=== PATIENT | male | born 1955 | race Caucasian/White ===

== ENCOUNTER → 2016-04-29 | Outpatient (CLI) | payer MEDICARE ==
--- NOTE | 2016-04-29 13:16 | XR ---
EXAMINATION TYPE: XR chest 2V DATE OF EXAM: 04/29/2016 1:08 PM COMPARISON: CT chest and abdomen July 26, 2015. HISTORY: Cough. TECHNIQUE: Frontal and lateral views of the chest are obtained. FINDINGS: There is no focal air space opacity, pleural effusion, or pneumothorax seen. The cardiac silhouette size is within normal limits. An ectatic thoracic aorta is redemonstrated. The osseous st ructures are demineralized. Surgical change left clavicle is redemonstrated. Pulmonary nodules seen o n CT are less well seen on plain film but appropriate nonemergent CT follow-up is advised as per [employer] recommendations IMPRESSION: No suspicious acute infiltrate. No significant change from prior.
== END | disposition home or self-care (01) ==
LOC: RADXRMAIN 12:59
PROVIDERS: ATTEND Internal Medicine
DX: R05 Cough (principal)
CPT/HCPCS: 71020

== ENCOUNTER 2018-12-23 11:30 | Emergency (ER) | payer MEDICARE ==
[2018-12-23] MEDS ORDERED: KETOROLAC 30 MG/ML 1 ML VIAL IM STA (12:09)
[2018-12-23] MEDS ORDERED: methylPREDNISolone SOD SUCCI 125 MG/2 ML VIAL IM ONE (12:09)
--- NOTE | 2018-12-23 12:10 | ED ---
General Adult HPI - General Chief complaint: Recheck/Abnormal Lab/Rx Stated complaint: pain all over Time Seen by Provider: 12/23/18 11:39 Source: patient, RN notes reviewed Mode of arrival: ambulatory Limitations: no limitations - History of Present Illness Initial comments: 63-year-old male with a past medical history of fibromyalgia, rheumatoid arthr itis presents to the emergency department for a chief complaint of pain all over. Patient states he has pain everywhere. States this consistent with his fibromyalgia. States he was told to follow-up with pain management but was only given options in [place] so has not yet done so. States he went to primary care for a steroid shot yesterday but they would not give it to him and he stated he needed to follow up with pain management. He states today he is here for a pain shot. Denies any other worsening symptoms. Denies any significant back pain. Denies fevers or chills. Patient has no other complaints at this time including shortness of breath, chest pain, abdominal pain, nausea or vomiting, headache, or visual changes. - Related Data Home Medications Medication Instructions Recorded Confirmed Pramipexole Di-HCl [Mirapex] 0.75 mg PO TID 06/04/15 08/25/15 Pregabalin [Lyrica] 75 mg PO BID 06/20/15 08/25/15 Previous Rx's Medication Instructions Recorded Lidocaine 5% Patch [Lidoderm] 1 patch TOPICAL DAILY PRN #1 patch 08/25/15 predniSONE 10 mg PO DIRECTED #47 tab 08/25/15 Allergies Allergy/AdvReac Type Severity Reaction Status Date / Time No Known Allergies Allergy Verified 12/23/18 11:37 Review of Systems ROS Statement: Those systems with pertinent positive or pertinent negative responses have been documented in the HPI. ROS Other: All systems not noted in ROS Statement are negative. Past Medical History Past Medical History: Fibromyalgia, Rheumatoid Arthritis (RA), Sleep Apnea/CPAP/BIPAP Additional Past Medical History / Comment(s): restless leg syndrome, shingles History of Any Multi-Drug Resistant Organisms: None Reported Past Surgical History: Orthopedic Surgery Additional Past Surgical History / Comment(s): skin CA removals Past Psychological History: Depression Smoking Status: Never smoker Past Alcohol Use History: Daily, Occasional Past Drug Use History: None Reported General Exam Limitations: no limitations General appearance: alert, in no apparent distress Head exam: Present: atraumatic, normocephalic, normal inspection Eye exam: Present: normal appearance, PERRL, EOMI. Absent: scleral icterus, conjunctival injection, periorbital swelling ENT exam: Present: normal exam, mucous membranes moist Neck exam: Present: normal inspection, full ROM. Absent: tenderness, meningismus, lymphadenopathy Respiratory exam: Present: normal lung sounds bilaterally. Absent: respiratory distress, wheezes, rales, rhonchi, stridor Cardiovascular Exam: Present: regular rate, normal rhythm, normal heart sounds. Absent: systolic murmur, diastolic murmur, rubs, gallop, clicks GI/Abdominal exam: Present: soft, normal bowel sounds. Absent: distended, tenderness, guarding, rebound, rigid Extremities exam: Present: other (Moving all extremities, no evidence of trauma.) Neurological exam: Present: alert, oriented X3, CN II-XII intact Psychiatric exam: Present: normal affect, normal mood Course Vital Signs 12/23/18 12/23/18 11:34 12:44 Temperature 99.4 F 98.9 F Pulse Rate 107 H 110 H Respiratory 18 16 Rate Blood Pressure 140/81 125/101 O2 Sat by Pulse 96 94 L Oximetry Medical Decision Making - Medical Decision Making 63-year-old male presents to the emergency department for a chief pain all over. States this feels exactly consistent with his fibromyalgia. States he is supposed to follow up with pain management but he does not want to drive down to [place] where he was referred. States his primary care will the longer give him a steroid shot because she wants him to see pain management. Patient's temperature is initially 99.4 however this rechecked 98.9, afebrile. Heart rate is 99 when I'm in the room. States he does feel anxious being in the emergency department. Exam is unremarkable. Patient moving all extremities. No abdominal pain. No cough or congestion. Patient was given Toradol and steroid shot. Feeling somewhat better at this time. I did give patient name to a pain management clinic here in [place]. However heis to follow up with primary care for this official referral. Recommended he return here if he is any worsening symptoms. Disposition Clinical Impression: Generalized pain, History of fibromyalgia Disposition: HOME SELF-CARE Condition: Good Instructions (If sedation given, give patient instructions): Fibromyalgia (ED) Additional Instructions: Please follow up with primary care in 1-2 days. Return here to the emergency department if you have any worsening symptoms. Is patient prescribed a controlled substance at d/c from ED?: No Referrals: Chris Fine MD [Primary Care Provider] - 1-2 days Time of Disposition: 13:05
[2018-12-23 12:46] VITALS: RESP 16; TEMP 98.9
[2018-12-23 13:46] VITALS: BP 148/73; PULSE 98
== END 2018-12-23 13:44 | disposition home or self-care (01) ==
LOC: EC 11:30
DX: M79.7 Fibromyalgia (principal); G25.81 Restless legs syndrome; G47.30 Sleep apnea, unspecified; Z99.89 Dependence on other enabling machines and devices; Z79.899 Other long term (current) drug therapy
CPT/HCPCS: 99283; 96372 ×2; J2930; J1885

== ENCOUNTER 2018-12-30 11:41 | Emergency (ER) | payer MEDICARE ==
[2018-12-30] MEDS ORDERED: SODIUM CHLORIDE 0.9% 500 ML 500 ML IV STA (12:33)
[2018-12-30] MEDS ORDERED: MORPHINE SULFATE 4 MG/ML SYRINGE IVP STA (12:34)
[2018-12-30] MEDS ORDERED: KETOROLAC 30 MG/ML 1 ML VIAL IVP STA (12:34)
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
--- NOTE | 2018-12-30 13:06 | ED ---
Recheck HPI - General Chief Complaint: Recheck/Abnormal Lab/Rx Stated Complaint: Hurts all over Time Seen by Provider: 12/30/18 12:05 Source: patient, RN notes reviewed, old records reviewed Mode of arrival: ambulatory Limitations: no limitations - History of Present Illness Initial Comments: This is a 63-year-old male the ER for evaluation. Patient presents today for evaluation of recheck medication refill. Patient has history of fibromyalgia and states pain medication currently. Patient was just in the ER recently for similar visit. No recent trauma no other complaints no fevers or nausea vomiting diarrhea. No other change in medication. Patient does have pain medication appointment this week MD Complaint: medication refill request -: week(s) Returns Today for: request for prescription Symptoms Since Prior Visit: worsening pain Context: ran out of medication Associated Symptoms: none Treatments Prior to Arrival: other medications - Related Data Home Medications Medication Instructions Recorded Confirmed Pramipexole Di-HCl [Mirapex] 0.75 mg PO TID 06/04/15 12/30/18 DULoxetine HCL [Cymbalta] 60 mg PO DAILY 12/30/18 12/30/18 Ibuprofen [Motrin Ib] 400 mg PO TID 12/30/18 12/30/18 Allergies Allergy/AdvReac Type Severity Reaction Status Date / Time No Known Allergies Allergy Verified 12/30/18 12:13 Review of Systems ROS Statement: Those systems with pertinent positive or pertinent negative responses have been documented in the HPI. ROS Other: All systems not noted in ROS Statement are negative. Past Medical History Past Medical History: Fibromyalgia, Rheumatoid Arthritis (RA), Sleep Apnea/CPAP/BIPAP Additional Past Medical History / Comment(s): restless leg syndrome, shingles History of Any Multi-Drug Resistant Organisms: None Reported Past Surgical History: Orthopedic Surgery Additional Past Surgical History / Comment(s): skin CA removals Past Psychological History: Depression Smoking Status: Never smoker Past Alcohol Use History: Daily, Occasional Past Drug Use History: None Reported General Exam Limitations: no limitations General appearance: alert, in no apparent distress Head exam: Present: atraumatic, normocephalic, normal inspection Eye exam: Present: normal appearance, PERRL, EOMI. Absent: scleral icterus, conjunctival injection, periorbital swelling ENT exam: Present: normal exam, mucous membranes moist Neck exam: Present: normal inspection. Absent: tenderness, meningismus, lymphadenopathy Respiratory exam: Present: normal lung sounds bilaterally. Absent: respiratory distress, wheezes, rales, rhonchi, stridor Cardiovascular Exam: Present: regular rate, normal rhythm, normal heart sounds. Absent: systolic murmur, diastolic murmur, rubs, gallop, clicks GI/Abdominal exam: Present: soft, normal bowel sounds. Absent: distended, tenderness, guarding, rebound, rigid Extremities exam: Present: normal inspection, full ROM, normal capillary refill. Absent: tenderness, pedal edema, joint swelling, calf tenderness Back exam: Present: normal inspection Neurological exam: Present: alert, oriented X3, CN II-XII intact Psychiatric exam: Present: normal affect, normal mood Skin exam: Present: warm, dry, intact, normal color. Absent: rash Course Vital Signs 12/30/18 11:48 Temperature 98.5 F Pulse Rate 107 H Respiratory 18 Rate Blood Pressure 155/89 O2 Sat by Pulse 95 Oximetry - Reevaluation(s) Reevaluation #1: 12/30/18 13:03 Medical record prior ER visit medication list reviewed Medical Decision Making - Medical Decision Making This 63 male the ER for evaluation of medication refill. Patient can be discharged home, will continue follow-up for pain control Disposition Clinical Impression: Generalized pain, History of fibromyalgia Disposition: HOME SELF-CARE Condition: Good Instructions (If sedation given, give patient instructions): Medicine Refill (ED) Is patient prescribed a controlled substance at d/c from ED?: No Referrals: Chris Fine MD [Primary Care Provider] - 1-2 days
[2018-12-30] MEDS ORDERED: ACET/COD 300 MG/30 MG STARTER PACK 6 TAB BTL PO STA (13:08)
[2018-12-30] MEDS ORDERED: Acetaminophen-Codeine 300-30mg TAB PO STA (13:08)
[2018-12-30 13:58] VITALS: BP 132/97; PULSE 103; RESP 16; TEMP 98.1
== END 2018-12-30 13:58 | disposition home or self-care (01) ==
LOC: EC 11:41
DX: Z76.0 Encounter for issue of repeat prescription (principal); R52 Pain, unspecified; M79.7 Fibromyalgia; F32.9 Major depressive disorder, single episode, unspecified; M06.9 Rheumatoid arthritis, unspecified; G25.81 Restless legs syndrome; G47.30 Sleep apnea, unspecified; Z79.1 Long term (current) use of non-steroidal anti-inflammatories (NSAID); Z79.899 Other long term (current) drug therapy; Z99.89 Dependence on other enabling machines and devices; Z85.828 Personal history of other malignant neoplasm of skin
CPT/HCPCS: 99283

== ENCOUNTER 2019-01-24 17:20 | Emergency (ER) | payer MEDICARE ==
[2019-01-24 17:29] VITALS: BP 172/100; PULSE 70; RESP 16; TEMP 99
--- NOTE | 2019-01-24 17:34 | ED ---
Recheck HPI - General Chief Complaint: Recheck/Abnormal Lab/Rx Stated Complaint: fibro pain Time Seen by Provider: 01/24/19 17:33 Source: patient Mode of arrival: ambulatory Limitations: no limitations - History of Present Illness Initial Comments: 63-year-old male diagnosed with hx of fibromyalgia presenting today for pain all over. Patient states he has sees Dr. neda morrison often. He states that steroids often help he states if he is given injection and a 5 day course of prednisone this helped alleviate his symptoms. Patient states he has been e valuated both [facility] as well as rheumatology import, she again and they have come up with a diagnosis of fibromyalgia. He states he is seeking a second opinion at the [facility]. Patient denies any new symptoms today he states this is very typical pain denies any new or concerning changes. Patient states it is from below the neck down denies any visual changes diplopia headache nausea vomiting dizziness. Patient denies any weakness new back pain. R control or any other concerning signs or symptoms. Denies fevers. Remaining ROS (-). - Related Data Home Medications Medication Instructions Recorded Confirmed Pramipexole Di-HCl [Mirapex] 0.75 mg PO TID 06/04/15 12/30/18 DULoxetine HCL [Cymbalta] 60 mg PO DAILY 12/30/18 12/30/18 Ibuprofen [Motrin Ib] 400 mg PO TID 12/30/18 12/30/18 Previous Rx's Medication Instructions Recorded Naproxen [Naprosyn] 500 mg PO Q12HR PRN #30 tab 12/30/18 predniSONE 50 mg PO DAILY #5 tab 12/30/18 predniSONE 50 mg PO DAILY 5 Days #5 tab 01/24/19 Allergies Allergy/AdvReac Type Severity Reaction Status Date / Time No Known Allergies Allergy Verified 12/30/18 12:13 Review of Systems ROS Statement: Those systems with pertinent positive or pertinent negative responses have been documented in the HPI. ROS Other: All systems not noted in ROS Statement are negative. Past Medical History Past Medical History: Fibromyalgia, Rheumatoid Arthritis (RA), Sleep Apnea/CPAP/BIPAP Additional Past Medical History / Comment(s): restless leg syndrome, shingles History of Any Multi-Drug Resistant Organisms: None Reported Past Surgical History: Orthopedic Surgery Additional Past Surgical History / Comment(s): skin CA removals Past Psychological History: Depression Smoking Status: Never smoker Past Alcohol Use History: Daily, Occasional Past Drug Use History: None Reported General Exam - General Exam Comments Initial Comments: General: The patient is awake and alert, in no distress Eye: Pupils are equal, round and reactive to light, extra-ocular movements are intact. No nystagmus. There is normal conjunctiva bilaterally. No signs of i cterus. Ears, nose, mouth and throat: There are moist mucous membranes and no oral lesions. Neck: The neck is supple, there is no tenderness or JVD. Cardiovascular: There is a regular rate and rhythm. No murmur, rub or gallop is appreciated. Respiratory: Lungs are clear to auscultation, respirations are non-labored, breath sounds are equal. No wheezes, stridor, rales, or rhonchi. Musculoskeletal: Normal ROM, no tenderness. Strength 5/5. Sensation intact. Radial pulses equal bilaterally 2+. Neurological: A&O x 3. CN II-XII intact grossly, There are no obvious motor or sensory deficits. Coordination appears grossly intact. Speech is normal. Skin: Skin is warm and dry and no rashes. Pain to palpation over UE, LE b/l. Psychiatric: Cooperative, appropriate mood & affect, normal judgment. Limitations: no limitations Course Vital Signs 01/24/19 17:28 Temperature 99.0 F Pulse Rate 70 Respiratory 16 Rate Blood Pressure 172/100 O2 Sat by Pulse 100 Oximetry Medical Decision Making - Medical Decision Making 63-year-old male history of fibromyalgia presents emergency department for chief complaint of fibromyalgia flare. Patient states this happens frequently. He states that this feels very typical to his recurrent might fibromyalgia exacerbations. He states is given steroids and this seems to help. Patient states he presented to the ER becasue he cannot wait until Friday for primary care. Patient has no other complaints. There is no alarming PE findings.. Patient states he was just like the IV injection and outpatient steroids. Patient appears well no signs acute distress. Patient does have elevated blood pressure he states this is due to discomfort denies any chest pain short of breath, headache dizziness or any other complaints. Patient discharged appearing well after discussing the case with Dr. Koo. Disposition Clinical Impression: Chronic pain, History of fibromyalgia Disposition: HOME SELF-CARE Condition: Good Additional Instructions: Please use medication as discussed. Please follow-up with family doctor in the next 2 days. Please return to emergency room if the symptoms increase or worsen or for any other concerns. Prescriptions: predniSONE 50 mg PO DAILY 5 Days #5 tab Is patient prescribed a controlled substance at d/c from ED?: No Referrals: Chris Fine MD [Primary Care Provider] - 1-2 days Time of Disposition: 17:43
[2019-01-24] MEDS ORDERED: methylPREDNISolone SOD SUCCI 125 MG/2 ML VIAL IM ONE (17:42)
== END 2019-01-24 18:02 | disposition home or self-care (01) ==
LOC: EC 17:20
DX: G89.29 Other chronic pain (principal); M79.7 Fibromyalgia; R03.0 Elevated blood-pressure reading, without diagnosis of hypertension; M06.9 Rheumatoid arthritis, unspecified; F32.9 Major depressive disorder, single episode, unspecified; G25.81 Restless legs syndrome; G47.30 Sleep apnea, unspecified; Z99.89 Dependence on other enabling machines and devices; Z79.1 Long term (current) use of non-steroidal anti-inflammatories (NSAID); Z79.899 Other long term (current) drug therapy; Z85.828 Personal history of other malignant neoplasm of skin
CPT/HCPCS: 96372; 99283; J2930

== ENCOUNTER → 2019-09-08 | Outpatient (CLI) | payer MEDICARE ==
--- NOTE | 2019-09-08 14:01 | NM ---
EXAMINATION TYPE: NM stress lexiscan cardiolite DATE OF EXAM: 09/08/2019 COMPARISON: NONE HISTORY: Chest pain and difficulty in breathing. TECHNIQUE: After the intravenous administration of 9.6 mCi Tc 99m Sestamibi - Cardiolite resting SPE CT images acquired 60 minutes post injection. The patient received 0.4mg Lexiscan, 25.9 mCi Tc 99m Sestamibi - Stress images obtained [address] injection FINDINGS: Review of stress and rest SPECT images demonstrates no distinct perfusion abnormality. Gated analysi s shows normal wall motion with an estimated left ventricular ejection fraction of 49 %. IMPRESSION: No scintigraphic evidence for reversible ischemia.
--- NOTE | 2019-09-08 16:42 | EST ---
EXERCISE STRESS AGE: 64 SEX: M HT: 5'11" WT: 194 lbs. PROTOCOL: Lexiscan STAGE: DURATION OF EXERCISE: HEART RATE REST: 71 BLOOD PRESSURE REST: 141/92 MAXIMUM HEART RATE ACHIEVED: 97 MAXIMUM BLOOD PRESSURE: 165/92 85% MPHR: 100% MPHR: METS: INDICATIONS: Chest pain, abnormal EKG. CLINICAL INFORMATION: Baseline EKG revealed normal sinus rhythm without any significant ST-T changes. Rare PVCs were noted. The PVCs were isolated in fashion. With Lexiscan admitted, administration heart rate changed from 71-97 beats per minute, blood pressure changed from 141/92 to 165/91. PVCs seemed to persist, but patient did not have any significant symptoms. By EKG criteria, this is unremarkable Lexiscan stress test with isolated PVCs. No ST-segment changes to indicate ischemia. The nuclear scan results, which are more pertinent will be reported by the radiologist. MMLESLIEL / IJN: [id number] /
== END | disposition home or self-care (01) ==
LOC: RADNMMAIN 07:59
PROVIDERS: ATTEND Internal Medicine
DX: R07.2 Precordial pain (principal); R94.31 Abnormal electrocardiogram [ECG] [EKG]
CPT/HCPCS: 93017; 78452; A9500

== ENCOUNTER 2020-03-04 13:01 | Emergency (ER) | payer MEDICARE ==
[2020-03-04 13:46] VITALS: TEMP 98.6
[2020-03-04] MEDS ORDERED: OXYMETAZOLINE 0.05% NASL SPRAY 1 SPRAY BOTTLE NASAL STA (14:48)
[2020-03-04 16:03] VITALS: BP 141/90; PULSE 63; RESP 18
--- NOTE | 2020-03-04 16:15 | ED ---
General Adult HPI - General Chief complaint: ENT Stated complaint: nose bleed Time Seen by Provider: 03/04/20 14:32 Source: patient, RN notes reviewed, old records reviewed Mode of arrival: ambulatory Limitations: no limitations - History of Present Illness Initial comments: 64-year-old male patient to ED for left epistaxis. Patient reports that it has been ongoing waxing and waning since about 10:00 this morning. Denies any recent falls or trauma. Denies any bleeding from any other areas. Denies any other complaints. Systemic: Pt denies fatigue, fever/chills, rash. Pt denies weakness, night sweats, weight loss. Neuro: Pt denies headache, visual disturbances, syncope or pre-syncope. HEENT: Pt denies ocular discharge or irritation, otalgia, rhinorrhea, pharyngitis or notable lymphadenopathy. Cardiopulmonary: Pt denies chest pain, SOB, heart palpitations, dyspnea on exertion. Abdominal/GI: Pt denies abdominal pain, n/v/d. : Pt denies dysuria, burning w/ urination, frequency/urgency. Denies new onset urinary or bowel incontinence. MSK: Pt denies myalgia, loss of strength or function in extremities. Neuro: Pt denies new onset weakness, paresthesias. - Related Data Home Medications Medication Instructions Recorded Confirmed Pramipexole Di-HCl [Mirapex] 0.75 mg PO TID 06/04/15 12/30/18 DULoxetine HCL [Cymbalta] 60 mg PO DAILY 12/30/18 12/30/18 Ibuprofen [Motrin Ib] 400 mg PO TID 12/30/18 12/30/18 Previous Rx's Medication Instructions Recorded Naproxen [Naprosyn] 500 mg PO Q12HR PRN #30 tab 12/30/18 predniSONE 50 mg PO DAILY #5 tab 12/30/18 predniSONE 50 mg PO DAILY 5 Days #5 tab 01/24/19 Allergies Allergy/AdvReac Type Severity Reaction Status Date / Time No Known Allergies Allergy Verified 03/04/20 13:46 Review of Systems ROS Statement: Those systems with pertinent positive or pertinent negative responses have been documented in the HPI. ROS Other: All systems not noted in ROS Statement are negative. Past Medical History Past Medical History: Fibromyalgia, Rheumatoid Arthritis (RA), Sleep Apnea/CPAP/BIPAP Additional Past Medical History / Comment(s): restless leg syndrome, shingles History of Any Multi-Drug Resistant Organisms: None Reported Past Surgical History: Orthopedic Surgery Additional Past Surgical History / Comment(s): skin CA removals Past Psychological History: Depression Smoking Status: Never smoker Past Alcohol Use History: Daily, Occasional Past Drug Use History: None Reported General Exam - General Exam Comments Initial Comments: Constitutional: NAD, AOX3, Pt has pleasant affect. HEENT: NC/AT, trachea midline, neck supple, no lymphadenopathy. Posterior pharynx non erythematous, without exudates. External ears appear normal, without discharge. Mucous membranes moist. Eyes PERRLA, EOM intact. There is no scleral icterus. No pallor noted. No septal hematoma and no active bleeding noted. Cardiopulmonary: RRR, no murmurs, rubs or gallops, no JVD noted. Lungs CTAB in anterior and posterior [place]. No peripheral edema. Abdominal exam: Abdomen soft and non-distended. Abdomen non-tender to palpation in all 4 quadrants. Bowel sounds active in LLQ. No hepatosplenomegaly. No ecchymosis Neuro: CN II-XII grossly intact. No nuchal rigidity. MSK: Full active ROM in upper and lower extremities, 5/5 stregnth. Limitations: no limitations Course Vital Signs 03/04/20 03/04/20 13:44 16:02 Temperature 98.6 F Pulse Rate 53 L 63 Respiratory 20 18 Rate Blood Pressure 146/90 141/90 O2 Sat by Pulse 96 99 Oximetry Medical Decision Making - Medical Decision Making 64-year-old male patient to ED for left epistaxis. I do believe this is anterior in nature. Vital signs are stable, afebrile. Hemostasis achieved with Afrin nasal clamp. No active bleeding. Patient discharged with outpatient follow-up and return precautions. Case discussed with Dr. Underwood. Disposition Clinical Impression: Epistaxis Disposition: HOME SELF-CARE Condition: Stable Instructions (If sedation given, give patient instructions): Nosebleed (ED) Additional Instructions: Follow up with PCP tomorrow. If nosebleed returns you may use one spray of afrin in the affected nostril and then nasal clamp for 30 minutes. If this does not work return to ED for packing. If any other new concerning symptoms develop return to ED. Is patient prescribed a controlled substance at d/c from ED?: No Referrals: Rohan Eid MD [Primary Care Provider] - 1-2 days
== END 2020-03-04 16:20 | disposition home or self-care (01) ==
LOC: EC 13:01
DX: R04.0 Epistaxis (principal); M79.7 Fibromyalgia; M06.9 Rheumatoid arthritis, unspecified; G25.81 Restless legs syndrome; G47.30 Sleep apnea, unspecified; F32.9 Major depressive disorder, single episode, unspecified; Z79.899 Other long term (current) drug therapy; Z79.1 Long term (current) use of non-steroidal anti-inflammatories (NSAID); Z99.89 Dependence on other enabling machines and devices; Z85.828 Personal history of other malignant neoplasm of skin
CPT/HCPCS: 99283

== ENCOUNTER 2020-04-14 12:32 | Observation (INO) | payer MEDICARE ==
[2020-04-14] MEDS ORDERED: SODIUM CHLORIDE 0.9% 1,000 ML IV ONE (12:55)
--- NOTE | 2020-04-14 12:58 | ED ---
SOB HPI - General Chief Complaint: Shortness of Breath Stated Complaint: SOB Time Seen by Provider: 04/14/20 12:42 Source: patient, RN notes reviewed, old records reviewed Mode of arrival: ambulatory Limitations: no limitations - History of Present Illness Initial Comments: This Patient is a 64-year-old male with one week of fatigue and poor appetite, d iarrhea, shortness of breath. Patient states his loss of sense of taste. Patient reports that he has history of rheumatoid arthritis recently finished a steroid taper 4 days ago. Patient denies any current chest pain. Denies abdominal pain. Just feels generally very weak and fatigued. He denies any known exposure to Covid 19 infection at this time. - Related Data Home Medications Medication Instructions Recorded Confirmed Pramipexole Di-HCl [Mirapex] 0.75 mg PO TID 06/04/15 04/14/20 Escitalopram [Lexapro] 20 mg PO DAILY 04/14/20 04/14/20 Gabapentin [Neurontin] 400 mg PO BID 04/14/20 04/14/20 Ibuprofen [Motrin] 800 mg PO Q8H PRN 04/14/20 04/14/20 Leflunomide 20 mg PO DAILY 04/14/20 04/14/20 predniSONE 20 mg PO DIRECTED 04/14/20 04/14/20 traZODone HCL 100 mg PO HS PRN 04/14/20 04/14/20 Allergies Allergy/AdvReac Type Severity Reaction Status Date / Time No Known Allergies Allergy Verified 04/14/20 13:33 Review of Systems ROS Statement: Those systems with pertinent positive or pertinent negative responses have been documented in the HPI. ROS Other: All systems not noted in ROS Statement are negative. Past Medical History Past Medical History: Fibromyalgia, Rheumatoid Arthritis (RA), Sleep Apnea/CPAP/BIPAP Additional Past Medical History / Comment(s): restless leg syndrome, shingles History of Any Multi-Drug Resistant Organisms: None Reported Past Surgical History: Orthopedic Surgery Additional Past Surgical History / Comment(s): skin CA removals Past Psychological History: Depression Smoking Status: Never smoker Past Alcohol Use History: Daily, Occasional Past Drug Use History: None Reported General Exam - General Exam Comments Initial Comments: Weak 64-year-old male. Limitations: no limitations General appearance: alert, in no apparent distress Head exam: Present: atraumatic, normocephalic, normal inspection Eye exam: Present: normal appearance, PERRL, EOMI. Absent: scleral icterus, conjunctival injection, periorbital swelling ENT exam: Present: normal exam, mucous membranes moist Neck exam: Present: normal inspection. Absent: tenderness, meningismus, lymphadenopathy Respiratory exam: Present: wheezes. Absent: normal lung sounds bilaterally, respiratory distress, rales, rhonchi, stridor Cardiovascular Exam: Present: regular rate, normal rhythm, normal heart sounds. Absent: systolic murmur, diastolic murmur, rubs, gallop, clicks GI/Abdominal exam: Present: soft, normal bowel sounds. Absent: distended, tenderness, guarding, rebound, rigid Back exam: Present: normal inspection Neurological exam: Present: alert, oriented X3, CN II-XII intact Psychiatric exam: Present: normal affect, normal mood Skin exam: Present: warm, dry, intact, normal color. Absent: rash Course Vital Signs 04/14/20 04/14/20 12:35 13:08 Temperature 99 F Pulse Rate 60 Respiratory 18 16 Rate Blood Pressure 171/114 O2 Sat by Pulse 98 Oximetry Medical Decision Making - Medical Decision Making 64-year-old male presents with cough shortness of breath wheezing. He complains of nausea and poor appetite. Feeling generally weak. Patient's symptoms are concerning for [place]. Infection however his rapid test is negative. Patient's labs reviewed and mildly elevated CRP. The Patient has conversation his oxygen will dipped to 89-90% on room air. Was placed on 2 L of oxygen. He has a history of rheumatoid arthritis on immunosuppressive medication. Patient's chest x-ray shows concern for groundglass opacities. A CT was completed showing no signs of PE. I discussed the case with Dr. Shelton discussed case with [facility] [place] physician. Patient will be admitted at this time for observation, placed on steroids, rocephin. - Lab Data Result diagrams: 04/14/20 13:02 04/14/20 13:02 Lab Results 04/14/20 04/14/20 04/14/20 Range/Units 13: 13: 13:02 WBC 5.0 (3.8-10.6) k/uL RBC 4.65 (4.30-5.90) m/uL Hgb 14.5 (13.0-17.5) gm/dL Hct 43.1 (39.0-53.0) % MCV 92.7 (80.0-100.0) fL MCH 31.2 (25.0-35.0) pg MCHC 33.6 (31.0-37.0) g/dL RDW 14.1 (11.5-15.5) % Plt Count 285 (150-450) k/uL MPV 6.5 Neutrophils % 69 % Lymphocytes % 13 % Monocytes % 8 % Eosinophils % 4 % Basophils % 3 % Neutrophils # 3.4 (1.3-7.7) k/uL Lymphocytes # 0.6 L (1.0-4.8) k/uL Monocytes # 0.4 (0-1.0) k/uL Eosinophils # 0.2 (0-0.7) k/uL Basophils # 0.1 (0-0.2) k/uL PT 9.5 (9.0-12.0) sec INR 0.9 (<1.2) APTT 26.4 (22.0-30.0) sec D-Dimer 1.16 H (<0.60) mg/L FEU Sodium 135 L (137-145) mmol/L Potassium 4.0 (3.5-5.1) mmol/L Chloride 103 (98-107) mmol/L Carbon Dioxide 27 (22-30) mmol/L Anion Gap 5 mmol/L BUN 12 (9-20) mg/dL Creatinine 0.86 (0.66-1.25) mg/dL Est GFR (CKD-EPI)AfAm >90 (>60 ml/min/1.73 sqM) Est GFR (CKD-EPI)NonAf >90 (>60 ml/min/1.73 sqM) Glucose 156 H (74-99) mg/dL Plasma Lactic Acid Evin (0.7-2.0) mmol/L Calcium 9.7 (8.4-10.2) mg/dL Magnesium 2.0 (1.6-2.3) mg/dL Total Bilirubin 0.9 (0.2-1.3) mg/dL AST 41 (17-59) U/L ALT 30 (4-49) U/L Alkaline Phosphatase 114 (38-126) U/L Lactate Dehydrogenase 856 H (313-618) U/L C-Reactive Protein 27.2 H (<10.0) mg/L Total Protein 7.6 (6.3-8.2) g/dL Albumin 3.9 (3.5-5.0) g/dL Coronavirus (PCR) (Not Detectd) 04/14/20 04/14/20 Range/Units 13:02 13:05 WBC (3.8-10.6) k/uL RBC (4.30-5.90) m/uL Hgb (13.0-17.5) gm/dL Hct (39.0-53.0) % MCV (80.0-100.0) fL MCH (25.0-35.0) pg MCHC (31.0-37.0) g/dL RDW (11.5-15.5) % Plt Count (150-450) k/uL MPV Neutrophils % % Lymphocytes % % Monocytes % % Eosinophils % % Basophils % % Neutrophils # (1.3-7.7) k/uL Lymphocytes # (1.0-4.8) k/uL Monocytes # (0-1.0) k/uL Eosinophils # (0-0.7) k/uL Basophils # (0-0.2) k/uL PT (9.0-12.0) sec INR (<1.2) APTT (22.0-30.0) sec D-Dimer (<0.60) mg/L FEU Sodium (137-145) mmol/L Potassium (3.5-5.1) mmol/L Chloride (98-107) mmol/L Carbon Dioxide (22-30) mmol/L Anion Gap mmol/L BUN (9-20) mg/dL Creatinine (0.66-1.25) mg/dL Est GFR (CKD-EPI)AfAm (>60 ml/min/1.73 sqM) Est GFR (CKD-EPI)NonAf (>60 ml/min/1.73 sqM) Glucose (74-99) mg/dL Plasma Lactic Acid Evin 1.3 (0.7-2.0) mmol/L Calcium (8.4-10.2) mg/dL Magnesium (1.6-2.3) mg/dL Total Bilirubin (0.2-1.3) mg/dL AST (17-59) U/L ALT (4-49) U/L Alkaline Phosphatase (38-126) U/L Lactate Dehydrogenase (313-618) U/L C-Reactive Protein (<10.0) mg/L Total Protein (6.3-8.2) g/dL Albumin (3.5-5.0) g/dL Coronavirus (PCR) Not Detected (Not Detectd) 04/14/20 13:09 Patient's age performed at [age] and showed sinus tachycardia with occasional PACs left axis deviation. Possible anterior infarct. Ventricular rate of 113 bpm.. Was 126 ms. QRS duration is 86 seconds. QT QTc is 24/444 ms. - Radiology Data Radiology results: report reviewed Patchy opacities in the mid lower lungs and air for the infectious or inflammatory etiology. CT shows no pulmonary embolus identified. No aortic dissection. Ectasia of the ascending aorta measuring 4.5 cm. Patchy groundglass opacities and densities t hroughout the lungs concerning for infectious and inflammatory process. No specific stable small nodules in the right lower lobe measuring 9 mm Disposition Clinical Impression: Suspected COVID-19 virus infection, Ground glass opacity present on imaging of lung, Hypoxia Disposition: ADMITTED IP TO THIS HOSP Condition: Stable Is patient prescribed a controlled substance at d/c from ED?: No Referrals: Rohan Eid MD [Primary Care Provider] - 1-2 days Time of Disposition: 15:43
[2020-04-14 13:13] LABS: Basophils # (A) 0.1 k/uL (0-0.2); Basophils % (A) 3 %; Eosinophils # (A) 0.2 k/uL (0-0.7); Eosinophils % (A) 4 %; HCT 43.1 % (39.0-53.0); HGB 14.5 gm/dL (13.0-17.5); Lymphocytes # (A) 0.6 k/uL (1.0-4.8); Lymphocytes % (A) 13 %; MCH 31.2 pg (25.0-35.0); MCHC 33.6 g/dL (31.0-37.0); MCV 92.7 fL (80.0-100.0); Mean Platelet Volume 6.5; Monocytes # (A) 0.4 k/uL (0-1.0); Monocytes % (A) 8 %; Neutrophils # (A) 3.4 k/uL (1.3-7.7); Neutrophils % (A) 69 %; Platelet Count 285 k/uL (150-450); RBC 4.65 m/uL (4.30-5.90); RDW 14.1 % (11.5-15.5)
[2020-04-14] MEDS: SODIUM CHLORIDE 0.9% 1,000 ML IV SCH ×2 (13:16→19:48)
[2020-04-14 13:26] LABS: ALT 30 U/L (4-49); African American GFR (CKD) >90 (>60 ml/min/1.73 sqM); Albumin 3.9 g/dL (3.5-5.0); Anion Gap 5 mmol/L; Blood Urea Nitrogen 12 mg/dL (9-20); C Reactive Protein 27.2 mg/L (<10.0); Calcium 9.7 mg/dL (8.4-10.2); Carbon Dioxide 27 mmol/L (22-30); Chloride 103 mmol/L (98-107); Glucose 156 mg/dL (74-99); LDH 856 U/L (313-618); Non-African American GFR(CKD) >90 (>60 ml/min/1.73 sqM); Sodium 135 mmol/L (137-145); Total Bilirubin 0.9 mg/dL (0.2-1.3); Total Protein 7.6 g/dL (6.3-8.2)
[2020-04-14 13:28] LABS: INR 0.9 (<1.2); Partial Thromboplastin Time 26.4 sec (22.0-30.0); Prothrombin Time 9.5 sec (9.0-12.0)
[2020-04-14 13:32] LABS: AST 41 U/L (17-59); Alkaline Phosphatase 114 U/L (38-126)
--- NOTE | 2020-04-14 13:48 | XR ---
EXAM: XR Chest, 1 View CLINICAL HISTORY: ITS.REASON XR Reason: Suspected COVID-19 pneumonia TECHNIQUE: Frontal view of the chest. COMPARISON: Chest radiograph on 04/29/2016 FINDINGS: Hardware: None. Lungs/pleura: Patchy opacities in the mid and lower lungs. No pleural effusion or pneumothorax. Heart/mediastinum: Borderline size of the cardiac silhouette. Soft tissues: Unremarkable. Bones: No acute fracture. Plate and screw fixation of the left clavicle. Upper abdomen: Normal. IMPRESSION: Patchy opacities in the mid and lower lungs may represent an infectious/inflammatory process.
--- NOTE | 2020-04-14 14:49 | CT ---
EXAM: CT Angiography Chest With Intravenous Contrast CLINICAL HISTORY: ITS.REASON CT Reason: positive d-dimer TECHNIQUE: Axial computed tomographic angiography images of the chest with intravenous contrast. CTDI is 16 mGy and DLP is 369.3 mGy-cm. This CT exam was performed using one or more of the following dose reduction techniques: automated exposure control, adjustment of the mA and/or kV according to patient size, and/or use of iterative reconstruction technique. MIP reconstructed images were created and reviewed. COMPARISON: CT chest and abdomen on 07/26/2015 FINDINGS: Pulmonary arteries: No pulmonary embolus identified. Aorta: No aortic or dissection. Ectasia of the ascending aorta, measuring 4.5 cm in diameter. Lungs: Patchy ground-glass opacities and densities throughout the lungs, concerning for an infectious/inflammatory process. Nonspecific stable small nodules in the right lower lobe, measuring up to 9 mm. Mild scarring at the lung apices. Pleural space: Unremarkable. No significant effusion. No pneumothorax. Heart: Unremarkable. No cardiomegaly. No significant pericardial effusion. No evidence of RV dysfunction. Mediastinum: Nonspecific mildly prominent mediastinal and hilar lymph nodes. Bones/joints: Degenerative changes of the spine. No acute fracture. No dislocation. Soft tissues: Unremarkable. Lymph nodes: Unremarkable. No enlarged lymph nodes. IMPRESSION: 1. No pulmonary embolus identified. 2. No aortic or dissection. Ectasia of the ascending aorta, measuring 4. 5 cm in diameter. 3. Patchy ground-glass opacities and densities throughout the lungs, concerning for an infectious/inflammatory process. 4. Nonspecific stable small nodules in the right lower lobe, measuring up to 9 mm.
[2020-04-14] MEDS ORDERED: NALOXONE 0.4 MG/ML 1 ML VIAL IV PRN (15:43)
[2020-04-14] MEDS ORDERED: IBUPROFEN 400 MG TAB PO PRN (15:43)
[2020-04-14] MEDS ORDERED: KETOROLAC 15 MG/ML 1 ML VIAL IVP PRN (15:43)
[2020-04-14] MEDS ORDERED: MORPHINE SULFATE 4 MG/ML SYRINGE IV PRN (15:43)
[2020-04-14] MEDS ORDERED: ONDANSETRON 4 MG/2 ML VIAL IVP PRN (15:43)
[2020-04-14] MEDS ORDERED: ALBUTEROL HFA INHALER INHALATION STA (15:46)
--- NOTE | 2020-04-14 16:39 | P.HPIM ---
History of Present Illness H&P Date: 04/14/20 Chief Complaint: CC: Shorntess of breath Patient is a 64-year-old male with past medical history of rheumatoid arthritis and fibromyalgia who presents to the ED with shortness of breath that has been worsening over the past 2 weeks. Patient also states that he has a poor appetite because his food tastes bad and he also complains of fatigue. Patient also states he has diarrhea with 4-5 loose bowel movements a day. In the ED patient was hypoxic with conversation at 89% on RA. CTA chest was negative for pulmonary embolism however showed patchy groundglass opacities throughout the lungs. Patient's COVID PCR was negative. He was started on IV azithromycin and ceftriaxone for possible community-acquired pneumonia. Of note patient recently completed steroid course for rheumatoid arthritis flareup. Review of Systems 10 ROS reviewed and are negative except as noted in HPI Past Medical History Past Medical History: Fibromyalgia, Rheumatoid Arthritis (RA), Sleep Apnea/CPAP/BIPAP Additional Past Medical History / Comment(s): restless leg syndrome, shingles History of Any Multi-Drug Resistant Organisms: None Reported Past Surgical History: Orthopedic Surgery Additional Past Surgical History / Comment(s): skin CA removals Past Psychological History: Depression Smoking Status: Never smoker Past Alcohol Use History: Daily, Occasional Past Drug Use History: None Reported Medications and Allergies Home Medications Medication Instructions Recorded Confirmed Type Pramipexole Di-HCl [Mirapex] 0.75 mg PO TID 06/04/15 04/14/20 History Escitalopram [Lexapro] 20 mg PO DAILY 04/14/20 04/14/20 History Gabapentin [Neurontin] 400 mg PO BID 04/14/20 04/14/20 History Ibuprofen [Motrin] 800 mg PO Q8H PRN 04/14/20 04/14/20 History Leflunomide 20 mg PO DAILY 04/14/20 04/14/20 History predniSONE 20 mg PO DIRECTED 04/14/20 04/14/20 History traZODone HCL 100 mg PO HS PRN 04/14/20 04/14/20 History Allergies Allergy/AdvReac Type Severity Reaction Status Date / Time No Known Allergies Allergy Verified 04/14/20 13:33 Physical Exam Osteopathic Statement: *. No significant issues noted on an osteopathic struc tural exam other than those noted in the History and Physical/Consult. Vitals: Vital Signs Temp Pulse Resp BP Pulse Ox 04/14/20 16:03 104 H 18 149/90 99 04/14/20 13:08 16 04/14/20 12:35 99 F 60 18 171/114 98 Intake and Output 04/14/20 04/14/20 04/14/20 06:59 14:59 22:59 Intake Total 300 Balance 300 Intake: IV 300 Sodium Chloride 0.9% 1, 300 000 ml @ 100 mls/hr IV . Q10H [facility] Rx#:[id number] Other: Weight 87.543 kg General: [Alert and oriented, well nourished, no acute distress]. Eye: [PERRL, EOMI, normal conjunctiva]. HENT: [Normocephalic, clear tympanic membranes, normal hearing, moist oral mucosa, no scleral icterus, no sinus tenderness]. Neck: [Supple, non-tender, no carotid bruits, no JVD, no lymphadenopathy]. Lungs: [Diminished breath sounds bilaterally, non-labored respiration]. Heart: [Normal rate, regular rhythm, no murmur, gallop or edema]. Abdomen: [Soft, non-tender, non-distended, normal bowel sounds, no masses]. Musculoskeletal: [Normal range of motion and strength, no tenderness or swelling]. Skin: [Skin is warm, dry and pink, no rashes or lesions]. Neurologic: [Awake, alert, and oriented X3, CN II-XII intact]. Psychiatric: [Cooperative, appropriate mood and affect]. Results CBC & Chem 7: 04/14/20 13:02 04/14/20 13:02 Labs: Abnormal Lab Results - Last 24 Hours (Table) 04/14/20 04/14/20 04/14/20 Range/Units 13:02 13:02 13:02 Lymphocytes # 0.6 L (1.0-4.8) k/uL D-Dimer 1.16 H (<0.60) mg/L FEU Sodium 135 L (137-145) mmol/L Glucose 156 H (74-99) mg/dL Lactate Dehydrogenase 856 H (313-618) U/L C-Reactive Protein 27.2 H (<10.0) mg/L Assessment and Plan Assessment: #Bilateral groundglass opacities concerning for community acquired pneumonia versus Covid 19 pneumonia -Covid 19 PCR was negative however patient has associated symptoms of diarrhea and loss of taste which would suggest possible false negative; recheck Covid 19 PCR -We will start patient on dexamethasone -Patient is out of window for remdesivir (symptoms started 2 weeks ago) -We'll start patient on IV ceftriaxone and azithromycin -D-dimer is elevated -> CTA chest negative for pulmonary embolism -Lovenox 40 mg subcu every 12 hours -Hold Motrin which patient was taking for RA -CRP and LDH elevated; pro-calcitonin and ferritin pending -Consult pulmonology -O2 supplement as needed -Airborn isolation #Acute diarrhea -Check C. diff if negative will start patient on Imodium #Accidental finding of ectasia of ascending aorta: Follow-up of patient with PCP to monitor. This was discussed with the patient #Rheumatoid arthritis -Hold Leflunomide until the acute illness is resolved #Fibromyalgia -Resume home meds CODE STATUS:full code DVT prophylaxis: Lovenox Discussed with: Patient, ER, rn Anticipated length of stay > than [address]: home A total of 75 minutes was spent on the care of this complex patient more than 50% of the time was spent in counseling and care coordination.
[2020-04-14 17:06] LABS: Ferritin 190.7 ng/mL (22.0-322.0)
[2020-04-14] MEDS: ACETAMINOPHEN TAB 325 MG TAB PO PRN (19:36)
[2020-04-14] MEDS: PRAMIPEXOLE 0.25 MG TAB PO SCH (19:36)
[2020-04-14] MEDS: traZODone HCL 100 MG TAB PO PRN (19:36)
[2020-04-14] MEDS: GABAPENTIN 400 MG CAP PO SCH (19:36)
[2020-04-14] MEDS: ENOXAPARIN 40 MG/0.4 ML SYRINGE SQ SCH (19:37)
[2020-04-15 06:32] LABS: Basophils # (A) 0.1 k/uL (0-0.2); Basophils % (A) 3 %; Eosinophils # (A) 0.2 k/uL (0-0.7); Eosinophils % (A) 6 %; HCT 39.4 % (39.0-53.0); HGB 12.7 gm/dL (13.0-17.5); Lymphocytes # (A) 0.5 k/uL (1.0-4.8); Lymphocytes % (A) 14 %; MCH 30.8 pg (25.0-35.0); MCHC 32.3 g/dL (31.0-37.0); MCV 95.4 fL (80.0-100.0); Mean Platelet Volume 6.5; Monocytes # (A) 0.4 k/uL (0-1.0); Monocytes % (A) 11 %; Neutrophils # (A) 2.3 k/uL (1.3-7.7); Neutrophils % (A) 62 %; Platelet Count 230 k/uL (150-450); RBC 4.13 m/uL (4.30-5.90); RDW 14.1 % (11.5-15.5); WBC 3.8 k/uL (3.8-10.6)
[2020-04-15] MEDS: ALBUTEROL HFA INHALER INHALATION PRN ×3 (08:21→16:03)
[2020-04-15] MEDS ORDERED: DEXAMETHASONE SOD PHOSPHATE 10 MG/ML 1 ML VIAL IV SCH (09:00)
[2020-04-15] MEDS: PANTOPRAZOLE 40 MG/10 ML VIAL IV SCH (09:02)
[2020-04-15] MEDS: GABAPENTIN 400 MG CAP PO SCH ×2 (09:02→21:39)
[2020-04-15] MEDS: PRAMIPEXOLE 0.25 MG TAB PO SCH ×3 (09:02→21:39)
[2020-04-15] MEDS: ESCITALOPRAM 20 MG TAB PO SCH (09:02)
[2020-04-15] MEDS: ENOXAPARIN 40 MG/0.4 ML SYRINGE SQ SCH ×2 (09:03→21:39)
[2020-04-15] MEDS: SODIUM CHLORIDE 0.9% 1,000 ML IV SCH ×2 (09:03→17:46)
[2020-04-15] MEDS: ACETAMINOPHEN TAB 325 MG TAB PO PRN ×2 (09:09→14:53)
[2020-04-15 09:42] LABS: African American GFR (CKD) 107.9 (60.0-200.0); Albumin 3.5 g/dL (3.80-4.90); Albumin/Globulin Ratio 1.75 (1.60-3.17); Anion Gap 5.9 mmol/L (4.00-12.00); BUN/Creat Ratio 13.75 Ratio (12.00-20.00); Calcium 8.4 mg/dL (8.7-10.3); Carbon Dioxide 28.1 mmol/L (21.6-31.8); Non-African American GFR(CKD) 93.1 (60.0-200.0); Potassium 4.3 mmol/L (3.5-5.5); Total Bilirubin 0.4 mg/dL (0.2-1.2); Total Protein 5.5 g/dL (6.2-8.2)
--- NOTE | 2020-04-15 10:54 | P.PN ---
Subjective Progress Note Date: 04/15/20 Principal diagnosis: CC: SOB Patient states that his shortness of breath is the same as yesterday. He is currently satting well on 3 L nasal cannula. Objective - Vital Signs Vital signs: Vital Signs Temp 98.1 F 04/15/20 05:49 Pulse 87 04/15/20 05:49 Resp 18 04/14/20 20:00 BP 150/103 04/15/20 05:49 Pulse Ox 99 04/15/20 05:49 Intake & Output 04/14/20 04/15/20 04/15/20 18:59 06:59 18:59 Intake Total 300 Output Total 200 Balance 300 -200 Weight 87.543 kg Intake: IV 300 Sodium Chloride 0.9% 1, 300 000 ml @ 100 mls/hr IV . 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 Psych - Calm and cooperative - Labs CBC & Chem 7: 04/15/20 05:52 04/15/20 05:52 Labs: Abnormal Lab Results - Last 24 Hours (Table) 04/14/20 04/14/20 04/14/20 Range/Units 13:02 13:02 13:02 RBC (4.30-5.90) m/uL Hgb (13.0-17.5) gm/dL Lymphocytes # 0.6 L (1.0-4.8) k/uL D-Dimer 1.16 H (<0.60) mg/L FEU Sodium 135 L (137-145) mmol/L Glucose 156 H (74-99) mg/dL Calcium (8.7-10.3) mg/dL Lactate Dehydrogenase 856 H (313-618) U/L C-Reactive Protein 27.2 H (<10.0) mg/L Total Protein (6.2-8.2) g/dL Albumin (3.80-4.90) g/dL Procalcitonin (0.02-0.09) ng/mL 04/14/20 04/15/20 04/15/20 Range/Units 13:02 05:52 05:52 RBC 4.13 L (4.30-5.90) m/uL Hgb 12.7 L (13.0-17.5) gm/dL Lymphocytes # 0.5 L (1.0-4.8) k/uL D-Dimer (<0.60) mg/L FEU Sodium (137-145) mmol/L Glucose 121 H (74-99) mg/dL Calcium 8.4 L (8.7-10.3) mg/dL Lactate Dehydrogenase (313-618) U/L C-Reactive Protein (<10.0) mg/L Total Protein 5.5 L (6.2-8.2) g/dL Albumin 3.50 L (3.80-4.90) g/dL Procalcitonin 0.13 H (0.02-0.09) ng/mL Assessment and Plan Assessment: #Bilateral groundglass opacities concerning for community acquired pneumonia versus Covid 19 pneumonia -Covid 19 PCR was negative however patient has associated symptoms of diarrhea and loss of taste which would suggest possible false negative; recheck Covid 19 PCR -We will start patient on dexamethasone -Patient is out of window for remdesivir (symptoms started 2 weeks ago) -We'll start patient on IV ceftriaxone and azithromycin -D-dimer is elevated -> CTA chest negative for pulmonary embolism -Lovenox 40 mg subcu every 12 hours -Hold Motrin which patient was taking for RA -CRP and LDH elevated; [place], mildly elevated -Consult pulmonology -O2 supplement as needed -Airborn isolation -Patient currently satting well on 3 L nasal cannula #Acute diarrhea -Check C. diff if negative will start patient on Imodium #Accidental finding of ectasia of ascending aorta: Follow-up of patient with PCP to monitor. This was discussed with the patient #Rheumatoid arthritis -Hold Leflunomide until the acute illness is resolved #Fibromyalgia -Resume home meds CODE STATUS:full code DVT prophylaxis: Lovenox Discussed with: Patient, ER, rn Anticipated length of stay > than [address]: home A total of 75 minutes was spent on the care of this complex patient more than 50% of the time was spent in counseling and care coordination.
--- NOTE | 2020-04-15 13:30 | CONS ---
CONSULTATION PULMONARY/CRITICAL CARE CONSULTATION NOTE: DATE OF SERVICE: April 15, 2020 REASON FOR CONSULTATION: Shortness of breath. HISTORY OF PRESENT ILLNESS: This is a 64-year-old male who we are seeing in consultation. He apparently was seen initially in the emergency room. His primary care physician is Dr. Robledo who is replacement for Dr. Fine. Over the last 6 or 7 days or so, he has been complaining of feeling weak. He has had poor appetite. He has had some nausea with diarrhea and some mild shortness of breath. He also has a mild nonproductive cough and loss of sense of taste. The patient was thought to have a Covid infection, but he has had two Covid tests and both have been negative. He has a history of rheumatoid arthritis and recently finished a steroid taper some 4 days ago. He denies any chest pain or chest discomfort. He denies any abdominal pain. There was no vomiting. There are no genitourinary complaints. The patient denies any fever or chills. Currently, he is feeling about the same today as he did when he came in yesterday to the emergency room. HOME MEDICATIONS: Include Mirapex, Lexapro, Neurontin, Motrin, Leflunomide, prednisone and trazodone. ALLERGIES: Denied. MEDICAL HISTORY: Positive for rheumatoid arthritis, fibromyalgia, restless legs syndrome, shingles, and sleep apnea syndrome for which he uses CPAP. SURGICAL HISTORY: Includes skin cancer removal and some orthopedic procedures. SOCIAL HISTORY: Negative tobacco. He drinks alcohol occasionally. He never has had any illicit drug use. FAMILY HISTORY: Noncontributory. Both mother and father apparently were healthy. REVIEW OF SYSTEMS: CONSTITUTIONAL weakness. NEUROLOGIC negative. HEENT: Loss of sense of taste. CARDIOVASCULAR negative. PULMONARY: Nonproductive cough, mild shortness of breath. GI diarrhea with some nausea. negative. RHEUMATOLOGIC negative. IMMUNOLOGIC negative. ENDOCRINOLOGIC negative. DERMATOLOGIC negative. PHYSICAL EXAMINATION: Current vital signs are reviewed. Temperature 98, heart rate 112, respiratory rate 22, blood pressure 159/93, mean 115. 3 L saturation 97%. GENERAL: Appears in no acute distress. No respiratory distress. HEENT: Examination is grossly unremarkable. Mucous membranes are moist. Nasal O2 noted. NECK: Supple. Full range of motion. No adenopathy. Neck veins are flat. CARDIOVASCULAR: Examination reveals regular rhythm and rate. S1, S2 normal. Heart rate 87. There is no murmur. LUNGS: Mild rhonchi. No wheezes or crackles. Breath sounds equal. ABDOMEN: Soft. Bowel sounds are heard. EXTREMITIES are intact. No cyanosis, clubbing, or edema. SKIN: Without rash. NEUROLOGIC: Examination is nonfocal. LABS: Reviewed. White count 3.8, hemoglobin 12.7, hematocrit 39.4, platelet count normal. He does have a mild lymphopenia. D-dimer 1.16. PT/INR PTT normal. Sodium, potassium chloride, CO2 normal. anion gap normal. Kidney function normal. Calcium 8.4, LDH 2 a 56. C-reactive protein 27.2 and procalcitonin level is 0.13. [place] virus testing x2 is negative. Microbiology is currently negative. Chest x-ray shows either patchy infiltrate or and/or atelectasis at the lung bases. CT angiogram was negative for PE. There is some very mild ground-glass opacities noted, not real impressive. Medications are reviewed. The patient is currently on Tylenol, albuterol inhaler, Decadron, Lovenox, Lexapro, gabapentin, Narcan, Zofran, Protonix, Mirapex, saline, and trazodone. ASSESSMENT: 1. No evidence of COVID-19 infection based on 2- Covid 19 tests. The patient clinically is behaving like Covid-19 infection. 2. Possible atypical pneumonia/community-acquired pneumonia/viral pneumonia not Covid related. 3. History of rheumatoid arthritis with recent steroid taper. 4. History of fibromyalgia. 5. History of sleep apnea syndrome, maintained on CPAP. 6. History of shingles. 7. Restless legs syndrome. PLAN: The patient's medications are reviewed. He is not a candidate for Remdesivir with 2- Covid tests. The patient should get vitamin C, vitamin D3, and zinc. He should get an antibiotic. The Decadron can be given orally. No additional recommendations are made. Prognosis is guarded. We will see how he progresses. MMODL / IJN: [id number] /
[2020-04-15] MEDS: amLODIPine 10 MG TAB PO SCH (17:43)
[2020-04-15 19:44] VITALS: RESP 20
[2020-04-15] MEDS: AMOXIC-POT CLAV 875-125MG 1 EACH TAB PO SCH (21:39)
[2020-04-15] MEDS: traZODone HCL 100 MG TAB PO PRN (21:44)
[2020-04-16] MEDS: SODIUM CHLORIDE 0.9% 1,000 ML IV SCH (04:34)
[2020-04-16 06:20] VITALS: TEMP 97.6
[2020-04-16 07:00] LABS: Basophils % (A) 1 %; Eosinophils % (A) 1 %; HCT 36.5 % (39.0-53.0); Lymphocytes # (A) 0.6 k/uL (1.0-4.8); Lymphocytes % (A) 13 %; MCH 30.9 pg (25.0-35.0); MCHC 32.8 g/dL (31.0-37.0); MCV 94.3 fL (80.0-100.0); Monocytes # (A) 0.5 k/uL (0-1.0); Monocytes % (A) 11 %; Neutrophils % (A) 72 %; Platelet Count 249 k/uL (150-450); RBC 3.87 m/uL (4.30-5.90); RDW 13.9 % (11.5-15.5); WBC 4.2 k/uL (3.8-10.6)
[2020-04-16] MEDS: ALBUTEROL HFA INHALER INHALATION PRN (07:32)
[2020-04-16] MEDS: ENOXAPARIN 40 MG/0.4 ML SYRINGE SQ SCH (07:33)
[2020-04-16] MEDS: amLODIPine 10 MG TAB PO SCH (07:34)
[2020-04-16] MEDS: ESCITALOPRAM 20 MG TAB PO SCH (07:34)
[2020-04-16] MEDS: PANTOPRAZOLE 40 MG/10 ML VIAL IV SCH (07:34)
[2020-04-16] MEDS: PRAMIPEXOLE 0.25 MG TAB PO SCH (07:34)
[2020-04-16] MEDS: AMOXIC-POT CLAV 875-125MG 1 EACH TAB PO SCH (07:34)
[2020-04-16] MEDS: GABAPENTIN 400 MG CAP PO SCH (07:34)
[2020-04-16] MEDS ORDERED: dexAMETHasone 2 MG TAB PO SCH (09:00)
[2020-04-16] MEDS ORDERED: CHOLECALCIFEROL 400 UNIT TAB PO SCH (09:00)
[2020-04-16] MEDS ORDERED: ZINC SULFATE 220 MG CAP PO SCH (09:00)
[2020-04-16] MEDS ORDERED: ASCORBIC ACID 500 MG TAB PO SCH (09:00)
[2020-04-16 09:44] LABS: African American GFR (CKD) 121.4 (60.0-200.0); Albumin 3.7 g/dL (3.80-4.90); Albumin/Globulin Ratio 1.85 (1.60-3.17); Anion Gap 5.8 mmol/L (4.00-12.00); BUN/Creat Ratio 16.67 Ratio (12.00-20.00); Calcium 8.4 mg/dL (8.7-10.3); Carbon Dioxide 29.2 mmol/L (21.6-31.8); Non-African American GFR(CKD) 104.8 (60.0-200.0); Potassium 4.1 mmol/L (3.5-5.5); Total Bilirubin 0.3 mg/dL (0.3-1.2); Total Protein 5.7 g/dL (6.2-8.2)
[2020-04-16 10:20] VITALS: BP 129/88; PULSE 86
--- NOTE | 2020-04-16 12:32 | P.DS ---
Providers Date of admission: 04/14/20 15:39 Expected date of discharge: 04/16/20 Attending physician: Laquita Maurer DO Consults: 04/14/20 16:30 Consult Physician Routine Consulting Provider: Rafael Ramos Reason/Comments: hypoxia Do you want consulting provider notified?: Yes Primary care physician: Rohan Eid MD Hospital Course: Discharge Diagnosis: #Community-acquired pneumonia #Acute diarrhea #Accidental finding of ectasia of ascending aorta: Follow-up of patient with PCP to monitor. This was discussed with the patient #Rheumatoid arthritis #Fibromyalgia #Newly diagnosed hypertension Hospital Course: Patient is a 64-year-old male who presented to the ED with worsening shortness of breath over the past 2 weeks. Patient also states that he has lost his sense of taste. He also reports having diarrhea. In the ED patient was hypoxic with conversation. He was 89% on room air. Patient's chest x-ray showed bilateral opacities. He was then referred for admission. Patient was started on antibiotics for community-acquired pneumonia with IV azithromycin and ceftriaxone. Patient had 2 negative COVID 19 therefore he is unlikely to have COVID 19 pnumonia. At the time of discharge patient's symptoms had improved with the antibiotics. He had home O2 evaluation and was 94% with ambulation. Patient's blood pressure is slightly elevated so started on amlodipine. He was then deemed stable for discharge. Patient's diarrhea had also resolved. 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 Patient Condition at Discharge: Stable Plan - Discharge Summary Discharge Rx Participant: No New Discharge Prescriptions: New Amoxic-Pot Clav 875-125Mg [Augmentin 875-125] 1 each PO Q12HR 5 Days #10 tab amLODIPine [Norvasc] 10 mg PO DAILY 30 Days #30 tab Continue Pramipexole Di-HCl [Mirapex] 0.75 mg PO TID Escitalopram [Lexapro] 20 mg PO DAILY Leflunomide 20 mg PO DAILY Gabapentin [Neurontin] 400 mg PO BID traZODone HCL 100 mg PO HS PRN PRN Reason: SLEEP Discontinued Ibuprofen [Motrin] 800 mg PO Q8H PRN PRN Reason: Pain Discharge Medication List Pramipexole Di-HCl [Mirapex] 0.75 mg PO TID 06/04/15 [History] Escitalopram [Lexapro] 20 mg PO DAILY 04/14/20 [History] Gabapentin [Neurontin] 400 mg PO BID 04/14/20 [History] Leflunomide 20 mg PO DAILY 04/14/20 [History] traZODone HCL 100 mg PO HS PRN 04/14/20 [History] Amoxic-Pot Clav 875-125Mg [Augmentin 875-125] 1 each PO Q12HR 5 Days #10 tab 04/16/20 [Rx] amLODIPine [Norvasc] 10 mg PO DAILY 30 Days #30 tab 04/16/20 [Rx] Follow up Appointment(s)/Referral(s): Rohan Eid MD [Primary Care Provider] - 1-2 days Patient Instructions/Handouts: Community Acquired Pneumonia (DC) Discharge Disposition: HOME SELF-CARE
--- NOTE | 2020-04-16 13:24 | P.PN ---
Subjective Progress Note Date: 04/16/20 Principal diagnosis: Community acquired pneumonia versus coag pneumonitis This is a very pleasant 64-year-old gentleman who follows with Dr. Eid as his primary care provider. He presented here on 04/14/2020 with complaints of increasing shortness of breath weakness poor appetite and some diarrhea and nausea. He did screen negative 2 for CoVID 19. Suspected community-acquired pneumonia. He is seen today in follow-up on the regular medical floor. Awake and alert in no acute distress. He is maintaining good O2 saturations in the 90s on room air. He's been afebrile. Hemodynamically stable. Blood cultures revealed no growth. White count 4.2. Hemoglobin 12.0. Lymphocytes 0.6. Sodium 141. Potassium 4.1. Creatinine 0.6. He remains on Augmentin. He was treated with dexamethasone, vitamins and Lovenox as well. Objective - Vital Signs Vital signs: Vital Signs Temp 97.6 F 04/16/20 10:00 Pulse 86 04/16/20 10:00 Resp 20 04/16/20 10:00 BP 129/88 04/16/20 10:00 Pulse Ox 95 04/16/20 10:20 Intake & Output 04/15/20 04/16/20 04/16/20 18:59 06:59 18:59 Intake Total 800 800 Output Total 300 Balance 800 -300 800 Intake: IV 800 800 Sodium Chloride 0.9% 1, 800 800 000 ml @ 100 mls/hr IV . Q10H [facility] Rx#:[id number] Output: Urine 300 Other: Voiding Method Toilet - Exam GENERAL EXAM: Alert, active, pleasant 64-year-old gentleman, on room air, comfortable in no apparent distress. HEAD: Normocephalic. EYES: Normal reaction of pupils, equal size. NOSE: Clear with pink turbinates. THROAT: No erythema or exudates. NECK: No masses, no JVD. CHEST: No chest wall deformity. LUNGS: Equal air entry with faint crackles in the posterior bases. CVS: S1 and S2 normal with no audible murmur, regular rhythm. ABDOMEN: No hepatosplenomegaly, normal bowel sounds, no guarding or rigidity. SPINE: No scoliosis or deformity SKIN: No rashes CENTRAL NERVOUS SYSTEM: No focal deficits, tone is normal in all 4 extremities. EXTREMITIES: There is no peripheral edema. No clubbing, no cyanosis. Peripheral pulses are intact. - Labs CBC & Chem 7: 04/16/20 05:48 04/16/20 05:48 Labs: Abnormal Lab Results - Last 24 Hours (Table) 04/16/20 04/16/20 Range/Units 05:48 05:48 RBC 3.87 L (4.30-5.90) m/uL Hgb 12.0 L (13.0-17.5) gm/dL Hct 36.5 L (39.0-53.0) % Lymphocytes # 0.6 L (1.0-4.8) k/uL Glucose 142 H (70-110) mg/dL Calcium 8.4 L (8.7-10.3) mg/dL Total Protein 5.7 L (6.2-8.2) g/dL Albumin 3.70 L (3.80-4.90) g/dL Microbiology - Last 24 Hours (Table) 04/14/20 16:13 Blood Culture - Preliminary Blood No Growth after 24 hours 04/14/20 13:02 Blood Culture - Preliminary Blood No Growth after 24 hours Assessment and Plan Assessment: 1 Dyspnea secondary to atypical pneumonia versus community-acquired pneumonia. CoVID screen negative 2 new 2 History of rheumatoid arthritis with recent steroid taper 3 Fibromyalgia 4 Sleep apnea maintained on CPAP 5 History of shingles 6 History of restless leg syndrome Plan: The patient was seen and evaluated by Dr. Ramos He is stable from the pulmonary standpoint Complete a course of antibiotics Complete 10 days of dexamethasone Follow-up with his PCP I, the cosigning physician, performed a history & physical examination of the patient. Lungs sounds with faint crackles in the posterior bases. Maintaining good O2 saturations in the 90s on room air. I discussed the assessment and plan of care with my nurse practitioner, Ranjana Damian. I attest to the above note as dictated by her.
== END 2020-04-16 13:21 | disposition home or self-care (01) ==
LOC: EC 12:32 → 4SSUR 15:39
PROVIDERS: ADMIT Internal Medicine; ATTEND Internal Medicine
DX: J18.9 Pneumonia, unspecified organism (principal); R19.7 Diarrhea, unspecified; R43.9 Unspecified disturbances of smell and taste; I77.810 Thoracic aortic ectasia; M06.9 Rheumatoid arthritis, unspecified; M79.7 Fibromyalgia; I10 Essential (primary) hypertension; I49.1 Atrial premature depolarization; R94.31 Abnormal electrocardiogram [ECG] [EKG]; R79.1 Abnormal coagulation profile; Z20.828 Contact with and (suspected) exposure to other viral communicable diseases; G47.30 Sleep apnea, unspecified; G25.81 Restless legs syndrome; F32.9 Major depressive disorder, single episode, unspecified; Z79.899 Other long term (current) drug therapy; Z99.89 Dependence on other enabling machines and devices; Z86.19 Personal history of other infectious and parasitic diseases; Z98.890 Other specified postprocedural states; Z85.828 Personal history of other malignant neoplasm of skin
CPT/HCPCS: 96376; 96361 ×4; 96372 ×3; 96374; 96375; 99285; 36415; 94640 ×4; 93005; 85379; 80053 ×3; 82728; 83605; 83615; 83735; 85025 ×3; 85610; 85730; 86140; 87040; 84145; 87635; 71045; 71275; G0378 ×3; U0003; J1100; J1650 ×3; J8540; C9113 ×2; Q9967

== ENCOUNTER 2020-07-19 16:37 | Inpatient (IN) | payer MEDICARE ==
[2020-07-19] MEDS ORDERED: SODIUM CHLORIDE 0.9% 500 ML 500 ML IV STA ×2 (19:24→22:08)
[2020-07-19] MEDS ORDERED: methylPREDNISolone SOD SUCCI 125 MG/2 ML VIAL IV STA (19:26)
[2020-07-19] MEDS ORDERED: METOCLOPRAMIDE 5 MG/ML 2 ML VIAL IVP STA (19:26)
--- NOTE | 2020-07-19 19:59 | XR ---
EXAMINATION TYPE: XR chest 2V DATE OF EXAM: 07/19/2020 COMPARISON: 04/14/2020 HISTORY: Weakness TECHNIQUE: 2 views FINDINGS: There is no heart failure nor confluent pneumonic infiltrate. There are no hilar masses. Th oracic aorta is atheromatous. There is no pleural effusion. There is plate fixing old left clavicle f racture. IMPRESSION: No active cardiopulmonary disease. There is improved inspiration compared to old exam.
[2020-07-19 20:27] LABS: Basophils # (A) 0.1 k/uL (0-0.2); Basophils % (A) 1 %; Eosinophils # (A) 0.2 k/uL (0-0.7); Eosinophils % (A) 3 %; HGB 15.6 gm/dL (13.0-17.5); Lymphocytes % (A) 16 %; MCH 31.1 pg (25.0-35.0); MCHC 34.7 g/dL (31.0-37.0); MCV 89.4 fL (80.0-100.0); Mean Platelet Volume 6.9; Monocytes # (A) 0.7 k/uL (0-1.0); Monocytes % (A) 11 %; Neutrophils # (A) 3.9 k/uL (1.3-7.7); Neutrophils % (A) 66 %; Platelet Count 293 k/uL (150-450); RBC 5.03 m/uL (4.30-5.90); RDW 14.2 % (11.5-15.5); WBC 5.9 k/uL (3.8-10.6)
[2020-07-19 20:34] LABS: Albumin 4.3 g/dL (3.5-5.0); Calcium 9.8 mg/dL (8.4-10.2); Magnesium 1.9 mg/dL (1.6-2.3); Potassium 4.4 mmol/L (3.5-5.1); Total Bilirubin 1.1 mg/dL (0.2-1.3); Total Protein 7.7 g/dL (6.3-8.2)
[2020-07-19 20:37] LABS: Prothrombin Time 10.9 sec (9.0-12.0)
[2020-07-19 20:38] LABS: Partial Thromboplastin Time 27.6 sec (22.0-30.0)
[2020-07-19] MEDS: fentaNYL (PF) 50 MCG/ML 2 ML AMP IVP PRN (20:53)
--- NOTE | 2020-07-19 21:02 | ED ---
General Adult HPI - General Source: patient, RN notes reviewed Mode of arrival: wheelchair Limitations: no limitations - History of Present Illness -: days(s) (5) Location: back, left Radiation: other (down left leg) Severity scale (1-10): 10 Quality: sharp, other (shooting) Consistency: constant Improves with: none (some position changes improve pain tolerance) Worsens with: movement Associated Symptoms: weakness, other (diarrhea, loss of appetite) Treatments Prior to Arrival: none <Neal Medina - Last Filed: 07/19/20 22:09> <Joe Harvye - Last Filed: 07/20/20 23:04> - General Chief complaint: Weakness Stated complaint: 1wk post back surg/dizzy/D&V/back pain Time Seen by Provider: 07/19/20 19:11 - History of Present Illness Initial comments: 65-year-old male patient, alert and oriented x4, presents with complaints of low back pain shooting down left leg, decreased appetite for 5 days with diarrhea, and overall weakness. Patient states had surgery at [place] on lumbar spine July 07, for pain shooting down the right leg. Patient had L3 through L5 decompression, and L4-L5 discectomy. Patient states had surgery due to right foot drop, but pain now down the left leg. Patient states does not have any pain medication states pain 10 out of 10. Patient denies shortness of breath, chest pain, or fevers. Patient states has tried Tylenol and the past and does not provide any relief. (Neal Medina) - Related Data Home Medications Medication Instructions Recorded Confirmed Pramipexole Di-HCl [Mirapex] 0.75 mg PO TID 06/04/15 07/19/20 Leflunomide 20 mg PO DAILY 04/14/20 07/19/20 Gabapentin [Neurontin] 100 mg PO TID 07/19/20 07/19/20 Losartan Potassium [Cozaar] 25 mg PO BID 07/19/20 07/19/20 carvediloL [Coreg] 3.125 mg PO BID 07/19/20 07/19/20 traZODone HCL 200 - 300 mg PO HS 07/19/20 07/19/20 Previous Rx's Medication Instructions Recorded amLODIPine [Norvasc] 10 mg PO DAILY 30 Days #30 tab 12/27/20 Allergies Allergy/AdvReac Type Severity Reaction Status Date / Time No Known Allergies Allergy Verified 07/19/20 22:27 Review of Systems ROS Other: All systems not noted in ROS Statement are negative. <AdamNeal - Last Filed: 07/19/20 22:09> ROS Other: All systems not noted in ROS Statement are negative. <Joe Harvey - Last Filed: 07/20/20 23:04> ROS Statement: Those systems with pertinent positive or pertinent negative responses have been documented in the HPI. Past Medical History Past Medical History: Fibromyalgia, Rheumatoid Arthritis (RA), Sleep Apnea/CPAP/BIPAP Additional Past Medical History / Comment(s): restless leg syndrome, shingles History of Any Multi-Drug Resistant Organisms: None Reported Past Surgical History: Back Surgery, Orthopedic Surgery Additional Past Surgical History / Comment(s): skin CA removal, left shoulder sx, fractured clavicle Past Anesthesia/Blood Transfusion Reactions: No Reported Reaction Past Psychological History: Depression Smoking Status: Never smoker Past Alcohol Use History: Daily, Occasional Past Drug Use History: None Reported - Past Family History Mother Family Medical History: Coronary Artery Disease (CAD) <Vern Medinai - Last Filed: 07/19/20 22:09> General Exam Limitations: no limitations General appearance: alert, in no apparent distress Head exam: Present: atraumatic, normocephalic, normal inspection Eye exam: Present: normal appearance, PERRL, EOMI. Absent: scleral icterus, conjunctival injection, periorbital swelling ENT exam: Present: normal exam, mucous membranes moist Neck exam: Present: normal inspection. Absent: tenderness, meningismus, lymphadenopathy Respiratory exam: Present: normal lung sounds bilaterally. Absent: respiratory distress, wheezes, rales, rhonchi, stridor Cardiovascular Exam: Present: regular rate, normal rhythm, normal heart sounds. Absent: systolic murmur, diastolic murmur, rubs, gallop, clicks GI/Abdominal exam: Present: soft, normal bowel sounds. Absent: distended, tenderness, guarding, rebound, rigid Left Upper Leg exam: Present: normal inspection. Absent: abrasion, laceration, ecchymosis Knee exam: Present: normal inspection. Absent: ecchymosis Lower Leg exam: Present: normal inspection. Absent: ecchymosis, erythema Ankle exam: Present: normal inspection Foot/Toe exam: Present: normal inspection. Absent: ecchymosis Neurovascular tendon exam: Present: no vascular compromise. Absent: extremity cold to touch, pallor, foot drop Right Foot/Toe exam: Present: normal inspection. Absent: full ROM, tenderness, swelling, ecchymosis, deformity, erythema Neurovascular tendon exam: Absent: pulse deficit, abnormal cap refill (Patient states has difficulty with mobility flexion and extension of the ankle since prior to surgery.), extremity cold to touch, pallor, foot drop Gait: not tested/not observed Back exam: Present: tenderness, vertebral tenderness (surgical site), other (Surgical incision noted approximately 8cm verticle with bruising noted to left and right lowers sides of incision ). Absent: normal inspection, CVA tenderness (R), CVA tenderness (L) Neurological exam: Present: alert, oriented X3, CN II-XII intact Psychiatric exam: Present: normal affect, normal mood Skin exam: Present: warm, dry, intact, normal color. Absent: rash <Neal Medina - Last Filed: 07/19/20 22:09> Course Vital Signs 07/19/20 07/19/20 07/19/20 17:46 22:00 22:42 Temperature 98.9 F 98.2 F 97.6 F Pulse Rate 99 92 Pulse Rate [ 84 Pulse Oximetery ] Respiratory 20 16 16 Rate Blood Pressure 94/73 108/60 Blood Pressure 148/98 [Left Arm Supine] O2 Sat by Pulse 95 96 Oximetry 07/19/20 07/20/20 07/20/20 23:27 06:00 07:49 Temperature 98.0 F 97.6 F Pulse Rate 98 89 97 Pulse Rate [ Pulse Oximetery ] Respiratory 20 17 18 Rate Blood Pressure 126/76 145/92 152/95 Blood Pressure [Left Arm Supine] O2 Sat by Pulse 95 97 97 Oximetry 07/20/20 15:46 Temperature 98.0 F Pulse Rate 85 Pulse Rate [ Pulse Oximetery ] Respiratory 18 Rate Blood Pressure 155/105 Blood Pressure [Left Arm Supine] O2 Sat by Pulse 97 Oximetry EKG Findings - EKG Comments: EKG Findings:: Ventricular rate 97, PA interval 0.136, QRS of 0.90, QTC .449 <Neal Medina - Last Filed: 07/19/20 22:09> Medical Decision Making - Lab Data Result diagrams: 07/19/20 20:12 07/19/20 20:12 <Neal Medina - Last Filed: 07/19/20 22:09> - Lab Data Result diagrams: 07/19/20 20:12 07/19/20 20:12 <Joe Harvey - Last Filed: 07/20/20 23:04> - Medical Decision Making Case discussed with Dr. Julio and again with Dr. Harvey chest x-ray as no active disease, no mass, no infiltrates, however patient has a troponin of 0.068 admit for non-STEMI. (Neal Medina) - Lab Data Lab Results 07/19/20 07/19/20 07/19/20 Range/Units 20:12 20:12 20:12 WBC 5.9 (3.8-10.6) k/uL RBC 5.03 (4.30-5.90) m/uL Hgb 15.6 (13.0-17.5) gm/dL Hct 45.0 (39.0-53.0) % MCV 89.4 (80.0-100.0) fL MCH 31.1 (25.0-35.0) pg MCHC 34.7 (31.0-37.0) g/dL RDW 14.2 (11.5-15.5) % Plt Count 293 (150-450) k/uL MPV 6.9 Neutrophils % 66 % Lymphocytes % 16 % Monocytes % 11 % Eosinophils % 3 % Basophils % 1 % Neutrophils # 3.9 (1.3-7.7) k/uL Lymphocytes # 1.0 (1.0-4.8) k/uL Monocytes # 0.7 (0-1.0) k/uL Eosinophils # 0.2 (0-0.7) k/uL Basophils # 0.1 (0-0.2) k/uL PT 10.9 (9.0-12.0) sec INR 1.0 (<1.2) APTT 27.6 (22.0-30.0) sec D-Dimer (<0.60) mg/L FEU Sodium 134 L (137-145) mmol/L Potassium 4.4 (3.5-5.1) mmol/L Chloride 97 L (98-107) mmol/L Carbon Dioxide 21 L (22-30) mmol/L Anion Gap 16 mmol/L BUN 19 (9-20) mg/dL Creatinine 1.20 (0.66-1.25) mg/dL Est GFR (CKD-EPI)AfAm 72 (>60 ml/min/1.73 sqM) Est GFR (CKD-EPI)NonAf 62 (>60 ml/min/1.73 sqM) Glucose 101 H (74-99) mg/dL Plasma Lactic Acid Evin (0.7-2.0) mmol/L Calcium 9.8 (8.4-10.2) mg/dL Magnesium 1.9 (1.6-2.3) mg/dL Total Bilirubin 1.1 (0.2-1.3) mg/dL AST 36 (17-59) U/L ALT 21 (4-49) U/L Alkaline Phosphatase 107 (38-126) U/L Troponin I (0.000-0.034) ng/mL Total Protein 7.7 (6.3-8.2) g/dL Albumin 4.3 (3.5-5.0) g/dL 07/19/20 07/19/20 07/19/20 Range/Units 20:12 20:12 20:12 WBC (3.8-10.6) k/uL RBC (4.30-5.90) m/uL Hgb (13.0-17.5) gm/dL Hct (39.0-53.0) % MCV (80.0-100.0) fL MCH (25.0-35.0) pg MCHC (31.0-37.0) g/dL RDW (11.5-15.5) % Plt Count (150-450) k/uL MPV Neutrophils % % Lymphocytes % % Monocytes % % Eosinophils % % Basophils % % Neutrophils # (1.3-7.7) k/uL Lymphocytes # (1.0-4.8) k/uL Monocytes # (0-1.0) k/uL Eosinophils # (0-0.7) k/uL Basophils # (0-0.2) k/uL PT (9.0-12.0) sec INR (<1.2) APTT (22.0-30.0) sec D-Dimer 1.23 H (<0.60) mg/L FEU Sodium (137-145) mmol/L Potassium (3.5-5.1) mmol/L Chloride (98-107) mmol/L Carbon Dioxide (22-30) mmol/L Anion Gap mmol/L BUN (9-20) mg/dL Creatinine (0.66-1.25) mg/dL Est GFR (CKD-EPI)AfAm (>60 ml/min/1.73 sqM) Est GFR (CKD-EPI)NonAf (>60 ml/min/1.73 sqM) Glucose (74-99) mg/dL Plasma Lactic Acid Evin 1.4 (0.7-2.0) mmol/L Calcium (8.4-10.2) mg/dL Magnesium (1.6-2.3) mg/dL Total Bilirubin (0.2-1.3) mg/dL AST (17-59) U/L ALT (4-49) U/L Alkaline Phosphatase (38-126) U/L Troponin I 0.068 H* (0.000-0.034) ng/mL Total Protein (6.3-8.2) g/dL Albumin (3.5-5.0) g/dL Disposition Decision Date: 07/19/20 Decision Time: 22:11 <Neal Medina - Last Filed: 07/19/20 22:09> <Joe Harvey - Last Filed: 07/20/20 23:04> Clinical Impression: NSTEMI (non-ST elevated myocardial infarction) Disposition: ADMITTED IP TO THIS HOSP Condition: Fair
[2020-07-19] MEDS ORDERED: ASPIRIN 81 MG PO STA (22:05)
[2020-07-19] MEDS ORDERED: SODIUM CHLORIDE 0.9% 1,000 ML IV STA (22:08)
[2020-07-19] MEDS: SODIUM CHLORIDE 0.9% 1,000 ML IV SCH (23:25)
[2020-07-20 00:28] LABS: Appearance,Urine Clear (Clear); Bacteria,Urine Rare /hpf; Bilirubin,Urine 1+ (Negative); Blood,Urine Negative (Negative); Color,Urine Yellow; Glucose,Urine (UA) Negative (Negative); Granular Casts,Urine 10 /lpf (0); Hyaline Casts,Urine 63 /lpf (0-2); Ketones,Urine 4+ (Negative); Leukocyte Esterase,Urine Negative (Negative); Mucus,Urine Occasional /hpf; Nitrite,Urine Negative (Negative); PH, Urine 5.5 (5.0-8.0); Protein,Urine 1+ (Negative); RBC,Urine 1 /hpf (0-5); Specific Gravity,Urine 1.024 (1.001-1.035); Squamous Epithelial Cell,Urine <1 /hpf (0-4); WBC,Urine 1 /hpf (0-5)
--- NOTE | 2020-07-20 01:29 | P.HPIM ---
History of Present Illness H&P Date: 07/20/20 Patient is a 65-year-old male with a PMH of spinal DJD and hypertension who presented to the emergency room with complaints of lethargy and lower back pain. The patient underwent a lumbar spine discectomy and decompression surgery on 07/07/20 due to chronic lower back pain with associated right leg weakness. The patient notes that following his surgery, he was offered transfer to a rehab facility which she declined and subsequently went home. He notes that his pain was worse than he had anticipated and that it limited his ability to perform his ADLs and make food for himself. He lives with his ex- who does not help him with food preparation. Patient notes that as a result he has barely eaten or drank much since his discharge from the hospital. He reports that over the past 2 days, he is finding himself sleeping most of the day and has now also developed a new left buttock pain, 7 out of 10. He denied left leg weakness or numbness. Denied shooting pain to the left leg. Also denied chest discomfort, shortness of breath, fever, chills, lower extremity swelling, lower extremity pain, nausea, vomiting, or diarrhea. He underwent an extensive evaluation in the emergency room with laboratory evaluation showing a troponin of 0.068, d- dimer 1.23, sodium 134, chloride 97, CO2 21, glucose 101, and coronavirus PCR negative. Review of Systems Pertinent positives and negatives as discussed in HPI, a complete review of systems was performed and all other systems are negative. Past Medical History Past Medical History: Fibromyalgia, Rheumatoid Arthritis (RA), Sleep Apnea/CPAP/BIPAP Additional Past Medical History / Comment(s): restless leg syndrome, shingles History of Any Multi-Drug Resistant Organisms: None Reported Past Surgical History: Back Surgery, Orthopedic Surgery Additional Past Surgical History / Comment(s): skin CA removal, left shoulder sx, fractured clavicle Past Anesthesia/Blood Transfusion Reactions: No Reported Reaction Past Psychological History: Depression Smoking Status: Never smoker Past Alcohol Use History: Daily, Occasional Past Drug Use History: None Reported - Past Family History Mother Family Medical History: Coronary Artery Disease (CAD) Medications and Allergies Home Medications Medication Instructions Recorded Confirmed Type Pramipexole Di-HCl [Mirapex] 0.75 mg PO TID 06/04/15 07/19/20 History Leflunomide 20 mg PO DAILY 04/14/20 07/19/20 History amLODIPine [Norvasc] 10 mg PO DAILY 30 Days #30 tab 04/16/20 07/19/20 Rx Gabapentin [Neurontin] 100 mg PO TID 07/19/20 07/19/20 History Losartan Potassium [Cozaar] 25 mg PO BID 07/19/20 07/19/20 History carvediloL [Coreg] 3.125 mg PO BID 07/19/20 07/19/20 History traZODone HCL 200 - 300 mg PO HS 07/19/20 07/19/20 History Allergies Allergy/AdvReac Type Severity Reaction Status Date / Time No Known Allergies Allergy Verified 07/19/20 22:27 Physical Exam Vitals: Vital Signs Temp Pulse Resp BP Pulse Ox 07/19/20 23:27 98.0 F 98 20 126/76 95 07/19/20 22:00 98.2 F 92 16 108/60 95 07/19/20 17:46 98.9 F 99 20 94/73 Intake and Output 07/19/20 07/19/20 07/20/20 14:59 22:59 06:59 Other: Weight 87.543 kg General: non toxic, no distress, appears at stated age, normal weight Derm: no unusual rashes/lesions no unusual ecchymoses, warm, dry Head: atraumatic, normocephalic, symmetric Eyes: EOMI, no lid lag, anicteric sclera, pupils equal round reactive to light ENT: Nose and ears atraumatic, no thrush, no pharyngeal erythema Neck: No thyromegaly, no cervical lymphadenopathy, trachea midline, supple Mouth: no lip lesion, mucus membranes moist Cardiovascular: S1S2 reg, no murmur, positive posterior tibial pulse bilateral, no edema, capillary refill less than 2 seconds Lungs: CTA bilateral, no rhonchi, no rales , no accessory muscle use Abdominal: soft, nontender to palpation, no guarding, no appreciable organom egaly, normal bowel sounds Ext: no gross muscle atrophy, muscle strength 3/5 of RLE, 5/5 in all other extremities grossly, no contractures, lumbar post-surgical incisions healing well Neuro: CN II-XI grossly intact, light touch intact all 4 extremities, finger to nose within normal limits Psych: Slightly lethargic, falls asleep during interview, oriented x 3, appropriate affect Results CBC & Chem 7: 07/19/20 20:12 07/19/20 20:12 Labs: Abnormal Lab Results - Last 24 Hours (Table) 07/19/20 07/19/20 07/19/20 Range/Units 20:12 20:12 20:12 D-Dimer 1.23 H (<0.60) mg/L FEU Sodium 134 L (137-145) mmol/L Chloride 97 L (98-107) mmol/L Carbon Dioxide 21 L (22-30) mmol/L Glucose 101 H (74-99) mg/dL Troponin I 0.068 H* (0.000-0.034) ng/mL Assessment and Plan Plan: Lethargy, likely due to poor oral intake -C/w IVFs and encourage oral intake -PT eval for possible ROLANDO placement Elevated troponin, possible due to dehydration -Patient denying chest or epigastric pain, or SOB -Cardiac monitoring -Trend for now -C/w Aspirin -Echo ordered Elevated D-dimer -Obtain CT-Angion since high risk for PE due to recent surgery and low activity Left lower back pain, w/ recent spinal decompression surgery -ED physician attempted to transfer to [facility] (where the procedure took place) but they were not accepting transfers at this time due to COVID -Neurology consult -Neuro checks -Pain control Chronic conditions: HTN, RA -C/w home Leflunomide -Hold off on home anti-hypertensives in setting of borderline BP DVT prophylaxis -Lovenox The patient is admitted with an anticipated less than 2 midnight stay for evaluation of elevated troponin CODE STATUS:Full Code Discussed with: Patient Anticipated discharge date: 1-[address]: SNF A total of 35 minutes was spent on the care of this complex patient more than 50% of the time was spent in counseling and care coordination.
[2020-07-20 02:16] LABS: Glucose,Whole Blood 119 mg/dL (75-99)
--- NOTE | 2020-07-20 03:03 | CT ---
EXAM: CT Angiography Chest With Intravenous Contrast CLINICAL HISTORY: ITS.REASON CT Reason: positive d-dimer TECHNIQUE: Axial computed tomographic angiography images of the chest with intravenous contrast. CTDI is 18.67 mGy and DLP is 484.7 mGy-cm. This CT exam was performed using one or more of the following dose reduction techniques: automated exposure control, adjustment of the mA and/or kV according to patient size, and/or use of iterative reconstruction technique. MIP reconstructed images were created and reviewed. COMPARISON: CT 04/14/20. FINDINGS: Artifacts: Motion artifact. Pulmonary arteries: No large central PE. Peripheral vessels not well evaluated and small PE cannot be excluded. Aorta: Stable aneurysmal dilatation of the ascending thoracic aorta. No aortic dissection. Lungs: Patchy bilateral groundglass and reticular densities. Correlate clinically regarding inflammatory/infectious process. Pulmonary nodules measuring up to 9 mm in the right lower lobe. Follow up imaging may be considered per Fleischner Society recommendations. Pleural space: No significant effusion. No pneumothorax. Heart: Prominent left ventricular wall thickness. Bones/joints: No acute fracture. Soft tissues: Unremarkable as visualized. Lymph nodes: Unremarkable. Liver: Hepatic hypodensities. IMPRESSION: 1. Motion artifact. No large central PE. 2. Additional findings, as above.
[2020-07-20 06:16] LABS: Cholesterol 241 mg/dL (<200); HDL Cholesterol 38 mg/dL (40-60); LDL Cholesterol,Calculated 176 mg/dL (0-99); Triglycerides 137 mg/dL (<150)
[2020-07-20] MEDS: MORPHINE SULFATE 4 MG/ML SYRINGE IV PRN ×4 (07:59→22:01)
[2020-07-20] MEDS: SODIUM CHLORIDE 0.9% 1,000 ML IV SCH (08:00)
[2020-07-20] MEDS: ENOXAPARIN 40 MG/0.4 ML SYRINGE SQ SCH (08:01)
[2020-07-20] MEDS: PRAMIPEXOLE 0.25 MG TAB PO SCH ×3 (08:02→20:21)
[2020-07-20] MEDS: ATORVASTATIN 80 MG TAB PO SCH (08:03)
[2020-07-20] MEDS: LEFLUNOMIDE 20 MG TAB PO SCH (08:07)
[2020-07-20] MEDS: GABAPENTIN 100 MG CAP PO SCH ×3 (08:07→20:21)
[2020-07-20] MEDS ORDERED: ASPIRIN 325 MG TAB PO SCH (09:00)
--- NOTE | 2020-07-20 09:25 | P.CNNES ---
History of Present Illness Consult date: 07/20/20 Requesting physician: Kadi Fan Reason for Consult: low back pain History of Present Illness: This is a 65-year-old gentleman with medical history of rheumatoid arthritis, fibromyalgia and hypertension presented to the emergency department on 07/19/2020 complaining of worsening of low back pain and generalized weakness. Patient stated that he had L3 through L5 decompression and L L4-L5 discetomy at [facility] on July 07, 2020. He stated he has surgery due chronic right lower back pain radiating down the leg up to foot (anteriorly and laterally) and associated with right leg weakness (right foot drop) and numbness from below right knee to foot. He said after the back surgery, he has some alleviation of the right lower back pain but denies any improvement of foot droop or numbness of the right leg. After the surgery that he was offered to be transferred to rehab facility but he declined rather what home. Since the surgery the patient stated that he's been having new left lower back pain without any radiation. He said that pain is a 67/10. He denies any weakness of the left lower extremity or any new weakness of the right lower extremity. He noticed some numbness over the left foot. He's been having diarrhea since the surgery. Denies any urinary frequency or urgency since the surgery and. Denies any upper extremity weakness or numbness that was new since the surgery. Denies any visual disturbance appeared or difficulty swallowing. He feels he is having generalized weakness and as a result of the worsening of lower back pain he decided to come to the hospital. He stated that he was having the therapy come to his house but the last 2 sessions he did not have because of his pain. Again as stated above he notes that the pain is worse and it's limiting his ability to perform ADLs. B ecause his limitations a home he is having limitation in eating and drinking Workup in the hospital consisted of: Initial vitals is blood pressure of 94/73, heart rate of 99, temperature of 98.9 Fahrenheit, respiratory of 20 and the pulse ox of 95% at room air. His initial white blood cells 5.9 which is normal. Initial sodium is 134 which is slightly low. The serum glucose is 101. Calcium is 9.8 and magnesium 1.9 which are normal. Lipid panel: Triglyceride is 137, cholesterol is 241, LDL is 176 and HDL is 38. Troponin level is 0.068. Coagulation study: PT is 10.9, INR is 1.0, PTT is 27.6. Hollis virus PCR was not detected Review of Systems Review of system: The 12 point system was reviewed and apparent positive and negative per HPI. Past Medical History Past Medical History: Fibromyalgia, Rheumatoid Arthritis (RA), Sleep Apnea/CPAP/BIPAP Additional Past Medical History / Comment(s): restless leg syndrome, shingles History of Any Multi-Drug Resistant Organisms: None Reported Past Surgical History: Back Surgery, Orthopedic Surgery Additional Past Surgical History / Comment(s): skin CA removal, left shoulder sx, fractured clavicle Past Anesthesia/Blood Transfusion Reactions: No Reported Reaction Past Psychological History: Depression Smoking Status: Never smoker Past Alcohol Use History: Daily, Occasional Past Drug Use History: None Reported - Past Family History Mother Family Medical History: Coronary Artery Disease (CAD) Medications and Allergies Home Medications Medication Instructions Recorded Confirmed Type Pramipexole Di-HCl [Mirapex] 0.75 mg PO TID 06/04/15 07/19/20 History Leflunomide 20 mg PO DAILY 04/14/20 07/19/20 History amLODIPine [Norvasc] 10 mg PO DAILY 30 Days #30 tab 04/16/20 07/19/20 Rx Gabapentin [Neurontin] 100 mg PO TID 07/19/20 07/19/20 History Losartan Potassium [Cozaar] 25 mg PO BID 07/19/20 07/19/20 History carvediloL [Coreg] 3.125 mg PO BID 07/19/20 07/19/20 History traZODone HCL 200 - 300 mg PO HS 07/19/20 07/19/20 History Allergies Allergy/AdvReac Type Severity Reaction Status Date / Time No Known Allergies Allergy Verified 07/19/20 22:27 Physical Examination - Vital Signs Vital Signs: Vital Signs Temp Pulse Resp BP Pulse Ox 07/20/20 07:49 97.6 F 97 18 152/95 97 07/20/20 06:00 89 17 145/92 97 07/19/20 23:27 98.0 F 98 20 126/76 95 07/19/20 22:00 98.2 F 92 16 108/60 95 07/19/20 17:46 98.9 F 99 20 94/73 Intake and Output 07/19/20 07/20/20 07/20/20 22:59 06:59 14:59 Other: Weight 87.543 kg GENERAL: The patient is lying in bed and is in moderate acute distress. CHEST: The heart rate is regular rate rhythm. No murmurs to auscultation. LUNG: Clear to auscultation bilaterally no wheezing noted throughout. Not labored breathing. ABDOMEN/GI: Bowel sounds present in all 4 quadrants. No tenderness to palpation throughout. NEUROLOGICAL: Higher mental function: The patient is awake, alert, oriented to self, place and time. Patient is following commands. No aphasia and no neglect. Cranial nerves: The pupils are round, equal and reactive to light and accommodation. Visual [place] are full to confrontation throughout. Extraocular movement is intact no nystagmus is noted. Facial sensation is normal to touch throughout. The facial strength is normal throughout. Hearing is mildly decreased bilaterally to hand rub. Tongue is midline and moved [id number] without any difficulty. No dysarthria is noted. Shoulder shrug is limited because of pain (mostly right upper) but has antigravity. Motor: Gait is deferred. The strength is hip flexion is 5- over the right. RIght ankle was limited because of pain but 0/5 for right ankle dorsiflexion and has antigravity for right ankle plantar flexion. Upon touch right ankle and placing some pressure he was in pain (he said this is chronic as well as weakness). Right lower extremity knee extension and flexion was 4+ to 5- ( limited somewhat due to pain). Right deltoid was limited because of pain but has antigravity while left was 4+ to 5-. Bilateral hand senior housekeeper is 5-/5. Otherwise 5/5 throughout. Normal bulk.. Cerebellum: Normal finger to nose bilaterally. Sensation: Sensation is normal to touch throughout. Reflexes (right/left): Right lower extremity is 1+. Left patellar is 3+. Otherwise 2+ throughout. Plantars are mute bilaterally. Results - Laboratory Findings CBC and BMP: 07/19/20 20:12 07/19/20 20:12 Abnormal Lab Findings: Abnormal Labs 07/19/20 07/19/20 07/19/20 20:12 20:12 20:12 D-Dimer 1.23 H Sodium 134 L Chloride 97 L Carbon Dioxide 21 L Glucose 101 H POC Glucose (mg/dL) Troponin I 0.068 H* Cholesterol LDL Cholesterol, Calc HDL Cholesterol Urine Protein Urine Ketones Urine Bilirubin Urine Bacteria Hyaline Casts Urine Mucus 07/19/20 07/19/20 07/20/20 23:04 23:29 02:06 D-Dimer Sodium Chloride Carbon Dioxide Glucose POC Glucose (mg/dL) 119 H Troponin I 0.063 H* Cholesterol LDL Cholesterol, Calc HDL Cholesterol Urine Protein 1+ H Urine Ketones 4+ H Urine Bilirubin 1+ H Urine Bacteria Rare H Hyaline Casts 63 H Urine Mucus Occasional H 07/20/20 07/20/20 03:03 03:03 D-Dimer Sodium Chloride Carbon Dioxide Glucose POC Glucose (mg/dL) Troponin I 0.059 H* Cholesterol 241 H LDL Cholesterol, Calc 176 H HDL Cholesterol 38 L Urine Protein Urine Ketones Urine Bilirubin Urine Bacteria Hyaline Casts Urine Mucus Assessment and Plan Assessment: This is a 65-year-old gentleman presented to the emergency department on 07/19/2020 complaining of worsening left low back pain shooting down since freeman ving surgery on lower back (07/07/2020). Patient stated that he had L3 through L5 decompression and L L4-L5 discetomy at [facility] on July 07, 2020. Acute new left lower back pain with chronic history of right lower back pain. S/P L3 through L5 decompression and L L4-L5 discetomy at on July 07 (at outside facility). Right peroneal neuropathy Elevated troponin Hypertension Dyslipidemia Plan: I ordered CTof the lumbar spine. I consulted orthopedic team (Dr. Ross). I spoke with Dr. Ross and he stated the patient should be transferred to [facility] where he had the surgery (especially since he is known to them) and I agree with that plan. Regarding the elevated point in cardiology is on board. We'll defer the rest of medical management to the primary team. The plan is discussed with the patient's nurse. Thank you for the consultation. UPDATE: CT of the lumbar spine is reported as postsurgical changes of the right laminectomy at L3-L4. As noted there is air adjacent to the thecal sac likely related to recent surgical intervention. No obvious collection is identified at this time. Multilevel degenerative disc disease and bilateral lateral recess stenosis. Joel Ramos M.D. Neuro-hospitalist Time with Patient: Greater than 30
--- NOTE | 2020-07-20 10:00 | CT ---
EXAMINATION TYPE: CT lumbar spine wo con DATE OF EXAM: 07/20/2020 COMPARISON: None HISTORY: Low back pain; decompression surgery L1-L4 on 07-07-2020 CT DLP: 1147.[address] of the lumbar spine was performed. Bone and soft tissue window settings are submitted as well as coronal and sagittal reconstructions. L1-L2: There is evidence of vacuum disc. No significant disc bulge or herniation. No central stenosis . Mild facet joint arthropathy. Foramina are patent bilaterally. L2-L3: Vacuum disks noted. Posterior disc bulge with mild effacement ventral thecal sac. Bilateral la teral recess stenosis suggested. No evidence for central stenosis. Facet joint arthropathy. L3-L4: Postoperative changes of right hemilaminectomy. There is air adjacent to the thecal sac likely related to recent surgical intervention. No obvious collection seen although the lack of contrast li mits evaluation. Postsurgical soft tissue changes identified. No recurrent or residual disease. L4-L5: There is evidence of vacuum disc. Posterior disc bulge effaces the ventral thecal sac and res ults in bilateral lateral recess stenosis. Mild facet joint arthropathy. L5-S1: Vacuum disc noted. Posterior disc bulge with partially encapsulating spur. No central stenosis or lateral recess stenosis. Facet joint arthropathy resulting in mild bilateral foraminal encroachme nt. No paraspinal masses are identified. Lumbar segments are free if fracture. IMPRESSION: 1. Postsurgical changes of right laminectomy at L3-4. As noted there is air adjacent to the thecal sa c likely related to recent surgical intervention. No obvious collection is identified at this time. 2. Multilevel degenerative disc disease and bilateral lateral recess stenosis as outlined above.
--- NOTE | 2020-07-20 10:50 | CONS ---
CONSULTATION CHIEF COMPLAINT: Elevated troponin. Chuck is a 65-year-old gentleman with history of Norvasc, severe chronic back pain and right footdrop who underwent back surgery about 2 weeks ago, comes into hospital primarily complaining of back pain, leg discomfort and the fact that he has not made significant improvement following his surgery. For unclear reasons, they did troponins on him that came back elevated at 0.06, 0.06 and 0.05, with no definite pattern. Creatinine is normal at 1.2. Potassium is normal at 4.4. Hemoglobin is normal at 15.6. The exact etiology for the elevated troponins is unclear. The patient could very well have suffered a myocardial infarction in the perioperative setting and we are seeing the troponins as a result of that or could be related to recent surgery, but at the moment patient does not have any cardiac symptoms. There is no chest pain. He is not short of breath. No palpitations. EKG shows sinus rhythm with nonspecific ST-T wave changes and there are frequent PVCs. I am going to obtain a 2D echo on him to assess his LV function and wall motion. I will start him on beta blockers, resume the VIC inhibitor that he was on along with Lipitor for the dyslipidemia and see how he evolves, but I think his primary problem is his recent back surgery and the leg discomfort and I am going to let the primary care physician's optimally evaluate this and treat as needed. PAST MEDICAL HISTORY: Significant for hypertension, chronic back pain, history of right footdrop. PAST SURGICAL HISTORY: Recent back surgery. There is no prior history of coronary artery disease or congestive heart failure. MEDICATIONS: Current medications include trazodone, amlodipine 10 q. daily, Mirapex, Neurontin, Coreg, losartan. ALLERGIES: No known drug allergies. FAMILY HISTORY: Negative for premature coronary artery disease. SOCIAL HISTORY: Negative for smoking, EtOH abuse, or drug abuse. REVIEW OF SYSTEMS: HEENT is unremarkable. CARDIAC: As described above. RESPIRATORY: As described above. GI: Negative. GENITOURINARY: Negative. ALLERGY/IMMUNOLOGY: Negative. SKIN: Negative. MUSCULOSKELETAL: Significant for chronic back pain and recent surgery. PSYCHOSOCIAL: Negative. ENDOCRINE: Negative. HEMATOLOGIC: Negative. DERM: Negative. CONSTITUTIONAL: Negative. PHYSICAL EXAMINATION: On exam, comfortable at rest. Vital signs are stable. Blood pressure is elevated at 152/95, O2 saturation is 97% on room air. There is no jugular venous distention. Chest exam reveals good air entry bilaterally. Heart exam reveals first and second heart sounds. Ejection systolic murmur in the aortic area. Abdomen is soft. Examination of extremities did not reveal edema. Peripheral pulses are felt. LABS: Labs show that the troponin is elevated at 0.06, 0.06 and 0.05. Lipid profile shows that the total cholesterol is 240, triglycerides are 137, LDL is 176, HDL is 38. Hemoglobin is normal at 15.6. D-dimer is elevated at 1.2. Potassium is 4.4. Creatinine is 1.2. The patient had a CT scan of the chest that is negative for pulmonary embolism. ASSESSMENT: 1. Elevated troponin of unclear clinical significance. 2. History of recent back surgery. 3. Chronic back pain. 4. Dyslipidemia. PLAN: Treat the patient with beta blockers, statins. Resume the ARBS. Obtain a 2D echo and we will decide on further course of action. MMCECE / IJN: [id number] /
[2020-07-20] MEDS: METOPROLOL SUCCINATE (ER) 25 MG TAB.ER.24H PO SCH (11:13)
--- NOTE | 2020-07-20 12:00 | ECHOF ---
Referral Reason:cp MEASUREMENTS -------- HEIGHT: 180.3 cm WEIGHT: 87.5 kg BP: 145/92 RVIDd: 2.8 cm (< 3.3) IVSd: 1.4 cm (0.6 - 1.1) LVIDd: 3.7 cm (3.9 - 5.3) LVPWd: 1.4 cm (0.6 - 1.1) IVSs: 1.9 cm LVIDs: 3.2 cm LVPWs: 1.9 cm LA Diam: 3.4 cm (2.7 - 3.8) LAESV Index (A-L): 17.75 ml/m Ao Diam: 3.7 cm (2.0 - 3.7) AV Cusp: 2.5 cm (1.5 - 2.6) MV EXCURSION: 12.842 mm (> 18.000) MV EF SLOPE: 45 mm/s (70 - 150) EPSS: 1.7 cm MV E Garo: 0.62 m/s MV DecT: 166 ms MV A Garo: 1.13 m/s MV E/A Ratio: 0.55 AV maxP.79 mmHg AV meanP.21 mmHg RAP: 5.00 mmHg RVSP: 21.84 mmHg FINDINGS -------- Resting tachycardia (HR>100bpm). This was a technically difficult study with suboptimal views. The left ventricular size is normal. There is moderate concentric left ventricular hypertrophy. O verall left ventricular systolic function is low-normal with, an EF between 50 - 55 %. Basal inferi or LV wall motion is hypokinetic. Basal inferoseptal LV wall motion is hypokinetic. The right ventricle is normal in size. Normal LA size by volume 22+/-6 ml/m2. The right atrium is normal in size. 5 ml of Lumason was utilized for enhancement of images. Interatrial and interventricular septum intact. There is mild aortic valve sclerosis. There is mild aortic stenosis present. Peak/mean gradient a cross the Aortic Valve is 18.79mmHg / 9.21mmHg. The mitral valve is normal. Mild tricuspid regurgitation present. Right ventricular systolic pressure is normal at < 35 mmHg. Trace/mild (physiologic) pulmonic regurgitation. The aortic root size is normal. Normal inferior vena cava with normal inspiratory collapse consistent with estimated right atrial pre ssure of 5 mmHg. There is no pericardial effusion. CONCLUSIONS -------- 1. The left ventricular size is normal. 2. There is moderate concentric left ventricular hypertrophy. 3. Basal inferior LV wall motion is hypokinetic. 4. Basal inferoseptal LV wall motion is hypokinetic. 5. 5 ml of Lumason was utilized for enhancement of images. 6. There is mild aortic valve sclerosis. 7. There is mild aortic stenosis present. 8. Peak/mean gradient across the Aortic Valve is 18.79mmHg / 9.21mmHg. 9. Mild tricuspid regurgitation present. 10. Trace/mild (physiologic) pulmonic regurgitation. 11. There is no pericardial effusion. FLARE BREAKER: Lucinda Cornelius RDCS
[2020-07-20] MEDS: fentaNYL (PF) 50 MCG/ML 2 ML AMP IVP PRN (15:51)
[2020-07-20] MEDS: dexAMETHasone 2 MG TAB PO SCH ×2 (15:51→20:21)
--- NOTE | 2020-07-20 15:54 | P.CNOR ---
History of Present Illness - HPI Consult date: 07/20/20 Consult reason: low back pain History of present illness: 65 yo male present with recent hx of lumbar spine surgery out of [facility]. Pt states an increase in his back pain as of recently and increased leg pain after the surgery. He states that he was supposed to go to a rehab facility however he denied this out of his facility and decided to go home. He does live at home alone and found it extremely difficult to get around or do anything. He denies any bowel or bladder issues. Denies any perineal numbness or tingling. He simply states pain in his back that seems to travel down his left leg now. His right leg he has chronic right foot drop for which he had the surgery. He states no weakness in his left lower extremity but simply that he is unable to get around like he normally would. He denies any fevers chills or some breath or chest pain he denies any drainage from the wound he denies any other issues at this time. Review of Systems 14 points review of systems completed and as stated in HPI, all other systems reviewed are negative. Past Medical History Past Medical History: Fibromyalgia, Rheumatoid Arthritis (RA), Sleep Apnea/CPAP/BIPAP Additional Past Medical History / Comment(s): restless leg syndrome, shingles History of Any Multi-Drug Resistant Organisms: None Reported Past Surgical History: Back Surgery, Orthopedic Surgery Additional Past Surgical History / Comment(s): skin CA removal, left shoulder sx, fractured clavicle Past Anesthesia/Blood Transfusion Reactions: No Reported Reaction Past Psychological History: Depression Smoking Status: Never smoker Past Alcohol Use History: Daily, Occasional Past Drug Use History: None Reported - Past Family History Mother Family Medical History: Coronary Artery Disease (CAD) Medications and Allergies Home Medications Medication Instructions Recorded Confirmed Type Pramipexole Di-HCl [Mirapex] 0.75 mg PO TID 06/04/15 07/19/20 History Leflunomide 20 mg PO DAILY 04/14/20 07/19/20 History amLODIPine [Norvasc] 10 mg PO DAILY 30 Days #30 tab 04/16/20 07/19/20 Rx Gabapentin [Neurontin] 100 mg PO TID 07/19/20 07/19/20 History Losartan Potassium [Cozaar] 25 mg PO BID 07/19/20 07/19/20 History carvediloL [Coreg] 3.125 mg PO BID 07/19/20 07/19/20 History traZODone HCL 200 - 300 mg PO HS 07/19/20 07/19/20 History Allergies Allergy/AdvReac Type Severity Reaction Status Date / Time No Known Allergies Allergy Verified 07/19/20 22:27 Physical Examination Osteopathic Statement: *. No significant issues noted on an osteopathic structural exam other than those noted in the History and Physical/Consult. PHYSICAL EXAMINATION: Vitals: Stable General: Awake, alert, appropriate for age, in no acute distress. HEENT: No unusual neck masses around region of lateral neck triangle, thyroid, supraclavicular groove. Extremities: Skin warm and dry without no acute lesions, coloration, temperature, skin intact, no tenderness or erythema. Integument: Hairy patches: Absent Dorsal skin dimples: Absent Cafe au lait spots: Absent Surgical incisions: Posterior midline lumbar incision healing well. No erythema or edema. Mild ecchymosis distally. No drainage. Intact. Palpation: Please see Pain drawing on Intake sheet for further detail. (Tenderness = T, Nontender = NT, Swelling = S, Ecchymosis = E) Findings on Midline and paraspinal palpation and percussion: Cervical: NT Thoracic: NT Lumbar: Mild TTP around the incision site no evidence of fluid collection or fluctuance Sacral: NT Special findings: None POSTURAL and MUSCULO-SKELETAL EVALUATION: Coronal Balance: Neutral Recumbent testing: Patient can lay flat on back Neck ROM: Unrestricted in six directions Lumbar ROM: Restricted secondary to recent surgery. Shoulder ROM: Symmetric in abduction, ER/IR Hip ROM: Symmetric in abduction, adduction, ER/IR Knee ROM: Symmetric and intact in Flexion / extension Hands: Normal appearing structure L and R Feet: Normal appearing structure L and R VASCULAR STATUS : Wrist Pulses: 2/4 bilateral radial and ulnar Pedal Pulses: 2/4 bilateral DP and PT Color: Normal Edema: None NEUROLOGIC EXAMINATION: Mental Status: Awake and alert, fully oriented, with normal attention, concentration and memory, and fluent, appropriate speech. Cranial Nerves: I: Olfactory not tested. II: Visual acuity normal, no visual field deficit noted with confrontation. III,IV: Normal pupillary reflexes & intact extraocular movements without nystagmus. V,: Intact symmetrical facial sensation. VII: Intact symmetrical facial motor movement VIII: Hearing intact. IX,X: Intact gag, swallow, & normal voice. XI: Sternocleidomastoid, trapezius function intact. XII: Tongue midline with normal movements. Special Tests: L'hermitte's Sign: Absent Spurling'Sign: Absent Bilateral Cubital percussion test: Absent Bilateral Wanda-Tinel sign - Carpal region: Absent Bilateral Straight Leg Raising: Absent Bilateral Motor Exam (0-5/5, N/T) STRENGTH UPPER EXTREMITY Shoulder Abd (Not part of NATALIIA Motor score): RIGHT 5 LEFT 5 Elbow Flexors: RIGHT 5 LEFT 5 Elbow Extensor: RIGHT 5 LEFT 5 Wrrist Dorsiflexors: RIGHT 5 LEFT 5 Finger Abductor: RIGHT 5 LEFT 5 Development Geologist: RIGHT 5 LEFT 5 LOWER EXTREMITY Hip Flexor (Not part of NATALIIA Motor Score): RIGHT 5 LEFT 5 Knee Flexor: RIGHT 5 LEFT 5 Knee Extensor: RIGHT 5 LEFT 5 Ankle Dorsiflexion: RIGHT 2 patient has chronic right foot drop LEFT 5 Ankle Plantarflexion: RIGHT 4 LEFT 5 EHL: RIGHT 3 LEFT 5 FHL: RIGHT 5 LEFT 5 Patient was able to stand under his own power at bedside and use a walker to get around the room. He is slightly slow to get up and he has notable right lower extremity weakness however his left lower extremity seems strong when he does stand. REFLEXES Biecp: RIGHT 2 LEFT 2 Tricep: RIGHT 2 LEFT 2 Brachioradialis: RIGHT 2 LEFT 2 Patellar: RIGHT 2 LEFT 2 Achilles: RIGHT 2 LEFT 2 Pathological Reflexes Musa's: RIGHT Absent LEFT Absent Babinski: RIGHT Absent LEFT Absent Clonus: RIGHT None LEFT None SENSORY Joint Position: Intact bilaterally Vibration Intact bilaterally Pain and LT sense Intact C5-T1 and L2-S1 Dermatomal deficit None Gait and Functional Evaluation: Ambulatory aids: Walker Romberg's test: Intact bilaterally. Toe walk/ heel walk / heel-toe walk intact while maintaining satisfactory balance. Squatting and straightening out without assistance to a minimum of 60 degrees knee flexion Single leg stance: intact/ Trendelenburg sign negative bilaterally Hand and finger dexterity intact bilaterally. Disdiadochokinesis examination negative bilaterally. Results Computed tomography scan a lumbar spine is obtained and reviewed. There are postsurgical changes from L2 to L4 decompressive laminectomy in this area. There is no discernible fluid collection or evidence of infectious process. There is slight air in this area but this is likely due to his recent surgery. No other fracture dislocation lesion noted. - Labs Labs: Abnormal Lab Results - Last 24 Hours (Table) 07/19/20 07/19/20 07/19/20 Range/Units 20:12 20:12 20:12 D-Dimer 1.23 H (<0.60) mg/L FEU Sodium 134 L (137-145) mmol/L Chloride 97 L (98-107) mmol/L Carbon Dioxide 21 L (22-30) mmol/L Glucose 101 H (74-99) mg/dL POC Glucose (mg/dL) (75-99) mg/dL Troponin I 0.068 H* (0.000-0.034) ng/mL Cholesterol (<200) mg/dL LDL Cholesterol, Calc (0-99) mg/dL HDL Cholesterol (40-60) mg/dL Urine Protein (Negative) Urine Ketones (Negative) Urine Bilirubin (Negative) Urine Bacteria (None) /hpf Hyaline Casts (0-2) /lpf Urine Mucus (None) /hpf 07/19/20 07/19/20 07/20/20 Range/Units 23:04 23:29 02:06 D-Dimer (<0.60) mg/L FEU Sodium (137-145) mmol/L Chloride (98-107) mmol/L Carbon Dioxide (22-30) mmol/L Glucose (74-99) mg/dL POC Glucose (mg/dL) 119 H (75-99) mg/dL Troponin I 0.063 H* (0.000-0.034) ng/mL Cholesterol (<200) mg/dL LDL Cholesterol, Calc (0-99) mg/dL HDL Cholesterol (40-60) mg/dL Urine Protein 1+ H (Negative) Urine Ketones 4+ H (Negative) Urine Bilirubin 1+ H (Negative) Urine Bacteria Rare H (None) /hpf Hyaline Casts 63 H (0-2) /lpf Urine Mucus Occasional H (None) /hpf 07/20/20 07/20/20 Range/Units 03:03 03:03 D-Dimer (<0.60) mg/L FEU Sodium (137-145) mmol/L Chloride (98-107) mmol/L Carbon Dioxide (22-30) mmol/L Glucose (74-99) mg/dL POC Glucose (mg/dL) (75-99) mg/dL Troponin I 0.059 H* (0.000-0.034) ng/mL Cholesterol 241 H (<200) mg/dL LDL Cholesterol, Calc 176 H (0-99) mg/dL HDL Cholesterol 38 L (40-60) mg/dL Urine Protein (Negative) Urine Ketones (Negative) Urine Bilirubin (Negative) Urine Bacteria (None) /hpf Hyaline Casts (0-2) /lpf Urine Mucus (None) /hpf H & H 07/19/20 Range/Units 20:12 Hgb 15.6 (13.0-17.5) gm/dL Hct 45.0 (39.0-53.0) % Coagulation 07/19/20 Range/Units 20:12 INR 1.0 (<1.2) Result Diagrams: 07/19/20 20:12 07/19/20 20:12 Assessment and Plan Assessment: 1. Status post L2 to L4 laminectomy decompression at outside facility 2. Right lower extremity weakness, unchanged since before surgery 3. Left lower extremity radiculopathy, new 4. Complex medical patient Plan: -Appreciate medicine management. -Pain control: Adequate at this time -Recommend adding Decadron or oral steroids for radiculopathy and swelling -Recommend gabapentin for nerve pain -Aggressive ambulation protocol. OOB with all meals. OOB or in chair 4-5x tania y. -PT/OT -TEDs, SCDs, mechanical ppx. OK for heparin today. Early ambulation is best. -GI ppx. -[No further imaging needed at this time] -Trend labs. -Dispo: Stable for rehab from an orthopedic and spine perspective. Patient has a follow-up appointment with his spine surgeon week and I encouraged him to keep this appointment. He will be admitted under the medicine service here for PT OT and placement which I feel is appropriate. There is no emergent or urgent surgical needs at this time. I spoke at length with the patient was clinical signs and symptoms. We do not feel he has any urgent or emergent surgical needs at this time. We will attempt to treat his postoperative pain as well as radiculopathy as well as get him physical therapy and occupational therapy to mobilize him. He agreed with this. Like to go to rehab at some point which I feel is necessary for him as well. Time with Patient: Greater than 30
--- NOTE | 2020-07-20 15:56 | P.PN ---
<José Luis Garg - Last Filed: 07/20/20 14:33> Subjective Progress Note Date: 07/20/20 Hospital course: Patient is a very pleasant 65-year-old male with a past medical history includ ing spinal DJD, hypertension, fibromyalgia, rheumatoid arthritis, and obstructive sleep apnea. He presented to the emergency department on 07/19/20 with a chief complaint of excess fatigue and uncontrolled lower back pain. Patient is status post a lumbar spine discectomy with decompression completed on 07/07/20 at [facility] by Dr. Ramirez. Patient states status post surgery he felt he was doing well and did not need to go to rehab so he declined, however he reports extreme fatigue over the past 4-5 days to the point where he is unable to move or care for himself. Patient reports he has been unable to perform his normal activities of daily living, personal hygiene, make himself something to eat, or even get a glass of water. Patient reports he lives with his ex- and she was not very helpful. Patient reports after extreme fatigue set in he then began to develop an increase in his lower back pain. Patient reports this pain to his lower back is worse with any movement and is now accompanied by new pain radiating down into his left buttocks accompanied by numbness and tingling of his left foot. Patient reports pain in right leg is chronic and has improved since surgical procedure. He was fully worked up in the emergency department where he was found to have an elevated troponin of 0.068 and an elevated d-dimer at 1.23. EKG was completed showing normal sinus rhythm at 97 bpm with frequent PVCs, no T-wave or ST abnormalities present showing no signs of acute ischemia. Chest x-ray negative for acute cardiopulmonary process. CTA chest had reported motion artifact present but stated negative for large central PE. Patient was admitted under our services for an elevated troponin, elevated d-dimer lethargy with poor oral intake, and acute exacerbation of chronic lower back pain status post recent lumbar discectomy with spinal decompression surgery. Cardiology, orthopedic surgery, and neurology were also consulted. CT lumbar spine without contrast showing postsurgical changes of right laminectomy at L3 through L4, reports of noted air adjacent to the thecal sac reported likely secondary to recent surgical intervention, there were no reported obvious fluid collections identified at this time, and reported multilevel degenerative disc disease and bilateral lateral recess stenosis. Echocardiogram with a preserved EF of 50-55% accompanied by moderate concentric left ventricular hypertrophy with hypokinetic motion throughout inferior and inferoseptal left ventricular wall. Troponins remain elevated but stable with initial 0.068, followed by 0.063, and 0.059. Cholesterol level revealed an elevated total cholesterol of 241, LDL 176, and ACL of 38 with triglycerides of 137. Patient was placed on atorvastatin 80 mg daily. Physical exam: General: non toxic, no distress, appears at stated age Derm: warm, dry. Postsurgical incision to midline lower back intact well approximated and healing process with scab present, no signs of infection including no edema, erythema, or drainage. Head: atraumatic, normocephalic, symmetric Eyes: EOMI, no lid lag, anicteric sclera Mouth: no lip lesion, mucus membranes moist Cardiovascular: S1S2 reg, no murmur, gallop, or rub. Posterior tibial pulses present bilaterally. Lungs: Respirations even, regular, and unlabored on room air. Lungs CTA bilaterally with no noted rhonchi, rales, wheezes, or crackles present. No accessory muscle use Abdominal: soft, nontender to palpation, no guarding, no appreciable organomegaly Ext: no gross muscle atrophy, no edema, no contractures Neuro: CN II-XII grossly intact, no focal neuro deficits. Movement and sensati on of bilateral upper and lower extremities intact. Psych: Alert, oriented, pleasant and appropriate affect Assessment and Plan of care: Extreme fatigue with Elevated troponin -Troponins remain elevated but stable with initial 0.068, followed by 0.063, and 0.059. -EKG was completed showing normal sinus rhythm at 97 bpm with frequent PVCs, no T-wave or ST abnormalities present showing no signs of acute ischemia. -Chest x-ray negative for acute cardiopulmonary process. -CTA chest had reported motion artifact present but stated negative for large central PE. -Cholesterol level revealed an elevated total cholesterol of 241, LDL 176, and ACL of 38 with triglycerides of 137. Patient was placed on atorvastatin 80 mg daily. -Echocardiogram with a preserved EF of 50-55% accompanied by moderate concentric left ventricular hypertrophy with hypokinetic motion throughout inferior and inferoseptal left ventricular wall. -Patient to continue daily amlodipine, aspirin, atorvastatin, losartan, and metoprolol succinate. -Telemetry monitoring. -Cardiology following, appreciate further recommendations. Decreased oral intake secondary to extreme fatigue and inability to prepare meals for himself -Continue gentle hydration with 0.9% normal saline at 100 miles per hour. -Encourage oral intake with a heart healthy diet. Elevated d-dimer, CT PE negative Acute exacerbation of chronic lower back pain status post recent lumbar discectomy with spinal decompression surgery - CT lumbar spine without contrast showing postsurgical changes of right laminectomy at L3 through L4, reports of noted air adjacent to the thecal sac reported likely secondary to recent surgical intervention, there were no reported obvious fluid collections identified at this time, and reported multilevel degenerative disc disease and bilateral lateral recess stenosis. -Orthopedic surgery team following, appreciate further medications. -Symptomatic care and pain management. -PT/OT consult -Case management arranging for SNF placement upon discharge for continued rehabilitation therapy. Hypertension -Monitor vital signs and continue daily medication management. Obstructive sleep apnea CPAP dependent nightly -Continue nightly management with CPAP. Other chronic conditions including : Rheumatoid arthritis, fibromyalgia, and restless leg -Continue medication management with Neurontin and Mirapex CODE STATUS: Full code DVT prophylaxis: Lovenox Discussed with: Patient and RN Anticipated discharge date: Clinical course to determine Anticipated discharge place: SNF A total of 45 minutes was spent on the care of this complex patient more than 50% of the time was spent in counseling and care coordination. Objective - Vital Signs Vital signs: Vital Signs Temp 97.6 F 07/20/20 07:49 Pulse 97 07/20/20 07:49 Resp 18 07/20/20 07:49 BP 152/95 07/20/20 07:49 Pulse Ox 97 07/20/20 07:49 Intake & Output 07/19/20 07/20/20 07/20/20 18:59 06:59 18:59 Weight 87.543 kg - Labs CBC & Chem 7: 07/19/20 20:12 07/19/20 20:12 Labs: Abnormal Lab Results - Last 24 Hours (Table) 07/19/20 07/19/20 07/19/20 Range/Units 20:12 20:12 20:12 D-Dimer 1.23 H (<0.60) mg/L FEU Sodium 134 L (137-145) mmol/L Chloride 97 L (98-107) mmol/L Carbon Dioxide 21 L (22-30) mmol/L Glucose 101 H (74-99) mg/dL POC Glucose (mg/dL) (75-99) mg/dL Troponin I 0.068 H* (0.000-0.034) ng/mL Cholesterol (<200) mg/dL LDL Cholesterol, Calc (0-99) mg/dL HDL Cholesterol (40-60) mg/dL Urine Protein (Negative) Urine Ketones (Negative) Urine Bilirubin (Negative) Urine Bacteria (None) /hpf Hyaline Casts (0-2) /lpf Urine Mucus (None) /hpf 07/19/20 07/19/20 07/20/20 Range/Units 23:04 23:29 02:06 D-Dimer (<0.60) mg/L FEU Sodium (137-145) mmol/L Chloride (98-107) mmol/L Carbon Dioxide (22-30) mmol/L Glucose (74-99) mg/dL POC Glucose (mg/dL) 119 H (75-99) mg/dL Troponin I 0.063 H* (0.000-0.034) ng/mL Cholesterol (<200) mg/dL LDL Cholesterol, Calc (0-99) mg/dL HDL Cholesterol (40-60) mg/dL Urine Protein 1+ H (Negative) Urine Ketones 4+ H (Negative) Urine Bilirubin 1+ H (Negative) Urine Bacteria Rare H (None) /hpf Hyaline Casts 63 H (0-2) /lpf Urine Mucus Occasional H (None) /hpf 07/20/20 07/20/20 Range/Units 03:03 03:03 D-Dimer (<0.60) mg/L FEU Sodium (137-145) mmol/L Chloride (98-107) mmol/L Carbon Dioxide (22-30) mmol/L Glucose (74-99) mg/dL POC Glucose (mg/dL) (75-99) mg/dL Troponin I 0.059 H* (0.000-0.034) ng/mL Cholesterol 241 H (<200) mg/dL LDL Cholesterol, Calc 176 H (0-99) mg/dL HDL Cholesterol 38 L (40-60) mg/dL Urine Protein (Negative) Urine Ketones (Negative) Urine Bilirubin (Negative) Urine Bacteria (None) /hpf Hyaline Casts (0-2) /lpf Urine Mucus (None) /hpf <Erasto,Laquita A - Last Filed: 07/20/20 17:22> Objective - Vital Signs Vital signs: Vital Signs Temp 98.0 F 07/20/20 15:46 Pulse 84 07/20/20 17:00 Resp 18 07/20/20 17:00 BP 155/105 07/20/20 15:46 Pulse Ox 97 07/20/20 15:46 Intake & Output 07/19/20 07/20/20 07/20/20 18:59 06:59 18:59 Weight 87.543 kg 87.543 kg - Labs CBC & Chem 7: 07/19/20 20:12 07/19/20 20:12 Labs: Abnormal Lab Results - Last 24 Hours (Table) 07/19/20 07/19/20 07/19/20 Range/Units 20:12 20:12 20:12 D-Dimer 1.23 H (<0.60) mg/L FEU Sodium 134 L (137-145) mmol/L Chloride 97 L (98-107) mmol/L Carbon Dioxide 21 L (22-30) mmol/L Glucose 101 H (74-99) mg/dL POC Glucose (mg/dL) (75-99) mg/dL Troponin I 0.068 H* (0.000-0.034) ng/mL Cholesterol (<200) mg/dL LDL Cholesterol, Calc (0-99) mg/dL HDL Cholesterol (40-60) mg/dL Urine Protein (Negative) Urine Ketones (Negative) Urine Bilirubin (Negative) Urine Bacteria (None) /hpf Hyaline Casts (0-2) /lpf Urine Mucus (None) /hpf 07/19/20 07/19/20 07/20/20 Range/Units 23:04 23:29 02:06 D-Dimer (<0.60) mg/L FEU Sodium (137-145) mmol/L Chloride (98-107) mmol/L Carbon Dioxide (22-30) mmol/L Glucose (74-99) mg/dL POC Glucose (mg/dL) 119 H (75-99) mg/dL Troponin I 0.063 H* (0.000-0.034) ng/mL Cholesterol (<200) mg/dL LDL Cholesterol, Calc (0-99) mg/dL HDL Cholesterol (40-60) mg/dL Urine Protein 1+ H (Negative) Urine Ketones 4+ H (Negative) Urine Bilirubin 1+ H (Negative) Urine Bacteria Rare H (None) /hpf Hyaline Casts 63 H (0-2) /lpf Urine Mucus Occasional H (None) /hpf 07/20/20 07/20/20 Range/Units 03:03 03:03 D-Dimer (<0.60) mg/L FEU Sodium (137-145) mmol/L Chloride (98-107) mmol/L Carbon Dioxide (22-30) mmol/L Glucose (74-99) mg/dL POC Glucose (mg/dL) (75-99) mg/dL Troponin I 0.059 H* (0.000-0.034) ng/mL Cholesterol 241 H (<200) mg/dL LDL Cholesterol, Calc 176 H (0-99) mg/dL HDL Cholesterol 38 L (40-60) mg/dL Urine Protein (Negative) Urine Ketones (Negative) Urine Bilirubin (Negative) Urine Bacteria (None) /hpf Hyaline Casts (0-2) /lpf Urine Mucus (None) /hpf Assessment and Plan Assessment: Patient seen and examined independently. Patient was also seen by José Luis Garg NP and case was discussed. I am in agreement with subjective, physical exam, assessment and plan as written above and amended below. Patient reports overall fatigue. We discussed that he will likely note go to rehab. He is in agreement. He states he would like to stay on the [place] [facility]. General: non toxic, no distress, appears at stated age Derm: warm, dry Head: atraumatic, normocephalic, symmetric Eyes: EOMI, no lid lag, anicteric sclera Mouth: no lip lesion, mucus membranes moist Cardiovascular: S1S2 reg, no murmur, positive posterior tibial pulse bilateral, Lungs: Decresed bs bilateral, no rhonchi, no rales , no accessory muscle use Abdominal: soft, nontender to palpation, no guarding, no appreciable organomegaly Neuro: CN II-XI grossly intact Psych: Alert, oriented, appropriate affect Case discussed with lower orthopedic surgery and neurology. Orthopedic surgery feels as though this is a typical post operative course for his recent surgery. Patient is unable to go to [place] as there is no beds available and they were unable to facilitate transfer yesterday. Plan is for patient to go to rehab pending cardiac clearance. Will start dexamethasone
[2020-07-20] MEDS: LOSARTAN 25 MG TAB PO SCH (20:21)
[2020-07-20] MEDS ORDERED: traZODone HCL 100 MG TAB PO SCH (21:00)
[2020-07-21] MEDS: MORPHINE SULFATE 4 MG/ML SYRINGE IV PRN ×5 (01:26→20:21)
[2020-07-21] MEDS: SODIUM CHLORIDE 0.9% 1,000 ML IV SCH ×3 (06:32→17:02)
--- NOTE | 2020-07-21 08:32 | P.PN ---
Subjective Progress Note Date: 07/21/20 Principal diagnosis: Back pain Patient seen and examined this morning is doing further well. His seated up in bed eating breakfast. He states his pain is much better. He states that his left lower extremity pain is also better. He states no improvement in his right lower extremity as of yet. He denies any fevers chills from his breath or chest pain denies any perineal numbness or tingling denies any difficulty with bowel or bladder issues Objective - Vital Signs Vital signs: Vital Signs Temp 98.1 F 07/21/20 04:00 Pulse 62 07/21/20 04:00 Resp 20 07/21/20 04:00 BP 123/89 07/21/20 04:00 Pulse Ox 97 07/21/20 04:00 Intake & Output 07/20/20 07/21/20 07/21/20 18:59 06:59 18:59 Intake Total 960 240 Output Total 100 Balance 860 240 Weight 88.7 kg Intake: Oral 960 240 Output: Urine 100 Other: Voiding Method Urinal # Voids 1 # Bowel Movements 1 - Exam Exam is stable today. He does have better pain control. Incision is clean dry and intact no erythema or ecchymosis or edema and no drainage. Good motion of his left lower extremity. The motion of his right lower extremity besides foot drop. This is stable. PHYSICAL EXAMINATION: Vitals: Stable General: Awake, alert, appropriate for age, in no acute distress. HEENT: No unusual neck masses around region of lateral neck triangle, thyroid, supraclavicular groove. Extremities: Skin warm and dry without no acute lesions, coloration, temperature, skin intact, no tenderness or erythema. Integument: Hairy patches: Absent Dorsal skin dimples: Absent Cafe au lait spots: Absent Surgical incisions: Posterior midline lumbar incision healing well. No erythema or edema. Mild ecchymosis distally. No drainage. Intact. Palpation: Please see Pain drawing on Intake sheet for further detail. (Tenderness = T, Nontender = NT, Swelling = S, Ecchymosis = E) Findings on Midline and paraspinal palpation and percussion: Cervical: NT Thoracic: NT Lumbar: Mild TTP around the incision site no evidence of fluid collection or fluctuance Sacral: NT Special findings: None POSTURAL and MUSCULO-SKELETAL EVALUATION: Coronal Balance: Neutral Recumbent testing: Patient can lay flat on back Neck ROM: Unrestricted in six directions Lumbar ROM: Restricted secondary to recent surgery. Shoulder ROM: Symmetric in abduction, ER/IR Hip ROM: Symmetric in abduction, adduction, ER/IR Knee ROM: Symmetric and intact in Flexion / extension Hands: Normal appearing structure L and R Feet: Normal appearing structure L and R VASCULAR STATUS : Wrist Pulses: 2/4 bilateral radial and ulnar Pedal Pulses: 2/4 bilateral DP and PT Color: Normal Edema: None NEUROLOGIC EXAMINATION: Mental Status: Awake and alert, fully oriented, with normal attention, concentration and memory, and fluent, appropriate speech. Cranial Nerves: I: Olfactory not tested. II: Visual acuity normal, no visual field deficit noted with confrontation. III,IV: Normal pupillary reflexes & intact extraocular movements without nystagmus. V,: Intact symmetrical facial sensation. VII: Intact symmetrical facial motor movement VIII: Hearing intact. IX,X: Intact gag, swallow, & normal voice. XI: Sternocleidomastoid, trapezius function intact. XII: Tongue midline with normal movements. Special Tests: L'hermitte's Sign: Absent Spurling'Sign: Absent Bilateral Cubital percussion test: Absent Bilateral Wanda-Tinel sign - Carpal region: Absent Bilateral Straight Leg Raising: Absent Bilateral Motor Exam (0-5/5, N/T) STRENGTH UPPER EXTREMITY Shoulder Abd (Not part of NATALIIA Motor score): RIGHT 5 LEFT 5 Elbow Flexors: RIGHT 5 LEFT 5 Elbow Extensor: RIGHT 5 LEFT 5 Wrrist Dorsiflexors: RIGHT 5 LEFT 5 Finger Abductor: RIGHT 5 LEFT 5 Potato Pancake Frier: RIGHT 5 LEFT 5 LOWER EXTREMITY Hip Flexor (Not part of NATALIIA Motor Score): RIGHT 5 LEFT 5 Knee Flexor: RIGHT 5 LEFT 5 Knee Extensor: RIGHT 5 LEFT 5 Ankle Dorsiflexion: RIGHT 2 patient has chronic right foot drop LEFT 5 Ankle Plantarflexion: RIGHT 4 LEFT 5 EHL: RIGHT 3 LEFT 5 FHL: RIGHT 5 LEFT 5 Patient was able to stand under his own power at bedside and use a walker to get around the room. He is slightly slow to get up and he has notable right lower extremity weakness however his left lower extremity seems strong when he does stand. REFLEXES Biecp: RIGHT 2 LEFT 2 Tricep: RIGHT 2 LEFT 2 Brachioradialis: RIGHT 2 LEFT 2 Patellar: RIGHT 2 LEFT 2 Achilles: RIGHT 2 LEFT 2 Pathological Reflexes Musa's: RIGHT Absent LEFT Absent Babinski: RIGHT Absent LEFT Absent Clonus: RIGHT None LEFT None SENSORY Joint Position: Intact bilaterally Vibration Intact bilaterally Pain and LT sense Intact C5-T1 and L2-S1 Dermatomal deficit None Gait and Functional Evaluation: Ambulatory aids: Walker Romberg's test: Intact bilaterally. Toe walk/ heel walk / heel-toe walk intact while maintaining satisfactory balance. Squatting and straightening out without assistance to a minimum of 60 degrees knee flexion Single leg stance: intact/ Trendelenburg sign negative bilaterally Hand and finger dexterity intact bilaterally. Disdiadochokinesis examination negative bilaterally. - Labs CBC & Chem 7: 07/19/20 20:12 07/19/20 20:12 Assessment and Plan Assessment: 1. Status post L2 to L4 laminectomy decompression at outside facility 2. Right lower extremity weakness, unchanged since before surgery 3. Left lower extremity radiculopathy, new 4. Complex medical patient Plan: -Appreciate medicine management. -Pain control: Adequate at this time -Recommend adding Decadron or oral steroids for radiculopathy and swelling -Recommend gabapentin for nerve pain -Aggressive ambulation protocol. OOB with all meals. OOB or in chair 4-5x daily. -PT/OT -TEDs, SCDs, mechanical ppx. OK for heparin today. Early ambulation is best. -GI ppx. -[No further imaging needed at this time] -Trend labs. -Dispo: Stable for rehab from an orthopedic and spine perspective. Patient has a follow-up appointment with his spine surgeon week and I encouraged him to keep this appointment. He will be admitted under the medicine service here for PT OT and placement which I feel is appropriate. There is no emergent or urgent surgical needs at this time. I spoke with the patient again at length today. We will attempt to get him some physical therapy today as well as mobile. We will control his pain. He has a follow-up with his surgeon on July 25 and I encouraged him to keep this appointment. He will likely need placement in rehab
[2020-07-21 08:44] LABS: HCT 37.6 % (39.0-53.0); HGB 12.8 gm/dL (13.0-17.5); MCH 30.6 pg (25.0-35.0); MCHC 34.1 g/dL (31.0-37.0); MCV 89.7 fL (80.0-100.0); Mean Platelet Volume 6.9; Platelet Count 274 k/uL (150-450); RBC 4.19 m/uL (4.30-5.90); RDW 14.1 % (11.5-15.5); WBC 8.8 k/uL (3.8-10.6)
[2020-07-21 09:05] LABS: African American GFR (CKD) >90 (>60 ml/min/1.73 sqM); Anion Gap 9 mmol/L; Blood Urea Nitrogen 13 mg/dL (9-20); Calcium 8.6 mg/dL (8.4-10.2); Carbon Dioxide 22 mmol/L (22-30); Chloride 103 mmol/L (98-107); Glucose 247 mg/dL (74-99); Magnesium 1.9 mg/dL (1.6-2.3); Non-African American GFR(CKD) >90 (>60 ml/min/1.73 sqM); Potassium 4.3 mmol/L (3.5-5.1); Sodium 134 mmol/L (137-145)
[2020-07-21] MEDS: ENOXAPARIN 40 MG/0.4 ML SYRINGE SQ SCH (09:28)
[2020-07-21] MEDS: METOPROLOL SUCCINATE (ER) 25 MG TAB.ER.24H PO SCH (09:29)
[2020-07-21] MEDS: PRAMIPEXOLE 0.25 MG TAB PO SCH ×3 (09:29→20:22)
[2020-07-21] MEDS: LOSARTAN 25 MG TAB PO SCH ×2 (09:29→20:22)
[2020-07-21] MEDS: ATORVASTATIN 80 MG TAB PO SCH (09:29)
[2020-07-21] MEDS: amLODIPine 10 MG TAB PO SCH (09:29)
[2020-07-21] MEDS: GABAPENTIN 100 MG CAP PO SCH ×3 (09:29→20:22)
[2020-07-21] MEDS: dexAMETHasone 2 MG TAB PO SCH ×3 (09:29→20:22)
[2020-07-21] MEDS: LEFLUNOMIDE 20 MG TAB PO SCH (09:30)
--- NOTE | 2020-07-21 14:05 | P.CN ---
Psychiatric Consult - . 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 REASON FOR REFERRAL: Psychiatry was consulted for depression HISTORY OF PRESENT ILLNESS: The patient presented to the hospital on 07/19 for weakness, lower back pain and decrease in appetite. Patient has stated according to ER reports that he recently had surgery at [facility] on July 07. Patient was found to have elevated troponins and was also found to have a non-STEMI. Patient is being followed by cardiology. Patient apparently was noted by primary team to be depressed and crying. Patient was seen at the bedside today and claims that he's been feeling "overwhelmed and stressed" and spoke about his different stressors in his life including dealing with rheumatoid arthritis. He states that he's been also dealing with his back pain and feeling like it is not getting better. He claims that he is not able to work and really does enjoy his job. He states that he's been having difficulties with his finances due to not being able to work and also dealing with his ex . He states that they also "found a heart problem" while he's been in the hospital and claims that he has a cath tomorrow scheduled which she is nervous about. He states that he has been arguing with his ex- and not getting along with his son which has been hurting him. He feels that he has "nobody to talk to" and poor social support. He states that he has been also crying a lot and has been "bottling things up". He admits to ongoing anxiety and depressed mood. He states that he is not currently having suicidal thoughts however "don't want to live anymore sometimes". He states that he has been having poor sleep and restless leg symptoms and also poor appetite. At this time patient denies any cuurent suicidal or homical ideations, intent or plan. Patient denies any auditory, visual hallucinations and denies any paranoia or delusions. Patients admits to using no recreational drugs he states that he drinks alcohol occasionally. He claims that he does not have any access to guns or weapons at home. PAST PSYCHIATRIC HISTORY: Patient has a a history of depression. Patient is currently on trazodone 20 mg daily at bedtime. He states that he was hospitalized once on the psychiatric unit in [place] in 2006 for depression. Patient denies any psychiatric outpatient follow-up. Patient denies any history of suicide attempts in the past. PAST MEDICAL HISTORY: Fibromyalgia, rheumatoid arthritis, obstructive sleep apnea, restless leg symptoms, hypertension. ALLERGIES: as per EMR. CHEMICAL DEPENDENCY HISTORY: as per HPI. FAMILY PSYCHIATRIC/SUBSTANCE USE HISTORY: He states that his father abused alcohol heavily and his mother also abused polysubstances. SOCIAL HISTORY: Patient was born and raised in [place] [facility] [place] [place] He states that he was temporarily in foster care as his mother was not able to care for him. He states that he completed high school and did some college. 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 He claims that he has no legal history. 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 MENTAL STATUS EXAM: General Appearance: Patient appears to be stated age is alert, pleasant, and cooperative. Constricted affect. Patient appears to have fair hygiene and grooming wearing hospital gown with poor eye contact. Behavior: Patient is calmly lying in bed without any agitated behavior. Appears to be depressed and tearful at times Speech: Patient's speech is fluent and nonpressured. Soft tone Mood/Affect: Patient reports their mood is "depressed", affect is congruent Suicidality/Homicidality: Patient denies having any suicidal or homicidal ideation intent or plan. Perceptions: Patient denies any visual hallucinations and denies any auditory hallucinations Though content/process: There is no evidence of any delusional thought content and thought process is linear and goal-directed. No paranoia. Logical. Focused on the stressors. Memory and concentration: AOX3, grossly intact for the purposes of this session. Can spell "WORLD" backwards Judgment and insight: fair IMPRESSIONS: Major depressive disorder Anxiety disorder unspecified PLAN: -At this time patient DOES NOT meet criteria currently for inpatient psychiatric admission however will continue to follow up with patient over the weekend to see if patient may benefit from psychiatric hospitalization. -Would recommend the following medication changes/additions: Cymbalta 30 mg daily for mood/anxiety/pain, Remeron 15 mg daily at bedtime for insomnia/appetite/mood. -caisson worker to provide patient with outpatient mental health/psychiatry resources for appropriate follow up upon discharge -Communicated plan to patient's nurse -Will continue to follow along over the weekend for medication management and to determine if patient will need inpt psych admission. -Please contact with any questions.
--- NOTE | 2020-07-21 14:10 | P.PN ---
Subjective Progress Note Date: 07/21/20 HISTORY OF PRESENT ILLNESS: 65-year-old male who recently had back surgery who presented to the hospital with a chief complaint of back pain and leg discomfort. Patient was found to have abnormal troponins of 0.06. 0.06. and 0.05. Patient denied having any chest pain or pressure. Patient examined this morning at the bedside. He continues to deny chest discomfort. He denies shortness of breath. Echocardiogram completed revealed ejection fraction 50-55%, basal inferior LV wall hypokinesis, basal inferior septal LV wall hypokinesis, mild aortic stenosis, and mild tricuspid regurgitation. Patient is currently on amlodipine, atorvastatin, losartan, metoprolol. PHYSICAL EXAM: VITAL SIGNS: Reviewed. GENERAL: Well-developed in no acute distress. NECK: Supple. No JVD or thyromegaly LUNGS: Respirations even and unlabored. Lungs essentially clear to auscultation bilaterally. HEART: Regular rate and rhythm. S1 and S2 heard. Systolic murmur noted. EXTREMITIES: Normal range of motion. No clubbing or cyanosis. Peripheral pulses intact. No lower extremity edema ASSESSMENT: Acute back pain and fatigue, s/p recent lumbar discectomy with spinal decompression surgery Abnormal troponins with LV wall motion abnormalities noted on echocardiogram, possible non-STEMI Hypertension PLAN: Add aspirin 81 mg daily Continue Lipitor, losartan, metoprolol, and amlodipine Patient states he recently had an echocardiogram performed at [facility]. We will obtain records from [place]. If LV wall motion abnormalities are new compared to previous echocardiogram, the patient will be scheduled for a cardiac catheterization. Nothing by mouth at midnight in case of heart cath tomorrow. Spoke with Dr. Kwasi LANDRY who states no contraindication for IV heparin from their standpoint if patient requires cardiac cath Further recommendations pending patient's course Nurse practitioner note has been reviewed by physician. Signing provider agrees with the documented findings, assessment, and plan of care. Objective - Vital Signs Vital signs: Vital Signs Temp 97.9 F 07/21/20 08:00 Pulse 76 07/21/20 13:48 Resp 16 07/21/20 13:48 BP 118/80 07/21/20 12:00 Pulse Ox 94 L 07/21/20 12:00 Intake & Output 07/20/20 07/21/20 07/21/20 18:59 06:59 18:59 Intake Total 960 480 Output Total 100 Balance 860 480 Weight 88.7 kg Intake: Oral 960 480 Output: Urine 100 Other: Voiding Method Urinal Urinal # Voids 1 # Bowel Movements 1 - Labs CBC & Chem 7: 07/21/20 08:13 07/21/20 08:13 Labs: Abnormal Lab Results - Last 24 Hours (Table) 07/21/20 07/21/20 Range/Units 08:13 08:13 RBC 4.19 L (4.30-5.90) m/uL Hgb 12.8 L (13.0-17.5) gm/dL Hct 37.6 L (39.0-53.0) % Sodium 134 L (137-145) mmol/L Creatinine 0.61 L (0.66-1.25) mg/dL Glucose 247 H (74-99) mg/dL
--- NOTE | 2020-07-21 14:40 | P.PN ---
<José Luis Garg - Last Filed: 07/21/20 14:24> Subjective Progress Note Date: 07/21/20 Hospital course: Patient is a very pleasant 65-year-old male with a past medical history includ ing spinal DJD, hypertension, fibromyalgia, rheumatoid arthritis, and obstructive sleep apnea. He presented to the emergency department on 07/19/20 with a chief complaint of excess fatigue and uncontrolled lower back pain. Patient is status post a lumbar spine discectomy with decompression completed on 07/07/20 at [facility] by Dr. Ramirez. Patient states status post surgery he felt he was doing well and did not need to go to rehab so he declined, however he reports extreme fatigue over the past 4-5 days to the point where he is unable to move or care for himself. Patient reports he has been unable to perform his normal activities of daily living, personal hygiene, make himself something to eat, or even get a glass of water. Patient reports he lives with his ex- and she was not very helpful. Patient reports after extreme fatigue set in he then began to develop an increase in his lower back pain. Patient reports this pain to his lower back is worse with any movement and is now accompanied by new pain radiating down into his left buttocks accompanied by numbness and tingling of his left foot. Patient reports pain in right leg is chronic and has improved since surgical procedure. He was fully worked up in the emergency department where he was found to have an elevated troponin of 0.068 and an elevated d-dimer at 1.23. EKG was completed showing normal sinus rhythm at 97 bpm with frequent PVCs, no T-wave or ST abnormalities present showing no signs of acute ischemia. Chest x-ray negative for acute cardiopulmonary process. CTA chest had reported motion artifact present but stated negative for large central PE. Patient was admitted under our services for an elevated troponin, elevated d-dimer lethargy with poor oral intake, and acute exacerbation of chronic lower back pain status post recent lumbar discectomy with spinal decompression surgery. Cardiology, orthopedic surgery, and neurology were also consulted. CT lumbar spine without contrast showing postsurgical changes of right laminectomy at L3 through L4, reports of noted air adjacent to the thecal sac reported likely secondary to recent surgical intervention, there were no reported obvious fluid collections identified at this time, and reported multilevel degenerative disc disease and bilateral lateral recess stenosis. Echocardiogram with a preserved EF of 50-55% accompanied by moderate concentric left ventricular hypertrophy with hypokinetic motion throughout inferior and inferoseptal left ventricular wall. Troponins elevated but stable with initial 0.068, followed by 0.063, and 0.059. Cholesterol level revealed an elevated total cholesterol of 241, LDL 176, and ACL of 38 with triglycerides of 137. Patient was placed on atorvastatin 80 mg daily. Physical exam: Patient seen and evaluated this morning. He reports that he feels moderately depressed secondary to everything that has been going on in his life with recent surgery, loss of income, living in the house with his ex-, and now his heart. Patient reports that he just feels very fatigued and hopelessness, depressed and has episodes of anxiety regarding how he is going to manage everything. He denies having suicidal ideation or plan. Psychiatry was consulted and started patient on Cymbalta and Remeron. Patient reports that his lower back pain is more controlled since arriving to hospital, but continues to report pain in left buttocks radiating down left lower extremity as well as chronic pain in right hip and right lateral thigh.. Patient denies having any headache, lightheadedness, dizziness, chest pain, palpitations, or shortness of breath. Vital signs reviewed and stable. General: non toxic, no distress, appears at stated age Derm: warm, dry. Postsurgical incision to midline lower back intact well approximated and healing process with scab present, no signs of infection including no edema, erythema, or drainage. Head: atraumatic, normocephalic, symmetric Eyes: EOMI, no lid lag, anicteric sclera Mouth: no lip lesion, mucus membranes moist Cardiovascular: S1S2 reg, no murmur, gallop, or rub. Posterior tibial pulses present bilaterally. Lungs: Respirations even, regular, and unlabored on room air. Lungs CTA bilaterally with no noted rhonchi, rales, wheezes, or crackles present. No accessory muscle use Abdominal: soft, nontender to palpation, no guarding, no appreciable organomegaly Ext: no gross muscle atrophy, no edema, no contractures Neuro: CN II-XII grossly intact, no focal neuro deficits. Movement and sensation of bilateral upper and lower extremities intact. Psych: Alert, oriented, pleasant and appropriate affect Assessment and Plan of care: NSTEMI -Troponins elevated but stable with initial 0.068, followed by 0.063, and 0.059. -EKG showed normal sinus rhythm at 97 bpm with frequent PVCs, no T-wave or ST abnormalities present showing no signs of acute ischemia. -Chest x-ray negative for acute cardiopulmonary process. -Cholesterol level revealed an elevated total cholesterol of 241, LDL 176, and ACL of 38 with triglycerides of 137. Patient was placed on atorvastatin 80 mg daily. -Echocardiogram with a preserved EF of 50-55% accompanied by moderate concentric left ventricular hypertrophy with hypokinetic motion throughout inferior and in feroseptal left ventricular wall. -Patient to continue daily amlodipine, aspirin, atorvastatin, losartan, and metoprolol succinate. -Telemetry monitoring. -Cardiology following, plans for cardiac cath tomorrow morning. Depression and anxiety with extreme fatigue and decreased oral intake -Psychiatry following along with patient and started him on Cymbalta 30 mg daily to assist with his mood/anxiety/pain and Remeron 15 mg at bedtime for insomnia/appetite/mood. -Continue gentle hydration with 0.9% normal saline at 100 miles per hour. -Encourage oral intake with a heart healthy diet. Elevated d-dimer, CT PE negative -CTA chest had reported motion artifact present but stated negative for large central PE. Acute exacerbation of chronic lower back pain status post recent lumbar discectomy with spinal decompression surgery - CT lumbar spine without contrast showing postsurgical changes of right laminectomy at L3 through L4, reports of noted air adjacent to the thecal sac reported likely secondary to recent surgical intervention, there were no reported obvious fluid collections identified at this time, and reported multilevel degenerative disc disease and bilateral lateral recess stenosis. -Orthopedic surgery team following, appreciate further medications. -Symptomatic care and pain management. -PT/OT consult. -Case management arranging for SNF placement upon discharge for continued rehabilitation therapy. -Added valium for reports of muscle spasms/pain in left buttocks radiating down left lateral leg. Hypertension -Monitor vital signs and continue daily medication management. Obstructive sleep apnea CPAP dependent nightly -Continue nightly management with CPAP. Other chronic conditions including : Rheumatoid arthritis, fibromyalgia, and restless leg -Continue medication management with Neurontin and Mirapex CODE STATUS: Full code DVT prophylaxis: Lovenox Discussed with: Patient and RN Anticipated discharge date: Clinical course to determine Anticipated discharge place: SNF A total of 45 minutes was spent on the care of this complex patient more than 50% of the time was spent in counseling and care coordination. Objective - Vital Signs Vital signs: Vital Signs Temp 97.9 F 07/21/20 08:00 Pulse 82 07/21/20 08:00 Resp 16 07/21/20 08:00 BP 118/80 07/21/20 08:00 Pulse Ox 94 L 07/21/20 08:00 Intake & Output 07/20/20 07/21/20 07/21/20 18:59 06:59 18:59 Intake Total 960 480 Output Total 100 Balance 860 480 Weight 88.7 kg Intake: Oral 960 480 Output: Urine 100 Other: Voiding Method Urinal Urinal # Voids 1 # Bowel Movements 1 - Labs CBC & Chem 7: 07/21/20 08:13 07/21/20 08:13 Labs: Abnormal Lab Results - Last 24 Hours (Table) 07/21/20 07/21/20 Range/Units 08:13 08:13 RBC 4.19 L (4.30-5.90) m/uL Hgb 12.8 L (13.0-17.5) gm/dL Hct 37.6 L (39.0-53.0) % Sodium 134 L (137-145) mmol/L Creatinine 0.61 L (0.66-1.25) mg/dL Glucose 247 H (74-99) mg/dL <Laquita Maurer - Last Filed: 07/21/20 15:41> Objective - Vital Signs Vital signs: Vital Signs Temp 97.9 F 07/21/20 08:00 Pulse 76 07/21/20 13:48 Resp 16 07/21/20 13:48 BP 118/80 07/21/20 12:00 Pulse Ox 94 L 07/21/20 12:00 Intake & Output 07/20/20 07/21/20 07/21/20 18:59 06:59 18:59 Intake Total 960 480 Output Total 100 Balance 860 480 Weight 88.7 kg Intake: Oral 960 480 Output: Urine 100 Other: Voiding Method Urinal Urinal # Voids 1 # Bowel Movements 1 - Labs CBC & Chem 7: 07/21/20 08:13 07/21/20 08:13 Labs: Abnormal Lab Results - Last 24 Hours (Table) 07/21/20 07/21/20 Range/Units 08:13 08:13 RBC 4.19 L (4.30-5.90) m/uL Hgb 12.8 L (13.0-17.5) gm/dL Hct 37.6 L (39.0-53.0) % Sodium 134 L (137-145) mmol/L Creatinine 0.61 L (0.66-1.25) mg/dL Glucose 247 H (74-99) mg/dL Assessment and Plan Assessment: Patient seen and examined independently. Patient was also seen by José Luis Garg NP and case was discussed. I am in agreement with subjective, physical exam, assessment and plan as written above and amended below. Patient seen and examined at bedside. He reports that he continues to have some back pain, no chest pain. Feeling slightly better today than yesterday with increased energy. General: non toxic, no distress, appears at stated age Derm: warm, dry Head: atraumatic, normocephalic, symmetric Eyes: EOMI, no lid lag, anicteric sclera Mouth: no lip lesion, mucus membranes moist Cardiovascular: S1S2 reg, no murmur, positive posterior tibial pulse bilateral, Lungs: Decreased breath sounds bilateral, no rhonchi, no rales , no accessory muscle use Psych: Alert, oriented, appropriate affect
--- NOTE | 2020-07-21 15:03 | P.PN ---
Subjective Progress Note Date: 07/21/20 Patient was seen at bedside he feels the same today compared to yesterday. He currently stated that his back pain is much better under control. He stated that it's 07/29. I spoke with the primary team and it seems that the patient was not accepted to the [facility] since the day had no beds available. CT of lumbar spine is reported as postsurgical changes of the right laminectomy at L3-L4. As noted there is air adjacent to the lateral thecal sac likely related to recent surgical intervention. No obvious collection is identified at this time. Multilevel degenerative disc disease and bilateral lateral recess stenosis as outlined above. Orthopedic surgical team recommended the adding Decadron or all of steroids for radiculopathy and swelling. As well as gabapentin for nerve pain that. No surgical intervention from their perspective. They recommended stable for rehab. And that a recommended for the patient to follow-up with his spine surgeon as an outpatient. Objective - Vital Signs Vital signs: Vital Signs Temp 97.9 F 07/21/20 08:00 Pulse 82 07/21/20 08:00 Resp 16 07/21/20 08:00 BP 118/80 07/21/20 08:00 Pulse Ox 94 L 07/21/20 08:00 Intake & Output 07/20/20 07/21/20 07/21/20 18:59 06:59 18:59 Intake Total 960 480 Output Total 100 Balance 860 480 Weight 88.7 kg Intake: Oral 960 480 Output: Urine 100 Other: Voiding Method Urinal Urinal # Voids 1 # Bowel Movements 1 - Exam GENERAL: The patient is lying in bed and is in moderate acute distress. NEUROLOGICAL: Higher mental function: The patient is awake, alert, oriented to self, place and time. Patient is following commands. No aphasia and no neglect. Cranial nerves: The pupils are round, equal and reactive to light and accomm odation. Visual [place] are full to confrontation throughout. Extraocular movement is intact no nystagmus is noted. Facial sensation is normal to touch throughout. The facial strength is normal throughout. Hearing is mildly decreased bilaterally to hand rub. Tongue is midline and moved [id number] without any difficulty. No dysarthria is noted. Shoulder shrug is limited because of pain (mostly right upper) but has antigravity. Motor: Gait is deferred. The strength is hip flexion is 5- over the right. RIght ankle was limited because of pain but 0/5 for right ankle dorsiflexion and has antigravity for right ankle plantar flexion. Upon touch right ankle and placing some pressure he was in pain (he said this is chronic as well as weakness). Right lower extremity knee extension and flexion was 4+ to 5- (limited somewhat due to pain). Right deltoid was limited because of pain but has antigravity while left was 4+ to 5-. Bilateral hand web operations manager is 5-/5. Otherwise 5/5 throughout. Normal bulk.. Cerebellum: Normal finger to nose bilaterally. Sensation: Sensation is normal to touch throughout. Reflexes (right/left): Right lower extremity is 1+. Left patellar is 3+. Otherwise 2+ throughout. - Labs CBC & Chem 7: 07/21/20 08:13 07/21/20 08:13 Labs: Abnormal Lab Results - Last 24 Hours (Table) 07/21/20 07/21/20 Range/Units 08:13 08:13 RBC 4.19 L (4.30-5.90) m/uL Hgb 12.8 L (13.0-17.5) gm/dL Hct 37.6 L (39.0-53.0) % Sodium 134 L (137-145) mmol/L Creatinine 0.61 L (0.66-1.25) mg/dL Glucose 247 H (74-99) mg/dL Assessment and Plan Assessment: This is a 65-year-old gentleman presented to the emergency department on 07/19/2020 complaining of worsening left low back pain shooting down since having surgery on lower back (07/07/2020). Patient stated that he had L3 through L5 decompression and L L4-L5 discetomy at [facility] on July 07, 2020. Acute new left lower back pain with chronic history of right lower back pain. S/P L3 through L5 decompression and L L4-L5 discetomy at on July 07 (at outside facility). Right peroneal neuropathy Elevated troponin Hypertension Dyslipidemia Plan: Per orthopedic team (Dr. Ross) no acute intervention. And recommended for the patient to follow-up with his outpatient surgeon for his lower back (that operated on him at [facility]) Patient is on gabapentin 100 mg 1 tablet 3 times a day. Consider increasing the gabapentin to 300 mg 1 tablet 3 times a day if the patient has numbness or tingling. Patient is on dexamethasone 6 mg by mouth 3 times a day per orthopedic recommendation. PT and OT are consulted. I agree the patient needs to follow up with the neurosurgery team as an outpatient. Per the patient he has a follow-up appointment on July 25 coming up. Also recommend for the patient to follow-up with the neurology team as outpatient within 2-3 weeks. There is no further neurological workup. Neurology will sign off. Please reconsult if needed. Joel Ramos M.D. Neuro-hospitalist Time with Patient: Less than 30
[2020-07-21] MEDS: DULoxetine HCL 30 MG CAPSULE.DR PO SCH (16:56)
[2020-07-21] MEDS: MIRTAZAPINE 15 MG TAB PO SCH (20:22)
[2020-07-22] MEDS: SODIUM CHLORIDE 0.9% 1,000 ML IV SCH ×3 (05:33→22:56)
[2020-07-22] MEDS: MORPHINE SULFATE 4 MG/ML SYRINGE IV PRN ×4 (05:42→22:55)
[2020-07-22] MEDS: LEFLUNOMIDE 20 MG TAB PO SCH (09:36)
[2020-07-22] MEDS: METOPROLOL SUCCINATE (ER) 25 MG TAB.ER.24H PO SCH (09:36)
[2020-07-22] MEDS: amLODIPine 10 MG TAB PO SCH (09:36)
[2020-07-22] MEDS: GABAPENTIN 100 MG CAP PO SCH ×3 (09:36→20:17)
[2020-07-22] MEDS: PRAMIPEXOLE 0.25 MG TAB PO SCH ×3 (09:36→20:17)
[2020-07-22] MEDS: DULoxetine HCL 30 MG CAPSULE.DR PO SCH (09:36)
[2020-07-22] MEDS: ATORVASTATIN 80 MG TAB PO SCH (09:36)
[2020-07-22] MEDS: LOSARTAN 25 MG TAB PO SCH (09:36)
[2020-07-22] MEDS: ASPIRIN 81 MG PO SCH (09:36)
[2020-07-22] MEDS: dexAMETHasone 2 MG TAB PO SCH ×3 (09:36→20:17)
[2020-07-22] MEDS: ENOXAPARIN 40 MG/0.4 ML SYRINGE SQ SCH (09:36)
--- NOTE | 2020-07-22 11:06 | P.PN ---
Progress Note - Text Progress Note Date: 07/22/20 This is a 65-year-old white male who was consulted by psychiatry yesterday for symptoms of depression. This patient was scheduled for cardiac cath today which has been postponed to tomorrow at this time. I did meet with him and reviewed the psychiatric consult done yesterday. He told me he drinks 3-4 glasses of wine every week. He stated he feels depressed and nothing matters to him anymore. He stated he has lot of family problems and when he gets out he will see what he can do. He has a history of being in a psychiatric hospital once in 2006 because of drinking alcohol and depression. He has not been eating as well and his appetite is poor and also he has not been sleeping well. Recommendations: Given the risk factors that he has depression, alcoholism, family problems, prior history of psychiatric hospitalization and currently has neurovegetative symptoms of depression along with cardiac problems I recommend that he be transferred to psychiatric unit when he is medically stable.
[2020-07-22] MEDS ORDERED: LOSARTAN 25 MG TAB PO STA (12:48)
--- NOTE | 2020-07-22 12:53 | P.PN ---
Subjective Progress Note Date: 07/22/20 HISTORY OF PRESENT ILLNESS: 07/21/2020 65-year-old male who recently had back surgery who presented to the hospital with a chief complaint of back pain and leg discomfort. Patient was found to have abnormal troponins of 0.06. 0.06. and 0.05. Patient denied having any chest pain or pressure. Patient examined this morning at the bedside. He continues to deny chest discomfort. He denies shortness of breath. Echocardiogram completed revealed ejection fraction 50-55%, basal inferior LV wall hypokinesis, basal inferior septal LV wall hypokinesis, mild aortic stenosis, and mild tricuspid regurgitation. Patient is currently on amlodipine, atorvastatin, losartan, metoprolol. 07/22/2020 Patient examined this morning at the bedside. He denies chest pain or pressure. Denies shortness of breath. Patient is maintaining sinus mechanism on telemetry. Blood pressure 164/106. PHYSICAL EXAM: VITAL SIGNS: Reviewed. GENERAL: Well-developed in no acute distress. NECK: Supple. No JVD or thyromegaly LUNGS: Respirations even and unlabored. Lungs essentially clear to auscultation bilaterally. HEART: Regular rate and rhythm. S1 and S2 heard. Systolic murmur noted. EXTREMITIES: Normal range of motion. No clubbing or cyanosis. Peripheral pulses intact. No lower extremity edema ASSESSMENT: Acute back pain and fatigue, s/p recent lumbar discectomy with spinal decompression surgery Abnormal troponins with LV wall motion abnormalities noted on echocardiogram, possible non-STEMI Hypertension PLAN: Continue current cardiac medications Increase losartan to 50 mg twice a day. Given additional 25 mg 1 dose now Patient states he recently had an echocardiogram performed at [facility]. We are still awaiting records from [place]. If LV wall motion abnormalities are new compared to previous echocardiogram, the patient will require cardiac catheterization. However, this may be performed on an outpatient basis if neccessary. Further recommendations pending patient's course Nurse practitioner note has been reviewed by physician. Signing provider agrees with the documented findings, assessment, and plan of care. Objective - Vital Signs Vital signs: Vital Signs Temp 98.0 F 07/22/20 08:00 Pulse 74 07/22/20 08:00 Resp 18 07/22/20 08:00 BP 164/106 07/22/20 08:00 Pulse Ox 98 07/22/20 08:00 Intake & Output 07/21/20 07/22/20 07/22/20 18:59 06:59 18:59 Intake Total 844 480 0 Output Total 150 275 250 Balance 694 205 -250 Weight 91.1 kg Intake: Oral 844 480 0 Output: Urine 150 275 250 Other: Voiding Method Urinal Urinal Urinal # Voids 1 - Labs CBC & Chem 7: 07/21/20 08:13 07/21/20 08:13
--- NOTE | 2020-07-22 13:49 | P.PN ---
<José Luis Garg - Last Filed: 07/22/20 13:31> Subjective Progress Note Date: 07/22/20 Hospital course: Patient is a very pleasant 65-year-old male with a past medical history includ ing spinal DJD, hypertension, fibromyalgia, rheumatoid arthritis, and obstructive sleep apnea. He presented to the emergency department on 07/19/20 with a chief complaint of excess fatigue and uncontrolled lower back pain. Patient is status post a lumbar spine discectomy with decompression completed on 07/07/20 at [facility] by Dr. Ramirez. Patient states status post surgery he felt he was doing well and did not need to go to rehab so he declined, however he reports extreme fatigue over the past 4-5 days to the point where he is unable to move or care for himself. Patient reports he has been unable to perform his normal activities of daily living, personal hygiene, make himself something to eat, or even get a glass of water. Patient reports he lives with his ex- and she was not very helpful. Patient reports after extreme fatigue set in he then began to develop an increase in his lower back pain. Patient reports this pain to his lower back is worse with any movement and is now accompanied by new pain radiating down into his left buttocks accompanied by numbness and tingling of his left foot. Patient reports pain in right leg is chronic and has improved since surgical procedure. He was fully worked up in the emergency department where he was found to have an elevated troponin of 0.068 and an elevated d-dimer at 1.23. EKG was completed showing normal sinus rhythm at 97 bpm with frequent PVCs, no T-wave or ST abnormalities present showing no signs of acute ischemia. Chest x-ray negative for acute cardiopulmonary process. CTA chest had reported motion artifact present but stated negative for large central PE. Patient was admitted under our services for an elevated troponin, elevated d-dimer lethargy with poor oral intake, and acute exacerbation of chronic lower back pain status post recent lumbar discectomy with spinal decompression surgery. Cardiology, orthopedic surgery, and neurology were also consulted. CT lumbar spine without contrast showing postsurgical changes of right laminectomy at L3 through L4, reports of noted air adjacent to the thecal sac reported likely secondary to recent surgical intervention, there were no reported obvious fluid collections identified at this time, and reported multilevel degenerative disc disease and bilateral lateral recess stenosis. Echocardiogram with a preserved EF of 50-55% accompanied by moderate concentric left ventricular hypertrophy with hypokinetic motion throughout inferior and inferoseptal left ventricular wall. Troponins elevated but stable with initial 0.068, followed by 0.063, and 0.059. Cholesterol level revealed an elevated total cholesterol of 241, LDL 176, and ACL of 38 with triglycerides of 137. Patient was placed on atorvastatin 80 mg daily. Cardiology planning for cardiac cath, awaiting patient's records from [place]. Physical exam: 07/22/20: Patient seen and evaluated this morning. He continues to feel down and depressed about everything that has been going on with his life and current medication situation, but continues to deny any thoughts of suicide. He reports continued back discomfort. Orders placed for lidocaine patches at this time. Patient denies having any headache, lightheadedness, dizziness, chest pain, palpitations, or shortness of breath. Vital signs reviewed and stable. General: non toxic, no distress, appears at stated age Derm: warm, dry. Postsurgical incision to midline lower back intact well approximated and healing process with scab present, no signs of infection including no edema, erythema, or drainage. Head: atraumatic, normocephalic, symmetric Eyes: EOMI, no lid lag, anicteric sclera Mouth: no lip lesion, mucus membranes moist Cardiovascular: S1S2 reg, no murmur, gallop, or rub. Posterior tibial pulses present bilaterally. Lungs: Respirations even, regular, and unlabored on room air. Lungs CTA bilaterally with no noted rhonchi, rales, wheezes, or crackles present. No accessory muscle use Abdominal: soft, nontender to palpation, no guarding, no appreciable organomega ly Ext: no gross muscle atrophy, no edema, no contractures Neuro: CN II-XII grossly intact, no focal neuro deficits. Movement and sensation of bilateral upper and lower extremities intact. Psych: Alert, oriented, pleasant and appropriate affect Assessment and Plan of care: NSTEMI -Troponins elevated but stable with initial 0.068, followed by 0.063, and 0.059. -EKG showed normal sinus rhythm at 97 bpm with frequent PVCs, no T-wave or ST abnormalities present showing no signs of acute ischemia. -Chest x-ray negative for acute cardiopulmonary process. -Cholesterol level revealed an elevated total cholesterol of 241, LDL 176, and ACL of 38 with triglycerides of 137. Patient was placed on atorvastatin 80 mg daily. -Echocardiogram with a preserved EF of 50-55% accompanied by moderate concentric left ventricular hypertrophy with hypokinetic motion throughout inferior and inferoseptal left ventricular wall. -Patient to continue daily amlodipine, aspirin, atorvastatin, losartan, and metoprolol succinate. -Telemetry monitoring. -Cardiology following, plans for cardiac cath, awaiting patient's records from [place]. Depression and anxiety with extreme fatigue and decreased oral intake -Psychiatry following along with patient. They have discontinued patient's trazodone and started him on Cymbalta 30 mg daily to assist with his mood/anxiety/pain and Remeron 15 mg at bedtime for insomnia/appetite/mood. -Continue gentle hydration with 0.9% normal saline at 100 miles per hour. -Encourage oral intake with a heart healthy diet. Elevated d-dimer, CT PE negative -CTA chest had reported motion artifact present but stated negative for large central PE. Acute exacerbation of chronic lower back pain status post recent lumbar discectomy with spinal decompression surgery - CT lumbar spine without contrast showing postsurgical changes of right laminectomy at L3 through L4, reports of noted air adjacent to the thecal sac reported likely secondary to recent surgical intervention, there were no r eported obvious fluid collections identified at this time, and reported multilevel degenerative disc disease and bilateral lateral recess stenosis. -Orthopedic surgery team following, appreciate further medications. -Symptomatic care and pain management. -PT/OT consult. -Case management arranging for SNF placement upon discharge for continued rehabilitation therapy. -Added valium for reports of muscle spasms/pain in left buttocks radiating down left lateral leg. -Added lidocaine patches for the lower back. Hypertension -Monitor vital signs and continue daily medication management. Obstructive sleep apnea CPAP dependent nightly -Continue nightly management with CPAP. Other chronic conditions including : Rheumatoid arthritis, fibromyalgia, and restless leg -Continue medication management with Neurontin and Mirapex CODE STATUS: Full code DVT prophylaxis: Lovenox Discussed with: Patient and RN Anticipated discharge date: Clinical course to determine Anticipated discharge place: SNF A total of 45 minutes was spent on the care of this complex patient more than 50% of the time was spent in counseling and care coordination. Objective - Vital Signs Vital signs: Vital Signs Temp 98.0 F 07/22/20 08:00 Pulse 74 07/22/20 08:00 Resp 18 07/22/20 08:00 BP 164/106 07/22/20 08:00 Pulse Ox 98 07/22/20 08:00 Intake & Output 07/21/20 07/22/20 07/22/20 18:59 06:59 18:59 Intake Total 844 480 0 Output Total 150 275 250 Balance 694 205 -250 Weight 91.1 kg Intake: Oral 844 480 0 Output: Urine 150 275 250 Other: Voiding Method Urinal Urinal Urinal # Voids 1 - Labs CBC & Chem 7: 07/21/20 08:13 07/21/20 08:13 <Laquita Maurer - Last Filed: 07/22/20 17:42> Objective - Vital Signs Vital signs: Vital Signs Temp 97.6 F 07/22/20 15:54 Pulse 88 07/22/20 15:54 Resp 20 07/22/20 15:54 BP 134/95 07/22/20 15:54 Pulse Ox 94 L 07/22/20 15:54 Intake & Output 07/21/20 07/22/20 07/22/20 18:59 06:59 18:59 Intake Total 844 480 400 Output Total 150 275 250 Balance 694 205 150 Weight 91.1 kg Intake: Oral 844 480 400 Output: Urine 150 275 250 Other: Voiding Method Urinal Urinal Urinal # Voids 1 - Labs CBC & Chem 7: 07/21/20 08:13 07/21/20 08:13 Assessment and Plan Assessment: I discussed the care with José Luis Garg NP and reviewed the findings and plan as documented in the note above. I did not staff this patient on this date. Psych to re-eval friday for need for inpatient psych vs supervised setting. Dyslipidemia --statin
[2020-07-22] MEDS: LIDOCAINE 5% PATCH TOPICAL SCH (15:35)
[2020-07-22] MEDS: diazePAM 5 MG TAB PO PRN (15:35)
[2020-07-22] MEDS: MIRTAZAPINE 15 MG TAB PO SCH (20:17)
[2020-07-22] MEDS: LOSARTAN 50 MG TAB PO SCH (20:18)
[2020-07-23] MEDS: diazePAM 5 MG TAB PO PRN (03:51)
[2020-07-23] MEDS: MORPHINE SULFATE 4 MG/ML SYRINGE IV PRN ×5 (05:55→23:47)
[2020-07-23 07:56] LABS: HCT 37.5 % (39.0-53.0); HGB 12.4 gm/dL (13.0-17.5); MCH 29.5 pg (25.0-35.0); MCV 89.6 fL (80.0-100.0); Mean Platelet Volume 7.2; Platelet Count 262 k/uL (150-450); RBC 4.19 m/uL (4.30-5.90); RDW 14.1 % (11.5-15.5)
[2020-07-23] MEDS: LOSARTAN 50 MG TAB PO SCH ×2 (08:11→20:15)
[2020-07-23] MEDS: LEFLUNOMIDE 20 MG TAB PO SCH (08:11)
[2020-07-23] MEDS: PRAMIPEXOLE 0.25 MG TAB PO SCH ×3 (08:11→20:15)
[2020-07-23] MEDS: LIDOCAINE 5% PATCH TOPICAL SCH (08:11)
[2020-07-23] MEDS: METOPROLOL SUCCINATE (ER) 25 MG TAB.ER.24H PO SCH (08:11)
[2020-07-23] MEDS: ASPIRIN 81 MG PO SCH (08:11)
[2020-07-23] MEDS: GABAPENTIN 100 MG CAP PO SCH ×3 (08:11→20:15)
[2020-07-23] MEDS: ENOXAPARIN 40 MG/0.4 ML SYRINGE SQ SCH (08:11)
[2020-07-23] MEDS: ATORVASTATIN 80 MG TAB PO SCH (08:11)
[2020-07-23] MEDS: DULoxetine HCL 30 MG CAPSULE.DR PO SCH (08:11)
[2020-07-23] MEDS: amLODIPine 10 MG TAB PO SCH (08:11)
[2020-07-23] MEDS: dexAMETHasone 2 MG TAB PO SCH ×3 (08:11→20:15)
[2020-07-23 08:14] LABS: African American GFR (CKD) >90 (>60 ml/min/1.73 sqM); Anion Gap 5 mmol/L; Blood Urea Nitrogen 13 mg/dL (9-20); Calcium 8.7 mg/dL (8.4-10.2); Carbon Dioxide 29 mmol/L (22-30); Chloride 101 mmol/L (98-107); Glucose 158 mg/dL (74-99); Magnesium 2.1 mg/dL (1.6-2.3); Non-African American GFR(CKD) >90 (>60 ml/min/1.73 sqM); Potassium 4.3 mmol/L (3.5-5.1); Sodium 135 mmol/L (137-145)
--- NOTE | 2020-07-23 10:09 | P.PN ---
<José Luis Garg - Last Filed: 07/23/20 10:01> Subjective Progress Note Date: 07/23/20 Hospital course: Patient is a very pleasant 65-year-old male with a past medical history includ ing spinal DJD, hypertension, fibromyalgia, rheumatoid arthritis, and obstructive sleep apnea. He presented to the emergency department on 07/19/20 with a chief complaint of excess fatigue and uncontrolled lower back pain. Patient is status post a lumbar spine discectomy with decompression completed on 07/07/20 at [facility] by Dr. Ramirez. Patient states status post surgery he felt he was doing well and did not need to go to rehab so he declined, however he reports extreme fatigue over the past 4-5 days to the point where he is unable to move or care for himself. Patient reports he has been unable to perform his normal activities of daily living, personal hygiene, make himself something to eat, or even get a glass of water. Patient reports he lives with his ex- and she was not very helpful. Patient reports after extreme fatigue set in he then began to develop an increase in his lower back pain. Patient reports this pain to his lower back is worse with any movement and is now accompanied by new pain radiating down into his left buttocks accompanied by numbness and tingling of his left foot. Patient reports pain in right leg is chronic and has improved since surgical procedure. He was fully worked up in the emergency department where he was found to have an elevated troponin of 0.068 and an elevated d-dimer at 1.23. EKG was completed showing normal sinus rhythm at 97 bpm with frequent PVCs, no T-wave or ST abnormalities present showing no signs of acute ischemia. Chest x-ray negative for acute cardiopulmonary process. CTA chest had reported motion artifact present but stated negative for large central PE. Patient was admitted under our services for an elevated troponin, elevated d-dimer lethargy with poor oral intake, and acute exacerbation of chronic lower back pain status post recent lumbar discectomy with spinal decompression surgery. Cardiology, orthopedic surgery, and neurology were also consulted. CT lumbar spine without contrast showing postsurgical changes of right laminectomy at L3 through L4, reports of noted air adjacent to the thecal sac reported likely secondary to recent surgical intervention, there were no reported obvious fluid collections identified at this time, and reported multilevel degenerative disc disease and bilateral lateral recess stenosis. Echocardiogram with a preserved EF of 50-55% accompanied by moderate concentric left ventricular hypertrophy with hypokinetic motion throughout inferior and inferoseptal left ventricular wall. Troponins elevated but stable with initial 0.068, followed by 0.063, and 0.059. Cholesterol level revealed an elevated total cholesterol of 241, LDL 176, and ACL of 38 with triglycerides of 137. Patient was placed on atorvastatin 80 mg daily. Cardiology planning for cardiac cath, awaiting patient's records from [place]. Physical exam: 07/23/20: Patient seen and evaluated this morning. He continues to feel slightly down and depressed, but reports feeling slightly better. He reports improvement in lower back pain, stating it is currently manageable since receiving the muscle relaxer and lidocaine patches. Patient denies having any headache, lightheadedness, dizziness, chest pain, palpitations, or shortness of breath. Vital signs reviewed and stable. General: non toxic, no distress, appears at stated age Derm: warm, dry. Postsurgical incision to midline lower back intact well approximated and healing process with scab present, no signs of infection including no edema, erythema, or drainage. Head: atraumatic, normocephalic, symmetric Eyes: EOMI, no lid lag, anicteric sclera Mouth: no lip lesion, mucus membranes moist Cardiovascular: S1S2 reg, no murmur, gallop, or rub. Posterior tibial pulses present bilaterally. Lungs: Respirations even, regular, and unlabored on room air. Lungs CTA bilaterally with no noted rhonchi, rales, wheezes, or crackles present. No accessory muscle use Abdominal: soft, nontender to palpation, no guarding, no appreciable organomegaly Ext: no gross muscle atrophy, no edema, no contractures Neuro: CN II-XII grossly intact, no focal neuro deficits. Movement and sensation of bilateral upper and lower extremities intact. Psych: Alert, oriented, pleasant and appropriate affect Assessment and Plan of care: NSTEMI -Troponins elevated but stable with initial 0.068, followed by 0.063, and 0.059. -EKG showed normal sinus rhythm at 97 bpm with frequent PVCs, no T-wave or ST abnormalities present showing no signs of acute ischemia. -Chest x-ray negative for acute cardiopulmonary process. -Cholesterol level revealed an elevated total cholesterol of 241, LDL 176, and ACL of 38 with triglycerides of 137. Patient was placed on atorvastatin 80 mg daily. -Echocardiogram with a preserved EF of 50-55% accompanied by moderate concentric left ventricular hypertrophy with hypokinetic motion throughout inferior and inferoseptal left ventricular wall. -Patient to continue daily amlodipine, aspirin, atorvastatin, losartan, and metoprolol succinate. -Telemetry monitoring. -Cardiology following, plans for possible cardiac cath, awaiting patient's records from [place]. Depression and anxiety with extreme fatigue and decreased oral intake -Psychiatry following along with patient. They have discontinued patient's trazodone and started him on Cymbalta 30 mg daily to assist with his mood/anxiety/pain and Remeron 15 mg at bedtime for insomnia/appetite/mood. -Continue gentle hydration with 0.9% normal saline at 100 miles per hour. -Encourage oral intake with a heart healthy diet. Elevated d-dimer, CT PE negative -CTA chest had reported motion artifact present but stated negative for large central PE. -DVT prophylaxis with eliquis. Acute exacerbation of chronic lower back pain status post recent lumbar discectomy with spinal decompression surgery - CT lumbar spine without contrast showing postsurgical changes of right laminectomy at L3 through L4, reports of noted air adjacent to the thecal sac reported likely secondary to recent surgical intervention, there were no r eported obvious fluid collections identified at this time, and reported multilevel degenerative disc disease and bilateral lateral recess stenosis. -Orthopedic surgery team following, appreciate further medications. -Symptomatic care and pain management. -PT/OT consult. -Case management arranging for SNF placement upon discharge for continued rehabilitation therapy. -07/21/20 Added valium for reports of muscle spasms/pain in left buttocks radiating down left lateral leg. -07/22/20 Added lidocaine patches for the lower back. -07/23/20 Pt reports improvement in lower back pain, stating it is currently manageable. Ordered for heating pad to assist with lower back pain. Hypertension -Monitor vital signs and continue daily medication management. Obstructive sleep apnea CPAP dependent nightly -Continue nightly management with CPAP. Other chronic conditions including : Rheumatoid arthritis, fibromyalgia, and restless leg -Continue medication management with Neurontin and Mirapex CODE STATUS: Full code DVT prophylaxis: Lovenox Discussed with: Patient and RN Anticipated discharge date: Clinical course to determine Anticipated discharge place: SNF A total of 45 minutes was spent on the care of this complex patient more than 50% of the time was spent in counseling and care coordination. Objective - Vital Signs Vital signs: Vital Signs Temp 96.3 F L 07/23/20 08:00 Pulse 85 07/23/20 08:00 Resp 18 07/23/20 08:00 BP 163/116 07/23/20 08:00 Pulse Ox 95 07/23/20 08:00 Intake & Output 07/22/20 07/23/20 07/23/20 18:59 06:59 18:59 Intake Total 640 480 240 Output Total 600 650 350 Balance 40 -170 -110 Weight 93 kg Intake: Oral 640 480 240 Output: Urine 600 650 350 Other: Voiding Method Urinal Urinal - Labs CBC & Chem 7: 07/23/20 07:09 07/23/20 07:09 Labs: Abnormal Lab Results - Last 24 Hours (Table) 07/23/20 07/23/20 Range/Units 07:09 07:09 RBC 4.19 L (4.30-5.90) m/uL Hgb 12.4 L (13.0-17.5) gm/dL Hct 37.5 L (39.0-53.0) % Sodium 135 L (137-145) mmol/L Creatinine 0.57 L (0.66-1.25) mg/dL Glucose 158 H (74-99) mg/dL <Laquita Maurer - Last Filed: 07/23/20 14:41> Objective - Vital Signs Vital signs: Vital Signs Temp 96.3 F L 07/23/20 08:00 Pulse 84 07/23/20 11:40 Resp 18 07/23/20 11:40 BP 157/81 07/23/20 11:40 Pulse Ox 92 L 07/23/20 11:40 Intake & Output 07/22/20 07/23/20 07/23/20 18:59 06:59 18:59 Intake Total 640 480 360 Output Total 600 650 600 Balance 40 -170 -240 Weight 93 kg Intake: Oral 640 480 360 Output: Urine 600 650 600 Other: Voiding Method Urinal Urinal - Labs CBC & Chem 7: 07/23/20 07:09 07/23/20 07:09 Labs: Abnormal Lab Results - Last 24 Hours (Table) 07/23/20 07/23/20 Range/Units 07:09 07:09 RBC 4.19 L (4.30-5.90) m/uL Hgb 12.4 L (13.0-17.5) gm/dL Hct 37.5 L (39.0-53.0) % Sodium 135 L (137-145) mmol/L Creatinine 0.57 L (0.66-1.25) mg/dL Glucose 158 H (74-99) mg/dL Assessment and Plan Assessment: Patient seen and examined independently. Patient was also seen by José Luis Garg NP and case was discussed. I am in agreement with subjective, physical exam, assessment and plan as written above and amended below. States that back pain is controllable but does not think that Lidoderm patch helped much. Denies any chest pain. He is aware that he may need a cardiac cath depending on if the echocardiogram changes are new versus old. General: non toxic, no distress, appears at stated age Derm: warm, dry Head: atraumatic, normocephalic, symmetric Eyes: EOMI, no lid lag, anicteric sclera Mouth: no lip lesion, mucus membranes moist Cardiovascular: S1S2 reg, no murmur, positive posterior tibial pulse bilateral, Lungs: Decreased bs bilateral, no rhonchi, no rales , no accessory muscle use Abdominal: soft, nontender to palpation, no guarding, no appreciable organomegaly Ext: no gross muscle atrophy, no edema, no contractures Neuro: CN II-XI grossly intact, no focal neuro deficits Psych: Alert, oriented, appropriate affect Dyslipidemia --statin
[2020-07-23] MEDS: SODIUM CHLORIDE 0.9% 1,000 ML IV SCH (10:14)
--- NOTE | 2020-07-23 10:34 | P.PN ---
Progress Note - Text Progress Note Date: 07/23/20 I met with this patient today and also spoke to the nurse practitioner who was present on the bedside. This patient is waiting for cardiac catheterization but his records from [facility] has not become available as yet for review. He continues to feel depressed, hopeless and easily becomes tearful. He stated "I am going through a hard time". I talked to him about going to mental health unit once he is medically stable and he is not against that idea. Treatment recommendation: This patient needs to be transferred to mental health unit when medically stable. His depressive symptomatology is rather severe and consistently there and do not seem to be going away and he also has multiple risk factors for suicidal behavior.
--- NOTE | 2020-07-23 11:01 | P.PN ---
Subjective Progress Note Date: 07/23/20 HISTORY OF PRESENT ILLNESS: 07/21/2020 65-year-old male who recently had back surgery who presented to the hospital with a chief complaint of back pain and leg discomfort. Patient was found to have abnormal troponins of 0.06. 0.06. and 0.05. Patient denied having any chest pain or pressure. Patient examined this morning at the bedside. He continues to deny chest discomfort. He denies shortness of breath. Echocardiogram completed revealed ejection fraction 50-55%, basal inferior LV wall hypokinesis, basal inferior septal LV wall hypokinesis, mild aortic stenosis, and mild tricuspid regurgitation. Patient is currently on amlodipine, atorvastatin, losartan, metoprolol. 07/22/2020 Patient examined this morning at the bedside. He denies chest pain or pressure. Denies shortness of breath. Patient is maintaining sinus mechanism on telemetry. Blood pressure 164/106. 07/23/2020 Patient examined this morning at the bedside. Patient denies chest pain or pressure. Denies shortness of breath. Blood pressure this morning was 163/116. Patients losartan was increased yesterday to 50mg BID. Systolic blood pressures overnight ranging from 126-146. PHYSICAL EXAM: VITAL SIGNS: Reviewed. GENERAL: Well-developed in no acute distress. NECK: Supple. No JVD or thyromegaly LUNGS: Respirations even and unlabored. Lungs essentially clear to auscultation bilaterally. HEART: Regular rate and rhythm. S1 and S2 heard. Systolic murmur noted. EXTREMITIES: Normal range of motion. No clubbing or cyanosis. Peripheral pulses intact. No lower extremity edema ASSESSMENT: Acute back pain and fatigue, s/p recent lumbar discectomy with spinal decompression surgery Abnormal troponins with LV wall motion abnormalities noted on echocardiogram, possible non-STEMI Hypertension PLAN: Continue Norvasc and losartan Increase metoprolol succinate to 50mg Monitor blood pressure. Continue aspirin and Lipitor Patient states he recently had an echocardiogram performed at [facility]. We are still awaiting records from [place]. If LV wall motion abnormalities are new compared to previous echocardiogram, the patient will require cardiac catheterization. Patient is being followed by psychiatry with plans to go to the mental health unit when he is medically stable. We will plan for outpatient cardiac catheterization. Further recommendations pending patient's course Nurse practitioner note has been reviewed by physician. Signing provider agrees with the documented findings, assessment, and plan of care. Objective - Vital Signs Vital signs: Vital Signs Temp 96.3 F L 07/23/20 08:00 Pulse 85 07/23/20 08:00 Resp 18 07/23/20 08:00 BP 163/116 07/23/20 08:00 Pulse Ox 95 07/23/20 08:00 Intake & Output 07/22/20 07/23/20 07/23/20 18:59 06:59 18:59 Intake Total 640 480 240 Output Total 600 650 600 Balance 40 -170 -360 Weight 93 kg Intake: Oral 640 480 240 Output: Urine 600 650 600 Other: Voiding Method Urinal Urinal - Labs CBC & Chem 7: 07/23/20 07:09 07/23/20 07:09 Labs: Abnormal Lab Results - Last 24 Hours (Table) 07/23/20 07/23/20 Range/Units 07:09 07:09 RBC 4.19 L (4.30-5.90) m/uL Hgb 12.4 L (13.0-17.5) gm/dL Hct 37.5 L (39.0-53.0) % Sodium 135 L (137-145) mmol/L Creatinine 0.57 L (0.66-1.25) mg/dL Glucose 158 H (74-99) mg/dL
[2020-07-23] MEDS ORDERED: METOPROLOL SUCCINATE (ER) 25 MG TAB.ER.24H PO STA (11:25)
[2020-07-23] MEDS: MIRTAZAPINE 15 MG TAB PO SCH (20:15)
[2020-07-24] MEDS: diazePAM 5 MG TAB PO PRN (02:22)
[2020-07-24] MEDS: MORPHINE SULFATE 4 MG/ML SYRINGE IV PRN ×3 (04:14→13:53)
[2020-07-24] MEDS: LOSARTAN 50 MG TAB PO SCH ×2 (08:12→20:43)
[2020-07-24] MEDS: ASPIRIN 81 MG PO SCH (08:12)
[2020-07-24] MEDS: ATORVASTATIN 80 MG TAB PO SCH (08:13)
[2020-07-24] MEDS: dexAMETHasone 2 MG TAB PO SCH ×3 (08:13→20:43)
[2020-07-24] MEDS: amLODIPine 10 MG TAB PO SCH (08:13)
[2020-07-24] MEDS: DULoxetine HCL 30 MG CAPSULE.DR PO SCH (08:13)
[2020-07-24] MEDS: LIDOCAINE 5% PATCH TOPICAL SCH (08:14)
[2020-07-24] MEDS: ENOXAPARIN 40 MG/0.4 ML SYRINGE SQ SCH (08:14)
[2020-07-24] MEDS: GABAPENTIN 100 MG CAP PO SCH ×3 (08:14→20:43)
[2020-07-24] MEDS: LEFLUNOMIDE 20 MG TAB PO SCH (08:14)
[2020-07-24] MEDS ORDERED: ALPRAZolam 1 MG TAB PO STA (08:28)
--- NOTE | 2020-07-24 08:49 | P.PN ---
<José Luis Garg - Last Filed: 07/24/20 08:47> Subjective Progress Note Date: 07/24/20 Hospital course: Patient is a very pleasant 65-year-old male with a past medical history includ ing spinal DJD, hypertension, fibromyalgia, rheumatoid arthritis, and obstructive sleep apnea. He presented to the emergency department on 07/19/20 with a chief complaint of excess fatigue and uncontrolled lower back pain. Patient is status post a lumbar spine discectomy with decompression completed on 07/07/20 at [facility] by Dr. Ramirez. Patient states status post surgery he felt he was doing well and did not need to go to rehab so he declined, however he reports extreme fatigue over the past 4-5 days to the point where he is unable to move or care for himself. Patient reports he has been unable to perform his normal activities of daily living, personal hygiene, make himself something to eat, or even get a glass of water. Patient reports he lives with his ex- and she was not very helpful. Patient reports after extreme fatigue set in he then began to develop an increase in his lower back pain. Patient reports this pain to his lower back is worse with any movement and is now accompanied by new pain radiating down into his left buttocks accompanied by numbness and tingling of his left foot. Patient reports pain in right leg is chronic and has improved since surgical procedure. He was fully worked up in the emergency department where he was found to have an elevated troponin of 0.068 and an elevated d-dimer at 1.23. EKG was completed showing normal sinus rhythm at 97 bpm with frequent PVCs, no T-wave or ST abnormalities present showing no signs of acute ischemia. Chest x-ray negative for acute cardiopulmonary process. CTA chest had reported motion artifact present but stated negative for large central PE. Patient was admitted under our services for an elevated troponin, elevated d-dimer lethargy with poor oral intake, and acute exacerbation of chronic lower back pain status post recent lumbar discectomy with spinal decompression surgery. Cardiology, orthopedic surgery, and neurology were also consulted. CT lumbar spine without contrast showing postsurgical changes of right laminectomy at L3 through L4, reports of noted air adjacent to the thecal sac reported likely secondary to recent surgical intervention, there were no reported obvious fluid collections identified at this time, and reported multilevel degenerative disc disease and bilateral lateral recess stenosis. Echocardiogram with a preserved EF of 50-55% accompanied by moderate concentric left ventricular hypertrophy with hypokinetic motion throughout inferior and inferoseptal left ventricular wall. Troponins elevated but stable with initial 0.068, followed by 0.063, and 0.059. Cholesterol level revealed an elevated total cholesterol of 241, LDL 176, and ACL of 38 with triglycerides of 137. Patient was placed on atorvastatin 80 mg daily. Cardiology planning for cardiac cath, awaiting patient's records from [place]. Physical exam: 07/24/20: Patient seen and evaluated this morning. He continues to feel slightly down and depressed, but reports that most of all his anxiety is really increased over the past couple of days because of everything he has going on at home. His BP has consistently elevated the past couple of days as well despite increase in BP medications. An order was placed for Xanax 1 mg PO x one dose and we will see if this helps with the anxiety and possibly improves his BP. Also again talked with patient regarding possible EtOH withdrawal. He denies excessive alcohol use. He reports only drinking 1-2 glasses of wine a couple of times a week, states he has never been a daily drinking and does not binge drink. He reports improvement in his lower back pain, since using the heating pad. We are awaiting medical records from [place] and possible cardiac cath pending these results. Pt denies having any other complaints at this time including chest pain, palpitations, abdominal pain, nausea, or vomiting. Pt states that he is feeling less fatigued like his strength is improving. He does report and episode dyspnea with exertion yesterday evening but this lasted a short while and resolved with rest. Vital signs reviewed and stable. General: non toxic, no distress, appears at stated age Derm: warm, dry. Postsurgical incision to midline lower back intact well approximated and healing process with scab present, no signs of infection including no edema, erythema, or drainage. Head: atraumatic, normocephalic, symmetric Eyes: EOMI, no lid lag, anicteric sclera Mouth: no lip lesion, mucus membranes moist Cardiovascular: S1S2 reg, no murmur, gallop, or rub. Posterior tibial pulses present bilaterally. Lungs: Respirations even, regular, and unlabored on room air. Lungs CTA bilaterally with no noted rhonchi, rales, wheezes, or crackles present. No accessory muscle use Abdominal: soft, nontender to palpation, no guarding, no appreciable organomegaly Ext: no gross muscle atrophy, no edema, no contractures Neuro: CN II-XII grossly intact, no focal neuro deficits. Movement and sens ation of bilateral upper and lower extremities intact. Psych: Alert, oriented, pleasant and appropriate affect Assessment and Plan of care: NSTEMI -Troponins elevated but stable with initial 0.068, followed by 0.063, and 0.059. -EKG showed normal sinus rhythm at 97 bpm with frequent PVCs, no T-wave or ST abnormalities present showing no signs of acute ischemia. -Chest x-ray negative for acute cardiopulmonary process. -Cholesterol level revealed an elevated total cholesterol of 241, LDL 176, and ACL of 38 with triglycerides of 137. Patient was placed on atorvastatin 80 mg daily. -Echocardiogram with a preserved EF of 50-55% accompanied by moderate concentric left ventricular hypertrophy with hypokinetic motion throughout inferior and inferoseptal left ventricular wall. -Patient to continue daily amlodipine, aspirin, atorvastatin, losartan, and metoprolol succinate. -Telemetry monitoring. -Cardiology following, plans for possible cardiac cath, awaiting patient's records from [place]. Hypertension, uncontrolled -Monitor vital signs and continue daily medication management. -Pt has been having episodes of elevated pressures over the past few days when initially pressures were controlled, his lopressor was increased to 50 BID and losartan was also increased to 50 daily. Pt has not shown any improvement. Spoke with patient regarding other possibilities of elevating BP including pain, EtOH, and anxiety. Pt reports significant increase in anxiety over the past few days d ue to problems at home. Order placed for Xanax 1 mg. will continue to monitor. Acute exacerbation of chronic lower back pain status post recent lumbar discectomy with spinal decompression surgery - CT lumbar spine without contrast showing postsurgical changes of right laminectomy at L3 through L4, reports of noted air adjacent to the thecal sac reported likely secondary to recent surgical intervention, there were no reported obvious fluid collections identified at this time, and reported multilevel degenerative disc disease and bilateral lateral recess stenosis. -Orthopedic surgery team following, appreciate further medications. -Symptomatic care and pain management. -PT/OT consult. -Case management arranging for SNF placement upon discharge for continued rehabilitation therapy. -07/21/20 Added valium for reports of muscle spasms/pain in left buttocks radiating down left lateral leg. -07/22/20 Added lidocaine patches for the lower back. -07/23/20 Pt reports improvement in lower back pain, stating it is currently manageable. Ordered for heating pad to assist with lower back pain. -07/24/20 Pt reports improvement in back pain since using heating pad. Depression and anxiety with extreme fatigue and decreased oral intake -Psychiatry following along with patient. They have discontinued patient's trazodone and started him on Cymbalta 30 mg daily to assist with his mood/anxiety/pain and Remeron 15 mg at bedtime for insomnia/appetite/mood. -Continue gentle hydration with 0.9% normal saline at 100 miles per hour. -Encourage oral intake with a heart healthy diet. Elevated d-dimer, CT PE negative -CTA chest had reported motion artifact present but stated negative for large central PE. -DVT prophylaxis with eliquis. Obstructive sleep apnea CPAP dependent nightly -Continue nightly management with CPAP. Other chronic conditions including : Rheumatoid arthritis, fibromyalgia, and restless leg -Continue medication management with Neurontin and Mirapex CODE STATUS: Full code DVT prophylaxis: Lovenox Discussed with: Patient and RN Anticipated discharge date: Clinical course to determine Anticipated discharge place: [facility] A total of 45 minutes was spent on the care of this complex patient more than 50% of the time was spent in counseling and care coordination. Objective - Vital Signs Vital signs: Vital Signs Temp 98.1 F 07/24/20 04:00 Pulse 82 07/24/20 04:00 Resp 18 07/24/20 04:00 BP 168/96 07/24/20 04:00 Pulse Ox 96 07/24/20 04:00 Intake & Output 07/23/20 07/24/20 07/24/20 18:59 06:59 18:59 Intake Total 610 480 Output Total 1050 1275 Balance -440 -795 Weight 89 kg Intake: Oral 610 480 Output: Urine 1050 1275 Other: Voiding Method Toilet Urinal - Labs CBC & Chem 7: 07/23/20 07:09 07/23/20 07:09 <Laquita Maurer - Last Filed: 07/24/20 13:36> Objective - Vital Signs Vital signs: Vital Signs Temp 98.4 F 07/24/20 08:34 Pulse 55 L 07/24/20 10:58 Resp 18 07/24/20 10:58 BP 147/78 07/24/20 10:58 Pulse Ox 96 07/24/20 10:58 Intake & Output 07/23/20 07/24/20 07/24/20 18:59 06:59 18:59 Intake Total 610 480 480 Output Total 1050 1275 400 Balance -440 -795 80 Weight 89 kg Intake: Oral 610 480 480 Output: Urine 1050 1275 400 Other: Voiding Method Toilet Toilet Urinal Urinal - Labs CBC & Chem 7: 07/23/20 07:09 07/23/20 07:09 Assessment and Plan Assessment: I discussed the care with José Luis Garg NP and reviewed the findings and plan as documented in the note above. I did not staff this patient on this date.
[2020-07-24] MEDS ORDERED: METOPROLOL SUCCINATE (ER) 50 MG TAB.ER.24H PO SCH (09:00)
[2020-07-24] MEDS: PRAMIPEXOLE 0.25 MG TAB PO SCH ×3 (09:27→21:21)
--- NOTE | 2020-07-24 13:07 | P.PN ---
Subjective 07/21/2020 65-year-old male who recently had back surgery who presented to the hospital with a chief complaint of back pain and leg discomfort. Patient was found to have abnormal troponins of 0.06. 0.06. and 0.05. Patient denied having any chest pain or pressure. Patient examined this morning at the bedside. He continues to deny chest discomfort. He denies shortness of breath. Echocardiogram completed revealed ejection fraction 50-55%, basal inferior LV wall hypokinesis, basal inferior septal LV wall hypokinesis, mild aortic stenosis, and mild tricuspid regurgitation. Patient is currently on amlodipine, atorvastatin, losartan, metoprolol. 07/22/2020: Patients losartan was increased to 50mg BID. 07/23/2020: Patient's Toprol was increased to 50mg 07/24/2020 Patient examined this morning at the bedside. Patient denies chest pain or pres sure. Denies shortness of breath. Blood pressure this morning was 163/118 prior to morning medications- BP improving to 147/78. Systolic blood pressures overnight ranging 149-173. Patient currently being maintained on amlodipine 10 mg daily, aspirin 81 mg daily, atorvastatin 80 mg daily, losartan 50 mg twice daily, Toprol 50 mg daily Records from [facility] obtained - Echocardiogram on 07/05/2020 - LV is borderline enlarged, LV global hypokinesis with minor regional wall abnormalities. LV EF is 20%. LV diastolic function is abnormal. Aortic valve is mildly thickened. There is no evidence for aortic stenosis. Trace MR, trace TR PHYSICAL EXAM: VITAL SIGNS: Reviewed. GENERAL: Well-developed in no acute distress. NECK: Supple. No JVD or thyromegaly LUNGS: Respirations even and unlabored. Lungs essentially clear to auscultation bilaterally. HEART: Regular rate and rhythm. S1 and S2 heard. Systolic murmur noted. EXTREMITIES: Normal range of motion. No clubbing or cyanosis. Peripheral pulses intact. No lower extremity edema ASSESSMENT: Acute back pain and fatigue, s/p recent lumbar discectomy with spinal decompression surgery Abnormal troponins- not consistent with acute coronary Heart Failure with reduced EF- now recovered with EF 50-55%, unclear etiology. Recent echocardiogram at [place] on 07/05/2020 with EF 20% with LV wall motion abnormalities Hypertension PLAN: Blood pressure improving Continue Amlodipine 10mg daily, Losartan 50mg BID and metoprolol succinate to 50mg Monitor blood pressure. Continue aspirin and Lipitor Patient is being followed by psychiatry with plans to go to the mental health unit when he is medically stable. From cardiology perspective patient is stable, no further cardiac workup at this time Patient can follow up outpatient with Dr. Calero We will sign off at this time. Please reach out for any further questions or concerns. Thank you kindly for this consultation. Nurse practitioner note has been reviewed by physician. Signing provider agrees with the documented findings, assessment, and plan of care. Objective - Vital Signs Vital signs: Vital Signs Temp 98.4 F 07/24/20 08:34 Pulse 79 07/24/20 08:34 Resp 18 07/24/20 08:34 BP 169/118 07/24/20 08:34 Pulse Ox 96 07/24/20 08:34 Intake & Output 07/23/20 07/24/20 07/24/20 18:59 06:59 18:59 Intake Total 610 480 Output Total 1050 1275 Balance -440 -795 Weight 89 kg Intake: Oral 610 480 Output: Urine 1050 1275 Other: Voiding Method Toilet Urinal - Labs CBC & Chem 7: 07/23/20 07:09 07/23/20 07:09
[2020-07-24] MEDS ORDERED: DULoxetine HCL 30 MG CAPSULE.DR PO ONE (14:11)
--- NOTE | 2020-07-24 14:12 | P.DS ---
<José Luis Garg - Last Filed: 07/24/20 13:58> Providers Expected date of discharge: 07/24/20 Hospital Course: Discharge Diagnosis: Elevated troponins, acute coronary event ruled out Acute exacerbation of chronic lower back pain status post recent lumbar discectomy with spinal decompression surgery Depression and anxiety with extreme fatigue and decreased oral intake Hypertension Dyslipidemia with total cholesterol of 241, LDL 176, and HDL of 38 with triglycerides of 137 Elevated d-dimer, CT PE negative Obstructive sleep apnea CPAP dependent nightly Other chronic conditions including : Rheumatoid arthritis, fibromyalgia, and restless leg Hospital Course: Patient is a very pleasant 65-year-old male with a past medical history including spinal DJD, hypertension, fibromyalgia, rheumatoid arthritis, and obstructive sleep apnea. He presented to the emergency department on 07/19/20 with a chief complaint of excess fatigue and uncontrolled lower back pain. Patient is status post a lumbar spine discectomy with decompression completed on 07/07/20 at [facility] by Dr. Ramirez. Upon presentation, patient reported that status post his recent surgery he felt he was doing well and did not need to go to rehab so he declined, however he reports extreme fatigue over the past 4-5 days to the point where he is unable to move or care for himself. Patient reports he has been unable to perform his normal activities of daily living, personal hygiene, make himself something to eat, or even get a glass of water. Patient reports he lives with his ex- and she was not very helpful. Patient reports after extreme fatigue set in he then began to develop an increase in his lower back pain. Patient reports this pain to his lower back is worse with any movement and is now accompanied by new pain radiating down into his left buttocks accompanied by numbness and tingling of his left foot. Patient reports pain in right leg is chronic and has improved since surgical procedure. He was fully worked up in the emergency department where he was found to have an elevated troponin of 0.068 and an elevated d-dimer at 1.23. EKG was completed showing normal sinus rhythm at 97 bpm with frequent PVCs, no T-wave or ST abnormalities present showing no signs of acute ischemia. Chest x-ray negative for acute cardiopulmonary process. CTA chest had reported motion artifact present but stated negative for large central PE. Patient was admitted under our services for an elevated troponin, elevated d-dimer, increased anxiety and depression with lethargy and poor oral intake, and acute exacerbation of chronic lower back pain status post recent lumbar discectomy with spinal decompression surgery. Cardiology, orthopedic surgery, neurology, and psychiatry were also consulted. CT lumbar spine without contrast showing postsurgical changes of right laminectomy at L3 through L4, reports of noted air adjacent to the thecal sac reported likely secondary to recent surgical intervention, there were no reported obvious fluid collections identified at this time, and reported multilevel degenerative disc disease and bilateral lateral recess stenosis. Echocardiogram with a preserved EF of 50-55% accompanied by moderate concentric left ventricular hypertrophy with hypokinetic motion throughout inferior and inferoseptal left ventricular wall. Troponins elevated but stable with initial 0.068, followed by 0.063, and 0.059. Cholesterol level revealed an elevated total cholesterol of 241, LDL 176, and HDL of 38 with triglycerides of 137. Patient was placed on atorvastatin 80 mg daily. [facility] records were obtained. Per cardiology patient's echocardiogram that was completed on 07/05/20 revealed an EF of 20% with borderline enlarged left ventricle and left ventricle global hypokinesis with minor regional wall abnormalities. Upon comparison, to repeat echocardiogram completed here on 07/20/20, the most recent echocardiogram significantly improved and therefore no need for cardiac catheterization at this time. Patient has been medicallly cleared and was cleared by orthopedic team, neurology, and cardiology. Pt was recommended for inpatient psychiatric treatment by Dr. Laguna-Psychiatrist. He is also recommended to follow up with his PCP, PT/OT, follow up with Dr. Ramirez-Orthopedic surgeon as previously scheduled for post- operative evaluations, and follow up outpatient with Dr. Calero-Cardiology upon discharge from inpatient mental health unit. Patient to continue daily atorvastatin, aspirin, Norvasc, losartan, and metoprolol succinate as ordered. Patient seen and examined at bedside this morning. Please refer to progress note documented earlier today for complete physical exam findings. A total of 45 minutes of time were spent preparing this complex discharge summary. Patient Condition at Discharge: Fair Plan - Discharge Summary New Discharge Prescriptions: New DULoxetine HCL [Cymbalta] 30 mg PO DAILY capsule. Atorvastatin [Lipitor] 80 mg PO DAILY #0 tab Mirtazapine [Remeron] 15 mg PO HS tab Metoprolol Succinate (ER) [Toprol XL] 50 mg PO DAILY tab.er.24h Aspirin 81 mg PO DAILY chew Losartan [Cozaar] 50 mg PO BID tab Lidocaine 5% Patch [Lidoderm 5% Patch] 1 patch TOPICAL DAILY patch Continue Pramipexole Di-HCl [Mirapex] 0.75 mg PO TID Leflunomide 20 mg PO DAILY amLODIPine [Norvasc] 10 mg PO DAILY 30 Days #30 tab Gabapentin [Neurontin] 100 mg PO TID Discontinued traZODone HCL 200 - 300 mg PO HS carvediloL [Coreg] 3.125 mg PO BID Losartan Potassium [Cozaar] 25 mg PO BID Discharge Medication List Pramipexole Di-HCl [Mirapex] 0.75 mg PO TID 06/04/15 [History] Leflunomide 20 mg PO DAILY 04/14/20 [History] amLODIPine [Norvasc] 10 mg PO DAILY 30 Days #30 tab 04/16/20 [Rx] Gabapentin [Neurontin] 100 mg PO TID 07/19/20 [History] Aspirin 81 mg PO DAILY chew 07/24/20 [Rx] Atorvastatin [Lipitor] 80 mg PO DAILY #0 tab 07/24/20 [Rx] DULoxetine HCL [Cymbalta] 30 mg PO DAILY capsule. 07/24/20 [Rx] Lidocaine 5% Patch [Lidoderm 5% Patch] 1 patch TOPICAL DAILY patch 07/24/20 [Rx] Losartan [Cozaar] 50 mg PO BID tab 07/24/20 [Rx] Metoprolol Succinate (ER) [Toprol XL] 50 mg PO DAILY tab.er.24h 07/24/20 [Rx] Mirtazapine [Remeron] 15 mg PO HS tab 07/24/20 [Rx] Follow up Appointment(s)/Referral(s): Rohan Eid MD [Primary Care Provider] - 1-2 days (Follow-up 1-2 days post discharge from inpatient mental health unit.) Zaki Calero MD [STAFF PHYSICIAN] - 4 Weeks Discharge Disposition: TRANSFER TO PSYCH HOSP/UNIT <Laquita Maurer - Last Filed: 07/24/20 17:08> Providers Date of admission: 07/24/20 10:42 Attending physician: Kadi Fan MD Consults: 07/19/20 22:05 Consult Physician Urgent Consulting Provider: Rohan Santana Consult Reason/Comments: elevTrop Do you want consulting provider notified?: Yes 07/20/20 01:24 Consult Physician Urgent Consulting Provider: Uvaldo Nava Consult Reason/Comments: LBP Do you want consulting provider notified?: Yes 07/20/20 08:36 Consult Physician Urgent Consulting Provider: Philipp Ross Consult Reason/Comments: low back pain with recent surgery Do you want consulting provider notified?: Yes 07/20/20 17:27 Consult Physician Routine Consulting Provider: Sumanth Small Consult Reason/Comments: inc depression does not want to live but denies suicidal intent or plan Do you want consulting provider notified?: Yes Primary care physician: Rohan Eid MD Hospital Course: I discussed the care with José Luis Garg NP and reviewed the findings and plan as documented in the note above. I did not physically speak with or examine the patient on this date.
--- NOTE | 2020-07-24 14:16 | P.PN ---
Progress Note - Text Progress Note Date: 07/24/20 Interval History: Patient was seen today for psychiatric follow-up regarding patient's depression. Patient was seen at the bedside today and was agreeable to speak to proposal lead writer. Patient continues to speak about his depression and vague passive suicidal thoughts however has no plan or intent. He states that he is not looking forward to going home and speaks about the stressors and feeling overwhelmed. He claims that his anxiety has improved mildly and is willing to have his Cymbalta increased. He states that he is searching for help with his depression and his life circumstances. He claims that he was able to walk more today with PT/OT down the hallways and feels less weak. He claims that he is able to sleep of a better with the Remeron and has a mild improvement in his appetite. At this time patient denies any homical ideations, intent or plan. Patient denies any auditory, visual hallucinations and denies any paranoia or delusions. Patient denies any side effects from the medications and has been compliant with meds. Mental Status Exam: General Appearance: Patient appears to be stated age is alert, directable, and attempts to be cooperative. Constricted affect. Patient appears to have fair hygiene and grooming wearing hospital gown with improving eye contact. Behavior: Patient is calmly lying in bed without any agitated behavior. Appears to be depressed today Speech: Patient's speech is fluent and nonpressured. Soft tone Mood/Affect: Patient reports their mood is "depressed", affect is congruent and constricted Suicidality/Homicidality: Patient denies having any suicidal or homicidal ideation intent or plan. Perceptions: Patient denies any visual hallucinations and denies any auditory hallucinations Though content/process: There is no evidence of any delusional thought content and thought process is linear and goal-directed. No paranoia. Logical. Focused on the stressors. Memory and concentration: AOX3, grossly intact for the purposes of this session. Judgment and insight: fair Assessment Major depressive disorder Anxiety disorder unspecified Plan: -At this time patient DOES meet criteria currently for inpatient psychiatric admission due to his persistent depressive sx and passive suicidal thoughts. -Would recommend the following medication changes/additions: Increased Cymbalta 60 mg daily for mood/anxiety/pain, continue with Remeron 15 mg daily at bedtime for insomnia/appetite/mood. -Once patient is medically cleared and patient can be transferred to the psych unit for further treatment. -PAtient will need PT/OT to work with patient while on the MHU. -Communicated plan to patient's nurse and attending physician. -At this time psychiatry will sign off. -Please contact with any questions.
[2020-07-24 20:01] VITALS: BP 161/94; PULSE 76; RESP 16; TEMP 97.4
[2020-07-24] MEDS ORDERED: HYDROcodone/APAP 5-325MG 1 EACH TAB PO STA (20:27)
[2020-07-24] MEDS: MIRTAZAPINE 15 MG TAB PO SCH (20:43)
[2020-07-25] MEDS ORDERED: DULoxetine HCL 60 MG CAPSULE.DR PO SCH (09:00)
== END 2020-07-24 22:50 | DRG 881 ==
LOC: EC 16:37 → 3SCARD 22:05 → OBSVTOIN 07-24 10:42
PROVIDERS: ADMIT Internal Medicine; ATTEND Internal Medicine
DX: F32.9 Major depressive disorder, single episode, unspecified (principal); I50.22 Chronic systolic (congestive) heart failure; G57.31 Lesion of lateral popliteal nerve, right lower limb; I11.0 Hypertensive heart disease with heart failure; M06.9 Rheumatoid arthritis, unspecified; F10.20 Alcohol dependence, uncomplicated; Z20.822 Contact with and (suspected) exposure to COVID-19; G89.18 Other acute postprocedural pain; I08.2 Rheumatic disorders of both aortic and tricuspid valves; M54.5 Low back pain; G89.29 Other chronic pain; E78.5 Hyperlipidemia, unspecified; R77.8 Other specified abnormalities of plasma proteins; R19.7 Diarrhea, unspecified; F41.9 Anxiety disorder, unspecified; M79.7 Fibromyalgia; E86.0 Dehydration; M51.16 Intervertebral disc disorders with radiculopathy, lumbar region; M48.061 Spinal stenosis, lumbar region without neurogenic claudication; M47.26 Other spondylosis with radiculopathy, lumbar region; M21.371 Foot drop, right foot; I49.3 Ventricular premature depolarization; G25.81 Restless legs syndrome; G47.33 Obstructive sleep apnea (adult) (pediatric); G47.00 Insomnia, unspecified; Z79.899 Other long term (current) drug therapy; Z86.19 Personal history of other infectious and parasitic diseases; Z85.828 Personal history of other malignant neoplasm of skin; Z63.9 Problem related to primary support group, unspecified; Z87.81 Personal history of (healed) traumatic fracture; Z98.890 Other specified postprocedural states; Z82.49 Family history of ischemic heart disease and other diseases of the circulatory system
CPT/HCPCS: 36415; 71046; 71275; 72131; 80048; 80053; 80061; 81001; 83605; 83735; 84484; 85025; 85027; 85379; 85610; 85730; 87635; 93005; 93306; 96361; 96374; 96375; 99285

== ENCOUNTER 2020-07-24 22:29 | Inpatient (IN) | payer MEDICARE ==
[2020-07-24] MEDS ORDERED: MAGNESIUM HYDROXIDE 2,400 MG/10 ML CUP PO PRN (23:05)
[2020-07-24] MEDS ORDERED: MAG HYDROX/AL HYDROX/SIMETH 30 ML CUP PO PRN (23:05)
[2020-07-24] MEDS ORDERED: ACETAMINOPHEN TAB 325 MG TAB PO PRN (23:05)
[2020-07-24] MEDS ORDERED: LORazepam 1 MG TAB PO PRN (23:05)
[2020-07-24] MEDS ORDERED: LORazepam 2 MG/ML INJ IM PRN (23:10)
[2020-07-24 23:32] VITALS: RESP 16
[2020-07-25] MEDS: HYDROcodone/APAP 10-325MG 1 EACH TAB PO PRN ×6 (01:32→22:49)
[2020-07-25] MEDS: amLODIPine 10 MG TAB PO SCH (08:45)
[2020-07-25] MEDS: ASPIRIN 81 MG PO SCH (08:45)
[2020-07-25] MEDS: GABAPENTIN 100 MG CAP PO SCH ×3 (08:45→20:48)
[2020-07-25] MEDS: LOSARTAN 50 MG TAB PO SCH ×2 (08:45→20:48)
[2020-07-25] MEDS: LEFLUNOMIDE 20 MG TAB PO SCH (08:46)
[2020-07-25] MEDS: METOPROLOL SUCCINATE (ER) 50 MG TAB.ER.24H PO SCH (08:46)
[2020-07-25] MEDS: ATORVASTATIN 80 MG TAB PO SCH (08:46)
[2020-07-25] MEDS: LIDOCAINE 5% PATCH TOPICAL SCH (08:47)
[2020-07-25] MEDS: PRAMIPEXOLE 0.25 MG TAB PO SCH ×3 (08:51→20:48)
[2020-07-25] MEDS ORDERED: DULoxetine HCL 30 MG CAPSULE.DR PO SCH (09:00)
[2020-07-25] MEDS ORDERED: DULoxetine HCL 30 MG CAPSULE.DR PO ONE (09:50)
--- NOTE | 2020-07-25 11:17 | P.HP ---
Psychiatric H&P - . 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 HISTORY OF PRESENT ILLNESS: The patient presented to the hospital initially on 07/19 for weakness, lower back pain and decrease in appetite. Patient had stated according to ER reports that he recently had surgery at [facility] on July 07. Patient was found to have elevated troponins and was also found to have a non-STEMI. Patient is being followed by cardiology. Patient apparently was noted by primary team to be depressed and crying. Patient was seen at the bedside today and claims that he's been feeling "overwhelmed and stressed" and spoke about his different stressors in his life including dealing with rheumatoid arthritis. He stated that he's been also dealing with his back pain and feeling like it is not getting better. He claims that he is not able to work and really does enjoy his job. He states that he's been having difficulties with his finances due to not being able to work and also dealing with his ex . He states that they also "found a heart problem" while he's been in the hospital. He stated that he has been arguing with his ex- and not getting along with his son which has been hurting him. He feels that he has "nobody to talk to" and poor social support. He states that he has been also crying a lot and has been "bottling things up". He admits to ongoing anxiety and depressed mood. He mentioned that he "doesn't want to live anymore sometimes". Patient was medically cleared and transferred to the mental health unit last night. Patient was seen again this morning for evaluation and continues to endorse depression and feeling overwhelmed with anxiety. He spoke more about his son who has been mistreating him and has been demanding money from him. He states that he has a poor relationship with him. He claims that he does not reach out to his daughter for help as she is "closer to her mother". He continues to endorse poor social support and hopelessness. He claims that he was able to sleep a bit better last night with the Remeron. At this time patient denies any current suicidal or homical ideations, intent or plan however does make statements of "not wanting to live like this". Patient denies any auditory, visual hallucinations and denies any paranoia or delusions. Patients admits to using no recreational drugs he states that he drinks alcohol occasionally. He claims that he does not have any access to guns or weapons at home. PAST PSYCHIATRIC HISTORY: Patient has a a history of depression. Patient is currently on Remeron and Cymbalta which were started on the medical floors. He states that he was hospitalized once on the psychiatric unit in [place] in 2006 for depression. Patient denies any psychiatric outpatient follow-up. Patient denies any history of suicide attempts in the past. PAST MEDICAL HISTORY: Fibromyalgia, rheumatoid arthritis, obstructive sleep apnea, restless leg symptoms, hypertension. ALLERGIES: as per EMR. CHEMICAL DEPENDENCY HISTORY: as per HPI. FAMILY PSYCHIATRIC/SUBSTANCE USE HISTORY: He states that his father abused alcohol heavily and his mother also abused polysubstances. SOCIAL HISTORY: Patient was born and raised in the [place] area [place]. He states that he was temporarily in foster care as his mother was not able to care for him. He states that he completed high school and did some college. 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 He claims that he has no legal history. 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 MENTAL STATUS EXAM: General Appearance: Patient appears to be stated age is alert, pleasant, and cooperative. Constricted affect. Patient appears to have fair hygiene and grooming wearing hospital gown Behavior: Patient is calmly sitting in his wheelchair without any agitated behavior. Appears to be depressed Speech: Patient's speech is fluent and nonpressured. Soft tone Mood/Affect: Patient reports their mood is "depressed", affect is congruent and constricted Suicidality/Homicidality: Patient denies having any suicidal or homicidal ideation intent or plan. Perceptions: Patient denies any visual hallucinations and denies any auditory hallucinations Though content/process: There is no evidence of any delusional thought content and thought process is linear and goal-directed. No paranoia. Logical. Focused on the stressors. Memory and concentration: AOX3, grossly intact for the purposes of this session. Can spell "WORLD" backwards Judgment and insight: fair STRENGTHS/WEAKNESSES: strength is that patient is [resilient]. Weakness is that patient [has poor social support and medical comorbidities] INTELLECT: [average] IMPRESSIONS: Major depressive disorder, severe without psychotic features Anxiety disorder unspecified PLAN: -Patient is admitted under [voluntary] status to MHU for stabilization of psychiatric symptoms and safety. Patient has signed [adult voluntary form and] [medication consent] and is placed in patient's chart. -Medications : Will start patient on Cymbalta 60 mg daily for mood/anxiety/pain. Continue with Remeron 50 mg daily at bedtime for insomnia/mood/appetite. -Ativan [and Haldol] PRN for agitation/aggression -Patient was informed of the risks, benefits and side effects of the medication and patient verbally consented to taking the medications. Patient signed med consent form and was placed in chart. -Internal Medicine consult to perform medical evaluation and physical. -NRT - not need to this patient does not smoke -SW on board for discharge planning. Encourage patient to participate in groups to work on coping skills. 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 [] 07/25/20 11:14
--- NOTE | 2020-07-25 13:50 | P.CONS ---
<José Luis Garg - Last Filed: 07/25/20 13:20> History of Present Illness - Reason for Consult Consult date: 07/25/20 - History of Present Illness Hospital course: Patient is a 65-year-old male with a past medical history of CAD, hypertension, dyslipidemia, obstructive sleep apnea CPAP dependent nightly, rheumatoid arthritis, fibromyalgia, restless leg syndrome, anxiety, depression, and chronic lower back pain status post recent lumbar discectomy with spinal decompression surgery. Patient currently admitted to mental health unit for treatment of his severe major depressive disorder and anxiety disorder. Patient seen and fully evaluated at mental health unit. He reports continued feelings of depression and hopelessness. He reports pain in lower back remains uncontrolled. Patient on [place] 10/325 every 4 hours along with Neurontin and lidocaine patch. Additional orders placed for Motrin 600 mg 3 times daily as needed and heat packs to be applied to lower back as needed. Patient denies having any headache, lightheadedness, dizziness, changes in vision or hearing, chest pain or palpitations, shortness of breath, dyspnea with exertion, abdominal pain, nausea, vomiting, or any new onset numbness/tingling/weakness in extremities. Review of systems: Pertinent positives and negatives as discussed in HPI, a complete review of systems was performed and all other systems are negative. Physical exam: General: non toxic, no distress, appears at stated age Derm: warm, dry. Postsurgical incision to midline lower back intact, well approximated and in healing process with scab present. There were no signs of infection including erythema, edema, or drainage. Head: atraumatic, normocephalic, symmetric. Eyes: EOMI, no lid lag, anicteric sclera Mouth: no lip lesion, mucus membranes moist Cardiovascular: S1S2 no normal with regular rate and rhythm. No murmur, gallop, or rub. Posterior tibial pulses palpated bilaterally. Cap refill less than 2 seconds. No lower extremity edema. Lungs: CTA bilateral, no rhonchi, no rales, or wheezes. no accessory muscle use Abdominal: soft, nontender to palpation, no guarding, no appreciable organomegaly Ext: No gross muscle atrophy, no edema, no contractures. Movement and sensation of bilateral upper and lower extremities intact. Neuro: GCS 15. Speech clear. CN II-XII grossly intact, no focal neuro deficits Psych: Alert, depressed affect. Assessment and Plan of Care: Uncontrolled chronic lower back pain status post recent lumbar discectomy with spinal decompression surgery -Symptomatic care and pain management. -Heat packs to back as needed. -May rotate Motrin and/or Tylenol as needed for mild to moderate pain and [place] for moderate to severe pain. -Continue Neurontin and lidocaine patch. -Patient to continue to receive PT/OT while in mental health unit. Hypertension -Continue daily medication management with metoprolol succinate, losartan, and amlodipine. Hyperlipidemia -Continue daily medication management with atorvastatin 80 mg daily. Obstructive sleep apnea CPAP dependent nightly -Continue nightly use of CPAP. Rheumatoid arthritis -Symptomatic treatment and pain control. Continue home medication regimen. Restless legs -Continue home medication regimen with Mirapex. Severe major depressive disorder -Patient denies suicidal ideations or plan, does report feelings of depression and hopelessness. -Treatment per primary admitting psychiatry team. Anxiety disorder -Treatment per primary admitting psychiatry team. Thank you for allowing us to participate in the care of this pleasant patient. Do not hesitate to contact us with questions. We will follow on an as-needed basis. RN to notify provider if needed. Someone can be reached from the [facility] hospitalist group all hours of the day at [phone] or via [email or web address]. Past Medical History Past Medical History: Fibromyalgia, Rheumatoid Arthritis (RA), Sleep Apnea/CPAP/BIPAP Additional Past Medical History / Comment(s): restless leg syndrome, shingles History of Any Multi-Drug Resistant Organisms: None Reported Past Surgical History: Back Surgery, Orthopedic Surgery Additional Past Surgical History / Comment(s): skin CA removal, left shoulder sx, fractured clavicle Past Anesthesia/Blood Transfusion Reactions: No Reported Reaction Past Psychological History: Depression Smoking Status: Never smoker Past Alcohol Use History: Daily, Occasional Past Drug Use History: None Reported - Past Family History Mother Family Medical History: Coronary Artery Disease (CAD) Medications and Allergies Home Medications Medication Instructions Recorded Confirmed Type Pramipexole Di-HCl [Mirapex] 0.75 mg PO TID 06/04/15 07/24/20 History Leflunomide 20 mg PO DAILY 04/14/20 07/24/20 History amLODIPine [Norvasc] 10 mg PO DAILY 30 Days #30 tab 04/16/20 07/24/20 Rx Gabapentin [Neurontin] 100 mg PO TID 07/19/20 07/24/20 History Aspirin 81 mg PO DAILY chew 07/24/20 07/24/20 Rx Atorvastatin [Lipitor] 80 mg PO DAILY #0 tab 07/24/20 07/24/20 Rx DULoxetine HCL [Cymbalta] 30 mg PO DAILY capsule. 07/24/20 07/24/20 Rx HYDROcodone/APAP 10-325MG [[place] 1 tab PO Q4HR PRN 3 Days #18 tab 07/24/20 07/24/20 Rx 10-325] Lidocaine 5% Patch [Lidoderm 5% 1 patch TOPICAL DAILY patch 07/24/20 07/24/20 Rx Patch] Losartan [Cozaar] 50 mg PO BID tab 07/24/20 07/24/20 Rx Metoprolol Succinate (ER) [Toprol 50 mg PO DAILY tab.er.24h 07/24/20 07/24/20 Rx XL] Mirtazapine [Remeron] 15 mg PO HS tab 07/24/20 07/24/20 Rx Allergies Allergy/AdvReac Type Severity Reaction Status Date / Time No Known Allergies Allergy Verified 07/24/20 23:42 Physical Exam Vitals: Vital Signs Temp Pulse Resp BP Pulse Ox 07/24/20 23:25 97.1 F L 68 16 149/99 96 Intake and Output 07/24/20 07/25/20 07/25/20 22:59 06:59 14:59 Other: Weight 88.054 kg <Laquita Maurer - Last Filed: 07/25/20 21:04> Physical Exam Osteopathic Statement: *. No significant issues noted on an osteopathic structural exam other than those noted in the History and Physical/Consult. Vitals: Vital Signs Temp Pulse Resp BP Pulse Ox 07/25/20 20:59 99 149/103 07/25/20 14:07 97.5 F L 07/24/20 23:25 97.1 F L 68 16 149/99 96 Intake and Output 07/25/20 07/25/20 07/25/20 06:59 14:59 22:59 Other: Weight 88.054 kg Assessment and Plan Assessment: discussed the care with José Luis Garg NP and reviewed the findings and plan as documented in the note above. I did not physically speak with or examine the patient on this date.
[2020-07-25] MEDS: MIRTAZAPINE 15 MG TAB PO SCH (20:48)
[2020-07-26] MEDS: IBUPROFEN 600 MG TAB PO PRN (02:03)
[2020-07-26] MEDS: HYDROcodone/APAP 10-325MG 1 EACH TAB PO PRN ×4 (04:23→20:57)
[2020-07-26] MEDS: ATORVASTATIN 80 MG TAB PO SCH (08:02)
[2020-07-26] MEDS: DULoxetine HCL 60 MG CAPSULE.DR PO SCH (08:02)
[2020-07-26] MEDS: amLODIPine 10 MG TAB PO SCH (08:02)
[2020-07-26] MEDS: ASPIRIN 81 MG PO SCH (08:02)
[2020-07-26] MEDS: GABAPENTIN 100 MG CAP PO SCH ×3 (08:02→21:00)
[2020-07-26] MEDS: LIDOCAINE 5% PATCH TOPICAL SCH (08:03)
[2020-07-26] MEDS: LEFLUNOMIDE 20 MG TAB PO SCH (08:03)
[2020-07-26] MEDS: LOSARTAN 50 MG TAB PO SCH ×2 (08:05→20:58)
[2020-07-26] MEDS: PRAMIPEXOLE 0.25 MG TAB PO SCH ×3 (08:05→21:00)
[2020-07-26] MEDS: METOPROLOL SUCCINATE (ER) 50 MG TAB.ER.24H PO SCH (08:05)
--- NOTE | 2020-07-26 10:51 | P.PN ---
Progress Note - Text Progress Note Date: 07/26/20 Interval History: Patient was seen lying in his bed and was directable and agreeable to speak with jingle writer in the office. Patient continues to have a constricted affect and states that his mood is gradually been improving. He states that he still feeling depressed at times however states that the medication is helping him. He claims that he is feeling "stronger" today and feels that she is able to make more progress with his walker. He states that he is also feeling more optimistic about his ex- letting him stay at her place until he is able to financially get things sorted out. He spoke about other plans that he has when he is discharged. He states that he feels hopeless at times and today feels that his passive suicidal thoughts have improved. He states that he was able to sleep better last night. Patient was agreeable to have his Cymbalta increased for tonight. He states that anxiety has been improving however continues to complain of pain in his back throughout the night. At this time patient denies any homical ideations, intent or plan. Patient denies any auditory, visual hallucinations and denies any paranoia or delusions. Patient denies any side effects from the medications and has been compliant with meds. Mental Status Exam: General Appearance: Patient appears to be stated age is alert, pleasant, and more cooperative. Constricted affect. Patient appears to have fair hygiene and grooming wearing hospital gown Behavior: Patient is calmly sitting in his wheelchair without any agitated behavior. Less depressed today. Speech: Patient's speech is fluent and nonpressured. Soft tone Mood/Affect: Patient reports their mood is "depressed", improving mildly, affect is congruent and constricted Suicidality/Homicidality: Patient denies having any suicidal or homicidal ideation intent or plan. Perceptions: Patient denies any visual hallucinations and denies any auditory hallucinations Though content/process: There is no evidence of any delusional thought content and thought process is linear and goal-directed. No paranoia. Logical. Memory and concentration: AOX3, grossly intact for the purposes of this session Judgment and insight: fair Assessment Major depressive disorder, severe without psychotic features Anxiety disorder unspecified Plan: -Patient continues to meet criteria for inpatient psychiatric admission for symptom stabilization and safety. Patient has signed [adult voluntary form and] [medication consent] and was placed in patient's chart. -Medications: Increase Cymbalta to 60 mg daily +30 mg daily at bedtime for mood/anxiety/pain. Continue with Remeron 15 mg daily at bedtime for insomnia/mood/appetite. -When necessary Ativan and Haldol for agitation/aggression. -NRT - not needed as patient does not smoke -SW on board for discharge planning. Encouraged the patient to participate in milieu. Patient is declining subacute rehab at this time due to the cost out of pocket. Instead patient will be agreeable to go ahead with home health services once he is discharged. Likely discharge tomorrow.
[2020-07-26] MEDS: MIRTAZAPINE 15 MG TAB PO SCH (20:58)
[2020-07-26] MEDS ORDERED: DULoxetine HCL 30 MG CAPSULE.DR PO SCH (21:00)
[2020-07-27] MEDS: HYDROcodone/APAP 10-325MG 1 EACH TAB PO PRN ×2 (01:50→06:47)
[2020-07-27] MEDS: IBUPROFEN 600 MG TAB PO PRN (05:31)
[2020-07-27 07:07] VITALS: TEMP 97.7
[2020-07-27] MEDS: LEFLUNOMIDE 20 MG TAB PO SCH (08:41)
[2020-07-27] MEDS: ATORVASTATIN 80 MG TAB PO SCH (08:42)
[2020-07-27] MEDS: GABAPENTIN 100 MG CAP PO SCH (08:42)
[2020-07-27] MEDS: ASPIRIN 81 MG PO SCH (08:43)
[2020-07-27] MEDS: METOPROLOL SUCCINATE (ER) 50 MG TAB.ER.24H PO SCH (08:43)
[2020-07-27] MEDS: LOSARTAN 50 MG TAB PO SCH (08:43)
[2020-07-27] MEDS: DULoxetine HCL 60 MG CAPSULE.DR PO SCH (08:43)
[2020-07-27] MEDS: PRAMIPEXOLE 0.25 MG TAB PO SCH (08:43)
[2020-07-27] MEDS: amLODIPine 10 MG TAB PO SCH (08:44)
[2020-07-27] MEDS: LIDOCAINE 5% PATCH TOPICAL SCH (08:45)
[2020-07-27 09:16] VITALS: BP 121/77; PULSE 65
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
== END 2020-07-27 16:28 | disposition home or self-care (01) | DRG 885 ==
LOC: 3MHU 22:57
PROVIDERS: ADMIT Psychiatry & Neurology Psychiatry; ATTEND Psychiatry & Neurology Psychiatry
DX: F33.2 Major depressive disorder, recurrent severe without psychotic features (principal); I21.4 Non-ST elevation (NSTEMI) myocardial infarction; R45.851 Suicidal ideations; M06.9 Rheumatoid arthritis, unspecified; F41.9 Anxiety disorder, unspecified; Z63.8 Other specified problems related to primary support group; M79.7 Fibromyalgia; G47.33 Obstructive sleep apnea (adult) (pediatric); G25.81 Restless legs syndrome; I10 Essential (primary) hypertension; I25.10 Atherosclerotic heart disease of native coronary artery without angina pectoris; E78.5 Hyperlipidemia, unspecified; G89.29 Other chronic pain; M54.5 Low back pain; G47.00 Insomnia, unspecified; Z79.82 Long term (current) use of aspirin; Z79.899 Other long term (current) drug therapy; Z87.39 Personal history of other diseases of the musculoskeletal system and connective tissue; Z85.828 Personal history of other malignant neoplasm of skin; Z87.81 Personal history of (healed) traumatic fracture; Z86.19 Personal history of other infectious and parasitic diseases; Z98.890 Other specified postprocedural states; Z82.49 Family history of ischemic heart disease and other diseases of the circulatory system; Z81.4 Family history of other substance abuse and dependence; Z81.1 Family history of alcohol abuse and dependence

== ENCOUNTER 2020-08-24 22:59 | Observation (INO) | payer MEDICARE ==
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
[2020-08-24] MEDS ORDERED: HYDROmorphone 1 MG/ML 1 ML SYRINGE IM STA (23:22)
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
[2020-08-25] MEDS ORDERED: SODIUM CHLORIDE 0.9% 1,000 ML IV STA ×3 (00:53→02:54)
[2020-08-25 01:28] LABS: Basophils # (A) 0.1 k/uL (0-0.2); Basophils % (A) 2 %; Eosinophils # (A) 0.1 k/uL (0-0.7); Eosinophils % (A) 2 %; HCT 44.8 % (39.0-53.0); HGB 14.5 gm/dL (13.0-17.5); Lymphocytes # (A) 0.9 k/uL (1.0-4.8); Lymphocytes % (A) 13 %; MCH 28.4 pg (25.0-35.0); MCHC 32.5 g/dL (31.0-37.0); MCV 87.5 fL (80.0-100.0); Mean Platelet Volume 6.6; Monocytes # (A) 0.6 k/uL (0-1.0); Monocytes % (A) 8 %; Neutrophils # (A) 5.4 k/uL (1.3-7.7); Neutrophils % (A) 75 %; Platelet Count 328 k/uL (150-450); RBC 5.12 m/uL (4.30-5.90); RDW 15.1 % (11.5-15.5); WBC 7.2 k/uL (3.8-10.6)
[2020-08-25 01:30] LABS: Appearance,Urine Clear (Clear); Bilirubin,Urine 1+ (Negative); Blood,Urine Negative (Negative); Color,Urine Yellow; Glucose,Urine (UA) Negative (Negative); Granular Casts,Urine 6 /lpf (0); Hyaline Casts,Urine 23 /lpf (0-2); Ketones,Urine 4+ (Negative); Leukocyte Esterase,Urine Negative (Negative); Mucus,Urine Rare /hpf; Nitrite,Urine Negative (Negative); Protein,Urine 1+ (Negative); RBC,Urine 1 /hpf (0-5); Specific Gravity,Urine 1.009 (1.001-1.035); Urobilinogen,Urine <2.0 mg/dL (<2.0); WBC,Urine 2 /hpf (0-5)
[2020-08-25 01:36] LABS: INR 1.6 (<1.2); Partial Thromboplastin Time 31.5 sec (22.0-30.0); Prothrombin Time 15.6 sec (9.0-12.0)
[2020-08-25 01:46] LABS: Lactic Acid, Venous 1.7 mmol/L (0.7-2.0)
[2020-08-25 01:47] LABS: ALT 14 U/L (4-49); AST 32 U/L (17-59); African American GFR (CKD) >90 (>60 ml/min/1.73 sqM); Albumin 2.9 g/dL (3.5-5.0); Alcohol <10 mg/dL; Alkaline Phosphatase 109 U/L (38-126); Anion Gap 13 mmol/L; Blood Urea Nitrogen 4 mg/dL (9-20); C Reactive Protein 2.6 mg/dL (<1.0); Calcium 9.4 mg/dL (8.4-10.2); Carbon Dioxide 24 mmol/L (22-30); Chloride 97 mmol/L (98-107); Creatine Kinase 107 U/L (55-170); Glucose 76 mg/dL (74-99); LDH 710 U/L (313-618); Lipase 70 U/L (23-300); Magnesium 1.5 mg/dL (1.6-2.3); Non-African American GFR(CKD) >90 (>60 ml/min/1.73 sqM); Phosphorus 2.5 mg/dL (2.5-4.5); Potassium 2.9 mmol/L (3.5-5.1); Sodium 134 mmol/L (137-145); Total Bilirubin 0.6 mg/dL (0.2-1.3); Total Protein 5.5 g/dL (6.3-8.2)
--- NOTE | 2020-08-25 01:53 | XR ---
EXAM: XR Chest, 2 Views CLINICAL HISTORY: ITS.REASON XR Reason: Weakness TECHNIQUE: Frontal and lateral views of the chest. COMPARISON: July 19, 2020 FINDINGS: Lungs: There are a few scattered linear densities in the right midlung, new since previous which may represent atelectasis, scarring, or pneumonia. Lung volumes are lower than previous. Pleural space: Unremarkable. No pneumothorax. Heart: The cardiac silhouette is mildly enlarged. Mediastinum: Unremarkable. Bones/joints: Mild multilevel degenerative changes throughout the thoracic spine. Previous left clavicle fracture fixation. IMPRESSION: There are a few scattered linear densities in the right midlung, new since previous which may represent atelectasis, scarring, or pneumonia. Lung volumes are lower than previous.
[2020-08-25] MEDS ORDERED: MORPHINE SULFATE 4 MG/ML SYRINGE IVP PRN (02:08)
[2020-08-25] MEDS ORDERED: MORPHINE SULFATE 4 MG/ML SYRINGE IVP STA (02:08)
[2020-08-25] MEDS: MAGNESIUM SULFATE-D5W PMX 1 GM in DEXTROSE/WATER 1 100ML.BAG IVPB SCH ×4 (02:51→12:17)
[2020-08-25] MEDS ORDERED: SODIUM CHLORIDE 0.9% 500 ML 500 ML IV STA (02:54)
[2020-08-25] MEDS ORDERED: POTASSIUM BICARBONATE/CIT AC 20 MEQ TABLET.EFF PO ONE (02:54)
[2020-08-25] MEDS ORDERED: POTASSIUM CHLORIDE ER 20 MEQ TAB.ER PO STA ×2 (02:54→17:55)
[2020-08-25] MEDS ORDERED: ONDANSETRON 4 MG/2 ML VIAL IVP PRN (02:54)
[2020-08-25] MEDS ORDERED: NALOXONE 0.4 MG/ML 1 ML VIAL IV PRN (02:57)
[2020-08-25] MEDS ORDERED: LORazepam 2 MG/ML INJ IV PRN ×3 (02:59)
[2020-08-25] MEDS ORDERED: THIAMINE 100 MG/ML 2 ML VIAL IM STA (02:59)
[2020-08-25] MEDS: MAGNESIUM OXIDE 400 MG TAB PO SCH ×2 (03:23→20:14)
[2020-08-25] MEDS: MAGNESIUM OXIDE 400 MG TAB PO STA ×2 (03:25)
[2020-08-25] MEDS: POTASSIUM CHLORIDE 10 MEQ in WATER FOR INJECTION 1 100ML.BAG IVPB SCH ×6 (03:26→10:41)
[2020-08-25] MEDS: PRAMIPEXOLE 0.25 MG TAB PO SCH ×4 (08:47→20:14)
[2020-08-25] MEDS: PANTOPRAZOLE 40 MG/10 ML VIAL IV SCH (08:47)
[2020-08-25] MEDS: amLODIPine 5 MG TAB PO SCH (08:47)
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
[2020-08-25] MEDS: ENOXAPARIN 40 MG/0.4 ML SYRINGE SQ SCH (10:54)
[2020-08-25] MEDS: oxyCODONE-APAP 5-325MG 1 EACH TAB PO PRN ×4 (10:57→22:51)
[2020-08-25] MEDS: SODIUM CHLORIDE 0.9% 1,000 ML IV SCH ×2 (12:52→22:43)
[2020-08-25 14:57] VITALS: BMI 25.3
[2020-08-25] MEDS: THIAMINE 100 MG TAB PO SCH (17:02)
[2020-08-25] MEDS: traZODone HCL 100 MG TAB PO SCH (20:14)
[2020-08-25 23:11] LABS: Potassium 3.5 mmol/L (3.5-5.1)
[2020-08-25 23:12] LABS: African American GFR (CKD) >90 (>60 ml/min/1.73 sqM); Anion Gap 1 mmol/L; Blood Urea Nitrogen 2 mg/dL (9-20); Calcium 8.1 mg/dL (8.4-10.2); Carbon Dioxide 27 mmol/L (22-30); Chloride 106 mmol/L (98-107); Glucose 119 mg/dL (74-99); Magnesium 1.7 mg/dL (1.6-2.3); Non-African American GFR(CKD) >90 (>60 ml/min/1.73 sqM); Sodium 134 mmol/L (137-145)
[2020-08-26] MEDS: oxyCODONE-APAP 5-325MG 1 EACH TAB PO PRN ×5 (02:58→21:14)
[2020-08-26] MEDS ORDERED: MAGNESIUM SULFATE-D5W PMX 1 GM in DEXTROSE/WATER 1 100ML.BAG IVPB ONE (06:29)
[2020-08-26] MEDS: THIAMINE 100 MG TAB PO SCH ×2 (06:51→17:15)
[2020-08-26 08:13] LABS: Basophils # (A) 0.1 k/uL (0-0.2); Basophils % (A) 1 %; Eosinophils # (A) 0.3 k/uL (0-0.7); Eosinophils % (A) 6 %; HCT 38.7 % (39.0-53.0); HGB 12.4 gm/dL (13.0-17.5); Lymphocytes # (A) 0.9 k/uL (1.0-4.8); Lymphocytes % (A) 21 %; MCH 28.3 pg (25.0-35.0); MCHC 32.1 g/dL (31.0-37.0); MCV 88.3 fL (80.0-100.0); Mean Platelet Volume 6.5; Monocytes # (A) 0.6 k/uL (0-1.0); Monocytes % (A) 13 %; Neutrophils # (A) 2.3 k/uL (1.3-7.7); Neutrophils % (A) 55 %; Platelet Count 248 k/uL (150-450); RBC 4.38 m/uL (4.30-5.90); RDW 15.1 % (11.5-15.5); WBC 4.1 k/uL (3.8-10.6)
[2020-08-26 08:28] LABS: ALT 13 U/L (4-49); AST 33 U/L (17-59); African American GFR (CKD) >90 (>60 ml/min/1.73 sqM); Alkaline Phosphatase 81 U/L (38-126); Anion Gap 2 mmol/L; Blood Urea Nitrogen <2 mg/dL (9-20); Calcium 7.8 mg/dL (8.4-10.2); Carbon Dioxide 27 mmol/L (22-30); Chloride 109 mmol/L (98-107); Glucose 104 mg/dL (74-99); Non-African American GFR(CKD) >90 (>60 ml/min/1.73 sqM); Phosphorus 1.3 mg/dL (2.5-4.5); Potassium 3.5 mmol/L (3.5-5.1); Sodium 138 mmol/L (137-145); Total Bilirubin 0.5 mg/dL (0.2-1.3); Total Protein 4.2 g/dL (6.3-8.2)
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
[2020-08-26] MEDS: ENOXAPARIN 40 MG/0.4 ML SYRINGE SQ SCH (09:57)
[2020-08-26] MEDS: POTASSIUM CHLORIDE ER 20 MEQ TAB.ER PO SCH ×3 (09:57→17:15)
[2020-08-26] MEDS: PRAMIPEXOLE 0.25 MG TAB PO SCH ×3 (09:57→21:14)
[2020-08-26] MEDS: MAGNESIUM OXIDE 400 MG TAB PO SCH ×2 (09:57→21:13)
[2020-08-26] MEDS: PANTOPRAZOLE 40 MG/10 ML VIAL IV SCH (09:58)
[2020-08-26] MEDS: methocarbamoL 750 MG TAB PO PRN (09:58)
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
[2020-08-26] MEDS: SODIUM CHLORIDE 0.9% 1,000 ML IV SCH (11:03)
--- NOTE | 2020-08-26 13:58 | ECHOF ---
Referral Reason:Troponin elevation MEASUREMENTS -------- HEIGHT: 180.3 cm WEIGHT: 82.1 kg BP: 138/76 RVIDd: 3.6 cm (< 3.3) IVSd: 1.7 cm (0.6 - 1.1) LVIDd: 4.6 cm (3.9 - 5.3) LVPWd: 1.4 cm (0.6 - 1.1) IVSs: 2.0 cm LVIDs: 4.4 cm LVPWs: 1.9 cm LA Diam: 3.7 cm (2.7 - 3.8) LAESV Index (A-L): 26.07 ml/m Ao Diam: 4.0 cm (2.0 - 3.7) AV Cusp: 2.3 cm (1.5 - 2.6) MV EXCURSION: 14.924 mm (> 18.000) MV EF SLOPE: 150 mm/s (70 - 150) EPSS: 1.5 cm MV E Garo: 0.55 m/s MV DecT: 263 ms MV A Garo: 0.98 m/s MV E/A Ratio: 0.56 AV maxP.29 mmHg AV meanP.44 mmHg RAP: 5.00 mmHg RVSP: 32.30 mmHg FINDINGS -------- This was a technically adequate study. The left ventricular size is normal. There is severe concentric left ventricular hypertrophy. Ove rall left ventricular systolic function is mild-moderately impaired with, an EF between 40 - 45 %. The right ventricle is mildly enlarged. The left atrium is normal in size. The right atrium is normal in size. 5 ml of Lumason was utilized for enhancement of images. Interatrial and interventricular septum intact. There is mild aortic valve sclerosis. Peak/mean gradient across the Aortic Valve is 12.29mmHg / 6.4 4mmHg. The mitral valve leaflets are mildly thickened. Mild mitral annular calcification present. There is trace to mild mitral regurgitation. Mild tricuspid regurgitation present. Right ventricular systolic pressure is normal at < 35 mmHg. There is no pulmonic regurgitation present. The aortic root is dilated measuring 4.0cm. IVC Not well visulized. There is no pericardial effusion. CONCLUSIONS -------- 1. The left ventricular size is normal. 2. There is severe concentric left ventricular hypertrophy. 3. Overall left ventricular systolic function is mild-moderately impaired with, an EF between 40 - 45 %. 4. The right ventricle is mildly enlarged. 5. 5 ml of Lumason was utilized for enhancement of images. 6. There is mild aortic valve sclerosis. 7. Peak/mean gradient across the Aortic Valve is 12.29mmHg / 6.44mmHg. 8. The mitral valve leaflets are mildly thickened. 9. Mild mitral annular calcification present. 10. There is trace to mild mitral regurgitation. 11. Mild tricuspid regurgitation present. 12. The aortic root is dilated measuring 4.0cm. 13. There is no pericardial effusion. TRIP RIDER: Lucinda Cornelius RDCS
[2020-08-26] MEDS: traZODone HCL 100 MG TAB PO SCH (21:13)
[2020-08-27] MEDS: amLODIPine 5 MG TAB PO SCH (00:21)
[2020-08-27] MEDS: oxyCODONE-APAP 5-325MG 1 EACH TAB PO PRN ×4 (03:40→22:38)
[2020-08-27] MEDS: THIAMINE 100 MG TAB PO SCH ×2 (06:29→17:27)
[2020-08-27] MEDS: PANTOPRAZOLE 40 MG TABLET PO SCH (06:29)
[2020-08-27] MEDS ORDERED: POTASSIUM CHLORIDE ER 20 MEQ TAB.ER PO STA ×2 (07:28→08:40)
[2020-08-27 07:49] LABS: HCT 35.6 % (39.0-53.0); HGB 11.7 gm/dL (13.0-17.5); MCH 29.1 pg (25.0-35.0); MCHC 32.9 g/dL (31.0-37.0); MCV 88.3 fL (80.0-100.0); Mean Platelet Volume 6.8; Platelet Count 223 k/uL (150-450); RBC 4.04 m/uL (4.30-5.90); RDW 15.3 % (11.5-15.5); WBC 4.4 k/uL (3.8-10.6)
[2020-08-27 08:07] LABS: African American GFR (CKD) >90 (>60 ml/min/1.73 sqM); Anion Gap 2 mmol/L; Blood Urea Nitrogen <2 mg/dL (9-20); Carbon Dioxide 27 mmol/L (22-30); Chloride 107 mmol/L (98-107); Glucose 86 mg/dL (74-99); Non-African American GFR(CKD) >90 (>60 ml/min/1.73 sqM); Potassium 3.6 mmol/L (3.5-5.1); Sodium 136 mmol/L (137-145)
[2020-08-27] MEDS: LOSARTAN 25 MG TAB PO SCH (09:31)
[2020-08-27] MEDS: METOPROLOL TARTRATE 25 MG TAB PO SCH ×2 (09:31→20:49)
[2020-08-27] MEDS: ENOXAPARIN 40 MG/0.4 ML SYRINGE SQ SCH (09:31)
[2020-08-27] MEDS: MAGNESIUM OXIDE 400 MG TAB PO SCH ×2 (09:31→20:49)
[2020-08-27] MEDS: PRAMIPEXOLE 0.25 MG TAB PO SCH ×3 (09:31→22:47)
[2020-08-27] MEDS: KETOROLAC 15 MG/ML 1 ML VIAL IVP PRN ×2 (09:35→20:49)
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
--- NOTE | 2020-08-27 14:21 | PN ---
PROGRESS NOTE Mr. Grimes is doing well. He is resting comfortably. No chest pain or shortness of breath. I reviewed his echocardiogram. There was a cardiomyopathy process, but for now, we will pursue medical therapy. I will add Lopressor 25 mg b.i.d. and losartan 12.5 mg daily, increase activity and he can be discharged and go to rehab and we will see him in the office in about 2-3 weeks and consider a stress test as an outpatient after he is more stable and more functional. Patient, at this time, does not wish to have any testing performed. MMODL / IJN: [id number] /
[2020-08-27] MEDS: methocarbamoL 750 MG TAB PO PRN (22:38)
[2020-08-27] MEDS: traZODone HCL 100 MG TAB PO SCH (22:38)
[2020-08-28] MEDS: oxyCODONE-APAP 5-325MG 1 EACH TAB PO PRN ×5 (02:33→22:17)
[2020-08-28] MEDS: KETOROLAC 15 MG/ML 1 ML VIAL IVP PRN (02:33)
[2020-08-28] MEDS: PANTOPRAZOLE 40 MG TABLET PO SCH (07:50)
[2020-08-28] MEDS: MAGNESIUM OXIDE 400 MG TAB PO SCH ×2 (07:50→21:25)
[2020-08-28] MEDS: THIAMINE 100 MG TAB PO SCH ×2 (07:50→16:26)
[2020-08-28] MEDS: LOSARTAN 25 MG TAB PO SCH (07:50)
[2020-08-28] MEDS: METOPROLOL TARTRATE 25 MG TAB PO SCH ×2 (07:50→21:25)
[2020-08-28] MEDS: ENOXAPARIN 40 MG/0.4 ML SYRINGE SQ SCH (07:51)
[2020-08-28] MEDS: PRAMIPEXOLE 0.25 MG TAB PO SCH ×3 (08:24→21:26)
--- NOTE | 2020-08-28 09:41 | P.PN ---
Subjective Progress Note Date: 08/28/20 HISTORY OF PRESENT ILLNESS: Patient examined this morning at the bedside. Patient denies shortness of breath. He denies chest pain or pressure. Echocardiogram completed revealing e jection fraction 40-45%, trace to mild mitral regurgitation, and mild tricuspid regurgitation. Patient states he is being discharged to subacute rehab today. Vital signs are stable. PHYSICAL EXAM: VITAL SIGNS: Reviewed. GENERAL: Well-developed in no acute distress. NECK: Supple. No JVD or thyromegaly LUNGS: Respirations even and unlabored. Lungs essentially clear to auscultation bilaterally. HEART: Regular rate and rhythm. S1 and S2 heard. EXTREMITIES: Normal range of motion. No clubbing or cyanosis. Peripheral pulses intact. No lower extremity edema ASSESSMENT: Abnormal troponins, not suggestive of myocardial injury Cardiomyopathy of unclear etiology Hypertension PLAN: Continue Cozaar and metoprolol No further inpatient cardiac workup Patient may be discharged to subacute rehab Patient to follow-up outpatient with Dr. Rodriguez. Patient will require outpatient stress testing when medically stable We will sign off. Please reconsult if needed. Nurse practitioner note has been reviewed by physician. Signing provider agrees with the documented findings, assessment, and plan of care. Objective - Vital Signs Vital signs: Vital Signs Temp 97.4 F L 08/28/20 05:12 Pulse 65 08/28/20 05:12 Resp 14 08/28/20 05:12 BP 92/59 08/28/20 05:12 Pulse Ox 96 08/28/20 05:12 Intake & Output 08/27/20 08/28/20 08/28/20 18:59 06:59 18:59 Intake Total 740 290 Output Total 400 Balance 340 290 Intake: Oral 740 290 Output: Urine 400 Other: Voiding Method Toilet Toilet Urinal Urinal # Voids 2 # Bowel Movements 1 - Labs CBC & Chem 7: 08/27/20 07:05 08/27/20 07:05
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
[2020-08-28 21:29] VITALS: PULSE 71; RESP 20; TEMP 98.7
[2020-08-28] MEDS: traZODone HCL 100 MG TAB PO SCH (22:17)
[2020-08-29] MEDS: oxyCODONE-APAP 5-325MG 1 EACH TAB PO PRN ×2 (03:11→08:10)
[2020-08-29 05:22] VITALS: BP 101/67
[2020-08-29] MEDS: LOSARTAN 25 MG TAB PO SCH (08:09)
[2020-08-29] MEDS: MAGNESIUM OXIDE 400 MG TAB PO SCH (08:10)
[2020-08-29] MEDS: METOPROLOL TARTRATE 25 MG TAB PO SCH (08:10)
[2020-08-29] MEDS: PANTOPRAZOLE 40 MG TABLET PO SCH (08:10)
[2020-08-29] MEDS: PRAMIPEXOLE 0.25 MG TAB PO SCH (08:11)
[2020-08-29] MEDS: THIAMINE 100 MG TAB PO SCH (08:11)
[2020-08-29] MEDS: ENOXAPARIN 40 MG/0.4 ML SYRINGE SQ SCH (08:11)
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
== END 2020-08-29 13:08 ==
LOC: EC 22:59 → 3SCARD 08-25 03:14 → 5NMEDONC 08-27 20:08
PROVIDERS: ADMIT Hospitalist; ATTEND Hospitalist
DX: T74.91XA Unspecified adult maltreatment, confirmed, initial encounter (principal); S01.112A Laceration without foreign body of left eyelid and periocular area, initial encounter; Y04.2XXA Assault by strike against or bumped into by another person, initial encounter; E87.1 Hypo-osmolality and hyponatremia; I50.22 Chronic systolic (congestive) heart failure; I11.0 Hypertensive heart disease with heart failure; E87.6 Hypokalemia; E83.42 Hypomagnesemia; E86.1 Hypovolemia; I42.9 Cardiomyopathy, unspecified; I48.91 Unspecified atrial fibrillation; Z20.822 Contact with and (suspected) exposure to COVID-19; F32.9 Major depressive disorder, single episode, unspecified; E86.0 Dehydration; I95.9 Hypotension, unspecified; G89.29 Other chronic pain; M54.5 Low back pain; M54.2 Cervicalgia; I49.3 Ventricular premature depolarization; G25.81 Restless legs syndrome; G47.30 Sleep apnea, unspecified; M79.7 Fibromyalgia; R79.1 Abnormal coagulation profile; M06.9 Rheumatoid arthritis, unspecified; M21.371 Foot drop, right foot; Z79.899 Other long term (current) drug therapy; Z85.828 Personal history of other malignant neoplasm of skin; Z86.19 Personal history of other infectious and parasitic diseases; Z82.49 Family history of ischemic heart disease and other diseases of the circulatory system
CPT/HCPCS: 96376 ×3; 96361 ×3; 96366; 96372 ×6; 96375 ×3; 96368; 96365; 96367; 99285; 36415; 93005; 97116; 97530 ×3; 97162; 97535 ×2; 97166; 83880; 80053 ×2; 80048 ×2; 82140; 82550; 83605; 83615; 83690; 83735 ×2; 84100 ×2; 84443; 84484; 85025 ×2; 85027; 85610; 85730; 86140; 81001; 87635; 72110; 71046; 72125; 70450; G0378 ×6; C8929; G0480; J2270; J3411; J2405; J1650 ×5; J1170; J3475 ×2; J3480; J1885 ×2; C9113 ×2; Q9950; 80320; 93306

== ENCOUNTER → 2021-02-08 | Outpatient (CLI) | payer MEDICARE ==
--- NOTE | 2021-02-08 14:57 | MR ---
EXAMINATION TYPE: MR shoulder RT wo con DATE OF EXAM: 02/08/2021 COMPARISON: Radiographs 12/13/2020 HISTORY: 65-year-old male M25.511 Right shoulder pain after fall. TECHNIQUE: Multiplanar, multisequence imaging of the right shoulder is performed without contrast. FINDINGS: Diminutive fibers of the long head biceps tendon are noted in the bicipital groove. The intracapsular portion is not seen. The subscapularis tendon is largely torn. Minimal inferior fibers may remain. There is complete tear of both supraspinatus and infraspinatus tendons. Torn tendon stump is retracte d to the level of the glenoid by approximately 6 cm. Moderate effusion in the subacromial/subdeltoid bursa communicating with the glenoid humeral joint. There is superior subluxation with abutment of the undersurface of the acromion and marrow edema with in the acromion. Some associated low signal intensity is also present on T1 images. Moderate degenerative change of the acromioclavicular joint with some fragmentation at the distal cla vicle, possible old ununited fracture or large fragmented intra-articular spur. There is flattening along the superior margin of the humeral head. Unclear if this represents a Hill- Sachs deformity. It can be correlated clinically for any history of prior shoulder dislocation. Diffusely degenerative and blunted glenoid labrum. There is moderate to severe loss of articular cart ilage in the glenoid humeral joint. Moderate fatty atrophy of the subscapularis muscle belly and mild to moderate of the supraspinatus an d infraspinatus muscle bellies. Patchy red marrow is seen in the setting of anemia, obesity, smoking, chronic disease. No suspicious bone marrow replacement. IMPRESSION: 1. Massive rotator cuff tear involving the entire supraspinatus and infraspinatus tendon and the vast majority of the subscapularis tendon. [id number] fatty atrophy of the subscapularis muscle and mild fatty atrophy of both supraspinatus and infraspinatus muscle bellies. 2. Rotator cuff arthropathy with moderate to severe loss of articular cartilage and glenohumeral join t instability. 3. The abutment of the humeral head to the undersurface of the acromion results in reactive edema and possible nondisplaced acromial stress fracture. 4. Extensive tearing along the long head biceps tendon within the bicipital groove. The intracapsular portion is not seen and may be torn. 5. Flattening of the superior humeral head. Query Hill-Sachs deformity. Correlate for any history of prior shoulder dislocation. 6. Moderate AC joint OA.
== END | disposition home or self-care (01) ==
LOC: RADMRIMAIN 11:13
PROVIDERS: ATTEND Orthopaedic Surgery
DX: S46.011A Strain of muscle(s) and tendon(s) of the rotator cuff of right shoulder, initial encounter (principal); S46.111A Strain of muscle, fascia and tendon of long head of biceps, right arm, initial encounter; M19.011 Primary osteoarthritis, right shoulder

== ENCOUNTER 2021-05-11 06:10 | Observation (INO) | payer MEDICARE, OTHER ==
[2021-05-04 15:26] VITALS: BMI 27.8
--- NOTE | 2021-05-10 10:56 | HP ---
HISTORY AND PHYSICAL CHIEF COMPLAINT: Right shoulder pain. 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 He is having a difficult time with any overhead use and has been having pain at night. He has tried therapy in addition to medications without any substantial relief. PAST MEDICAL HISTORY: Significant for rheumatoid arthritis, depression, and osteoarthritis. PAST SURGICAL HISTORY: Negative. CURRENT MEDICATIONS: Methylprednisolone, gabapentin, trazodone, ibuprofen, oxycodone, metoprolol. ALLERGIES: He denies drug allergies. FAMILY HISTORY: Negative. SOCIAL HISTORY: Significant for social alcohol use. REVIEW OF SYSTEMS: Sixteen-point review of systems otherwise reviewed and is noncontributory. PHYSICAL EXAMINATION: On examination, the patient is approximately 5 foot 11, 180 pounds of mesomorphic habitus. HEENT exam is nonfocal. Neck is supple. On examination of right shoulder, he is tender about the anterior subacromial space and anterior glenohumeral joint. He has moderate crepitus. Active range of motion forward elevation 60 degrees, external rotation, arm at side 100 degrees, internal rotation to the buttock. Motor strength 3/5 for abduction and external rotation. Impingement test, Neer tests, and Speed test are positive. His distal neurovascular exam appears intact in the right upper extremity. MRI report right shoulder shows evidence of a chronic retracted rotator cuff tear with significant muscle atrophy and infiltration. X-ray shows significant glenohumeral joint space narrowing. IMPRESSION: 1. Right rotator cuff arthropathy with chronic retracted rotator cuff tear. 2. History of rheumatoid arthritis. RECOMMENDATIONS: I talked to the patient at length regarding his condition along with treatment options. At this point, he is quite symptomatic, having pain and significant weakness despite conservative measures. After thorough discussion, he opts to proceed with surgery. We will plan to proceed with right reverse total shoulder arthroplasty. Risks and benefits were discussed at length in layman's terms. Patient underwent preoperative cardiac clearance status. MMODL / IJN: [id number] /
[~2021-05-11 06:10] MED LIST: ACETAMINOPHEN TAB 500 MG TAB PO PRN; DEXAMETHASONE SOD PHOSPHATE 4 MG/ML 1 ML VIAL IV ONE; HYDROmorphone 0.5 MG/0.5 ML SYRINGE IVP PRN; MELOXICAM 7.5 MG TAB PO PRN; MIDAZOLAM 2 MG/2 ML VIAL IV PRN; ONDANSETRON 4 MG/2 ML VIAL IVP ONE; TRANEXAMIC ACID 1,000 MG in SODIUM CHLORIDE 0.9% 100 ML IVPB PRN
[2021-05-11] MEDS: LACTATED RINGERS 1,000 ML IV SCH (07:07)
[2021-05-11] MEDS ORDERED: LIDOCAINE 1% (10MG/ML) FOR IV START INTRADERMA ONE (07:07)
[2021-05-11 07:21] LABS: Glucose,Whole Blood 140 mg/dL (75-99)
[2021-05-11] MEDS ORDERED: HYDROCORTISONE SUCCINATE 100 MG/2 ML VIAL IVP ONE (07:38)
[2021-05-11] MEDS ORDERED: MIDAZOLAM 2 MG/2 ML VIAL IVP ONE (07:59)
[2021-05-11] MEDS ORDERED: fentaNYL (PF) 50 MCG/ML 2 ML AMP ONE (08:07)
[2021-05-11] MEDS ORDERED: HYDROmorphone (PF) 1 MG/ML ONE (08:07)
[2021-05-11] MEDS ORDERED: ROCURONIUM 10 MG/ML (5 ML VIAL) IV ONE (08:07)
[2021-05-11] MEDS ORDERED: PROPOFOL 10 MG/ML 20 ML VIAL IV ONE (08:07)
[2021-05-11] MEDS ORDERED: PHENYLEPHRINE-0.9% NACL SYG 1,000 MCG/10 ML SYRINGE ONE (08:07)
[2021-05-11] MEDS ORDERED: LIDOCAINE 1% INJ 10MG/ML (20 ML MDV) ONE (08:07)
[2021-05-11] MEDS ORDERED: GLYCOPYRROLATE 0.2 MG/ML 2 ML VIAL ONE (08:07)
[2021-05-11] MEDS ORDERED: ROPIVACAINE 5 MG/ML 30 ML VIAL ONE (08:07)
[2021-05-11] MEDS ORDERED: NEOSTIGMINE 1 MG/ML 10 ML VIAL ONE (08:07)
[2021-05-11] MEDS ORDERED: SUCCINYLCHOLINE CHLORIDE 100 MG/5 ML SYR IV ONE (08:07)
[2021-05-11] MEDS ORDERED: HYDROcodone/APAP 5-325MG 1 EACH TAB PO PRN (10:01)
[2021-05-11] MEDS ORDERED: SENNOSIDES-DOCUSATE SODIUM 1 EACH TAB PO PRN (10:01)
[2021-05-11] MEDS ORDERED: HYDROmorphone 0.5 MG/0.5 ML SYRINGE IVP PRN (10:01)
--- NOTE | 2021-05-11 10:04 | P.ANPRN ---
Procedure Note - Anesthesia - Nerve Block Performed Right Interscalene Time Out Performed: Yes (07:58) Date of Procedure: 05/11/21 Procedure Start Time: 58 Procedure Stop Time: 08:09 Location of Patient: PreOp Indication: Acute Post-Operative Pain, Requested by Surgeon (dR Murphy) Sedation Type: Sedate with meaningful contact maintained Preparation: Sterile Prep Position: Supine Catheter: None Needle Types: Pajunk Needle Gauge: Other (see comment) (22G) Ultrasound used to visualize needle placement: No Ultrasound used to observe medication spread: No Injectate: 0.5% Ropivacaine (see comment for volume) (18CC) Blood Aspirated: No Pain Paresthesia on Injection Noted: No Resistance on Injection: Normal Image Stored and Saved: Yes Events: Uneventful and Well Tolerated
--- NOTE | 2021-05-11 10:18 | P.OP ---
Date of Procedure: 05/11/21 Preoperative Diagnosis: Right rotator cuff arthropathy Postoperative Diagnosis: Same Procedure(s) Performed: Right reverse total shoulder arthroplasty Implants: Depuy Delta Xtend size 12 press-fit humeral stem was size 2 epiphysis, 38+12 articular surface, +10 baseplate with a 38 mm glenosphere Anesthesia: judy SCHMIDT Surgeon: Colt Lopez Director Of Neurology #1: Baljeet Tinoco Estimated Blood Loss (ml): 150 Pathology: other (Humeral head) Condition: stable Disposition: PACU Indications for Procedure: The patient's a 65-year-old male presents with a progressive history of right shoulder pain and weakness despite conservative measures. He was noted have severe rotator cuff arthropathy. A discussion of the risks and benefits of operative intervention versus continued conservative measures was made with patient. He opted to proceed with surgery. Operative risks to include infection, neurovascular injury, development blood clots, fracture, instability and need for subsequent procedures was discussed. Informed consent was obtained. Operative Findings: As below Description of Procedure: The patient was brought to the operating room, and after induction of general anesthesia was placed in a beachchair position. The bony prominences were appropriately padded. I examined the right shoulder. There was no gross block to passive motion. The right upper extremity was prepped and draped in normal fashion. The bony outlines the coracoid process, distal clavicle, and acromion were outlined with a skin marker. A 12 centimeter deltopectoral incision was made lateral to the coracoid process. Skin was incised sharply. Subcutaneous tissues were divided bluntly. Electrocautery was used for hemostasis. The cephalic vein was identified and gently retracted laterally with the deltoid. The deltopectoral was bluntly developed. Subdeltoid adhesions were then released. The self-retaining retractor was placed. The conjoined tendon was retracted medially and the deltoid laterally. The biceps was noted to be previously ruptured. Pseudocapsule was excised. The head was then exposed. The shoulder was dislocated. A starting hole was made in line with the humeral shaft. The canal was reamed by hand up to size 12. There was good distal chatter. The cutting guide was then placed. I planned on 20 of retroversion. The humeral head cut was then made. The bone was removed in one fragment. Residual inferomedial osteophytes were removed flush with the [place] cortical bone. Attention was then paid towards preparing the glenoid. An anterior and posterior retractors placed. The labrum was released from the 12-6 o'clock position. Remaining biceps was removed as well. A guidepin was placed in the inferior aspect of the glenoid with the guide slightly tilting inferior. The reamer was used down to a bleeding bony surface. The central peg hole was drilled. The +10 baseplate was inserted with good purchase. Inferior, superior, and posterior locking screws the appropriate length were placed. Good purchase was obtained. The 38 mm glenosphere was inserted over a guidewire. This was fully seated. Care was taken to avoid any soft tissue interposition. Attention was then paid towards preparing the proximal humerus. The appropriate broach was placed and 20 of retroversion and was fully seated. An eccentric size 2 epiphyseal reamer was utilized. A size 12 stem with a size 2 epiphysis was placed and 20 of retroversion. Trial reduction was obtained with a 38 mm +12 articular surface. The shoulder was taken through range of motion. He was felt to be stable in flexion and extension with internal and external rotation. I felt there was adequate caodaism of soft tissue tension judging off the conjoined tendon. The shoulder was gently dislocated. The trial components were then removed. The final size 12 press-fit stem along with a size 2 epiphysis was fully seated. There was good rotational stability. The 38 mm + 12 articular surface was impacted. The shoulder again was gently reduced and taken through range of motion. Again it was felt to be stable in all planes. Pulsatile lavage was utilized. The subscapularis was a attached to the lesser tuberosity with #2 Ethibond suture. The deltopectoral interval was closed with interrupted 2-0 Vicryl sutures. The skin was reapproximated with 3-0 subcuti cular Prolene suture. Steri-Strips were applied. A sterile dressing was applied. A sling was placed. The patient was awoken from general anesthesia and transferred to recovery room in good condition. Blood loss was estimated at 150 mL. No complications were incurred. Sponge and needle counts were correct at the end the case. Baljeet LANDRY assisted during the major components of the case to include exposure, glenoid and humeral preparation, implantation, and closure.
--- NOTE | 2021-05-11 11:16 | XR ---
EXAMINATION TYPE: XR shoulder limited RT DATE OF EXAM: 05/11/2021 CLINICAL HISTORY: Right shoulder pain and osteoarthritis. TECHNIQUE: Single portable frontal view of the right shoulder is obtained immediately postoperatively . COMPARISON: Right shoulder x-ray December 13, 2020 FINDINGS: There is a new metallic hardware from reverse total shoulder arthroplasty with surrounding air. Position is satisfactory. [place] osseous structures are demineralized. Low lung volumes with pa tchy right basilar atelectasis is noted. IMPRESSION: As above.
[2021-05-11] MEDS ORDERED: HYDROcodone/APAP 10-325MG 1 EACH TAB PO PRN (12:25)
[2021-05-11] MEDS: HYDROmorphone 0.5 MG/0.5 ML SYRINGE IVP PRN ×2 (15:47→19:06)
[2021-05-12] MEDS: HYDROmorphone 0.5 MG/0.5 ML SYRINGE IVP PRN (00:20)
[2021-05-12] MEDS ORDERED: CYCLOBENZAPRINE 10 MG TAB PO STA (02:10)
[2021-05-12] MEDS ORDERED: HYDROmorphone 1 MG/ML 1 ML SYRINGE IVP STA (02:11)
[2021-05-12] MEDS ORDERED: HYDROcodone/APAP 10-325MG 1 EACH TAB PO PRN (02:13)
[2021-05-12] MEDS: HYDROcodone/APAP 10-325MG 1 EACH TAB PO PRN ×4 (03:59→21:40)
[2021-05-12] MEDS: HYDROmorphone 1 MG/ML 1 ML SYRINGE IVP PRN ×3 (05:12→13:40)
[2021-05-12] MEDS: LACTATED RINGERS 1,000 ML IV SCH (08:34)
--- NOTE | 2021-05-12 10:38 | P.PN ---
Subjective Progress Note Date: 05/12/21 Principal diagnosis: Status post right reverse total shoulder arthroplasty Patient notes moderate pain last evening. He notes he is able to urinate. Objective - Vital Signs Vital signs: Vital Signs Temp 98.0 F 05/12/21 08:00 Pulse 110 H 05/12/21 08:00 Resp 16 05/12/21 08:00 BP 150/96 05/12/21 08:00 Pulse Ox 93 L 05/12/21 08:00 Intake & Output 05/11/21 05/12/21 05/12/21 18:59 06:59 18:59 Intake Total 1100 610 Output Total 300 600 Balance 800 10 Weight 93.8 kg Intake: IV 1100 Intake, IV Titration 250 Amount Lactated Ringers 1,000 ml 200 @ 20 mls/hr IV .Q24H [facility] Rx#:[id number] ceFAZolin 2 gm In Sodium 50 Chloride 0.9% 50 ml @ 100 mls/hr IVPB Q8HR [facility] Rx# :[id number] Oral 360 Output: Urine 150 600 Estimated Blood Loss 150 Other: Voiding Method Urinal # Voids 1 - Exam Alert and oriented 4 Right shoulder incision clean/dry/intact Neurovascular exam intact right upper extremity - Constitutional General appearance: Present: no acute distress Assessment and Plan Assessment: Status post right reverse total shoulder arthroplasty Plan: Continue with pain control. Medical management. Anticipate discharge back to [facility] Friday. Time with Patient: Less than 30
[2021-05-12] MEDS ORDERED: methocarbamoL 750 MG TAB PO PRN (13:10)
[2021-05-12] MEDS: DULoxetine HCL 60 MG CAPSULE.DR PO SCH (13:37)
[2021-05-12] MEDS: METOPROLOL TARTRATE 25 MG TAB PO SCH ×2 (13:37→21:42)
[2021-05-12] MEDS: PRAMIPEXOLE 0.25 MG TAB PO SCH ×2 (13:37→21:39)
[2021-05-12] MEDS: CHOLECALCIFEROL 25 MCG (1000 IU) TABLET PO SCH (13:37)
[2021-05-12] MEDS: FERROUS SULFATE 325 MG TAB PO SCH (13:38)
[2021-05-12] MEDS: LOSARTAN 25 MG TAB PO SCH (13:38)
[2021-05-12] MEDS: hydrOXYzine pamoate 25 MG CAP PO PRN (13:40)
[2021-05-12] MEDS: LEFLUNOMIDE 20 MG TAB PO SCH (13:42)
[2021-05-12] MEDS: predniSONE 5 MG TAB PO SCH (13:42)
[2021-05-12] MEDS: DULoxetine HCL 30 MG CAPSULE.DR PO SCH (13:43)
[2021-05-12] MEDS: GABAPENTIN 100 MG CAP PO SCH ×2 (15:34→23:45)
[2021-05-12] MEDS: THIAMINE 100 MG TAB PO SCH (16:58)
[2021-05-12] MEDS ORDERED: CALCIUM CARBONATE 500 MG CHEWABLE PO PRN (19:28)
[2021-05-12] MEDS ORDERED: LORazepam 0.5 MG TAB PO PRN (19:28)
[2021-05-12] MEDS ORDERED: MELATONIN 3 MG TABLET PO PRN (19:28)
[2021-05-12] MEDS ORDERED: LACTULOSE 20 GM/30 ML CUP PO PRN (19:28)
[2021-05-12] MEDS ORDERED: NALOXONE 0.4 MG/ML 1 ML VIAL IV PRN (19:28)
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
[2021-05-12] MEDS: CYCLOBENZAPRINE 10 MG TAB PO PRN (21:38)
[2021-05-12] MEDS: traZODone HCL 100 MG TAB PO SCH (21:39)
[2021-05-12] MEDS: ENOXAPARIN 40 MG/0.4 ML SYRINGE SQ SCH (21:41)
[2021-05-12] MEDS: PANTOPRAZOLE 40 MG TABLET PO SCH (21:42)
[2021-05-12] MEDS: MAGNESIUM OXIDE 400 MG TAB PO SCH (21:42)
[2021-05-13] MEDS: HYDROcodone/APAP 10-325MG 1 EACH TAB PO PRN ×4 (03:13→21:06)
[2021-05-13 05:50] LABS: African American GFR (CKD) >90 (>60 ml/min/1.73 sqM); Anion Gap 5 mmol/L; Blood Urea Nitrogen 13 mg/dL (9-20); Calcium 8.6 mg/dL (8.4-10.2); Carbon Dioxide 29 mmol/L (22-30); Chloride 99 mmol/L (98-107); Glucose 161 mg/dL (74-99); Non-African American GFR(CKD) >90 (>60 ml/min/1.73 sqM); Sodium 133 mmol/L (137-145)
[2021-05-13 06:11] LABS: Potassium 3.9 mmol/L (3.5-5.1)
[2021-05-13 06:34] LABS: Basophils % (A) 1 %; Eosinophils # (A) 0.2 k/uL (0-0.7); Eosinophils % (A) 3 %; Lymphocytes # (A) 1.2 k/uL (1.0-4.8); Lymphocytes % (A) 17 %; MCH 29.6 pg (25.0-35.0); MCHC 32.4 g/dL (31.0-37.0); MCV 91.4 fL (80.0-100.0); Mean Platelet Volume 7.6; Monocytes # (A) 0.8 k/uL (0-1.0); Monocytes % (A) 12 %; Neutrophils # (A) 4.4 k/uL (1.3-7.7); Neutrophils % (A) 66 %; Platelet Count 213 k/uL (150-450); RBC 4.05 m/uL (4.30-5.90); RDW 15.6 % (11.5-15.5); WBC 6.7 k/uL (3.8-10.6)
[2021-05-13] MEDS: METOPROLOL TARTRATE 25 MG TAB PO SCH ×2 (08:41→21:02)
[2021-05-13] MEDS: DULoxetine HCL 60 MG CAPSULE.DR PO SCH (08:41)
[2021-05-13] MEDS: GABAPENTIN 100 MG CAP PO SCH ×3 (08:41→23:59)
[2021-05-13] MEDS: CHOLECALCIFEROL 25 MCG (1000 IU) TABLET PO SCH (08:41)
[2021-05-13] MEDS: hydrOXYzine pamoate 25 MG CAP PO PRN (08:42)
[2021-05-13] MEDS: LOSARTAN 25 MG TAB PO SCH (08:42)
[2021-05-13] MEDS: FERROUS SULFATE 325 MG TAB PO SCH (08:42)
[2021-05-13] MEDS: MAGNESIUM OXIDE 400 MG TAB PO SCH ×2 (08:42→21:02)
[2021-05-13] MEDS: PRAMIPEXOLE 0.25 MG TAB PO SCH ×3 (08:42→21:02)
[2021-05-13] MEDS: predniSONE 5 MG TAB PO SCH (08:43)
[2021-05-13] MEDS: LACTATED RINGERS 1,000 ML IV SCH (08:43)
[2021-05-13] MEDS: THIAMINE 100 MG TAB PO SCH ×2 (08:43→16:18)
[2021-05-13] MEDS: DULoxetine HCL 30 MG CAPSULE.DR PO SCH (08:43)
[2021-05-13] MEDS: LEFLUNOMIDE 20 MG TAB PO SCH (08:43)
--- NOTE | 2021-05-13 09:02 | P.PN ---
Subjective Progress Note Date: 05/13/21 Principal diagnosis: R rTSA Patient seen in coverage for Dr. Lopez. s/e doing well. No events overnight. Pain better controlled. No f/c/sob/cp at this time. Objective - Vital Signs Vital signs: Vital Signs Temp 97.8 F 05/13/21 08:00 Pulse 74 05/13/21 08:00 Resp 18 05/13/21 08:00 BP 125/77 05/13/21 08:00 Pulse Ox 94 L 05/13/21 08:00 Intake & Output 05/12/21 05/13/21 05/13/21 18:59 06:59 18:59 Intake Total 1080 580 Output Total 500 500 Balance 580 80 Intake: Oral 1080 580 Output: Urine 500 500 Other: Voiding Method Urinal Toilet Urinal # Voids 2 3 - Exam RUE NV intact distally. Incision CDI Minimal swelling Pain with motion at this time. - Labs CBC & Chem 7: 05/13/21 04:14 05/13/21 04:14 Labs: Abnormal Lab Results - Last 24 Hours (Table) 05/13/21 05/13/21 Range/Units 04:14 04:14 RBC 4.05 L (4.30-5.90) m/uL Hgb 12.0 L (13.0-17.5) gm/dL Hct 37.0 L (39.0-53.0) % RDW 15.6 H (11.5-15.5) % Sodium 133 L (137-145) mmol/L Glucose 161 H (74-99) mg/dL Assessment and Plan Assessment: s/p R rTSA doing well Plan: Cont with daily PT/OT pain control GI/DVT ppx Plan on back to [facility] tomorrow
[2021-05-13] MEDS: CYCLOBENZAPRINE 10 MG TAB PO PRN ×2 (15:18→22:23)
--- NOTE | 2021-05-13 15:20 | P.PN ---
Progress Note - Text Progress Note Date: 05/13/21 - Chief Complaint Right shoulder surgery Hospital course This is a pleasant 65-year-old patient of Dr. Garcia. Chronic stable medical conditions include atrial fibrillation, chronic fibromyalgia, advanced rheumatoid arthritis, OR sleep apnea uses CPAP, right foot drop, restless leg syndrome, CHF, history of skin cancer, patient is also due for surgery in both the feet for rheumatoid arthritis. Patient yesterday underwent right reversed total shoulder arthroplasty by Dr. Bills. 4 rotator cuff arthropathy. Postprocedure some pain is present. No chest pain or shortness of breath. Did tolerate some diet. Resting in bed. May 13: Oral intake fair. Right dominant a sling. Pain in the surgical site. No nausea vomiting. No chest pain. Review of systems: Was done for constitutional, cardiovascular, GI, pulmonary. relevant finding as above Active Medications Hydrocodone Bitart/Acetaminophen (Hydrocodone/Apap 10-325mg 1 Each Tab) 1 each PO Q4H PRN PRN Reason: Pain Scale 4 to 6 Stop: 06/10/21 12:26 Hydrocodone Bitart/Acetaminophen (Hydrocodone/Apap 10-325mg 1 Each Tab) 2 each PO Q6HR PRN PRN Reason: Pain Scale 7 to 10 Last Admin: 05/13/21 08:44 Dose: 2 each Documented by: Calcium Carbonate/Glycine (Calcium Carbonate 500 Mg Chewable) 1,000 mg PO Q4HR PRN PRN Reason: Dyspepsia Cholecalciferol (Cholecalciferol 25 Mcg (1000 Iu) Tablet) 25 mcg PO DAILY [facility] Last Admin: 05/13/21 08:41 Dose: 25 mcg Documented by: Cyclobenzaprine HCl (Cyclobenzaprine 10 Mg Tab) 10 mg PO TID PRN PRN Reason: Muscle Spasm Last Admin: 05/12/21 21:38 Dose: 10 mg Documented by: Duloxetine HCl (Duloxetine Hcl 30 Mg Capsule.) 30 mg PO DAILY [facility] Last Admin: 05/13/21 08:43 Dose: 30 mg Documented by: Duloxetine HCl (Duloxetine Hcl 60 Mg Capsule.) 60 mg PO DAILY [facility] Last Admin: 05/13/21 08:41 Dose: 60 mg Documented by: Enoxaparin Sodium (Enoxaparin 40 Mg/0.4 Ml Syringe) 40 mg SQ HS [facility] Last Admin: 05/12/21 21:41 Dose: 40 mg Documented by: Ferrous Sulfate (Ferrous Sulfate 325 Mg Tab) 325 mg PO DAILY [facility] Last Admin: 05/13/21 08:42 Dose: 325 mg Documented by: Gabapentin (Gabapentin 100 Mg Cap) 200 mg PO Q8H [facility] Last Admin: 05/13/21 08:41 Dose: 200 mg Documented by: Hydromorphone HCl (Hydromorphone 0.5 Mg/0.5 Ml Syringe) 0.5 mg IVP Q3HR PRN PRN Reason: Pain Scale 4 to 6 Stop: 06/10/21 10:02 Last Admin: 05/12/21 00:20 Dose: 0.5 mg Documented by: Hydromorphone HCl (Hydromorphone 0.5 Mg/0.5 Ml Syringe) 0.5 mg IVP Q3HR PRN PRN Reason: Pain Scale 7 to 10 Stop: 06/10/21 10:02 Hydromorphone HCl (Hydromorphone 1 Mg/Ml 1 Ml Syringe) 1 mg IVP Q3H PRN PRN Reason: Severe Breakthrough Pain Last Admin: 05/12/21 13:40 Dose: 1 mg Documented by: Hydroxyzine Pamoate (Hydroxyzine Pamoate 25 Mg Cap) 25 mg PO Q8HR PRN PRN Reason: Moderate Agitation Last Admin: 05/13/21 08:42 Dose: 25 mg Documented by: Lactated Ringer's (Lactated Ringers) 1,000 mls @ 20 mls/hr IV .Q24H [facility] Stop: 06/10/21 05:40 Last Admin: 05/13/21 08:43 Dose: Not Given Documented by: Lactulose (Lactulose 20 Gm/30 Ml Cup) 20 gm PO DAILY PRN PRN Reason: Constipation Leflunomide (Leflunomide 20 Mg Tab) 20 mg PO DAILY [facility] Last Admin: 05/13/21 08:43 Dose: 20 mg Documented by: Lorazepam (Lorazepam 0.5 Mg Tab) 0.5 mg PO Q6HR PRN PRN Reason: Anxiety Losartan Potassium (Losartan 25 Mg Tab) 12.5 mg PO DAILY [facility] Last Admin: 05/13/21 08:42 Dose: 12.5 mg Documented by: Magnesium Oxide (Magnesium Oxide 400 Mg Tab) 400 mg PO BID [facility] Last Admin: 05/13/21 08:42 Dose: 400 mg Documented by: Melatonin (Melatonin 3 Mg Tablet) 3 mg PO HS PRN PRN Reason: Insomnia Methocarbamol (Methocarbamol 750 Mg Tab) 750 mg PO Q6H PRN PRN Reason: Pain Metoprolol Tartrate (Metoprolol Tartrate 25 Mg Tab) 25 mg PO BID [facility] Last Admin: 05/13/21 08:41 Dose: 25 mg Documented by: Naloxone HCl (Naloxone 0.4 Mg/Ml 1 Ml Vial) 0.2 mg IV Q2M PRN PRN Reason: Opioid Reversal Pantoprazole Sodium (Pantoprazole 40 Mg Tablet) 40 mg PO HS [facility] Last Admin: 05/12/21 21:42 Dose: 40 mg Documented by: Pramipexole Dihydrochloride (Pramipexole 0.25 Mg Tab) 0.75 mg PO TID [facility] Last Admin: 05/13/21 08:42 Dose: 0.75 mg Documented by: Prednisone (Prednisone 5 Mg Tab) 5 mg PO DAILY [facility] Last Admin: 05/13/21 08:43 Dose: 5 mg Documented by: Senna/Docusate Sodium (Sennosides-Docusate Sodium 1 Each Tab) 2 each PO HS PRN PRN Reason: Constipation Stop: 06/10/21 10:02 Thiamine HCl (Thiamine 100 Mg Tab) 100 mg PO BID-W/MEALS [facility] Last Admin: 05/13/21 08:43 Dose: 100 mg Documented by: Trazodone HCl (Trazodone Hcl 100 Mg Tab) 100 mg PO HS [facility] Last Admin: 05/12/21 21:39 Dose: 100 mg Documented by: Past medical history to include: Atrial fibrillation, skin cancer, fibromyalgia, rheumatoid arthritis, obstructive sleep apnea uses CPAP, right foot drop, restless leg syndrome, congestive heart failure, chronic pain, Coumadin February 2021 multiple surgeries, depression. Patient was drinking excessive alcohol up to about a year ago. Did attend alcohol rehab. No smoking. [facility]. Family history: CAD Physical examination: VITAL SIGNS: Afebrile, 96, 18, 146/95, 95% room air GENERAL: reclining in bed, awake. Spider nevi. EYES: Pupils equal. Conjunctiva normal. HEENT: External appearance of nose and ears normal, oral cavity grossly normal. NECK: JVD not raised; masses not palpable. HEART: First and second heart sounds are normal; no edema. LUNGS: Respiratory rate normal; clear to auscultation. ABDOMEN: Soft, nontender, liver spleen not palpable, no masses palpable. PSYCH: Alert and oriented x3; mood and affect anxiousl. MUSCULOSKELETAL:No Clubbing/cyanosis;muscles-grossly intact. Dressing over the right shoulder. Possible hammertoes in both the feet. Some element of right foot drop. Able to move his right hand fingers. NEUROLOGICAL: Cranial nerves grossly intact; no facial asymmetry, power and sensation grossly intact. INVESTIGATIONS, reviewed in the clinical context: May 13: White count 6.7 hemoglobin 12 platelets 213 potassium 3.9 creatinine 0.73 Coronavirus [PCR]: Not infected Lab work from 05/08/2021: White count 7.4 hemoglobin 14.8 platelets 300 sodium 139 potassium 4.7 creatinine 0.76 Assessment and plan: -Right reversed total shoulder arthroplasty for right rotator cuff arthropathy. Dressing in place. Pain control -Chronic fibromyalgia Pain control -Advanced rheumatoid arthritis, multiple joints Patient is due for surgery in both the feet down the road. Pain control.arava. humira. Prednisone 5 mg a day -Obstructive sleep apnea Uses CPAP -Acute postprocedure blood loss anemia expected from surgery Ferrous sulfate -Restless leg syndrome Mirapex 0.75 mg by mouth 3 times a day -Depression, anxiety Cymbalta 90 mg a day -Peripheral neuropathy secondary to order a Neurontin 200 mg every 8 -Essential hypertension Cozaar 12.5 mg a day, Lopressor 25 mg twice a day -GERD Omeprazole 20 mg daily at bedtime Discussed with patient. Continue current medications. Thank you Dr. Lopez
[2021-05-13] MEDS: ENOXAPARIN 40 MG/0.4 ML SYRINGE SQ SCH (21:02)
[2021-05-13] MEDS: traZODone HCL 100 MG TAB PO SCH (21:02)
[2021-05-13] MEDS: PANTOPRAZOLE 40 MG TABLET PO SCH (21:02)
[2021-05-14] MEDS: LACTATED RINGERS 1,000 ML IV SCH (00:01)
[2021-05-14] MEDS: HYDROcodone/APAP 10-325MG 1 EACH TAB PO PRN ×2 (05:52→11:26)
[2021-05-14] MEDS: HYDROmorphone 1 MG/ML 1 ML SYRINGE IVP PRN (07:46)
[2021-05-14] MEDS: MAGNESIUM OXIDE 400 MG TAB PO SCH (08:26)
[2021-05-14] MEDS: LOSARTAN 25 MG TAB PO SCH (08:26)
[2021-05-14] MEDS: DULoxetine HCL 60 MG CAPSULE.DR PO SCH (08:26)
[2021-05-14] MEDS: FERROUS SULFATE 325 MG TAB PO SCH (08:26)
[2021-05-14] MEDS: CHOLECALCIFEROL 25 MCG (1000 IU) TABLET PO SCH (08:26)
[2021-05-14] MEDS: METOPROLOL TARTRATE 25 MG TAB PO SCH (08:26)
[2021-05-14] MEDS: DULoxetine HCL 30 MG CAPSULE.DR PO SCH (08:27)
[2021-05-14] MEDS: predniSONE 5 MG TAB PO SCH (08:27)
[2021-05-14] MEDS: GABAPENTIN 100 MG CAP PO SCH (08:28)
[2021-05-14] MEDS: LEFLUNOMIDE 20 MG TAB PO SCH (08:28)
[2021-05-14] MEDS: THIAMINE 100 MG TAB PO SCH (08:32)
[2021-05-14] MEDS: PRAMIPEXOLE 0.25 MG TAB PO SCH (08:32)
[2021-05-14] MEDS: hydrOXYzine pamoate 25 MG CAP PO PRN (11:35)
--- NOTE | 2021-05-14 12:36 | P.DS ---
Providers Date of admission: 05/12/21 11:52 Expected date of discharge: 05/14/21 Attending physician: Colt Lopez Consults: 05/12/21 09:17 Consult Physician Routine Consulting Provider: Ermias Hagen Consult Reason/Comments: medical managment Do you want consulting provider notified?: Yes Primary care physician: [facility] Hospital Course: Date of admission: 05/11/2021 Date of discharge: 05/14/2021 Admission diagnosis: Right rotator cuff arthropathy Discharge diagnosis: Same Attending physician: Dr. Lopez Surgical procedures: Reverse right total shoulder arthroplasty Brief history: Patient is a 65-year-old male with a history of right rotator cuff arthropathy. At this point patient has failed conservative treatment measures and has opted to proceed with a elective reverse right total shoulder arthroplasty. Hospital course: Details of patient's surgery can be found in operative report. Patient tolerated the procedure well and was subsequently transported to orthopedic floor. Patient's orthopeidc and medical care was provided daily. Patient had daily laboratory tests performed for evaluation of overall blood counts. Patient had daily physical therapy to include strengthening range of motion as well as education with walker ambulation. Patient was treated with Lovenox for their postoperative DVT prophylaxis during their inpatient stay. Patient was noted to have a relatively uneventful postoperative course. Patient reported satisfactory pain control with oral pain medications by postoperative day 3. Patient showed satisfactory progress with physical therapy. Patient moved steadily through the program and had no difficulty meeting the goals by postoperative day 3. Given patient's otherwise satisfactory course and having met physical therapy goals, plan is to [facility] on postoperative day 3. Discharge condition/disposition: Patient will be discharged to [facility] in stable condition. Discharge medications: Instructions are given on resumption of patient's normal daily medications per primary care recommendation, in addition patient will be prescribed oxycodone; Robaxin; gabapentin; aspirin; senna. Orthopedic Discharge Instructions: 1. Wound care and infection precautions, keep incision dry and covered while showering, no lotions, creams, moisturizers. No soaking, pools, hot tubs. Do not scrub over incision. 2. Weight-bear as tolerated with walker / cane until follow-up. 3. Ice when necessary. Do not exceed 20 minutes per hour with ice pack. 4. Keep arm in sling at all times. NWB right arm 5. Pain meds and anticoagulants per prescription. 6. Pain medication has potential to cause constipation. Increase oral fluid and fiber intake. Contact primary care provider if you have not had a bowel movement within 48 hours after discharge. 7. No anti-inflammatory medication until discussed at first post operative visit, this including Motrin, Aleve, Mobic, Diclofenac. 8. Follow up in office at 2 weeks postop with Vahid Beckham PA-C / Baljeet Tinoco PA-C 9. Follow up with your primary care doctor 7-10 days after discharge. 10. Contact [facility] with any questions, . Medications: Resume all home medications including gabapentin; Robaxin; Oxycodone 10mg/325mg for pain; Take aspirin 325 mg daily x 30 days; Colace 100 mg daily Keep incision clean, dry, intact. keep steri-strips on until follow up appt in office in 2 weeks Assessment: Right Rotator cuff arthropathy Procedures: Reverse right total shoulder arthroplasty Patient Condition at Discharge: Good Plan - Discharge Summary Discharge Rx Participant: Yes New Discharge Prescriptions: New Aspirin 325 mg PO DAILY #30 tab Docusate [Colace] 100 mg PO DAILY #30 capsule Gabapentin [Neurontin] 200 mg PO TID #12 cap oxyCODONE-APAP 10-325MG [Percocet 10-325 mg] 1 tab PO Q6HR PRN 3 Days #12 tab PRN Reason: Pain Methocarbamol [Robaxin-750] 750 mg PO Q6HR #12 tablet Continue Pramipexole [Mirapex] 0.75 mg PO TID 30 Days tab traZODone HCL [Desyrel] 100 mg PO HS Metoprolol Tartrate [Lopressor] 25 mg PO BID #180 tab Thiamine [Vitamin B-1] 100 mg PO BID-W/MEALS tab predniSONE 5 mg PO DAILY Leflunomide [Arava] 20 mg PO DAILY Ferrous Sulfate [Iron (65 MG Elemental)] 325 mg PO DAILY DULoxetine HCL [Cymbalta] 30 mg PO DAILY Adalimumab [Humira(Cf) Pen] 40 mg SQ Q14D Menthol [Biofreeze] 1 applic TOPICAL Q8H PRN PRN Reason: Pain Losartan [Cozaar] 12.5 mg PO DAILY #90 tab Magnesium Oxide [Mag-Ox] 400 mg PO BID tab DULoxetine HCL [Cymbalta] 60 mg PO DAILY Cholecalciferol [Vitamin D3 (25 Mcg = 1000 Iu)] 25 mcg PO DAILY Omeprazole 20 mg PO HS Discontinued Methocarbamol [Robaxin-750] 750 mg PO Q6H PRN #10 tab PRN Reason: Pain Docusate [Colace] 100 mg PO DAILY Gabapentin [Neurontin] 200 mg PO Q8H oxyCODONE HCL/ACETAMINOPHEN [Percocet 10-325 mg] 1 tab PO Q6HR PRN PRN Reason: Pain Discharge Medication List Pramipexole [Mirapex] 0.75 mg PO TID 30 Days tab 07/27/20 [Rx] traZODone HCL [Desyrel] 100 mg PO HS 08/25/20 [History] Losartan [Cozaar] 12.5 mg PO DAILY #90 tab 08/28/20 [Rx] Metoprolol Tartrate [Lopressor] 25 mg PO BID #180 tab 08/28/20 [Rx] Magnesium Oxide [Mag-Ox] 400 mg PO BID tab 08/29/20 [Rx] Thiamine [Vitamin B-1] 100 mg PO BID-W/MEALS tab 08/29/20 [Rx] Adalimumab [Humira(Cf) Pen] 40 mg SQ Q14D 03/13/21 [History] Cholecalciferol [Vitamin D3 (25 Mcg = 1000 Iu)] 25 mcg PO DAILY 03/13/21 [History] DULoxetine HCL [Cymbalta] 30 mg PO DAILY 03/13/21 [History] DULoxetine HCL [Cymbalta] 60 mg PO DAILY 03/13/21 [History] Ferrous Sulfate [Iron (65 MG Elemental)] 325 mg PO DAILY 03/13/21 [History] Leflunomide [Arava] 20 mg PO DAILY 03/13/21 [History] Omeprazole 20 mg PO HS 03/13/21 [History] predniSONE 5 mg PO DAILY 03/13/21 [History] Menthol [Biofreeze] 1 applic TOPICAL Q8H PRN 05/04/21 [History] Aspirin 325 mg PO DAILY #30 tab 05/11/21 [Rx] Docusate [Colace] 100 mg PO DAILY #30 capsule 05/11/21 [Rx] Gabapentin [Neurontin] 200 mg PO TID #12 cap 01/24/22 [Rx] Methocarbamol [Robaxin-750] 750 mg PO Q6HR #12 tablet 05/14/21 [Rx] oxyCODONE-APAP 10-325MG [Percocet 10-325 mg] 1 tab PO Q6HR PRN 3 Days #12 tab 05/14/21 [Rx] Follow up Appointment(s)/Referral(s): Baljeet Tinoco, MARI [PHYSICIAN RETORT PRESS OPERATOR] - 2 Weeks Shan Garcia DO [Primary Care Provider] - 1-2 Days Patient Instructions/Handouts: Shoulder Arthroplasty (DC), Shoulder Arthroplasty (GEN) Activity/Diet/Wound Care/Special Instructions: Orthopedic Discharge Instructions: 1. Wound care and infection precautions, keep incision dry and covered while showering, no lotions, creams, moisturizers. No soaking, pools, hot tubs. Do not scrub over incision. 2. Weight-bear as tolerated with walker / cane until follow-up. 3. Ice when necessary. Do not exceed 20 minutes per hour with ice pack. 4. Keep arm in sling at all times. NWB right arm 5. Pain meds and anticoagulants per prescription. 6. Pain medication has potential to cause constipation. Increase oral fluid and fiber intake. Contact primary care provider if you have not had a bowel movement within 48 hours after discharge. 7. No anti-inflammatory medication until discussed at first post operative visit, this including Motrin, Aleve, Mobic, Diclofenac. 8. Follow up in office at 2 weeks postop with Vahid Beckham PA-C / Baljeet Tinoco PA-C 9. Follow up with your primary care doctor 7-10 days after discharge. 10. Contact [facility] with any questions, . Medications: Resume all home medications including gabapentin; Robaxin; Oxycodone 10mg/325mg for pain; Take aspirin 325 mg daily x 30 days; Colace 100 mg daily Keep incision clean, dry, intact. keep steri-strips on until follow up appt in office in 2 weeks Discharge Disposition: TRANSFER TO SNF/ECF
[2021-05-14 14:02] VITALS: BP 105/71; PULSE 72; RESP 18; TEMP 97.7
--- NOTE | 2021-05-14 19:41 | P.PN ---
Progress Note - Text Progress Note Date: 05/14/21 - Chief Complaint Right shoulder surgery Hospital course This is a pleasant 65-year-old patient of Dr. Garcia. Chronic stable medical conditions include atrial fibrillation, chronic fibromyalgia, advanced rheumatoid arthritis, OR sleep apnea uses CPAP, right foot drop, restless leg syndrome, CHF, history of skin cancer, patient is also due for surgery in both the feet for rheumatoid arthritis. Patient yesterday underwent right reversed total shoulder arthroplasty by Dr. Bills. 4 rotator cuff arthropathy. Postprocedure some pain is present. No chest pain or shortness of breath. Did tolerate some diet. Resting in bed. May 13: Oral intake fair. Right dominant a sling. Pain in the surgical site. No nausea vomiting. No chest pain. May 14: Some pain in the right shoulder. Oral intake fair. No nausea vomiting. Discussed with patient. Questions answered. Review of systems: Was done for constitutional, cardiovascular, GI, pulmonary. relevant finding as above Current medications reviewed Past medical history to include: Atrial fibrillation, skin cancer, fibromyalgia, rheumatoid arthritis, obstructive sleep apnea uses CPAP, right foot drop, restless leg syndrome, congestive heart failure, chronic pain, Coumadin February 2021 multiple surgeries, depression. Patient was drinking excessive alcohol up to about a year ago. Did attend alcohol rehab. No smoking. Currently at [facility]. Family history: CAD Physical examination: VITAL SIGNS: 97.7, 72, 18, 105/71, 96% room air GENERAL: reclining in bed, awake. Spider nevi. EYES: Pupils equal. Conjunctiva normal. HEENT: External appearance of nose and ears normal, oral cavity grossly normal. NECK: JVD not raised; masses not palpable. HEART: First and second heart sounds are normal; no edema. LUNGS: Respiratory rate normal; clear to auscultation. ABDOMEN: Soft, nontender, liver spleen not palpable, no masses palpable. PSYCH: Alert and oriented x3; mood and affect anxiousl. MUSCULOSKELETAL:No Clubbing/cyanosis;muscles-grossly intact. Dressing over the right shoulder. Possible hammertoes in both the feet. Some element of right foot drop. Able to move his right hand fingers. NEUROLOGICAL: Cranial nerves grossly intact; no facial asymmetry, power and sensation grossly intact. INVESTIGATIONS, reviewed in the clinical context: May 13: White count 6.7 hemoglobin 12 platelets 213 potassium 3.9 creatinine 0.73 Coronavirus [PCR]: Not infected Lab work from 05/08/2021: White count 7.4 hemoglobin 14.8 platelets 300 sodium 139 potassium 4.7 creatinine 0.76 Assessment and plan: -Right reversed total shoulder arthroplasty for right rotator cuff arthropathy. Dressing in place. Pain control -Chronic fibromyalgia Pain control -Advanced rheumatoid arthritis, multiple joints Patient is due for surgery in both the feet down the road. Pain control.arava. humira. Prednisone 5 mg a day -Obstructive sleep apnea Uses CPAP -Acute postprocedure blood loss anemia expected from surgery Ferrous sulfate -Restless leg syndrome Mirapex 0.75 mg by mouth 3 times a day -Depression, anxiety Cymbalta 90 mg a day -Peripheral neuropathy secondary to order a Neurontin 200 mg every 8 -Essential hypertension Cozaar 12.5 mg a day, Lopressor 25 mg twice a day -GERD Omeprazole 20 mg daily at bedtime Stable. Continue current medications. Discussed with the patient. Follow-up with PCP. Thank you Dr. Lopez
== END 2021-05-14 15:09 ==
LOC: OR 06:10 → EEVIPCON 06:10 → 4SSUR 10:02 → OR 05-12 07:26 → 4SSUR 05-12 11:52
PROVIDERS: ADMIT Orthopaedic Surgery; ATTEND Orthopaedic Surgery
DX: M19.011 Primary osteoarthritis, right shoulder (principal); M75.102 Unspecified rotator cuff tear or rupture of left shoulder, not specified as traumatic; D62 Acute posthemorrhagic anemia; M06.9 Rheumatoid arthritis, unspecified; I11.0 Hypertensive heart disease with heart failure; I50.9 Heart failure, unspecified; I42.9 Cardiomyopathy, unspecified; I48.20 Chronic atrial fibrillation, unspecified; G47.33 Obstructive sleep apnea (adult) (pediatric); M79.7 Fibromyalgia; K21.9 Gastro-esophageal reflux disease without esophagitis; G62.9 Polyneuropathy, unspecified; G89.29 Other chronic pain; M62.81 Muscle weakness (generalized); K59.09 Other constipation; J98.11 Atelectasis; G25.81 Restless legs syndrome; F32.A Depression, unspecified; M21.371 Foot drop, right foot; F41.9 Anxiety disorder, unspecified; Z20.822 Contact with and (suspected) exposure to COVID-19; Z79.899 Other long term (current) drug therapy; Z85.828 Personal history of other malignant neoplasm of skin; Z86.69 Personal history of other diseases of the nervous system and sense organs; Z86.16 Personal history of COVID-19; Z86.59 Personal history of other mental and behavioral disorders; Z82.49 Family history of ischemic heart disease and other diseases of the circulatory system
CPT/HCPCS: 97116 ×2; 97162; 97535; 97166; 64415; 76942; 80048; 85025; 88300; 87635; 73020; 23472; G0378 ×3; C1776; J2250; J2710; J1720; J0690 ×2; J2405; J2001; J1650 ×2; J3010; J1170 ×5; J2795; J2370; J0330; J2704; J7512 ×3

== ENCOUNTER 2022-01-03 09:13 | Emergency (ER) | payer MEDICARE, OTHER ==
[2022-01-03 09:24] VITALS: TEMP 98.4
[2022-01-03] MEDS ORDERED: IBUPROFEN 800 MG TAB PO STA (11:28)
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
--- NOTE | 2022-01-03 11:43 | XR ---
EXAMINATION TYPE: XR ankle complete LT DATE OF EXAM: 01/03/2022 Comparison: None Clinical History: 66-year-old male with pain and swelling after fall Findings: Generalized osteopenia. Generalized soft tissue swelling. No displaced fracture seen. Ankle mortise a ppears congruent on the mortise view. Vascular calcifications suggest underlying diabetes and her chr onic kidney disease. Impression: Generalized soft tissue swelling. Correlate as to etiology. Suspect underlying diabetes and/or chroni c kidney disease given the vascular calcifications. Exam limitations due to marked osteopenia. No dis placed fracture seen.
[2022-01-03 12:10] VITALS: BP 150/86; PULSE 68; RESP 16
== END 2022-01-03 12:32 | disposition home or self-care (01) ==
LOC: EC 09:13
DX: S93.402A Sprain of unspecified ligament of left ankle, initial encounter (principal); I48.91 Unspecified atrial fibrillation; Z95.1 Presence of aortocoronary bypass graft; Z79.82 Long term (current) use of aspirin; X50.0XXA Overexertion from strenuous movement or load, initial encounter
CPT/HCPCS: 99283

== ENCOUNTER 2022-08-12 16:37 | Inpatient (IN) | payer MEDICARE, MEDICAID ==
[2022-08-12 18:05] LABS: Anisocytosis Slight; Basophils # (A) 0.1 k/uL (0-0.2); Basophils % (A) 1 %; Eosinophils # (A) 0.2 k/uL (0-0.7); Eosinophils % (A) 4 %; HCT 41.8 % (39.0-53.0); HGB 14.2 gm/dL (13.0-17.5); Lymphocytes # (A) 1.2 k/uL (1.0-4.8); Lymphocytes % (A) 20 %; MCH 32.3 pg (25.0-35.0); MCV 95.1 fL (80.0-100.0); Mean Platelet Volume 7.5; Monocytes # (A) 0.7 k/uL (0-1.0); Monocytes % (A) 12 %; Neutrophils # (A) 3.7 k/uL (1.3-7.7); Neutrophils % (A) 61 %; Platelet Count 241 k/uL (150-450); RDW 16.7 % (11.5-15.5)
[2022-08-12 18:08] LABS: Amphetamine Screen,Urine Not Detected (NotDetected); Barbiturate Screen,Urine Not Detected (NotDetected); Benzodiazepines Screen,Urine Not Detected (NotDetected); Cocaine Screen,Urine Not Detected (NotDetected); Methadone Screen, Urine Not Detected (NotDetected); Opiate Screen,Urine Not Detected (NotDetected); Oxycodone Screen, Urine Detected (NotDetected); Phencyclidine Screen,Urine Not Detected (NotDetected); Tricyclic Antidepressant,Urine Not Detected (NotDetected); Urn Cannabinoid Scrn Not Detected (NotDetected)
[2022-08-12 18:09] LABS: African American GFR (CKD) >90 (>60 ml/min/1.73 sqM); Anion Gap 6 mmol/L; Blood Urea Nitrogen 20 mg/dL (9-20); Calcium 9.4 mg/dL (8.4-10.2); Carbon Dioxide 27 mmol/L (22-30); Chloride 102 mmol/L (98-107); Glucose 103 mg/dL (74-99); Non-African American GFR(CKD) 81 (>60 ml/min/1.73 sqM); Potassium 4.6 mmol/L (3.5-5.1); Sodium 135 mmol/L (137-145)
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
[2022-08-12] MEDS: oxyCODONE-APAP 10-325MG 1 EACH TAB PO PRN (18:40)
[2022-08-12] MEDS ORDERED: MAGNESIUM HYDROXIDE 2,400 MG/10 ML CUP PO PRN (22:26)
[2022-08-12] MEDS ORDERED: ACETAMINOPHEN TAB 325 MG TAB PO PRN (22:26)
[2022-08-12] MEDS ORDERED: MAG HYDROX/AL HYDROX/SIMETH 30 ML CUP PO PRN (22:26)
[2022-08-12] MEDS ORDERED: LORazepam 2 MG/ML INJ IM PRN (22:29)
[2022-08-12] MEDS ORDERED: LORazepam 1 MG TAB PO PRN (22:29)
[2022-08-12] MEDS ORDERED: haloperidoL 5 MG TAB PO PRN (22:30)
[2022-08-12] MEDS ORDERED: HALOPERIDOL LACTATE 5 MG/ML 1 ML VIAL IM PRN (22:30)
[2022-08-13] MEDS: PRAMIPEXOLE 1 MG TAB PO SCH ×2 (00:06→20:32)
[2022-08-13] MEDS: HYDROcodone/APAP 5-325MG 1 EACH TAB PO PRN ×2 (00:07→08:03)
[2022-08-13] MEDS: METOPROLOL SUCCINATE (ER) 25 MG TAB.ER.24H PO SCH (08:01)
[2022-08-13] MEDS: NICOTINE 14MG/24HR PATCH TRANSDERM SCH (08:01)
[2022-08-13] MEDS ORDERED: LOSARTAN 25 MG TAB PO SCH (09:00)
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
[2022-08-13] MEDS: oxyCODONE-APAP 10-325MG 1 EACH TAB PO PRN ×2 (14:39→20:32)
[2022-08-13 16:22] LABS: LDL Cholesterol,Calculated 146.6 mg/dL (0.0-131.0)
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
[2022-08-13] MEDS ORDERED: MIRTAZAPINE 15 MG TAB PO SCH (21:00)
[2022-08-14] MEDS: oxyCODONE-APAP 10-325MG 1 EACH TAB PO PRN ×2 (06:29→14:04)
[2022-08-14 07:11] VITALS: BP 132/93; PULSE 112; RESP 16; TEMP 98
[2022-08-14] MEDS: METOPROLOL SUCCINATE (ER) 25 MG TAB.ER.24H PO SCH (08:05)
[2022-08-14] MEDS: NICOTINE 14MG/24HR PATCH TRANSDERM SCH (08:05)
[2022-08-14] MEDS ORDERED: LOSARTAN 25 MG TAB PO SCH (09:00)
--- NOTE | 2022-08-14 12:03 | P.DS ---
Providers Date of admission: 08/12/22 22:05 Expected date of discharge: 08/14/22 Attending physician: Sumanth Small MD Consults: 08/12/22 22:26 Consult Physician Routine Consulting Provider: Ermias Hagen Consult Reason/Comments: For H & P for Medical Follow Up Do you want consulting provider notified?: Yes, Notify in am Primary care physician: Shan Garcia - Discharge Diagnosis(es) (1) Adjustment disorder with depressed mood Current Visit: Yes Status: Acute Priority: High Hospital Course: Patient had psychiatric H&P done by me on 08/13/2022 and general physical H&P done by Cynthia Lua on the same day. After psychiatric H&P he was started on Remeron 15 mg at bedtime for depression and to help him sleep better at night. He was continued on his home medications for atrial fibrillation fibromyalgia and rheumatoid arthritis sleep apnea and other things by Cynthia Quach on the same day. He took all his medications and said he slept very well last night and feels good today. He also said he had talked to his landlord and is allowed to stay there until Friday, has talked to [facility] and apparently he has to go there in person and talk to them about staying there. He also said he is working with his primary care doctor or his orthopedic doctor to get back into rehab/detention if he cannot go to [facility] or if it could be done. His condition was discussed with treatment team this morning and no decision was made. 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 I had a meeting with the addiction social worker and the patient and it was agreed to discharge him and she will arrange aftercare and transportation to his apartment. Patient said he will have counseling and learned better coping skills including not gambling and managing his money responsibility. Mental status examination: This is a white male who ambulates with the help of a walker. He is still unshaven. Does not show any psychomotor agitation or retardation. His speech is spontaneous relevant and goal-directed. His mood is euthymic to cheerful and affect is appropriate. Continues to deny hallucinations and delusional thinking. He insisted that he is not suicidal and promised that he will not do anything to hurt himself or others. His sensorium is clear. Assessment: Please see under mental status examination in the hospital course above Health Concerns: Atrial fibrillation, fibromyalgia, rheumatoid arthritis, status post fracture of right ankle, restless leg syndrome, sleep apnea and hypertension Pertinent Studies: None Procedures: None Patient Condition at Discharge: Stable Plan - Discharge Summary Discharge Rx Participant: Yes New Discharge Prescriptions: New Magnesium Hydroxide [Milk of Magnesia Concentrate] 2,400 mg PO DAILY PRN ml PRN Reason: Constipation Mirtazapine [Remeron] 15 mg PO HS 30 Days #30 tab Acetaminophen Tab [Tylenol] 650 mg PO Q4HR PRN tab PRN Reason: Pain/Discomfort Losartan [Cozaar] 12.5 mg PO DAILY tab Mag Hydrox/Al Hydrox/Simeth [Maalox] 30 ml PO Q4HR PRN ml PRN Reason: Gi Upset oxyCODONE-APAP 10-325MG [Percocet 10-325 mg] 1 each PO Q6HR PRN tab PRN Reason: Pain Continue Leflunomide [Arava] 20 mg PO DAILY Adalimumab [Humira(Cf) Pen] 40 mg SQ Q14D Pramipexole [Mirapex] 1 mg PO HS Metoprolol Succinate (ER) [Toprol XL] 25 mg PO DAILY Discontinued traZODone HCL [Desyrel] 100 mg PO HS PRN PRN Reason: Insomnia Losartan [Cozaar] 12.5 mg PO DAILY oxyCODONE-APAP 5-325MG [Percocet 5-325 mg] 2 tab PO Q8H Discharge Medication List Adalimumab [Humira(Cf) Pen] 40 mg SQ Q14D 03/13/21 [History] Leflunomide [Arava] 20 mg PO DAILY 03/13/21 [History] Metoprolol Succinate (ER) [Toprol XL] 25 mg PO DAILY 08/12/22 [History] Pramipexole [Mirapex] 1 mg PO HS 08/12/22 [History] Acetaminophen Tab [Tylenol] 650 mg PO Q4HR PRN tab 08/14/22 [Rx] Losartan [Cozaar] 12.5 mg PO DAILY tab 08/14/22 [Rx] Mag Hydrox/Al Hydrox/Simeth [Maalox] 30 ml PO Q4HR PRN ml 08/14/22 [Rx] Magnesium Hydroxide [Milk of Magnesia Concentrate] 2,400 mg PO DAILY PRN ml 08/14/22 [Rx] Mirtazapine [Remeron] 15 mg PO HS 30 Days #30 tab 08/14/22 [Rx] oxyCODONE-APAP 10-325MG [Percocet 10-325 mg] 1 each PO Q6HR PRN tab 08/14/22 [Rx] Follow up Appointment(s)/Referral(s): Shan Garcia DO [Primary Care Provider] - 1-2 days Activity/Diet/Wound Care/Special Instructions: Avoid the use of street drugs and alcohol. Take all medications as prescribed. When you are in need of refills on your medications, please contact your medical provider and/or outpatient psychiatrist to have this done. Please go to scheduled outpatient appointments for aftercare treatment. If symptoms return or become worse, call the crisis line at and/or go to the nearest emergency room for evaluation.
== END 2022-08-14 15:32 | disposition home or self-care (01) | DRG 882 ==
LOC: EC 16:37 → 3MHU 22:05
PROVIDERS: ADMIT Psychiatry & Neurology Psychiatry; ATTEND Psychiatry & Neurology Psychiatry
DX: F43.23 Adjustment disorder with mixed anxiety and depressed mood (principal); R45.851 Suicidal ideations; I11.0 Hypertensive heart disease with heart failure; I50.9 Heart failure, unspecified; I48.91 Unspecified atrial fibrillation; M06.9 Rheumatoid arthritis, unspecified; G25.81 Restless legs syndrome; M21.371 Foot drop, right foot; E66.9 Obesity, unspecified; Z20.822 Contact with and (suspected) exposure to COVID-19; F10.90 Alcohol use, unspecified, uncomplicated; G89.28 Other chronic postprocedural pain; S82.891S Other fracture of right lower leg, sequela; M79.7 Fibromyalgia; G47.30 Sleep apnea, unspecified; Z79.899 Other long term (current) drug therapy; Z79.620 Long term (current) use of immunosuppressive biologic; Z79.891 Long term (current) use of opiate analgesic; Z96.611 Presence of right artificial shoulder joint; Z85.820 Personal history of malignant melanoma of skin; Z86.16 Personal history of COVID-19; Z62.810 Personal history of physical and sexual abuse in childhood; Z72.6 Gambling and betting; Z59.9 Problem related to housing and economic circumstances, unspecified; Z68.29 Body mass index [BMI] 29.0-29.9, adult; Z81.1 Family history of alcohol abuse and dependence; Z81.8 Family history of other mental and behavioral disorders; Z81.3 Family history of other psychoactive substance abuse and dependence
CPT/HCPCS: 36415; 80048; 80061; 80306; 82075; 83036; 84443; 85025; 87635; 93005; 99285

== ENCOUNTER 2022-08-27 11:58 | Observation (INO) | payer MEDICARE, OTHER ==
[2022-08-27] MEDS ORDERED: SODIUM CHLORIDE 0.9% 1,000 ML IV STA (12:57)
[2022-08-27] MEDS ORDERED: LORazepam 2 MG/ML INJ IV STA (12:57)
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
[2022-08-27 13:27] LABS: ALT 20 U/L (4-49); AST 25 U/L (17-59); African American GFR (CKD) >90 (>60 ml/min/1.73 sqM); Albumin 3.7 g/dL (3.5-5.0); Alkaline Phosphatase 116 U/L (38-126); Anion Gap 7 mmol/L; Blood Urea Nitrogen 16 mg/dL (9-20); Calcium 8.9 mg/dL (8.4-10.2); Carbon Dioxide 26 mmol/L (22-30); Chloride 103 mmol/L (98-107); Glucose 126 mg/dL (74-99); Magnesium 2.1 mg/dL (1.6-2.3); Non-African American GFR(CKD) >90 (>60 ml/min/1.73 sqM); Potassium 4.4 mmol/L (3.5-5.1); Sodium 136 mmol/L (137-145); Total Bilirubin 0.5 mg/dL (0.2-1.3); Total Protein 7.6 g/dL (6.3-8.2)
[2022-08-27 13:30] LABS: Partial Thromboplastin Time 23.9 sec (22.0-30.0); Prothrombin Time 10.2 sec (9.0-12.0)
[2022-08-27 13:32] LABS: Basophils % (A) 1 %; Eosinophils # (A) 0.2 k/uL (0-0.7); Eosinophils % (A) 5 %; HCT 42.7 % (39.0-53.0); HGB 13.9 gm/dL (13.0-17.5); Lymphocytes # (A) 1.3 k/uL (1.0-4.8); Lymphocytes % (A) 26 %; MCH 29.7 pg (25.0-35.0); MCHC 32.5 g/dL (31.0-37.0); MCV 91.2 fL (80.0-100.0); Mean Platelet Volume 7.2; Monocytes # (A) 0.7 k/uL (0-1.0); Monocytes % (A) 14 %; Neutrophils # (A) 2.5 k/uL (1.3-7.7); Neutrophils % (A) 51 %; Platelet Count 321 k/uL (150-450); RBC 4.68 m/uL (4.30-5.90); RDW 13.8 % (11.5-15.5); WBC 4.9 k/uL (3.8-10.6)
--- NOTE | 2022-08-27 13:51 | XR ---
EXAMINATION TYPE: XR chest 2V DATE OF EXAM: 08/27/2022 COMPARISON: 06/08/2022 TECHNIQUE: PA and lateral views submitted. HISTORY: Shortness of breath FINDINGS: The lungs are clear and there is no pneumothorax, pleural effusion, or focal pneumonia. Heart size normal and no overt failure. Osseous structures demonstrate hypertrophic and degenerative changes of the spine. Postsurgical changes overlying the left clavicle and right shoulder. Limited inspiration. Hyperinflation suggests COPD. Arthropathy of the shoulders. Linear changes seen in the left upper lob e. IMPRESSION: 1. Limited inspiration demonstrates a left upper lobe and perihilar subsegmental linear changes which atelectasis is favored over pneumonia. Follow-up to resolution recommended.
[2022-08-27 16:02] LABS: Appearance,Urine Clear (Clear); Bilirubin,Urine Negative (Negative); Blood,Urine Negative (Negative); Color,Urine Yellow; Glucose,Urine (UA) Negative (Negative); Ketones,Urine Negative (Negative); Leukocyte Esterase,Urine Negative (Negative); Mucus,Urine Many /hpf; Nitrite,Urine Negative (Negative); PH, Urine 5.5 (5.0-8.0); Protein,Urine 1+ (Negative); RBC,Urine 1 /hpf (0-5); Squamous Epithelial Cell,Urine <1 /hpf (0-4); Urobilinogen,Urine <2.0 mg/dL (<2.0); WBC,Urine 1 /hpf (0-5)
[2022-08-27] MEDS: PRAMIPEXOLE 1 MG TAB PO SCH (20:04)
[2022-08-27] MEDS: oxyCODONE-APAP 5-325MG 1 EACH TAB PO PRN (20:04)
[2022-08-28] MEDS: oxyCODONE-APAP 5-325MG 1 EACH TAB PO PRN ×4 (01:43→22:28)
[2022-08-28] MEDS ORDERED: ACETAMINOPHEN TAB 325 MG TAB PO PRN (09:26)
[2022-08-28] MEDS ORDERED: MAGNESIUM HYDROXIDE 2,400 MG/10 ML CUP PO PRN (09:31)
[2022-08-28] MEDS ORDERED: MAG HYDROX/AL HYDROX/SIMETH 30 ML CUP PO PRN (09:31)
[2022-08-28] MEDS: LOSARTAN 25 MG TAB PO SCH (10:07)
[2022-08-28] MEDS: METOPROLOL SUCCINATE (ER) 25 MG TAB.ER.24H PO SCH (10:07)
[2022-08-28] MEDS: LEFLUNOMIDE 20 MG TAB PO SCH (10:07)
[2022-08-28] MEDS ORDERED: THIAMINE 100 MG/ML 2 ML VIAL IM STA (10:23)
--- NOTE | 2022-08-28 11:56 | HP ---
HISTORY AND PHYSICAL CHIEF COMPLAINT: Weakness. HISTORY OF PRESENT ILLNESS: This is a 67-year-old gentleman with a past medical history of atrial fibrillation, history of psych problems, multiple medical issues, was complaining of weakness. The patient apparently was living in an apartment. The patient . The patient is short of breath. The patient is also having significant weakness and tremors and difficulty navigating and maintaining activities of daily living. There is no history of any fever, rigors, or chills. PAST MEDICAL HISTORY: Reviewed, atrial fibrillation, rheumatoid arthritis, psychiatric issues. The rest of the medications and rest of the chart is also reviewed. HOME MEDICATIONS: Arava. Dose and rest of medications reviewed. ALLERGIES: None. FAMILY HISTORY: History of coronary artery disease. SOCIAL HISTORY: History of heavy alcohol intake. REVIEW OF SYSTEMS: A 14-point review of systems is negative except as mentioned earlier. PHYSICAL EXAMINATION: VITAL SIGNS: Pulse is 73, blood pressure 147/82, respirations 16. HEENT: Conjunctivae normal. NECK: No jugular venous distention. CARDIOVASCULAR: S1, S2 muffled. RESPIRATORY: A few rhonchi and crackles. ABDOMEN: Soft, nontender. LEGS: No edema. No swelling. NERVOUS SYSTEM: Diffusely weak, increased tone, tremors. Parkinson's tremors also present. SKIN: No ulcer, rash, bleeding. JOINTS: No active deforming arthropathy. LABORATORY DATA: Labs are reviewed. ASSESSMENT: 1. Generalized weakness and tiredness with acute Parkinsonian features. 2. Possible acute delirium tremens. 3. History of EtOH. 4. Gait dysfunction. 5. Rheumatoid arthritis. 6. Poor social support. 7. Atrial fibrillation. 8. Multiple medical issues. 9. Psychiatric issues. RECOMMENDATIONS: This is a 67-year-old gentleman who presented with multiple complex medical issues, we will monitor the patient closely with symptomatic treatment and observe for DT. CIWA protocol. Psychiatric consultation. Neurology consultation. PT/OT evaluation. Possible ECF rehab. The patient will need definitely more than 2 nights for evaluation and treatment of the above mentioned medical issues and further recommendations to follow. MMODL / FLORESN: [id number] / MTDD
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
[2022-08-28] MEDS: hydrOXYzine pamoate 25 MG CAP PO PRN (17:40)
[2022-08-28] MEDS: PRAMIPEXOLE 1 MG TAB PO SCH (20:05)
[2022-08-28] MEDS: MIRTAZAPINE 15 MG TAB PO SCH (20:05)
[2022-08-29] MEDS: LEFLUNOMIDE 20 MG TAB PO SCH (08:13)
[2022-08-29] MEDS: oxyCODONE-APAP 5-325MG 1 EACH TAB PO PRN ×3 (08:13→21:57)
[2022-08-29] MEDS: METOPROLOL SUCCINATE (ER) 25 MG TAB.ER.24H PO SCH (08:13)
[2022-08-29] MEDS: THIAMINE 100 MG TAB PO SCH (08:13)
[2022-08-29] MEDS: LOSARTAN 25 MG TAB PO SCH (08:18)
[2022-08-29] MEDS: hydrOXYzine pamoate 25 MG CAP PO PRN ×3 (08:38→21:57)
--- NOTE | 2022-08-29 14:21 | PN ---
PROGRESS NOTE DATE OF SERVICE: 08/29/2022 SUBJECTIVE: This is a 67-year-old gentleman who was admitted with significant weakness, also possibly had . No chest pain. No palpitations. No fever. The patient has very poor social support. OBJECTIVE: VITAL SIGNS: On exam, pulse is 98, blood pressure 181/95, respirations 17. HEENT: Conjunctivae normal. NECK: No jugular venous distention. CARDIOVASCULAR: S1 and S2 muffled. RESPIRATORY: Breath sounds diminished at the bases. ABDOMEN: Soft. NERVOUS SYSTEM: Diffusely weak. Tremors present. LABORATORY DATA: Labs are reviewed. ASSESSMENT: 1. Generalized weakness and tiredness, possibly acute Parkinsonian features. 2. Acute delirium tremens, possibly. 3. History of EtOH. 4. Gait dysfunction. 5. Rheumatoid arthritis. 6. Poor social support. 7. Atrial fibrillation. 8. Multiple medical issues. 9. Adjustment disorder with depression and anxiety. RECOMMENDATIONS: Recommend to continue current medications. Continue symptomatic treatment. Otherwise at this time, we will recommend PT/OT evaluation, possible ECF rehab. Continue the rest of medication. Prognosis guarded. Further recommendations to follow. MMODL / IJN: [id number] / MTDD
--- NOTE | 2022-08-29 14:54 | P.PN ---
Subjective Progress Note Date: 08/19/22 Patient is seen at bedside and he denies of any new neurological issues. Patient did acknowledge that he has a gambling problem and has been dealing with this problem for sometime. He states that he does drink alcohol but denies any significant alcohol use and states he can drink can appears but denies any significant alcohol use again. Objective - Vital Signs Vital signs: Vital Signs Temp 98 F 08/29/22 14:34 Pulse 90 08/29/22 14:34 Resp 16 08/29/22 14:34 BP 151/89 08/29/22 14:34 Pulse Ox 94 L 08/29/22 14:34 FiO2 Intake & Output 08/28/22 08/29/22 08/29/22 18:59 06:59 18:59 Intake Total 118 118 Balance 118 118 Intake: Oral 118 118 Other: Voiding Method Urinal Urinal Urinal # Voids 3 2 0 - Exam Neuro: Patient is awake alert oriented to place and time. Follow simple commands. No aphasia. No neglect. Visual [place] are full to confrontation. Extraocular movement is intact. No facial weakness. No dysarthria No resting tremor noted SOME OF THE WORK-UP DURING THIS HOSPITAL VISIT CONSISTED OF: CBC with differential is unremarkable Plasma lactic acid of the vein is 1.0. Vitamin B12 is 448 Folate is 19.1 TSH is 0.387. - Labs CBC & Chem 7: 08/27/22 13:05 08/27/22 13:05 Assessment and Plan Assessment: S is a 67-year-old gentleman and it appears the patient has a significant alcohol use and gambles and he was affected from his apartment since she could not pay his bills recently. Adjustment disorder with depression and anxiety Alcohol use and possibly his last was 3 weeks ago per primary team N.P. He was not forthcoming with alcohol. History of rheumatoid arthritis History of fibromyalgia Old generalized weakness History of right lower extremity fracture near the ankle in June 2022 fallen from ice and had surgery. Chronic lower back pain status post surgery about a year and half Gambling disorder Plan: I agree with psychiatry this is adjustment disorder with depression and anxiety. He does not have any resting tremor or increased tone. I do not see any evidence of Parkinson's disease at this time. Patient does develop any tremor down the line recommend the patient to follow-up with a neurologist as an outpatient with him once 2 weeks.Agree with the thiamine use of 100 mg daily. Psychiatry is consulted A shunt was counseled about cessation of gambling. He is aware that he has a problem. Recommend the patient to be provided with services for outside help. We'll defer the rest of the medical management the primary team. 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 There is no further neurological workup. Time with Patient: Less than 30
[2022-08-29] MEDS: MIRTAZAPINE 15 MG TAB PO SCH (20:15)
[2022-08-29] MEDS: PRAMIPEXOLE 1 MG TAB PO SCH (20:16)
[2022-08-30 08:43] VITALS: BP 147/91; PULSE 93; RESP 20; TEMP 98.1
[2022-08-30] MEDS: THIAMINE 100 MG TAB PO SCH (09:24)
[2022-08-30] MEDS: METOPROLOL SUCCINATE (ER) 25 MG TAB.ER.24H PO SCH (09:24)
[2022-08-30] MEDS: LOSARTAN 25 MG TAB PO SCH (09:24)
[2022-08-30] MEDS: LEFLUNOMIDE 20 MG TAB PO SCH (09:25)
[2022-08-30] MEDS: oxyCODONE-APAP 5-325MG 1 EACH TAB PO PRN (09:29)
[2022-08-30] MEDS: hydrOXYzine pamoate 25 MG CAP PO PRN (12:00)
--- NOTE | 2022-08-30 20:34 | P.DS ---
Providers Date of admission: 08/28/22 10:32 Expected date of discharge: 08/30/22 Attending physician: Matt Mcintyre Consults: 08/28/22 09:59 Consult Physician Urgent Consulting Provider: Shan Laguna Consult Reason/Comments: depression Do you want consulting provider notified?: Yes 08/28/22 10:22 Consult Physician Routine Consulting Provider: Joel Ramos Consult Reason/Comments: possible drug induced parkinsons Do you want consulting provider notified?: Yes Primary care physician: Shan Garcia Assessment: Hospital course: Patient admitted with multiple symptoms. Primarily patient is been gambling and don't have money to pay for his rent. Had been feeling weak and tired. Patient was seen by neurology. Does not felt to have underlying Parkinson's. Patient in June had fracture of the right leg. Surgery was done. Has a brace. Today patient is counseled at length about social structure using his money wisely and not with gambling. Patient did not qualify for rehab. social worker clinical gave resources to the patient. Discussion and discharge planning more than 35 minutes On examination: 98.1, 93, 20, 147/91, 96% room air Laying in bed, comfortable Chest: Lungs are clear Psych: AO 3, mood affect normal Extremity: Right leg in a brace INVESTIGATIONS, reviewed in the clinical context: White count 4.9 hemoglobin 13.9 platelets 321 potassium 4.4 creatinine 0.76 TSH 0.34 819.1 vitamin B12 448 EKG tracing. Sinus rhythm. PVCs Chest x-ray: Atelectasis Assessment and plan: -Adjustment disorder with depression and anxiety Seen by psychiatry. Vistaril 25 mg every 6 when necessary. Remeron 30 mg daily at bedtime. -Currently no evidence of Parkinson's disease. Seen by neurology. Follow-up outpatient with neurology -Essential hypertension Cozaar, Toprol-XL -Restless legs syndrome Mirapex -Right foot drop. Has a right leg brace with a recent history of surgery Patient to follow-up with the surgeon -Obstructive sleep apnea uses CPAP -Chronic pain syndrome Takes medications Disposition: Resources provided by social media marketing analyst. - Plan - Discharge Summary New Discharge Prescriptions: New hydrOXYzine pamoate [Vistaril] 25 mg PO Q6HR PRN #30 cap PRN Reason: Anxiety Mirtazapine [Remeron] 30 mg PO HS #30 tab Thiamine [Vitamin B-1] 100 mg PO DAILY #30 tab Continue Leflunomide [Arava] 20 mg PO DAILY Adalimumab [Humira(Cf) Pen] 40 mg SQ Q14D Pramipexole [Mirapex] 1 mg PO HS Magnesium Hydroxide [Milk of Magnesia Concentrate] 2,400 mg PO DAILY PRN ml PRN Reason: Constipation Acetaminophen Tab [Tylenol] 650 mg PO Q4HR PRN tab PRN Reason: Pain/Discomfort Metoprolol Succinate (ER) [Toprol XL] 25 mg PO DAILY Losartan [Cozaar] 12.5 mg PO DAILY tab Mag Hydrox/Al Hydrox/Simeth [Maalox] 30 ml PO Q4HR PRN ml PRN Reason: Gi Upset oxyCODONE-APAP 5-325MG [Percocet 5-325 mg] 1 tab PO Q6HR PRN PRN Reason: Pain Discontinued Mirtazapine [Remeron] 15 mg PO DIRECTED Discharge Medication List Adalimumab [Humira(Cf) Pen] 40 mg SQ Q14D 03/13/21 [History] Leflunomide [Arava] 20 mg PO DAILY 03/13/21 [History] Metoprolol Succinate (ER) [Toprol XL] 25 mg PO DAILY 08/12/22 [History] Pramipexole [Mirapex] 1 mg PO HS 08/12/22 [History] Acetaminophen Tab [Tylenol] 650 mg PO Q4HR PRN tab 08/14/22 [Rx] Losartan [Cozaar] 12.5 mg PO DAILY tab 08/14/22 [Rx] Mag Hydrox/Al Hydrox/Simeth [Maalox] 30 ml PO Q4HR PRN ml 08/14/22 [Rx] Magnesium Hydroxide [Milk of Magnesia Concentrate] 2,400 mg PO DAILY PRN ml 08/14/22 [Rx] oxyCODONE-APAP 5-325MG [Percocet 5-325 mg] 1 tab PO Q6HR PRN 08/27/22 [History] Mirtazapine [Remeron] 30 mg PO HS #30 tab 08/30/22 [Rx] Thiamine [Vitamin B-1] 100 mg PO DAILY #30 tab 08/30/22 [Rx] hydrOXYzine pamoate [Vistaril] 25 mg PO Q6HR PRN #30 cap 08/30/22 [Rx] Follow up Appointment(s)/Referral(s): Shan Garcia DO [Primary Care Provider] - 1-2 days Argentina Aleman MD [REFERRING] - 3 Weeks Patient Instructions/Handouts: Generalized Anxiety Disorder (ED) Activity/Diet/Wound Care/Special Instructions: FOLLOW UP DIRECTED, SOONER FOR WORSENING SYMPTOMS, PROBLEMS, OR CONCERNS. Discharge/Stand Alone Forms: [facility], Community Resources Discharge Disposition: HOME SELF-CARE
[2022-09-07] MEDS ORDERED: PATIENT'S OWN (Adalimumab [Humira(Cf) Pen] 40 MG/0.4 ML Pen.Ij.Kit) SQ SCH (09:00)
== END 2022-08-30 14:41 | disposition home or self-care (01) ==
LOC: EC 11:58 → 6NMEDSUR 16:55 → OBSVTOIN 08-28 10:32 → INTOOBSV 08-28 10:32 → 6NMEDSUR 08-29 03:00 → UNDODISIN 08-30 14:41
PROVIDERS: ADMIT Hospitalist; ATTEND Hospitalist
DX: F43.23 Adjustment disorder with mixed anxiety and depressed mood (principal); M06.9 Rheumatoid arthritis, unspecified; I48.91 Unspecified atrial fibrillation; M79.7 Fibromyalgia; G25.81 Restless legs syndrome; F32.A Depression, unspecified; K59.09 Other constipation; M12.812 Other specific arthropathies, not elsewhere classified, left shoulder; I11.0 Hypertensive heart disease with heart failure; I50.9 Heart failure, unspecified; M12.811 Other specific arthropathies, not elsewhere classified, right shoulder; F10.90 Alcohol use, unspecified, uncomplicated; M21.371 Foot drop, right foot; G47.33 Obstructive sleep apnea (adult) (pediatric); G89.4 Chronic pain syndrome; Z86.16 Personal history of COVID-19; Z85.828 Personal history of other malignant neoplasm of skin; Z79.899 Other long term (current) drug therapy; Z82.49 Family history of ischemic heart disease and other diseases of the circulatory system; Z96.611 Presence of right artificial shoulder joint; Z72.6 Gambling and betting; Z81.1 Family history of alcohol abuse and dependence; Z63.5 Disruption of family by separation and divorce; Z62.890 Parent-child estrangement NEC
CPT/HCPCS: 96372; 96374; 99285; 36415; 94760; 93005; 97530; 97162; 97535; 97166; 80053; 84443; 82607; 82746; 83605; 83735; 84484; 85025; 85610; 85730; 81001; 71046; G0378 ×4; J2060; J3411; 96361

== ENCOUNTER → 2022-10-11 | Outpatient (CLI) | payer MEDICARE, OTHER ==
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
== END | disposition home or self-care (01) ==
LOC: RADCTMAIN 16:59
PROVIDERS: ATTEND Orthopaedic Surgery
DX: Z48.89 Encounter for other specified surgical aftercare (principal); S82.841D Displaced bimalleolar fracture of right lower leg, subsequent encounter for closed fracture with routine healing; G89.18 Other acute postprocedural pain

== ENCOUNTER 2022-10-17 13:35 | Emergency (ER) | payer MEDICARE, OTHER ==
[2022-10-17 13:45] VITALS: BP 123/71; PULSE 86; RESP 18; TEMP 98.8
[2022-10-17] MEDS ORDERED: HYDROmorphone 1 MG/ML 1 ML SYRINGE IM STA (13:55)
[2022-10-17] MEDS ORDERED: KETOROLAC 15 MG/ML 1 ML VIAL IM STA (13:55)
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
--- NOTE | 2022-10-17 15:01 | XR ---
EXAMINATION TYPE: XR ribs RT w pa chest xray DATE OF EXAM: 10/17/2022 2:50 PM INDICATION: Patient age:Male; 67 years old; Reason for study: Trauma; [facility]. COMPARISON: Chest radiograph 08/27/2022 TECHNIQUE: Frontal and oblique views of the right ribs with additional frontal chest radiograph. FINDINGS: Acute nondisplaced anterolateral right seventh rib fracture. Reverse total arthroplasty ch anges of the right shoulder. Fixation hardware involving the left clavicle. Overall, the lungs are cl ear. Chronic senescent parenchymal change. The cardiac silhouette is normal in size. The remaining osseous structures are intact. IMPRESSION RIBS: Acute nondisplaced anterolateral right seventh rib fracture.
[2022-10-17] MEDS ORDERED: ACET/COD 300 MG/30 MG STARTER PACK 6 TAB BTL PO STA (15:14)
== END 2022-10-17 15:44 | disposition home or self-care (01) ==
LOC: EC 13:35
DX: S22.31XA Fracture of one rib, right side, initial encounter for closed fracture (principal); M06.9 Rheumatoid arthritis, unspecified; I50.9 Heart failure, unspecified; Z79.899 Other long term (current) drug therapy; W19.XXXA Unspecified fall, initial encounter
CPT/HCPCS: 71101; 99284; 96372 ×2; J1170; J1885

== ENCOUNTER 2022-10-27 13:46 | Observation (INO) | payer MEDICARE, OTHER ==
[2022-10-27] MEDS ORDERED: ONDANSETRON 4 MG/2 ML VIAL IVP STA ×3 (13:55→17:37)
[2022-10-27] MEDS ORDERED: DICYCLOMINE 10 MG/ML 2 ML AMP IM STA (13:55)
[2022-10-27] MEDS ORDERED: SODIUM CHLORIDE 0.9% 1,000 ML IV STA (13:55)
[2022-10-27] MEDS ORDERED: FAMOTIDINE 20 MG/2 ML VIAL IV STA (13:56)
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
[2022-10-27 14:27] LABS: Basophils % (A) 0 %; Eosinophils # (A) 0.3 k/uL (0-0.7); Eosinophils % (A) 4 %; HGB 13.7 gm/dL (13.0-17.5); Lymphocytes # (A) 1.4 k/uL (1.0-4.8); Lymphocytes % (A) 18 %; MCH 29.4 pg (25.0-35.0); MCHC 31.9 g/dL (31.0-37.0); MCV 92.2 fL (80.0-100.0); Mean Platelet Volume 7.3; Monocytes # (A) 0.8 k/uL (0-1.0); Monocytes % (A) 10 %; Neutrophils # (A) 5.2 k/uL (1.3-7.7); Neutrophils % (A) 67 %; Platelet Count 372 k/uL (150-450); RBC 4.67 m/uL (4.30-5.90); RDW 15.3 % (11.5-15.5); WBC 7.8 k/uL (3.8-10.6)
[2022-10-27 14:36] LABS: ALT 19 U/L (4-49); AST 28 U/L (17-59); African American GFR (CKD) >90 (>60 ml/min/1.73 sqM); Albumin 3.8 g/dL (3.5-5.0); Alkaline Phosphatase 160 U/L (38-126); Amylase 37 U/L (30-110); Anion Gap 11 mmol/L; Blood Urea Nitrogen 12 mg/dL (9-20); Calcium 8.8 mg/dL (8.4-10.2); Carbon Dioxide 23 mmol/L (22-30); Chloride 102 mmol/L (98-107); Glucose 138 mg/dL (74-99); Lipase 38 U/L (23-300); Non-African American GFR(CKD) >90 (>60 ml/min/1.73 sqM); Potassium 4.2 mmol/L (3.5-5.1); Sodium 136 mmol/L (137-145); Total Bilirubin 0.6 mg/dL (0.2-1.3); Total Protein 8.5 g/dL (6.3-8.2)
[2022-10-27] MEDS ORDERED: SODIUM CHLORIDE 0.9% 500 ML 500 ML IV STA (15:38)
[2022-10-27] MEDS ORDERED: NALOXONE 0.4 MG/ML 1 ML VIAL IV PRN (18:44)
[2022-10-27] MEDS ORDERED: ONDANSETRON 4 MG/2 ML VIAL IVP PRN (18:44)
--- NOTE | 2022-10-27 18:44 | ED ---
Medical Decision Making - Medical Decision Making Patient is continuing to have symptoms despite multiple medications. Patient does not feel comfortable with discharge home. Case was discussed with Dr. Hagen, will admit covered Dr. Garcia. - Lab Data Result diagrams: 10/27/22 14:09 10/27/22 14:09 Lab Results 10/27/22 10/27/22 Range/Units 14:09 14:09 WBC 7.8 (3.8-10.6) k/uL RBC 4.67 (4.30-5.90) m/uL Hgb 13.7 (13.0-17.5) gm/dL Hct 43.0 (39.0-53.0) % MCV 92.2 (80.0-100.0) fL MCH 29.4 (25.0-35.0) pg MCHC 31.9 (31.0-37.0) g/dL RDW 15.3 (11.5-15.5) % Plt Count 372 (150-450) k/uL MPV 7.3 Neutrophils % 67 % Lymphocytes % 18 % Monocytes % 10 % Eosinophils % 4 % Basophils % 0 % Neutrophils # 5.2 (1.3-7.7) k/uL Lymphocytes # 1.4 (1.0-4.8) k/uL Monocytes # 0.8 (0-1.0) k/uL Eosinophils # 0.3 (0-0.7) k/uL Basophils # 0.0 (0-0.2) k/uL Sodium 136 L (137-145) mmol/L Potassium 4.2 (3.5-5.1) mmol/L Chloride 102 (98-107) mmol/L Carbon Dioxide 23 (22-30) mmol/L Anion Gap 11 mmol/L BUN 12 (9-20) mg/dL Creatinine 0.71 (0.66-1.25) mg/dL Est GFR (CKD-EPI)AfAm >90 (>60 ml/min/1.73 sqM) Est GFR (CKD-EPI)NonAf >90 (>60 ml/min/1.73 sqM) Glucose 138 H (74-99) mg/dL Calcium 8.8 (8.4-10.2) mg/dL Total Bilirubin 0.6 (0.2-1.3) mg/dL AST 28 (17-59) U/L ALT 19 (4-49) U/L Alkaline Phosphatase 160 H (38-126) U/L Total Protein 8.5 H (6.3-8.2) g/dL Albumin 3.8 (3.5-5.0) g/dL Amylase 37 (30-110) U/L Lipase 38 (23-300) U/L Disposition Clinical Impression: Vomiting Disposition: [facility] Condition: Stable Instructions (If sedation given, give patient instructions): Acute Nausea and Vomiting (ED), Acute Diarrhea (ED) Additional Instructions: Prescription sent to pharmacy. Please do follow-up with primary care physician in the next day or 2 for recheck. Return for uncontrolled vomiting, pain, fevers, worsening symptoms or other concerns. Prescriptions: Famotidine [Pepcid] 20 mg PO BID #30 tablet Ondansetron Odt [Zofran Odt] 4 mg PO Q8HR PRN #10 tab PRN Reason: Nausea Is patient prescribed a controlled substance at d/c from ED?: No Referrals: Shan Garcia DO [Primary Care Provider] - 1-2 days Time of Disposition: 18:44
[2022-10-27] MEDS: SODIUM CHLORIDE 0.9% 1,000 ML IV SCH (19:11)
[2022-10-27] MEDS ORDERED: LOSARTAN 50 MG TAB PO STA (19:55)
[2022-10-27] MEDS ORDERED: METOPROLOL SUCCINATE (ER) 25 MG TAB.ER.24H PO STA (19:55)
[2022-10-27] MEDS: oxyCODONE-APAP 10-325MG 1 EACH TAB PO PRN (22:20)
[2022-10-28] MEDS: SODIUM CHLORIDE 0.9% 1,000 ML IV SCH ×3 (03:49→20:13)
[2022-10-28] MEDS: ACETAMINOPHEN TAB 325 MG TAB PO PRN ×3 (05:29→23:06)
[2022-10-28] MEDS: PANTOPRAZOLE 40 MG/10 ML VIAL IV SCH (08:15)
[2022-10-28] MEDS: METOPROLOL SUCCINATE (ER) 25 MG TAB.ER.24H PO SCH (08:16)
[2022-10-28] MEDS: LOSARTAN 50 MG TAB PO SCH (08:16)
[2022-10-28] MEDS: THIAMINE 100 MG TAB PO SCH (08:16)
[2022-10-28] MEDS: ESCITALOPRAM 10 MG TAB PO SCH (08:16)
[2022-10-28] MEDS: oxyCODONE-APAP 10-325MG 1 EACH TAB PO PRN ×2 (08:16→16:29)
[2022-10-28 08:41] LABS: ALT 15 U/L (10-49); AST 25 U/L (14-35); Albumin 3.4 d/dL (3.8-4.9); Albumin/Globulin Ratio 0.87 Ratio (1.60-3.17); Alkaline Phosphatase 130 U/L (41-126); Blood Urea Nitrogen 7.2 mg/dL (9.0-27.0); Calcium 8.5 mg/dL (8.7-10.3); Carbon Dioxide 19.5 mmol/L (21.6-31.8); Chloride 105 mmol/L (96-109); Globulin 3.9 d/dL (1.6-3.3); Glucose 108 mg/dL (70-110); Potassium 4.5 mmol/L (3.5-5.5); Sodium 137 mmol/L (135-145); Total Bilirubin 0.6 mg/dL (0.3-1.2); Total Protein 7.3 d/dL (6.2-8.2)
[2022-10-28 09:31] LABS: Basophils # (A) 0.08 X 10*3/uL (0.00-0.10); Basophils % (A) 1.3 %; Eosinophils # (A) 0.33 X 10*3/uL (0.04-0.35); Eosinophils % (A) 5.2 %; HCT 35.7 % (39.6-50.0); HGB 13.2 d/dL (12.0-15.0); Lymphocytes # (A) 1.51 X 10*3/uL (0.90-5.00); Lymphocytes % (A) 23.8 %; MCH 34.8 pg (27.0-32.0); MCV 94.2 FL (80.0-97.0); Mean Platelet Volume 10.2 FL (9.5-12.2); Monocytes # (A) 1.01 X 10*3/uL (0.20-1.00); Monocytes % (A) 15.9 %; NRBC Per 100 WBC 0 X 10*3/uL (0.00-0.01); Neutrophils # (A) 3.41 X 10*3/uL (1.80-7.70); Neutrophils % (A) 53.6 %; Platelet Count 334 X 10*3/uL (140-440); RBC 3.79 X 10*6/uL (4.40-5.60); RDW 16.1 % (11.5-14.5); WBC 6.35 X 10*3/uL (4.50-10.00)
[2022-10-28] MEDS ORDERED: LORazepam 0.5 MG TAB PO PRN (11:14)
[2022-10-28] MEDS ORDERED: LACTULOSE 20 GM/30 ML CUP PO PRN (11:14)
[2022-10-28] MEDS ORDERED: CALCIUM CARBONATE 500 MG CHEWABLE PO PRN (11:14)
[2022-10-28] MEDS ORDERED: TEMAZEPAM 15 MG CAP PO PRN (11:14)
[2022-10-28] MEDS: metroNIDAZOLE 500 MG TAB PO SCH ×3 (12:22→22:05)
[2022-10-28] MEDS: LACTATED RINGERS 1,000 ML IV SCH ×2 (12:23→20:13)
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
[2022-10-29] MEDS: LACTATED RINGERS 1,000 ML IV SCH (00:33)
[2022-10-29] MEDS: oxyCODONE-APAP 10-325MG 1 EACH TAB PO PRN ×2 (00:34→08:47)
[2022-10-29] MEDS: SODIUM CHLORIDE 0.9% 1,000 ML IV SCH (06:04)
[2022-10-29 08:06] VITALS: BP 137/88; PULSE 67; RESP 16; TEMP 97.7
[2022-10-29] MEDS: ESCITALOPRAM 10 MG TAB PO SCH (08:47)
[2022-10-29] MEDS: METOPROLOL SUCCINATE (ER) 25 MG TAB.ER.24H PO SCH (08:49)
[2022-10-29] MEDS: metroNIDAZOLE 500 MG TAB PO SCH (08:49)
[2022-10-29] MEDS: THIAMINE 100 MG TAB PO SCH (08:49)
[2022-10-29] MEDS: LOSARTAN 50 MG TAB PO SCH (08:49)
[2022-10-29] MEDS: PANTOPRAZOLE 40 MG/10 ML VIAL IV SCH (08:49)
--- NOTE | 2022-10-29 22:06 | P.DS ---
Providers Date of admission: 10/27/22 18:44 Expected date of discharge: 10/29/22 Attending physician: Ermias Hagen Primary care physician: Shan Garcia [facility] Course: Chief Complaint: Nausea vomiting diarrhea Pleasant 67-year-old patient, follows Dr. Garcia. Chronic stable medical conditions include adjustment disorder with depression and anxiety, essential hypertension, restless legs syndrome, right foot drop, obstructive sleep apnea, chronic pain syndrome, rheumatoid arthritis, chronic pain, depression Friday night that is 3 nights ago patient started off having nausea vomiting diarrhea. No abdominal pain. Had multiple stools. Multiple vomiting. No blood in the stool. Watery. About 7-8 bowel movements a day. Had felt hot and cold. Patient has surgery in the right foot and is to go back for further surgery as it is not healing. Also last week had a fractured rib from a fall. Patient currently on clear liquids. IV fluids October 29: Admitted with acute bacterial gastroenteritis. Responded well to Flagyl. Doing well. Tolerating diet. No further GI symptoms. Soft diet. Discussed with patient. Patient is medically cleared for surgery coming up this Friday. Discussion and discharge planning more than 35 minutes Past medical history to include: Atrial fibrillation, CHF, fibromyalgia, rheumatoid arthritis, obstructive sleep apnea uses CPAP, restless legs syndrome, right foot drop, chronic constipation, chronic pain COVID February 2021 skin cancer, back surgery following a salt, depression Social history: Patient denied excessive alcohol stopped about 15 years ago. Does drink a glass of wine at night. Sometimes. Nonsmoker. Lives with his daughter and son-in-law Physical examination: VITAL SIGNS: 97.7, 67, 16, 137/88, 98% room air GENERAL: Up in chair, comfortable EYES: Pupils equal. Conjunctiva normal. HEENT: External appearance of nose and ears normal, oral cavity grossly normal. NECK: JVD not raised; masses not palpable. HEART: First and second heart sounds are normal; no edema. LUNGS: Respiratory rate normal; clear to auscultation. ABDOMEN: Soft, nontender, liver spleen not palpable, no masses palpable. PSYCH: Alert and oriented x3; mood and affect normal. MUSCULOSKELETAL:No Clubbing/cyanosis;muscles-grossly intact. Pain some limited range of motion right foot INVESTIGATIONS, reviewed in the clinical context: White count 6.3 hemoglobin 13.2 platelets 334 sodium 137 potassium 4.5. 7.2 creatinine 0.8 AST 25 ALT 15 amylase 37 lipase 38 Assessment and plan: -Probable acute bacterial gastroenteritis symptoms present for 48 hours. Nausea vomiting diarrhea. Patient felt hot and cold.: Improved Clear liquid diet. Oral Flagyl empirically. IV fluids Complete 2 more days of Flagyl -Adjustment disorder with depression and anxiety Lexapro -Essential hypertension Cozaar 50, Toprol-XL 25 -Restless legs syndrome Requip -Right foot pain Patient's previously had surgery. Pending repeat surgery Patient to follow-up with the surgeon -Obstructive sleep apnea uses CPAP -Chronic pain syndrome Percocet 10 -Chronic rheumatoid arthritis Humira Patient is medically clear for surgery for nonhealing fracture in the right foot which is due this Friday. Disposition: Home Plan - Discharge Summary New Discharge Prescriptions: New Famotidine [Pepcid] 20 mg PO BID #30 tablet Ondansetron Odt [Zofran Odt] 4 mg PO Q8HR PRN #10 tab PRN Reason: Nausea metroNIDAZOLE [Flagyl] 500 mg PO QID #8 tab Continue Adalimumab [Humira(Cf) Pen] 40 mg SQ Q14D Acetaminophen Tab [Tylenol] 650 mg PO Q4HR PRN tab PRN Reason: Pain/Discomfort oxyCODONE-APAP 10-325MG [Percocet 10-325 mg] 1 tab PO Q8HR PRN PRN Reason: Pain rOPINIRole HCL [Requip] 0.25 mg PO HS Metoprolol Succinate (ER) [Toprol XL] 25 mg PO DAILY Thiamine [Vitamin B-1] 100 mg PO DAILY #30 tab Losartan [Cozaar] 50 mg PO DAILY Escitalopram [Lexapro] 10 mg PO DAILY Discharge Medication List Adalimumab [Humira(Cf) Pen] 40 mg SQ Q14D 03/13/21 [History] Metoprolol Succinate (ER) [Toprol XL] 25 mg PO DAILY 08/12/22 [History] Acetaminophen Tab [Tylenol] 650 mg PO Q4HR PRN tab 08/14/22 [Rx] Thiamine [Vitamin B-1] 100 mg PO DAILY #30 tab 08/30/22 [Rx] Escitalopram [Lexapro] 10 mg PO DAILY 10/17/22 [History] Losartan [Cozaar] 50 mg PO DAILY 10/17/22 [History] oxyCODONE-APAP 10-325MG [Percocet 10-325 mg] 1 tab PO Q8HR PRN 10/17/22 [History] rOPINIRole HCL [Requip] 0.25 mg PO HS 10/17/22 [History] Famotidine [Pepcid] 20 mg PO BID #30 tablet 10/27/22 [Rx] Ondansetron Odt [Zofran Odt] 4 mg PO Q8HR PRN #10 tab 10/27/22 [Rx] metroNIDAZOLE [Flagyl] 500 mg PO QID #8 tab 10/29/22 [Rx] Follow up Appointment(s)/Referral(s): Shan Garcia DO [Primary Care Provider] - 1-2 days Patient Instructions/Handouts: Acute Nausea and Vomiting (ED), Acute Diarrhea (ED) Activity/Diet/Wound Care/Special Instructions: Prescription sent to pharmacy. Please do follow-up with primary care physician in the next day or 2 for recheck. Return for uncontrolled vomiting, pain, fevers, worsening symptoms or other concerns.
== END 2022-10-29 12:36 ==
LOC: EC 13:46 → 6NMEDSUR 18:44
PROVIDERS: ADMIT Hospitalist; ATTEND Hospitalist
DX: R11.2 Nausea with vomiting, unspecified (principal); R19.7 Diarrhea, unspecified; M79.7 Fibromyalgia; I48.91 Unspecified atrial fibrillation; I50.9 Heart failure, unspecified; M06.9 Rheumatoid arthritis, unspecified; G25.81 Restless legs syndrome; K59.09 Other constipation; F43.23 Adjustment disorder with mixed anxiety and depressed mood; G47.33 Obstructive sleep apnea (adult) (pediatric); F10.90 Alcohol use, unspecified, uncomplicated; G89.4 Chronic pain syndrome; I11.0 Hypertensive heart disease with heart failure; M21.371 Foot drop, right foot; M79.671 Pain in right foot; Z79.899 Other long term (current) drug therapy; Z85.828 Personal history of other malignant neoplasm of skin; Z86.16 Personal history of COVID-19; Z96.611 Presence of right artificial shoulder joint; Z82.49 Family history of ischemic heart disease and other diseases of the circulatory system
CPT/HCPCS: 96376 ×2; 96375 ×2; 96360; 96361 ×3; 96372; 96374; 99285; 36415; 97162; 97166; 80053 ×2; 82150; 83690; 85025 ×2; G0378 ×3; J0500; J2405; C9113 ×2

== ENCOUNTER 2022-10-30 12:31 | Emergency (ER) | payer MEDICARE, OTHER ==
[2022-10-30] MEDS ORDERED: SODIUM CHLORIDE 0.9% 1,000 ML IV STA (12:44)
[2022-10-30] MEDS ORDERED: ONDANSETRON 4 MG/2 ML VIAL IVP STA (12:44)
[2022-10-30] MEDS ORDERED: PROCHLORPERAZINE INJ 10 MG/2 ML VIAL IVP STA (12:51)
[2022-10-30 13:12] LABS: Anisocytosis Slight; Basophils % (A) 0 %; Eosinophils # (A) 0.2 k/uL (0-0.7); Eosinophils % (A) 4 %; HCT 37.3 % (39.0-53.0); HGB 12.3 gm/dL (13.0-17.5); Lymphocytes # (A) 1.2 k/uL (1.0-4.8); Lymphocytes % (A) 24 %; MCH 30.9 pg (25.0-35.0); MCHC 32.9 g/dL (31.0-37.0); MCV 93.9 fL (80.0-100.0); Mean Platelet Volume 7.2; Monocytes # (A) 0.7 k/uL (0-1.0); Monocytes % (A) 13 %; Neutrophils # (A) 2.9 k/uL (1.3-7.7); Neutrophils % (A) 57 %; Platelet Count 296 k/uL (150-450); RBC 3.97 m/uL (4.30-5.90); RDW 18.2 % (11.5-15.5); WBC 5.2 k/uL (3.8-10.6)
[2022-10-30 13:28] LABS: Potassium 3.8 mmol/L (3.5-5.1)
[2022-10-30 13:29] LABS: ALT 38 U/L (4-49); AST 75 U/L (17-59); African American GFR (CKD) >90 (>60 ml/min/1.73 sqM); Albumin 3.2 g/dL (3.5-5.0); Alkaline Phosphatase 115 U/L (38-126); Anion Gap 8 mmol/L; Blood Urea Nitrogen 10 mg/dL (9-20); Calcium 8.2 mg/dL (8.4-10.2); Carbon Dioxide 23 mmol/L (22-30); Chloride 105 mmol/L (98-107); Glucose 96 mg/dL (74-99); Lipase 43 U/L (23-300); Non-African American GFR(CKD) >90 (>60 ml/min/1.73 sqM); Sodium 136 mmol/L (137-145); Total Bilirubin 0.8 mg/dL (0.2-1.3); Total Protein 7.2 g/dL (6.3-8.2)
[2022-10-30 13:59] VITALS: TEMP 98.5
[2022-10-30] MEDS ORDERED: PANTOPRAZOLE 40 MG/10 ML VIAL IVP STA (14:06)
[2022-10-30] MEDS ORDERED: CALCIUM CARBONATE 500 MG CHEWABLE PO STA (14:06)
[2022-10-30] MEDS ORDERED: FAMOTIDINE 20 MG/2 ML VIAL IV STA (14:06)
[2022-10-30] MEDS ORDERED: hydrALAZINE HCL 20 MG/ML 1 ML VIAL IVP STA (14:17)
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
[2022-10-30 14:48] VITALS: BP 172/79; PULSE 74; RESP 16
[2022-10-30 14:49] LABS: Appearance,Urine Clear (Clear); Bilirubin,Urine Negative (Negative); Blood,Urine Negative (Negative); Color,Urine Yellow; Glucose,Urine (UA) Negative (Negative); Ketones,Urine 1+ (Negative); Leukocyte Esterase,Urine Trace (Negative); Mucus,Urine Occasional /hpf; Nitrite,Urine Negative (Negative); PH, Urine 5.5 (5.0-8.0); Protein,Urine Negative (Negative); RBC,Urine 1 /hpf (0-5); Specific Gravity,Urine 1.008 (1.001-1.035); Urobilinogen,Urine <2.0 mg/dL (<2.0); WBC,Urine <1 /hpf (0-5)
== END 2022-10-30 14:56 | disposition home or self-care (01) ==
LOC: EC 12:31
DX: R11.2 Nausea with vomiting, unspecified (principal); R19.7 Diarrhea, unspecified; I50.9 Heart failure, unspecified; I48.91 Unspecified atrial fibrillation; F32.A Depression, unspecified; Z79.899 Other long term (current) drug therapy; Z86.16 Personal history of COVID-19
CPT/HCPCS: 36415; 80053; 83605; 83690; 85025; 81001; 99285; 96374; 96375 ×2; 96361; J0780; C9113

== ENCOUNTER → 2022-11-01 | Day surgery (SDC) | payer MEDICARE, OTHER ==
[2022-10-31 12:38] VITALS: BMI 27.1
[~2022-11-01] MED LIST changes: -ACETAMINOPHEN TAB 500 MG TAB PO PRN; +LACTATED RINGERS 1,000 ML IV SCH; -MELOXICAM 7.5 MG TAB PO PRN; -TRANEXAMIC ACID 1,000 MG in SODIUM CHLORIDE 0.9% 100 ML IVPB PRN
== END ==
LOC: OR 08:39
PROVIDERS: ATTEND Podiatrist
DX: T84.84XA Pain due to internal orthopedic prosthetic devices, implants and grafts, initial encounter (principal)

== ENCOUNTER → 2022-11-08 | Day surgery (SDC) | payer MEDICARE, OTHER ==
[~2022-11-08] MED LIST changes: +BUPIVACAINE (PF) 0.25% 30 ML VIAL MISCELLANE ONE; +LIDOCAINE 1% (10MG/ML) FOR IV START INTRADERMA PRN; +LIDOCAINE 2% INJ 20 MG/ML (2 ML VIAL) ONE; +MIDAZOLAM 2 MG/2 ML VIAL ONE; +PROPOFOL 10 MG/ML 20 ML VIAL IV ONE; +ePHEDrine 50 MG/ML 1 ML VIAL ONE; +fentaNYL (PF) 50 MCG/ML 2 ML AMP ONE
[2022-11-08 12:45] VITALS: TEMP 97.2
--- NOTE | 2022-11-08 14:19 | P.OP ---
Date of Procedure: 11/08/22 Preoperative Diagnosis: Painful retained hardware right ankle Postoperative Diagnosis: Same Procedure(s) Performed: Removal of deep hardware right ankle Implants: None Anesthesia: CHANAA Surgeon: Vlad Aburto Estimated Blood Loss (ml): 5 Pathology: none sent Condition: stable Disposition: PACU Description of Procedure: The patient brought into the operative room and placed on table in supine position. Timeout was taken to confirm correct patient identifiers, correct I surgery, and correct procedure. Once the staff in the room were in agreement with the timeout, the patient was induced and placed under general anesthesia. A bump was placed underneath the right hip to internally rotate the right leg. 20 mL 0.25% Marcaine was injected as a lateral ankle block. Left leg was then prepped and draped usual manner. The leg was exsanguinated with an Esmarch bandage which was left in place to act as a tourniquet. Attention was directed over the tip of the lateral malleolus, where a linear incision was made extending distally from the tip of the lateral malleolus. Fluoroscopy was used to locate the pin in appropriate Marcaine was made. Blunt dissection was continued down to the saphenous layer careful to identify, avoid, and retract any neurovascular structures and cauterize any bleeding vessels. Dissection was carried down until the tendon was palpated. Small wrenches applied to the distal end of the pin in the pin was able to be removed intact without complication. The wound is then thoroughly irrigated with anatomic saline. The skin was closed with 3-0 nylon. Nonadherent gauze and a dry sterile dressing applied to the right leg. The tourniquet was released and capillary refill return to all digits on the right foot. The patient tolerated above procedure and anesthesia well which recovery with vital signs stable
[2022-11-08 15:03] VITALS: RESP 16
[2022-11-08 15:47] VITALS: BP 158/97; PULSE 60
== END | disposition home or self-care (01) ==
LOC: OR 11:53
PROVIDERS: ATTEND Podiatrist
DX: T84.84XA Pain due to internal orthopedic prosthetic devices, implants and grafts, initial encounter (principal); I48.91 Unspecified atrial fibrillation; G47.33 Obstructive sleep apnea (adult) (pediatric); M06.9 Rheumatoid arthritis, unspecified; M79.7 Fibromyalgia; F32.A Depression, unspecified; I10 Essential (primary) hypertension; R26.81 Unsteadiness on feet; Z98.890 Other specified postprocedural states; Z79.891 Long term (current) use of opiate analgesic; Z79.899 Other long term (current) drug therapy
CPT/HCPCS: 20680; J2250; J1100; J0690; J2405; J3010; J2704; J2001

== ENCOUNTER 2022-12-19 15:54 | Emergency (ER) | payer MEDICARE, OTHER ==
[2022-12-19] MEDS ORDERED: SODIUM CHLORIDE 0.9% 1,000 ML IV STA (16:14)
[2022-12-19] MEDS ORDERED: LORazepam 0.5 MG TAB PO STA (16:16)
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
[2022-12-19 17:07] LABS: Basophils % (A) 0 %; Eosinophils # (A) 0.2 k/uL (0-0.7); Eosinophils % (A) 3 %; HCT 44.1 % (39.0-53.0); HGB 14.8 gm/dL (13.0-17.5); Lymphocytes # (A) 1.4 k/uL (1.0-4.8); Lymphocytes % (A) 15 %; MCH 30.2 pg (25.0-35.0); MCHC 33.5 g/dL (31.0-37.0); MCV 90.3 fL (80.0-100.0); Mean Platelet Volume 7.5; Monocytes # (A) 0.6 k/uL (0-1.0); Monocytes % (A) 6 %; Neutrophils # (A) 6.7 k/uL (1.3-7.7); Neutrophils % (A) 74 %; Platelet Count 305 k/uL (150-450); RBC 4.89 m/uL (4.30-5.90); WBC 9.1 k/uL (3.8-10.6)
[2022-12-19 17:39] LABS: INR 1.1 (<1.2); Partial Thromboplastin Time 33.7 sec (22.0-30.0); Prothrombin Time 11.1 sec (9.0-12.0)
[2022-12-19 17:40] LABS: Appearance,Urine Clear (Clear); Bacteria,Urine Rare /hpf; Bilirubin,Urine Negative (Negative); Blood,Urine Small (Negative); Color,Urine Yellow; Glucose,Urine (UA) Negative (Negative); Ketones,Urine 2+ (Negative); Leukocyte Esterase,Urine Negative (Negative); Mucus,Urine Few /hpf; Nitrite,Urine Negative (Negative); Protein,Urine 2+ (Negative); RBC,Urine 4 /hpf (0-5); Specific Gravity,Urine 1.023 (1.001-1.035); Urobilinogen,Urine <2.0 mg/dL (<2.0); WBC,Urine 1 /hpf (0-5)
[2022-12-19 17:51] LABS: Amphetamine Screen,Urine Not Detected (NotDetected); Barbiturate Screen,Urine Not Detected (NotDetected); Benzodiazepines Screen,Urine Not Detected (NotDetected); Cocaine Screen,Urine Not Detected (NotDetected); Methadone Screen, Urine Not Detected (NotDetected); Opiate Screen,Urine Not Detected (NotDetected); Oxycodone Screen, Urine Detected (NotDetected); Phencyclidine Screen,Urine Not Detected (NotDetected); Tricyclic Antidepressant,Urine Not Detected (NotDetected); Urn Cannabinoid Scrn Not Detected (NotDetected)
[2022-12-19 18:41] LABS: ALT 18 U/L (4-49); AST 25 U/L (17-59); Acetaminophen <10.0 ug/mL; African American GFR (CKD) >90 (>60 ml/min/1.73 sqM); Albumin 3.8 g/dL (3.5-5.0); Alcohol <10 mg/dL; Alkaline Phosphatase 150 U/L (38-126); Anion Gap 9 mmol/L; Blood Urea Nitrogen 8 mg/dL (9-20); Calcium 9.1 mg/dL (8.4-10.2); Carbon Dioxide 25 mmol/L (22-30); Chloride 101 mmol/L (98-107); Glucose 115 mg/dL (74-99); Non-African American GFR(CKD) >90 (>60 ml/min/1.73 sqM); Potassium 3.7 mmol/L (3.5-5.1); Salicylate <1.0 mg/dL; Sodium 135 mmol/L (137-145); Total Bilirubin 0.7 mg/dL (0.2-1.3); Total Protein 8.6 g/dL (6.3-8.2)
[2022-12-19] MEDS ORDERED: ONDANSETRON 4 MG/2 ML VIAL IVP STA (18:59)
[2022-12-19] MEDS ORDERED: IBUPROFEN 600 MG TAB PO STA (19:14)
[2022-12-19] MEDS ORDERED: LORazepam 2 MG/ML INJ IV STA (19:53)
[2022-12-19] MEDS ORDERED: METOCLOPRAMIDE 10 MG TAB PO PRN (20:34)
[2022-12-19 21:27] LABS: ALT 20 U/L (4-49); AST 29 U/L (17-59); African American GFR (CKD) >90 (>60 ml/min/1.73 sqM); Albumin 4.4 g/dL (3.5-5.0); Alkaline Phosphatase 167 U/L (38-126); Anion Gap 13 mmol/L; Blood Urea Nitrogen 7 mg/dL (9-20); Calcium 9.4 mg/dL (8.4-10.2); Carbon Dioxide 24 mmol/L (22-30); Chloride 100 mmol/L (98-107); Glucose 110 mg/dL (74-99); Non-African American GFR(CKD) >90 (>60 ml/min/1.73 sqM); Potassium 3.9 mmol/L (3.5-5.1); Sodium 137 mmol/L (137-145); Total Protein 9.7 g/dL (6.3-8.2)
[2022-12-19] MEDS: FAMOTIDINE 20 MG TAB PO SCH (22:37)
[2022-12-20 02:04] VITALS: TEMP 97.8
[2022-12-20] MEDS ORDERED: ACETAMINOPHEN TAB 325 MG TAB PO STA (02:33)
[2022-12-20] MEDS ORDERED: METOPROLOL SUCCINATE (ER) 25 MG TAB.ER.24H PO SCH (09:00)
[2022-12-20] MEDS ORDERED: LOSARTAN 50 MG TAB PO SCH (09:00)
[2022-12-20] MEDS ORDERED: ESCITALOPRAM 10 MG TAB PO SCH (09:00)
[2022-12-20] MEDS ORDERED: KETOROLAC 15 MG/ML 1 ML VIAL IVP STA (09:09)
[2022-12-20] MEDS: FAMOTIDINE 20 MG TAB PO SCH (09:12)
[2022-12-20 10:08] VITALS: BP 154/100; PULSE 82; RESP 118
== END 2022-12-20 10:07 ==
LOC: EC 15:54
DX: Z00.8 Encounter for other general examination (principal); T40.2X2A Poisoning by other opioids, intentional self-harm, initial encounter; F32.A Depression, unspecified; I48.91 Unspecified atrial fibrillation; R45.851 Suicidal ideations; G47.30 Sleep apnea, unspecified; Z79.899 Other long term (current) drug therapy; Z79.01 Long term (current) use of anticoagulants; Z86.16 Personal history of COVID-19
CPT/HCPCS: 82075; 36415; 93005; 80053; 85025; 85610; 85730; 81001; 80306; 80143; 87635; 80179; 99285; 96374; 96375 ×2; 96361; G0480; J2060; J2405; J1885; 80320

== ENCOUNTER 2023-01-03 14:50 | Emergency (ER) | payer MEDICARE, OTHER ==
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
--- NOTE | 2023-01-03 16:04 | CT ---
EXAMINATION TYPE: CT brain heather wo con DATE OF EXAM: 01/03/2023 COMPARISON: 06/08/2022 HISTORY: 67-year-old male with pain after Fall CT DLP: 1492.9 mGycm Automated exposure control for dose reduction was used. Technique: Examination of the head was done in axial plane without intravenous contrast. Coronal and sagittal reconstructions performed. CT of the cervical spine was obtained in axial plane without intravenous injection of contrast mater ial. Coronal and sagittal reformatted images were obtained from the axial views for evaluation of f ractures, spinal alignment and canal. FINDINGS: Head: There is no evidence of acute intracranial hemorrhage, acute ischemic changes, mass, mass-effect, or extra-axial fluid collection. There is no effacement of cerebral sulci or basal subarachnoid cister ns. There is no hydrocephalus. There is no midline shift. Hernandez-white matter distinction is preserv ed. Mild generalized cerebral cortical volume loss. Old lacunar infarct left basal ganglia and mild patch y white matter hypodensities. There is a mild right posterior scalp contusion. No underlying calvarial fracture. Moderate mucosal thickening left ethmoid air cells. Mastoid air cells well pneumatized. Orbits and gl obes are intact. Cervical spine: No craniocervical junction of the body, predental space widening, or prevertebral soft tissue swellin g. Degenerative change of the C1 dens articulation. Moderate spondylotic change throughout the cervical spine. Degenerative grade 1 retrolisthesis C3-C4 and C6/C7. Degenerative grade 1 anterolisthesis C4-C5. Posterior bulging disc sections at C3-C4 contribute to mild narrowing of the spinal canal. No acute fracture seen of the cervical spine. Previous plate and screw fixation left clavicular shaft . Variable moderate neural foraminal stenoses throughout. Calcifications right palatine tonsil measuring up to 5 mm. Sagittal and coronal reformatted images confirm above findings. COMBINED IMPRESSION: 1. Right posterior scalp contusion. No acute intracranial abnormality seen. There is mild cerebral at rophy and mild burden of chronic small vessel ischemic disease. 2. No acute fracture of the cervical spine. Similar moderate spondylotic change with degenerative gra de 1 spondylolisthesis C3-C4, C4-C5, and C6-C7.
[2023-01-03 16:50] VITALS: BP 101/55; PULSE 84; RESP 18; TEMP 97.6
== END 2023-01-03 16:30 | disposition home or self-care (01) ==
LOC: EC 14:50
DX: S00.03XA Contusion of scalp, initial encounter (principal); M47.812 Spondylosis without myelopathy or radiculopathy, cervical region; M43.12 Spondylolisthesis, cervical region; I48.91 Unspecified atrial fibrillation; G47.30 Sleep apnea, unspecified; F32.A Depression, unspecified; Z79.899 Other long term (current) drug therapy; Z79.01 Long term (current) use of anticoagulants; Z86.16 Personal history of COVID-19; W01.0XXA Fall on same level from slipping, tripping and stumbling without subsequent striking against object, initial encounter
CPT/HCPCS: 70450; 72125; 99284

== ENCOUNTER 2023-01-21 14:49 | Observation (INO) | payer MEDICARE, OTHER ==
[2023-01-21] MEDS ORDERED: SODIUM CHLORIDE 0.9% 2,000 ML IV STA (15:44)
[2023-01-21] MEDS ORDERED: ONDANSETRON ODT 4 MG TAB PO STA (15:44)
[2023-01-21] MEDS ORDERED: MORPHINE SULFATE 4 MG/ML SYRINGE IVP STA (15:46)
[2023-01-21] MEDS ORDERED: PANTOPRAZOLE 40 MG/10 ML VIAL IVP STA (15:46)
[2023-01-21 16:32] LABS: ALT 22 U/L (4-49); AST 26 U/L (17-59); African American GFR (CKD) >90 (>60 ml/min/1.73 sqM); Albumin 3.6 g/dL (3.5-5.0); Alkaline Phosphatase 167 U/L (38-126); Anion Gap 11 mmol/L; Blood Urea Nitrogen 8 mg/dL (9-20); Calcium 8.9 mg/dL (8.4-10.2); Carbon Dioxide 24 mmol/L (22-30); Chloride 99 mmol/L (98-107); Glucose 113 mg/dL (74-99); Lipase 119 U/L (23-300); Non-African American GFR(CKD) >90 (>60 ml/min/1.73 sqM); Potassium 4.2 mmol/L (3.5-5.1); Sodium 134 mmol/L (137-145); Total Bilirubin 0.8 mg/dL (0.2-1.3); Total Protein 8.3 g/dL (6.3-8.2)
[2023-01-21 16:50] LABS: Anisocytosis Moderate; Basophils % (A) 0 %; Eosinophils # (A) 0.2 k/uL (0-0.7); Eosinophils % (A) 3 %; HCT 37.9 % (39.0-53.0); HGB 12.9 gm/dL (13.0-17.5); Lymphocytes % (A) 16 %; MCH 31.6 pg (25.0-35.0); MCV 92.8 fL (80.0-100.0); Mean Platelet Volume 8.1; Monocytes # (A) 0.6 k/uL (0-1.0); Monocytes % (A) 10 %; Neutrophils # (A) 4.2 k/uL (1.3-7.7); Neutrophils % (A) 68 %; Platelet Count 333 k/uL (150-450); RBC 4.08 m/uL (4.30-5.90); RDW 20.2 % (11.5-15.5); WBC 6.2 k/uL (3.8-10.6)
[2023-01-21] MEDS ORDERED: ONDANSETRON 4 MG/2 ML VIAL IVP STA (18:13)
[2023-01-21 18:18] LABS: Appearance,Urine Clear (Clear); Bilirubin,Urine Negative (Negative); Blood,Urine Negative (Negative); Color,Urine Yellow; Glucose,Urine (UA) Negative (Negative); Ketones,Urine Trace (Negative); Leukocyte Esterase,Urine Negative (Negative); Mucus,Urine Occasional /hpf; Nitrite,Urine Negative (Negative); PH, Urine 6.5 (5.0-8.0); Protein,Urine 1+ (Negative); RBC,Urine 2 /hpf (0-5); Specific Gravity,Urine 1.018 (1.001-1.035); Squamous Epithelial Cell,Urine <1 /hpf (0-4); Urobilinogen,Urine <2.0 mg/dL (<2.0)
[2023-01-21] MEDS ORDERED: ONDANSETRON 4 MG/2 ML VIAL IVP PRN (18:41)
[2023-01-21] MEDS ORDERED: ACETAMINOPHEN TAB 325 MG TAB PO PRN (18:41)
[2023-01-21] MEDS ORDERED: NALOXONE 0.4 MG/ML 1 ML VIAL IV PRN (18:41)
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
[2023-01-21] MEDS: SODIUM CHLORIDE 0.9% 1,000 ML IV SCH (19:53)
[2023-01-21] MEDS ORDERED: LORazepam 0.5 MG TAB PO PRN (20:53)
[2023-01-21] MEDS ORDERED: TEMAZEPAM 15 MG CAP PO PRN (20:53)
[2023-01-21] MEDS ORDERED: CALCIUM CARBONATE 500 MG CHEWABLE PO PRN (20:53)
[2023-01-21] MEDS ORDERED: LACTULOSE 20 GM/30 ML CUP PO PRN (20:53)
[2023-01-21] MEDS ORDERED: traZODone HCL 100 MG TAB PO PRN (20:54)
[2023-01-21] MEDS ORDERED: NALTREXONE HCL 50 MG TAB PO SCH (21:00)
[2023-01-21] MEDS: KETOROLAC 15 MG/ML 1 ML VIAL IVP SCH ×2 (21:42→23:54)
[2023-01-21] MEDS: MIRTAZAPINE 15 MG TAB PO SCH (21:44)
[2023-01-21] MEDS: ENOXAPARIN 40 MG/0.4 ML SYRINGE SQ SCH (21:45)
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
[2023-01-21] MEDS: cloNIDine HCL 0.1 MG TAB PO SCH (22:15)
[2023-01-21] MEDS: diazePAM 2 MG TAB PO SCH (22:15)
[2023-01-22] MEDS: SODIUM CHLORIDE 0.9% 1,000 ML IV SCH ×2 (03:52→16:51)
[2023-01-22] MEDS: KETOROLAC 15 MG/ML 1 ML VIAL IVP SCH ×3 (06:00→18:28)
[2023-01-22 08:39] LABS: Basophils # (A) 0.09 X 10*3/uL (0.00-0.10); Basophils % (A) 1.6 %; Eosinophils # (A) 0.27 X 10*3/uL (0.04-0.35); Eosinophils % (A) 4.8 %; HCT 33.7 % (39.6-50.0); HGB 12.4 d/dL (13.0-17.0); Lymphocytes # (A) 1.27 X 10*3/uL (0.90-5.00); Lymphocytes % (A) 22.4 %; MCH 34.6 pg (27.0-32.0); MCHC 36.8 d/dL (32.0-37.0); MCV 94.1 FL (80.0-97.0); Mean Platelet Volume 8.9 FL (9.5-12.2); Monocytes # (A) 0.91 X 10*3/uL (0.20-1.00); NRBC Per 100 WBC 0 X 10*3/uL (0.00-0.01); Neutrophils # (A) 3.13 X 10*3/uL (1.80-7.70); Platelet Count 316 X 10*3/uL (140-440); RBC 3.58 X 10*6/uL (4.40-5.60); RDW 15.4 % (11.5-14.5); WBC 5.68 X 10*3/uL (4.50-10.00)
[2023-01-22 09:00] LABS: BUN/Creat Ratio 7.38 Ratio (12.00-20.00); Blood Urea Nitrogen 5.9 mg/dL (9.0-27.0); Calcium 8.5 mg/dL (8.7-10.3); Carbon Dioxide 22.6 mmol/L (21.6-31.8); Chloride 106 mmol/L (96-109); Glucose 109 mg/dL (70-110); Potassium 4.4 mmol/L (3.5-5.5); Sodium 139 mmol/L (135-145)
[2023-01-22] MEDS ORDERED: METOPROLOL SUCCINATE (ER) 25 MG TAB.ER.24H PO SCH (09:00)
[2023-01-22] MEDS: LOSARTAN 50 MG TAB PO SCH (09:06)
[2023-01-22] MEDS: cloNIDine HCL 0.1 MG TAB PO SCH ×3 (09:06→19:43)
[2023-01-22] MEDS: diazePAM 2 MG TAB PO SCH ×3 (09:06→20:28)
[2023-01-22] MEDS: ESCITALOPRAM 20 MG TAB PO SCH (09:07)
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
[2023-01-22] MEDS: ENOXAPARIN 40 MG/0.4 ML SYRINGE SQ SCH (19:42)
[2023-01-22] MEDS: MIRTAZAPINE 15 MG TAB PO SCH (19:43)
[2023-01-23] MEDS: SODIUM CHLORIDE 0.9% 1,000 ML IV SCH ×3 (00:41→15:21)
[2023-01-23] MEDS: NAPROXEN 250 MG TAB PO SCH ×4 (08:46→20:11)
[2023-01-23] MEDS: ESCITALOPRAM 20 MG TAB PO SCH (08:46)
[2023-01-23] MEDS: METOPROLOL SUCCINATE (ER) 50 MG TAB.ER.24H PO SCH (08:47)
[2023-01-23] MEDS: LOSARTAN 50 MG TAB PO SCH (08:47)
[2023-01-23] MEDS: diazePAM 2 MG TAB PO SCH ×2 (08:48→20:12)
[2023-01-23] MEDS: cloNIDine HCL 0.1 MG TAB PO SCH (08:48)
--- NOTE | 2023-01-23 13:47 | P.PN ---
Subjective Progress Note Date: 01/23/23 This is a pleasant 67-year-old male he is admitted for opiate withdrawal has been taking Percocet for years has not taken for the last 5 days and came with nausea vomiting did have an episode of diarrhea today. He reports feeling slightly shaky still he is being treated with clonidine 0 point milligrams twice a day as well as old gram of oral Valium 3 times a day. Patient does report feeling slightly improved than yesterday he is no longer having any nausea with a rate some clear liquids but not much. His sodium has improved at 139 with IV fluids he is receiving normal saline at 100 mL per hour. Blood pressure slightly elevated today 130-140s systolic. Review of Systems Constitutional: Denied any fatigue denied any fever. Cardio vascular: denied any chest pain, palpitations Gastrointestinal: denied any nausea, vomiting, reports diarrhea x 1 Pulmonary: Denied any shortness of breath cough Neurologic denied any new focal deficits Reports weakness. All inpatient medications were reviewed and appropriate changes in these medications as dictated in the interval history and assessment and plan. PHYSICAL EXAMINATION: GENERAL: The patient is alert and oriented x3, not in any acute distress. Well developed, well nourished. HEENT: Pupils are round and equally reacting to light. EOMI. No scleral icterus. No conjunctival pallor. Normocephalic, atraumatic. No pharyngeal erythema. No th yromegaly. CARDIOVASCULAR: S1 and S2 present. No murmurs, rubs, or gallops. PULMONARY: Chest is clear to auscultation, no wheezing or crackles. ABDOMEN: Soft, nontender, nondistended, normoactive bowel sounds. No palpable organomegaly. MUSCULOSKELETAL: No joint swelling or deformity. EXTREMITIES: No cyanosis, clubbing, or pedal edema. NEUROLOGICAL: Gross neurological examination did not reveal any focal deficits. SKIN: No rashes. Assessment -Narcotic withdrawal patient presents with nausea vomiting, restlessness improving and continues on clonidine and valium. -Adjustment disorder with depression and anxiety -Essential hypertension: Controlled -Restless legs syndrome -Right foot pain Patient's previously had surgery. 2 months ago had hardware removed from the right ankle by from [facility] -Obstructive sleep apnea uses CPAP -Chronic pain syndrome -Chronic rheumatoid arthritis GI prophylaxis DVT prophylaxis Full Code Plan Continue on clonidine and valium will begin to wean these medications. Pepcid for GI prophylaxis added Patient on tylenol and naprosyn for pain management Clear liquid diet advance as tolerated and antiemetics ordered. Recommending PT/OT evaluation The impression and plan of care has been dictated by Silvia Pete Nurse Practitioner as directed. Dr. Dillon MD I have performed a history and physical examination and medical decision making of this patient, discussed the same with the dictator, and agree with the dictators assessment and plan as written, documented as a scribe. Based on total visit time, I have performed more than 50% of this visit. Objective - Vital Signs Vital signs: Vital Signs Temp 97.6 F 01/23/23 07:00 Pulse 78 01/23/23 07:00 Resp 16 01/23/23 08:48 BP 148/87 01/23/23 07:00 Pulse Ox 98 01/23/23 07:00 FiO2 Intake & Output 01/22/23 01/23/23 01/23/23 18:59 06:59 18:59 Intake Total 488 Output Total 300 Balance 488 -300 Intake: Oral 488 Output: Urine 300 Other: Voiding Method Urinal Urinal Urinal # Voids 2 - Labs CBC & Chem 7: 01/22/23 05:48 01/22/23 05:48 Assessment and Plan Time with Patient: Less than 30
[2023-01-23] MEDS: MIRTAZAPINE 15 MG TAB PO SCH (20:11)
[2023-01-23] MEDS: ENOXAPARIN 40 MG/0.4 ML SYRINGE SQ SCH (20:13)
[2023-01-24] MEDS: SODIUM CHLORIDE 0.9% 1,000 ML IV SCH (02:58)
[2023-01-24 07:51] VITALS: BP 158/89; PULSE 65; RESP 16; TEMP 98.2
[2023-01-24] MEDS: LOSARTAN 50 MG TAB PO SCH (08:56)
[2023-01-24] MEDS: NAPROXEN 250 MG TAB PO SCH (08:56)
[2023-01-24] MEDS: METOPROLOL SUCCINATE (ER) 50 MG TAB.ER.24H PO SCH (08:57)
[2023-01-24] MEDS: ESCITALOPRAM 20 MG TAB PO SCH (08:57)
[2023-01-24] MEDS: diazePAM 2 MG TAB PO SCH (08:57)
[2023-01-24] MEDS ORDERED: cloNIDine HCL 0.1 MG TAB PO SCH (09:00)
[2023-01-24] MEDS ORDERED: FAMOTIDINE 20 MG TAB PO SCH (09:00)
--- NOTE | 2023-01-24 11:11 | P.DS ---
Providers Date of admission: 01/21/23 18:41 Expected date of discharge: 01/24/23 Attending physician: Ermias Hagen Primary care physician: Shan Holland Hospital Course: 67-year-old male he is admitted for opiate withdrawal has been taking Percocet for years has not taken for the last 5 days and came with nausea vomiting did have an episode of diarrhea today. He reports feeling slightly shaky still he is being treated with clonidine 0 point milligrams twice a day as well as old gram of oral Valium 3 times a day. Patient does report feeling slightly improved than yesterday he is no longer having any nausea with a rate some clear liquids but not much. His sodium has improved at 139 with IV fluids he is receiving normal saline at 100 mL per hour. Blood pressure slightly elevated today 130-140s systolic. 01/24/2023: Patient seen and evaluated bedside patient alert and oriented patient denies of any withdrawal symptoms. Patient was given 3 day supply of Ativan for discharge. Prescription provided remained stable GENERAL: The patient is alert and oriented x3, not in any acute distress. Well developed, well nourished. HEENT: Pupils are round and equally reacting to light. EOMI. No scleral icterus. No conjunctival pallor. Normocephalic, atraumatic. No pharyngeal erythema. No thyromegaly. CARDIOVASCULAR: S1 and S2 present. No murmurs, rubs, or gallops. PULMONARY: Chest is clear to auscultation, no wheezing or crackles. ABDOMEN: Soft, nontender, nondistended, normoactive bowel sounds. No palpable organomegaly. MUSCULOSKELETAL: No joint swelling or deformity. EXTREMITIES: No cyanosis, clubbing, or pedal edema. NEUROLOGICAL: Gross neurological examination did not reveal any focal deficits. SKIN: No rashes. Assessment -Narcotic withdrawal patient presents with nausea vomiting, restlessness RESOLVED -Adjustment disorder with depression and anxiety -Essential hypertension: Controlled -Restless legs syndrome -Right foot pain Patient's previously had surgery. 2 months ago had hardware removed from the right ankle by from [facility] -Obstructive sleep apnea uses CPAP -Chronic pain syndrome -Chronic rheumatoid arthritis GI prophylaxis DVT prophylaxis Full Code Plan * Successfully detoxed however as needed Ativan given in case of worsening anxiety * Home medication regimen reviewed. Prescription provided * Discharged home in stable condition outpatient follow-up with PCP recommended * Section for metoprolol provided secondary to elevated blood pressure Plan - Discharge Summary New Discharge Prescriptions: New Metoprolol Succinate (ER) [Toprol XL] 50 mg PO DAILY 30 Days #30 tab LORazepam [Ativan] 0.5 mg PO DAILY PRN 3 Days #3 tab PRN Reason: Anxiety Continue Adalimumab [Humira(Cf) Pen] 40 mg SQ Q14D rOPINIRole HCL [Requip] 0.25 mg PO HS Losartan [Cozaar] 100 mg PO DAILY traZODone HCL [Desyrel] 100 mg PO HS PRN PRN Reason: Insomnia Mirtazapine [Remeron] 15 mg PO HS Escitalopram [Lexapro] 20 mg PO DAILY Discontinued oxyCODONE-APAP 10-325MG [Percocet 10-325 mg] 1 tab PO Q8HR PRN PRN Reason: Pain Metoprolol Succinate (ER) [Toprol XL] 25 mg PO DAILY Discharge Medication List Adalimumab [Humira(Cf) Pen] 40 mg SQ Q14D 03/13/21 [History] Losartan [Cozaar] 100 mg PO DAILY 10/17/22 [History] rOPINIRole HCL [Requip] 0.25 mg PO HS 10/17/22 [History] Escitalopram [Lexapro] 20 mg PO DAILY 01/21/23 [History] Mirtazapine [Remeron] 15 mg PO HS 01/21/23 [History] traZODone HCL [Desyrel] 100 mg PO HS PRN 01/21/23 [History] LORazepam [Ativan] 0.5 mg PO DAILY PRN 3 Days #3 tab 01/24/23 [Rx] Metoprolol Succinate (ER) [Toprol XL] 50 mg PO DAILY 30 Days #30 tab 01/24/23 [Rx] Follow up Appointment(s)/Referral(s): Shan Garcia DO [Primary Care Provider] - 1-2 days Patient Instructions/Handouts: Dehydration (DC), Opioid Withdrawal (DC) Discharge Disposition: HOME SELF-CARE
== END 2023-01-24 12:02 | disposition home or self-care (01) ==
LOC: EC 14:49 → 6NMEDSUR 18:41
PROVIDERS: ADMIT Hospitalist; ATTEND Hospitalist
DX: F11.23 Opioid dependence with withdrawal (principal); R11.2 Nausea with vomiting, unspecified; E86.0 Dehydration; I48.91 Unspecified atrial fibrillation; M79.7 Fibromyalgia; G25.81 Restless legs syndrome; I11.0 Hypertensive heart disease with heart failure; I50.9 Heart failure, unspecified; K59.09 Other constipation; F43.23 Adjustment disorder with mixed anxiety and depressed mood; G47.33 Obstructive sleep apnea (adult) (pediatric); G89.4 Chronic pain syndrome; M79.671 Pain in right foot; M06.9 Rheumatoid arthritis, unspecified; Z20.822 Contact with and (suspected) exposure to COVID-19; Z85.828 Personal history of other malignant neoplasm of skin; Z86.16 Personal history of COVID-19; Z79.899 Other long term (current) drug therapy
CPT/HCPCS: 96376 ×2; 96372 ×3; 96375 ×2; 96361; 96374; 99285; 36415; 93005; 97162; 97166; 80053; 80048; 83690; 85025 ×2; 81001; 87635; G0378 ×4; J2270; J2405; J1650 ×3; J1885 ×2; C9113

== ENCOUNTER 2023-02-23 07:08 | Inpatient (IN) | payer MEDICARE, OTHER ==
[2023-02-23] MEDS ORDERED: SODIUM CHLORIDE 0.9% 1,000 ML IV ONE ×2 (07:32→09:56)
[2023-02-23] MEDS ORDERED: SODIUM CHLORIDE 0.9% 500 ML 500 ML IV ONE (07:32)
[2023-02-23] MEDS ORDERED: MECLIZINE 25 MG TAB PO STA (07:33)
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
[2023-02-23 08:11] LABS: INR 0.9 (<1.2); Partial Thromboplastin Time 23.8 sec (22.0-30.0); Prothrombin Time 10.3 sec (10.0-12.5)
[2023-02-23 08:17] LABS: ALT 21 U/L (4-49); AST 33 U/L (17-59); African American GFR (CKD) >90 (>60 ml/min/1.73 sqM); Albumin 3.9 g/dL (3.5-5.0); Alkaline Phosphatase 143 U/L (38-126); Anion Gap 10 mmol/L; Blood Urea Nitrogen 16 mg/dL (9-20); Calcium 8.9 mg/dL (8.4-10.2); Carbon Dioxide 27 mmol/L (22-30); Chloride 100 mmol/L (98-107); Glucose 162 mg/dL (74-99); Magnesium 1.6 mg/dL (1.6-2.3); Non-African American GFR(CKD) >90 (>60 ml/min/1.73 sqM); Sodium 137 mmol/L (137-145); Total Bilirubin 0.5 mg/dL (0.2-1.3); Total Protein 8.5 g/dL (6.3-8.2)
--- NOTE | 2023-02-23 08:44 | XR ---
EXAMINATION TYPE: XR chest 2V DATE OF EXAM: 02/23/2023 8:09 AM CLINICAL INDICATION:Male, 67 years old with history of Chest Pain; [facility] COMPARISON: 10/17/2022 TECHNIQUE: XR chest 2V Frontal and lateral views of the chest. FINDINGS: Lines/Tubes: No indwelling lines are seen. EKG leads. Lungs/Pleura: Chronic senescent parenchymal changes. There is no evidence of pleural effusion, focal consolidation, or pneumothorax. Nodular density projected over the right midlung zone appears likely related to healed rib fracture. Pulmonary vascularity: Unremarkable. Heart/mediastinum: Cardiomediastinal silhouette is enlarged and stable. Tortuous ectatic aorta. Musculoskeletal: No clear evidence of an acute bony abnormality. Fixation plate and screws left clavi jaswant. Mild degenerative changes left shoulder. Right shoulder reverse glenohumeral arthroplasty with m ild degenerative change of the AC joint. Old healed rib fractures suggested on the right. Other findings: None IMPRESSION: No acute cardiopulmonary disease/process.
--- NOTE | 2023-02-23 09:06 | CT ---
EXAMINATION TYPE: CT brain wo con CT DLP: 1138.1 mGycm, Automated exposure control for dose reduction was used. DATE OF EXAM: 02/23/2023 8:20 AM COMPARISON: 01/04/2023. CLINICAL INDICATION:Male, 67 years old with history of Dizzy, Dizziness TECHNIQUE: Brain: Axial CT images of the brain were obtained with coronal and sagittal reformats created and rev iewed. Contrast used: None. Oral contrast used: None. FINDINGS: Brain: Extra-axial spaces: No abnormal extra-axial fluid collections. Ventricular system: Ventricles appear dilated in proportion to the degree of atrophy. Cerebral parenchyma: No acute intraparenchymal hemorrhage or mass effect. The singh-white matter junct ion appear preserved. There is mild to moderate generalized brain atrophy. Mild hypoattenuating areas in the cerebral white matter, nonspecific but most often seen with chronic microvascular ischemia. Cerebellum: No acute abnormality. Mass effect: No evidence of midline shift. Intracranial vasculature: Atherosclerotic calcifications of the intracranial vessels. Soft tissues: Normal. Calvarium/osseous structures: No depressed skull fracture. Paranasal sinuses and mastoid air cells: Clear. Visualized orbits: Orbital contents are intact. IMPRESSION: 1. No acute intracranial CT abnormality. 2. Mild/moderate generalized atrophy, and mild chronic microvascular ischemic white matter changes.
[2023-02-23 09:33] LABS: Anisocytosis Slight; Basophils % (A) 1 %; Eosinophils # (A) 0.2 k/uL (0-0.7); Eosinophils % (A) 2 %; HCT 37.1 % (39.0-53.0); HGB 12.7 gm/dL (13.0-17.5); Lymphocytes # (A) 1.2 k/uL (1.0-4.8); Lymphocytes % (A) 16 %; MCH 31.5 pg (25.0-35.0); MCHC 34.3 g/dL (31.0-37.0); Mean Platelet Volume 7.5; Monocytes # (A) 0.6 k/uL (0-1.0); Monocytes % (A) 8 %; Neutrophils # (A) 5.3 k/uL (1.3-7.7); Neutrophils % (A) 72 %; Platelet Count 285 k/uL (150-450); RBC 4.03 m/uL (4.30-5.90); RDW 16.7 % (11.5-15.5); WBC 7.4 k/uL (3.8-10.6)
[2023-02-23] MEDS ORDERED: SCOPOLAMINE 1 MG/72 HR PATCH TRANSDERM STA (09:58)
[2023-02-23] MEDS ORDERED: Acetaminophen-Codeine 300-30mg TAB PO STA (11:29)
[2023-02-23] MEDS: ALPRAZolam 0.25 MG TAB PO PRN ×2 (12:03→20:17)
[2023-02-23] MEDS: hydrALAZINE HCL 20 MG/ML 1 ML VIAL IVP PRN ×2 (12:03→20:17)
[2023-02-23] MEDS ORDERED: MAG HYDROX/AL HYDROX/SIMETH 30 ML CUP PO PRN (12:19)
[2023-02-23] MEDS ORDERED: ONDANSETRON 4 MG/2 ML VIAL IVP PRN (12:19)
[2023-02-23] MEDS ORDERED: ACETAMINOPHEN TAB 325 MG TAB PO PRN (12:19)
[2023-02-23] MEDS ORDERED: MELATONIN 3 MG TABLET PO PRN (12:19)
[2023-02-23] MEDS ORDERED: NALOXONE 0.4 MG/ML 1 ML VIAL IV PRN (12:19)
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
[2023-02-23] MEDS ORDERED: LORazepam 1 MG TAB PO PRN (12:45)
[2023-02-23] MEDS ORDERED: THIAMINE 100 MG/ML 2 ML VIAL IM STA (12:45)
[2023-02-23 13:17] LABS: Amphetamine Screen,Urine Not Detected (NotDetected); Barbiturate Screen,Urine Not Detected (NotDetected); Benzodiazepines Screen,Urine Not Detected (NotDetected); Cocaine Screen,Urine Not Detected (NotDetected); Methadone Screen, Urine Not Detected (NotDetected); Opiate Screen,Urine Not Detected (NotDetected); Oxycodone Screen, Urine Not Detected (NotDetected); Phencyclidine Screen,Urine Not Detected (NotDetected); Tricyclic Antidepressant,Urine Not Detected (NotDetected); Urn Cannabinoid Scrn Not Detected (NotDetected)
[2023-02-23] MEDS: SODIUM CHLORIDE 0.9% 1,000 ML IV SCH (13:33)
[2023-02-23] MEDS ORDERED: traZODone HCL 50 MG TAB PO PRN (15:31)
[2023-02-23] MEDS: LORazepam 1 MG TAB PO PRN ×2 (17:33→22:11)
[2023-02-23 17:59] LABS: Basophils # (A) 0.1 k/uL (0-0.2); Basophils % (A) 1 %; Eosinophils # (A) 0.1 k/uL (0-0.7); Eosinophils % (A) 2 %; HGB 13.1 gm/dL (13.0-17.5); Lymphocytes # (A) 1.4 k/uL (1.0-4.8); Lymphocytes % (A) 18 %; MCH 31.1 pg (25.0-35.0); MCHC 33.5 g/dL (31.0-37.0); MCV 92.6 fL (80.0-100.0); Mean Platelet Volume 7.2; Monocytes # (A) 0.7 k/uL (0-1.0); Monocytes % (A) 9 %; Neutrophils # (A) 5.3 k/uL (1.3-7.7); Neutrophils % (A) 69 %; Platelet Count 272 k/uL (150-450); RBC 4.21 m/uL (4.30-5.90); RDW 15.9 % (11.5-15.5); WBC 7.7 k/uL (3.8-10.6)
[2023-02-23 18:02] LABS: Basophils % (A) 1 %; Eosinophils # (A) 0.1 k/uL (0-0.7); Eosinophils % (A) 1 %; HCT 39.4 % (39.0-53.0); HGB 12.8 gm/dL (13.0-17.5); Lymphocytes # (A) 1.3 k/uL (1.0-4.8); Lymphocytes % (A) 15 %; MCHC 32.5 g/dL (31.0-37.0); MCV 92.3 fL (80.0-100.0); Mean Platelet Volume 6.8; Monocytes # (A) 0.6 k/uL (0-1.0); Monocytes % (A) 7 %; Neutrophils # (A) 6.3 k/uL (1.3-7.7); Neutrophils % (A) 74 %; Platelet Count 303 k/uL (150-450); RBC 4.27 m/uL (4.30-5.90); RDW 15.3 % (11.5-15.5); WBC 8.5 k/uL (3.8-10.6)
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
--- NOTE | 2023-02-23 21:32 | P.CN ---
Psychiatric Consult - . Consult date: 02/23/23 Consult:: History of present illness: The patient is a 67-year-old male who has been admitted to the medical floor due to dizziness and Psychiatric team has been consulted to evaluate the patient for depression. The patient was evaluated while he was lying on bed in his room in the medical floor and he presented with mild distress. The patient reports feeling depressed with the lack of motivation, and sometimes feeling hopeless but denies any thoughts to harm himself or others. The patient mentioned that he tried to cut his wrist as a suicidal attempt three months ago in context of severe social stress when he was homeless and couldnt pay his rent which was the reason for psychiatric hospitalization to [facility] in [place] for about 30 days. The patient reports that he's currently having a stable housing and lives by himself. He reports that he was supposed to follow up with outpatient psychiatric treatment at [facility] after discharged from inpatient mental health, but he never made this appointment. The patient denies recent suicidal thoughts, reports the last time was about 3 months ago. The patient was alert and fully oriented, and reports that he came to the hospital because of severe dizziness for the past few days. 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 He maintained this habit of drinking for years. He reports history of in-patient rehab due to alcohol drinking. The patient reports very poor sleep mainly difficulties to fall asleep even with taking Trazodone at bedtime. He reports fair appetite. The patient was discharged from [facility] three months ago on psych medications Zyprexa 15 milligram at bedtime, Lexapro 20 milligrams daily, and the Trazodone 100 milligram at bedtime. The patient denies history of hallucinations, paranoid ideation, delusions. He denies any current or previous symptoms of manic episode including times with elevated mood, grandiosity, spurts of energy in context of lack of sleep, or impulsive / uninhabited behavior. He denies any history of self-injurious behavior. Past psychiatric history: Patient reports one previous psychiatric hospitalization which was 3 months ago at [facility]. One previous suicidal attempt which was three months ago when he tried to cut his wrist. The patient denies outpatient psychiatric treatment. He's supposed to follow up with [facility] after discharged from inpatient hospital three months ago but he never made this appointment. Substance use history: Alcohol: please review HPI. He denies using tobacco products, and not using any other illicit drugs. Family psychiatric history: His mother suffered from depression. His father was alcoholic. No family history of suicide. Social/developmental history: The patient currently lives by himself. He is , unemployed on STD. The patient has a son and three daughters but he doesn't have much contact with his children. Mental Status Examination: Appearance: Appears stated age, disheveled, average body built. Gait/ posture: Unable to assess. Attitude and Behavior: Engaged, cooperative, maintained eye contact during course of interview. Motor Activity: Increased psychomotor activity. Restless, tremors. Speech: Normal rate, rhythm, articulation, and prosody. None pressured. Mood: " depressed Affect: Constricted, appropriate to context and situation. Thought form: Goal directed, linear, and relevant, not incoherent and no clang association. Thought content: Logical, non-delusional, denies suicidal / homicidal thoughts, intentions, or plans. Perception: Denies any auditory/ visual or tactile hallucinations. Attention: No impairment. Orientation: Oriented to time, place, person, and situation. Insight & Judgment: Fair Impulse control: Fair Assessment and Diagnosis: Major depressive disorder, recurrent, severe without psychotic features. Alcohol use disorder, severe Rule out mood disorder. Recommendation: Disposition/Follow-up: Is psychiatric hospitalization indicated? NO Addressed and ensured patient's safety; patient does not meet the criteria for psychiatric hospitalization. The patient is not actively suicidal and has no active plan or intent of suicide. Currently, there is no need for further follow-up by the psychiatric team. Medication management: Continue home psych medications Lexapro for depression and anxiety symptoms, Zyprexa for mood stabilization and augmenting antidepressant, and Trazodone for depression and insomnia. Increase Trazodone to 150 mg PO HS. Refer the patient to outpatient psychiatric treatment after discharge. SW to schedule the patient appt to f/up with [facility] after discharge. Brief supportive psychotherapy and psychoeducation were provided to the patient. Discussed the treatment plan with the requesting physician/service. Thank you for permitting me to assist in this patient's treatment. Please call the psychiatry department if you have any questions or need further help with this case.
[2023-02-24 00:04] LABS: Anisocytosis Slight; Basophils % (A) 1 %; Eosinophils # (A) 0.2 k/uL (0-0.7); Eosinophils % (A) 3 %; HCT 38.3 % (39.0-53.0); HGB 12.9 gm/dL (13.0-17.5); Lymphocytes # (A) 1.5 k/uL (1.0-4.8); Lymphocytes % (A) 21 %; MCH 30.9 pg (25.0-35.0); MCHC 33.7 g/dL (31.0-37.0); MCV 91.7 fL (80.0-100.0); Monocytes # (A) 0.7 k/uL (0-1.0); Monocytes % (A) 9 %; Neutrophils # (A) 4.5 k/uL (1.3-7.7); Neutrophils % (A) 65 %; Platelet Count 265 k/uL (150-450); RBC 4.18 m/uL (4.30-5.90); RDW 16.2 % (11.5-15.5)
[2023-02-24] MEDS: SODIUM CHLORIDE 0.9% 1,000 ML IV SCH ×2 (02:22→15:35)
[2023-02-24 07:23] LABS: ALT 18 U/L (4-49); AST 29 U/L (17-59); African American GFR (CKD) >90 (>60 ml/min/1.73 sqM); Albumin 3.6 g/dL (3.5-5.0); Albumin/Globulin Ratio 0.8; Alkaline Phosphatase 162 U/L (38-126); Anion Gap 9 mmol/L; Blood Urea Nitrogen 8 mg/dL (9-20); Calcium 8.9 mg/dL (8.4-10.2); Carbon Dioxide 24 mmol/L (22-30); Chloride 102 mmol/L (98-107); Globulin 4.6 g/dL; Glucose 124 mg/dL (74-99); Non-African American GFR(CKD) >90 (>60 ml/min/1.73 sqM); Potassium 4.1 mmol/L (3.5-5.1); Sodium 135 mmol/L (137-145); Total Bilirubin 1.1 mg/dL (0.2-1.3); Total Protein 8.2 g/dL (6.3-8.2)
[2023-02-24] MEDS: THIAMINE 100 MG TAB PO SCH (07:32)
[2023-02-24] MEDS: LORazepam 0.5 MG TAB PO PRN ×2 (07:47→18:19)
[2023-02-24] MEDS: ALPRAZolam 0.25 MG TAB PO PRN ×2 (09:32→21:02)
[2023-02-24] MEDS: LOSARTAN 50 MG TAB PO SCH (10:43)
[2023-02-24] MEDS: ESCITALOPRAM 20 MG TAB PO SCH (10:43)
[2023-02-24] MEDS: METOPROLOL SUCCINATE (ER) 25 MG TAB.ER.24H PO SCH (10:43)
--- NOTE | 2023-02-24 11:52 | P.PN ---
Subjective Progress Note Date: 02/24/23 patient is a 67-year-old gentleman with past medical history significant for atrial fibrillation, depression, hypertension in the ER because of dizziness. Patient stated that was all right until last night when he started noticing that he was getting dizzy. Patient stated that he felt as if the whole room was spinning around him. Patient was also very unsteady on his gait and almost fell. Denies any headache. Denies any weakness of any extremity. Denies any Slurred speech. Patient also voiced that he is has been very depressed. Patient lost interest in his daily activities and was not even getting up to get food. Denies any auditory or visual hallucinations. Denies suicidal thoughts at this time. Patient is very anxious. Because of the symptoms, patient came to the ER Initial lab work done in the ER showed WBC 7.4, hemoglobin 12.7, platelet count 285, sodium 137, potassium 4, BUN 16, creatinine 0.57, glucose 162, alk phos 143, troponin 0.012, EKG done in the ER heart rate 109, QRS 101, no ST segment elevation, no T-wave inversion Chest x-ray done in the ER no acute cardiac process CT brain done showed no acute intrarenal process Admitted to medical service 02/24. Patient seen and examined. States dizziness is slightly improved. Denies any suicidal thoughts. Denies any auditory or visual hallucinations REVIEW OF SYSTEMS: CONSTITUTIONAL: No fever, no malaise,. CARDIOVASCULAR: No chest pain, no palpitations, no syncope. PULMONARY: No shortness of breath, no cough, GASTROINTESTINAL: No diarrhea, no nausea, no vomiting, no abdominal pain. NEUROLOGICAL: No headaches, no weakness, PHYSICAL EXAMINATION: GENERAL: The patient is alert and oriented x3, not in any acute distress. Well developed, well nourished. HEENT: Pupils are round and equally reacting to light. EOMI. No scleral icterus. No conjunctival pallor. Normocephalic, atraumatic. No pharyngeal erythema. No thyromegaly. CARDIOVASCULAR: S1 and S2 present. No murmurs, rubs, or gallops. PULMONARY: Chest is clear to auscultation, no wheezing or crackles. ABDOMEN: Soft, nontender, nondistended, normoactive bowel sounds. No palpable organomegaly. MUSCULOSKELETAL: No joint swelling or deformity. EXTREMITIES: No cyanosis, clubbing, or pedal edema. NEUROLOGICAL: Gross neurological examination did not reveal any focal deficits. SKIN: No rashes. Assessment and plan Dizziness Hypertensive urgency Severe depression Alcohol abuse Hopelessness. Persistent atrial fibrillation Adjustment disorder with depression and anxiety -Restless legs syndrome -Right foot pain -Obstructive sleep apnea uses CPAP -Chronic pain syndrome -Chronic rheumatoid arthritis Monitor vital signs Monitor CBC Monitor CMP Continue Antivert. Check orthostatics Continue IV fluids MRI brain ordered. Continue CIWA protocol Continue thiamine and folic acid Psych eval the patient, recommended to Continue home psych medications Lexapro for depression and anxiety symptoms, Zyprexa for mood stabilization and augmenting antidepressant, and Trazodone for depression and insomnia the dose increased to 150 mg. In regards to hypertension, continue Toprol and losartan Neurology evaluated the patient, recommended MRI brain Labs and medication were reviewed.. Continue same treatment. Continue with symptomatic treatment. Resume home medication. Monitor labs and vitals. DVT and GI prophylaxis. Further recommendations as per clinical course of the patient Dictation was produced using [employer] dictation software. please excuse any grammatical, word or spelling errors. Objective - Vital Signs Vital signs: Vital Signs Temp 98.4 F 02/24/23 07:15 Pulse 100 02/24/23 07:15 Resp 18 02/24/23 07:15 BP 161/99 02/24/23 07:15 Pulse Ox 96 02/24/23 07:15 FiO2 Intake & Output 02/23/23 02/24/23 02/24/23 18:59 06:59 18:59 Intake Total 590 Output Total 150 1600 200 Balance -150 -1010 -200 Weight 77.111 kg 70.5 kg Intake: Oral 590 Output: Urine 150 1600 200 Other: Voiding Method Urinal # Bowel Movements 1 - Labs CBC & Chem 7: 02/23/23 23:36 02/24/23 06:18 Labs: Abnormal Lab Results - Last 24 Hours (Table) 02/23/23 02/23/23 02/23/23 Range/Units 11:49 17:18 23:36 RBC 4.27 L 4.21 L 4.18 L (4.30-5.90) m/uL Hgb 12.8 L 12.9 L (13.0-17.5) gm/dL Hct 38.3 L (39.0-53.0) % RDW 15.9 H 16.2 H (11.5-15.5) % Sodium (137-145) mmol/L BUN (9-20) mg/dL Creatinine (0.66-1.25) mg/dL Glucose (74-99) mg/dL Alkaline Phosphatase (38-126) U/L 02/24/23 Range/Units 06:18 RBC (4.30-5.90) m/uL Hgb (13.0-17.5) gm/dL Hct (39.0-53.0) % RDW (11.5-15.5) % Sodium 135 L (137-145) mmol/L BUN 8 L (9-20) mg/dL Creatinine 0.57 L (0.66-1.25) mg/dL Glucose 124 H (74-99) mg/dL Alkaline Phosphatase 162 H (38-126) U/L
--- NOTE | 2023-02-24 14:43 | MR ---
EXAMINATION TYPE: MR brain wo con DATE OF EXAM: 02/24/2023 COMPARISON: CT brain 02/23/2023 HISTORY: Neuro symptoms, CVA CONTRAST: Performed utilizing 0 mL intravenous Gadavist gadolinium contrast. TECHNIQUE: Multiplanar, multiecho imaging on a 3.0 Sue magnet is performed through the brain. Stud y is performed within 24 hours of arrival to the hospital. The craniovertebral junction is normal. The pituitary is normal. Diffusion-weighted imaging is performed. No abnormal hyperintensity is present to suggest an acute i ntracranial infarct or acute ischemic change. There are scattered punctate areas of hyperintensity on T2 and Inversion Recovery weighted sequences which are non-specific but can be related to microvascular ischemic changes. Ventricles and sulci are appropriate for the patient age. There is some limitation due to motion artifact on postcontrast imaging. IMPRESSION: 1. No acute intracranial abnormality. 2. Chronic periventricular white matter hyperintensity, likely on the basis of chronic white matter i schemic changes.
[2023-02-24 15:41] VITALS: BMI 21.7
--- NOTE | 2023-02-24 16:54 | P.PN ---
Subjective Progress Note Date: 02/24/23 I am seeing the patient for the first time during this admission. Please refer to Dr. Paz's note for further details. He stated that he's been feeling dizzy for the past couple days and he feels was mostly with position. Denies any nausea any vomiting any ringing in the ears any diplopia any new focal weakness. he denies of any sick contacts. Denies of any fever. Denies of any head trauma. he stated also in the last couple days he is been having some tremor. He feels a today he feels drastically much better and denies any further dizziness and he's been walking with his walker without any issues and feels the tremor drastically better. He has old lower back surgery as a result he has right foot drop. Objective - Vital Signs Vital signs: Vital Signs Temp 98.5 F 02/24/23 12:25 Pulse 83 02/24/23 12:25 Resp 18 02/24/23 12:25 BP 144/76 02/24/23 12:25 Pulse Ox 98 02/24/23 12:25 FiO2 Intake & Output 02/23/23 02/24/23 02/24/23 18:59 06:59 18:59 Intake Total 590 Output Total 150 1600 450 Balance -150 -1010 -450 Weight 77.111 kg 70.5 kg 70.5 kg Intake: Oral 590 Output: Urine 150 1600 450 Other: Voiding Method Urinal # Bowel Movements 1 1 - Exam GENERAL: The patient is lying in bed and is not in acute distress. NEUROLOGICAL: Higher mental function: The patient is awake, alert, oriented to self, place and time. Patient is following commands. No aphasia and no neglect. Cranial nerves: The pupils are round, equal and reactive to light and accommodation. Visual newby are full to confrontation throughout. Extraocular movement is intact no nystagmus is noted. Facial sensation is normal to touch throughout. The facial strength is normal throughout. Tongue is midline and moved [id number] without any difficulty. No dysarthria is noted. Shoulder shrug is normal bilaterally. Motor: The strength is right ankle plantar flexion is 2-3 while dorsiflexion is 1-2. Otheriwse 5 over 5 throughout.. No spontaneous movement. No rigidity of uppers or cogwheel rigidity Cerebellum: Normal finger to nose bilaterally. Sensation: Sensation is normal to touch throughout. - Labs CBC & Chem 7: 02/23/23 23:36 02/24/23 06:18 Labs: Abnormal Lab Results - Last 24 Hours (Table) 02/23/23 02/23/23 02/23/23 Range/Units 11:49 17:18 23:36 RBC 4.27 L 4.21 L 4.18 L (4.30-5.90) m/uL Hgb 12.8 L 12.9 L (13.0-17.5) gm/dL Hct 38.3 L (39.0-53.0) % RDW 15.9 H 16.2 H (11.5-15.5) % Sodium (137-145) mmol/L BUN (9-20) mg/dL Creatinine (0.66-1.25) mg/dL Glucose (74-99) mg/dL Alkaline Phosphatase (38-126) U/L 02/24/23 Range/Units 06:18 RBC (4.30-5.90) m/uL Hgb (13.0-17.5) gm/dL Hct (39.0-53.0) % RDW (11.5-15.5) % Sodium 135 L (137-145) mmol/L BUN 8 L (9-20) mg/dL Creatinine 0.57 L (0.66-1.25) mg/dL Glucose 124 H (74-99) mg/dL Alkaline Phosphatase 162 H (38-126) U/L Assessment and Plan Assessment: 1. Vertigo seems more peripheral and appear has positive orthostatic hypotension. No acute/subacute ischemia on MRI Brain. 2. Hypertension 3. History of back pain s/p surgery with residual right foot drop 4. Depression Plan: MR the brain is reported as no acute intracranial abnormal. Chronic periventricular white matter hypodensity, likely on the basis of chronic white matter ischemic changes. I personally reviewed the MRI and agree with the report that there is no acute or subacute ischemia. Orthostatic vitals his supine is 130/94 while the sitting is 150/80 and standing is 122/95. There is a drop off from more than the 10 of diastolic from supine to sitting as well as a drop off about more than 20 going from sitting to standing. Recommend a repeat orthostatic vitals and if still positive will defer m anagement to the primary team. Consider medication modification of hypertension and ineffective consider compression stocking and ineffective then consider salt tabs vs florinef vs midodrine. Patient was notified for his tremors in past couple days that improved, if continues to have them then to follow-up with neurologist for further investigation. He had TSH of 0.87 on 08/2022 PT and OT are consulted Defer the rest of the medical measure the primary team The plan is discussed with patient and his nurse. Otherwise no additional neurological work-up. Notify neurology team if any further concerns. Time with Patient: Less than 30
[2023-02-24] MEDS: MIRTAZAPINE 15 MG TAB PO SCH (21:02)
[2023-02-24] MEDS: MELATONIN 5 MG TABLET PO SCH (21:02)
[2023-02-24] MEDS: OLANZapine 7.5 MG TAB PO SCH (21:02)
[2023-02-25] MEDS: SODIUM CHLORIDE 0.9% 1,000 ML IV SCH ×2 (04:30→21:56)
[2023-02-25] MEDS: THIAMINE 100 MG TAB PO SCH (08:43)
[2023-02-25] MEDS: METOPROLOL SUCCINATE (ER) 25 MG TAB.ER.24H PO SCH (08:43)
[2023-02-25] MEDS: ESCITALOPRAM 20 MG TAB PO SCH (08:44)
[2023-02-25] MEDS: LOSARTAN 50 MG TAB PO SCH (08:44)
[2023-02-25] MEDS: MELATONIN 5 MG TABLET PO SCH (20:53)
[2023-02-25] MEDS: OLANZapine 7.5 MG TAB PO SCH (20:53)
[2023-02-25] MEDS: MIRTAZAPINE 15 MG TAB PO SCH (20:53)
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
[2023-02-26] MEDS: THIAMINE 100 MG TAB PO SCH (08:53)
[2023-02-26] MEDS: LOSARTAN 50 MG TAB PO SCH (08:53)
[2023-02-26] MEDS: ESCITALOPRAM 20 MG TAB PO SCH (08:53)
[2023-02-26] MEDS: METOPROLOL SUCCINATE (ER) 25 MG TAB.ER.24H PO SCH (08:53)
[2023-02-26] MEDS: ALPRAZolam 0.25 MG TAB PO PRN ×2 (08:57→20:18)
[2023-02-26] MEDS: MELATONIN 5 MG TABLET PO SCH (20:18)
[2023-02-26] MEDS: OLANZapine 7.5 MG TAB PO SCH (20:18)
[2023-02-26] MEDS: MIRTAZAPINE 15 MG TAB PO SCH (20:18)
[2023-02-26] MEDS ORDERED: LOSARTAN 50 MG TAB PO SCH (21:00)
[2023-02-26 22:05] VITALS: TEMP 97.9
[2023-02-27] MEDS: SODIUM CHLORIDE 0.9% 1,000 ML IV SCH ×2 (01:19→01:20)
[2023-02-27 07:57] VITALS: BP 145/79; PULSE 66; RESP 22
[2023-02-27] MEDS: THIAMINE 100 MG TAB PO SCH (09:08)
[2023-02-27] MEDS: METOPROLOL SUCCINATE (ER) 25 MG TAB.ER.24H PO SCH (09:08)
[2023-02-27] MEDS: ESCITALOPRAM 20 MG TAB PO SCH (09:08)
[2023-02-27] MEDS: ALPRAZolam 0.25 MG TAB PO PRN (09:15)
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
== END 2023-02-27 14:43 | DRG 305 ==
LOC: EC 07:08 → 5NMEDONC 09:57
PROVIDERS: ADMIT Hospitalist; ATTEND Hospitalist
DX: I16.0 Hypertensive urgency (principal); I48.19 Other persistent atrial fibrillation; M06.9 Rheumatoid arthritis, unspecified; I11.0 Hypertensive heart disease with heart failure; F11.10 Opioid abuse, uncomplicated; G25.81 Restless legs syndrome; E86.1 Hypovolemia; F10.10 Alcohol abuse, uncomplicated; F43.23 Adjustment disorder with mixed anxiety and depressed mood; G47.33 Obstructive sleep apnea (adult) (pediatric); G89.4 Chronic pain syndrome; M79.7 Fibromyalgia; M21.371 Foot drop, right foot; I49.3 Ventricular premature depolarization; I95.1 Orthostatic hypotension; M54.9 Dorsalgia, unspecified; M79.671 Pain in right foot; R25.1 Tremor, unspecified; R26.81 Unsteadiness on feet; W06.XXXA Fall from bed, initial encounter; Z96.611 Presence of right artificial shoulder joint; Y92.003 Bedroom of unspecified non-institutional (private) residence as the place of occurrence of the external cause; Z86.16 Personal history of COVID-19; Z87.891 Personal history of nicotine dependence; Z91.51 Personal history of suicidal behavior; Z85.828 Personal history of other malignant neoplasm of skin; Z79.899 Other long term (current) drug therapy; Z81.1 Family history of alcohol abuse and dependence; Z81.8 Family history of other mental and behavioral disorders; Z82.49 Family history of ischemic heart disease and other diseases of the circulatory system
CPT/HCPCS: 36415; 70450; 70551; 71046; 80053; 80306; 83735; 84484; 85025; 85610; 85730; 93005; 96360; 96361; 99285

== ENCOUNTER 2023-04-16 15:12 | Observation (INO) | payer MEDICARE, OTHER ==
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
--- NOTE | 2023-04-16 16:37 | CT ---
EXAMINATION TYPE: CT brain wo con CT DLP: 1197.4 mGycm, Automated exposure control for dose reduction was used. DATE OF EXAM: 04/16/2023 4:19 PM COMPARISON: 02/23/2023.. CLINICAL INDICATION:Male, 67 years old with history of , Dizziness TECHNIQUE: Brain: Axial CT images of the brain were obtained with coronal and sagittal reformats created and rev iewed. Contrast used: None. Oral contrast used: None. FINDINGS: Brain: Extra-axial spaces: No abnormal extra-axial fluid collections. Ventricular system: Within normal limits Cerebral parenchyma: Remote left basal ganglia lacunar injury. No acute intraparenchymal hemorrhage o r mass effect. The singh-white junction is well differentiated. Cerebellum: Unremarkable. Mass effect: No evidence of midline shift. Intracranial vasculature: Atherosclerotic calcifications of the intracranial vessels. Soft tissues: Normal. Calvarium/osseous structures: No depressed skull fracture. Paranasal sinuses and mastoid air cells: Mild scattered paranasal sinus disease. Visualized orbits: Orbital contents are intact. IMPRESSION: No acute intracranial process.
[2023-04-16 18:13] LABS: ALT 21 U/L (4-49); AST 40 U/L (17-59); African American GFR (CKD) >90 (>60 ml/min/1.73 sqM); Albumin 4.6 g/dL (3.5-5.0); Alkaline Phosphatase 154 U/L (38-126); Anion Gap 18 mmol/L; Blood Urea Nitrogen 13 mg/dL (9-20); Carbon Dioxide 22 mmol/L (22-30); Chloride 97 mmol/L (98-107); Glucose 111 mg/dL (74-99); Non-African American GFR(CKD) >90 (>60 ml/min/1.73 sqM); Potassium 4.8 mmol/L (3.5-5.1); Sodium 137 mmol/L (137-145); Total Bilirubin 0.6 mg/dL (0.2-1.3); Total Protein 9.8 g/dL (6.3-8.2)
[2023-04-16 18:27] LABS: Anisocytosis Moderate; Basophils # (A) 0.1 k/uL (0-0.2); Basophils % (A) 1 %; Eosinophils # (A) 0.1 k/uL (0-0.7); Eosinophils % (A) 3 %; HCT 41.3 % (39.0-53.0); HGB 14.3 gm/dL (13.0-17.5); Lymphocytes # (A) 2.1 k/uL (1.0-4.8); Lymphocytes % (A) 37 %; MCH 33.2 pg (25.0-35.0); MCHC 34.6 g/dL (31.0-37.0); MCV 95.8 fL (80.0-100.0); Macrocytosis Slight; Mean Platelet Volume 7.3; Monocytes # (A) 0.4 k/uL (0-1.0); Monocytes % (A) 6 %; Neutrophils # (A) 2.8 k/uL (1.3-7.7); Neutrophils % (A) 50 %; Platelet Count 291 k/uL (150-450); RBC 4.31 m/uL (4.30-5.90); RDW 20.7 % (11.5-15.5); WBC 5.7 k/uL (3.8-10.6)
[2023-04-16 18:34] LABS: INR 0.9 (<1.2); Partial Thromboplastin Time 29.2 sec (22.0-30.0); Prothrombin Time 10.4 sec (10.0-12.5)
[2023-04-16 22:15] LABS: Appearance,Urine Cloudy (Clear); Bilirubin,Urine Negative (Negative); Blood,Urine Negative (Negative); Color,Urine Yellow; Glucose,Urine (UA) Negative (Negative); Hyaline Casts,Urine 43 /lpf (0-2); Ketones,Urine Negative (Negative); Leukocyte Esterase,Urine Negative (Negative); Mucus,Urine Many /hpf; Nitrite,Urine Negative (Negative); PH, Urine 5.5 (5.0-8.0); Protein,Urine 1+ (Negative); RBC,Urine 1 /hpf (0-5); Specific Gravity,Urine 1.023 (1.001-1.035); Squamous Epithelial Cell,Urine <1 /hpf (0-4); Urobilinogen,Urine <2.0 mg/dL (<2.0); WBC,Urine 1 /hpf (0-5)
[2023-04-16 22:20] LABS: Amphetamine Screen,Urine Not Detected (NotDetected); Barbiturate Screen,Urine Not Detected (NotDetected); Benzodiazepines Screen,Urine Not Detected (NotDetected); Cocaine Screen,Urine Not Detected (NotDetected); Methadone Screen, Urine Not Detected (NotDetected); Opiate Screen,Urine Not Detected (NotDetected); Oxycodone Screen, Urine Not Detected (NotDetected); Phencyclidine Screen,Urine Not Detected (NotDetected); Tricyclic Antidepressant,Urine Not Detected (NotDetected); Urn Cannabinoid Scrn Not Detected (NotDetected)
[2023-04-17] MEDS ORDERED: LORazepam 2 MG/ML INJ IV STA (01:06)
[2023-04-17] MEDS ORDERED: SODIUM CHLORIDE 0.9% 1,000 ML IV ONE (01:06)
[2023-04-17] MEDS ORDERED: NALOXONE 0.4 MG/ML 1 ML VIAL IV PRN (01:08)
[2023-04-17] MEDS ORDERED: LORazepam 2 MG/ML INJ IV PRN ×2 (01:09)
[2023-04-17] MEDS ORDERED: THIAMINE 100 MG/ML 2 ML VIAL IM STA (01:09)
[2023-04-17] MEDS ORDERED: ONDANSETRON 4 MG/2 ML VIAL IVP STA (01:14)
[2023-04-17] MEDS: SODIUM CHLORIDE 0.9% 1,000 ML IV SCH ×2 (01:16→22:02)
[2023-04-17] MEDS: LORazepam 2 MG/ML INJ IV PRN ×2 (05:29→09:01)
[2023-04-17] MEDS: MULTIVITAMINS, THERA 1 EACH TAB PO SCH (08:59)
[2023-04-17] MEDS: FOLIC ACID 1 MG TAB PO SCH (08:59)
[2023-04-17] MEDS: chlordiazePOXIDE 25 MG CAP PO PRN ×3 (11:31→22:04)
[2023-04-17] MEDS: METOPROLOL TARTRATE 25 MG TAB PO SCH ×3 (13:09→22:04)
--- NOTE | 2023-04-17 14:08 | P.CN ---
Psychiatric Consult - . Consult date: 04/17/23 Consult:: 04/17/23 13:59 This is a psychiatric assessment on Chuck Ramirez who is a 67-year-old male with long history of alcohol use disorder The patient was seen in the ER after he presented with the complaints of withdrawal symptoms and feelings of helplessness Patient admits that he had been depressed on and off for years but mainly related to his alcohol use He says that he had gone through a treatment program for 28 days and stayed abstinent for about 3 years Patient however states that he is being back to heavy drinking on and off for years He said that he did slowdown in the 2-3 weeks but otherwise was drinking nearly a liter of vodka a day He says that he has been falling and is afraid to go back to his apartment He says that he is looking forward to going to assisted living 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 He says that he has children and family but does not see them He denies that he is been taking any psychotropic medications and denies any significant treatment in the past He says that he did make a superficial scratch about 2 months ago on his left inner aspect of her upper arm although there were no visible injuries seen Patient currently denies that he has had some suicidal thoughts but no plan He denies any intention of harming himself but states that he wants to get better and wants to not live alone Past history personal social history as described about Patient remains somewhat vague and appears somewhat fatigued and wanting to sleep He denies any suicidal ideations but states that he does have occasional have thoughts He denies any intention of harming himself and states that he wants to get better Patient reports that he has had some chronic back problems for which she was started on opiates and then also started drinking heavily along with it Mental status examination: Reveals a elderly male who appears about his age Patient is alert and oriented to time place and person Speech is clear coherent and relevant Her speech also was somewhat feeble with the low pitch and voice Affect remains flat Thought processes are goal-directed sequential and logical Patient is alert and went to time place and person Patient denies any suicidal plans but states that he occasionally has at some thoughts Patient says that he wants help and would prefer to be in a structured living setting because of his recurrent falls Cognitively appears be intact Diagnostic impression: Adjustment disorder with mixed emotional features Mood disorder most likely related to alcohol use Alcohol use disorder severe chronic Plan: The patient does not meet the criteria for inpatient psychiatric hospitalization The patient appears to be a good candidate for acute detox with the monitoring with CIWA for alcohol Patient's depression seems to most likely related to his heavy alcohol use and should be monitored closely over the next week as the patient was or peers of detox and abstinence We'll also meantime recommend starting the patient on Zoloft 50 mg daily and Remeron 7.5 mg at nighttime both for insomnia and depression Would benefit from eventual referral to and inpatient substance abuse program nutrition services worker to be involved regarding placement as patient is requesting for assisted living We'll also recommend adding gabapentin and Campral as he proceeds in his detox protocol We'll follow this patient along with you Thank you very much for Referral please refer to contact me if any further questions Donta Goodwin M.D.
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
[2023-04-18] MEDS: chlordiazePOXIDE 25 MG CAP PO PRN ×5 (03:37→21:57)
[2023-04-18] MEDS: SODIUM CHLORIDE 0.9% 1,000 ML IV SCH ×2 (05:10→18:49)
[2023-04-18] MEDS: FOLIC ACID 1 MG TAB PO SCH (08:06)
[2023-04-18] MEDS: METOPROLOL TARTRATE 25 MG TAB PO SCH ×2 (08:06→21:57)
[2023-04-18] MEDS: MULTIVITAMINS, THERA 1 EACH TAB PO SCH (08:06)
[2023-04-18] MEDS: THIAMINE 100 MG TAB PO SCH (08:06)
[2023-04-18] MEDS: SERTRALINE 50 MG TAB PO SCH (12:47)
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
[2023-04-18] MEDS: MIRTAZAPINE 15 MG TAB PO SCH (21:57)
[2023-04-19] MEDS: SODIUM CHLORIDE 0.9% 1,000 ML IV SCH (03:17)
[2023-04-19] MEDS: chlordiazePOXIDE 25 MG CAP PO PRN ×2 (03:21→09:55)
[2023-04-19] MEDS: MULTIVITAMINS, THERA 1 EACH TAB PO SCH (09:55)
[2023-04-19] MEDS: METOPROLOL TARTRATE 25 MG TAB PO SCH ×2 (09:55→19:54)
[2023-04-19] MEDS: THIAMINE 100 MG TAB PO SCH (09:55)
[2023-04-19] MEDS: SERTRALINE 50 MG TAB PO SCH (09:55)
[2023-04-19] MEDS: FOLIC ACID 1 MG TAB PO SCH (09:55)
[2023-04-19] MEDS: MIRTAZAPINE 15 MG TAB PO SCH (19:54)
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
[2023-04-20] MEDS: THIAMINE 100 MG TAB PO SCH (09:21)
[2023-04-20] MEDS: SERTRALINE 50 MG TAB PO SCH (09:21)
[2023-04-20] MEDS: FOLIC ACID 1 MG TAB PO SCH (09:21)
[2023-04-20] MEDS: MULTIVITAMINS, THERA 1 EACH TAB PO SCH (09:21)
[2023-04-20] MEDS: METOPROLOL TARTRATE 25 MG TAB PO SCH ×2 (09:21→22:46)
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
[2023-04-20] MEDS: MIRTAZAPINE 15 MG TAB PO SCH (22:46)
[2023-04-21] MEDS: METOPROLOL TARTRATE 25 MG TAB PO SCH ×2 (09:03→20:46)
[2023-04-21] MEDS: FOLIC ACID 1 MG TAB PO SCH (09:03)
[2023-04-21] MEDS: MULTIVITAMINS, THERA 1 EACH TAB PO SCH (09:03)
[2023-04-21] MEDS: SERTRALINE 50 MG TAB PO SCH (09:03)
[2023-04-21] MEDS: THIAMINE 100 MG TAB PO SCH (09:03)
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
[2023-04-21] MEDS: MIRTAZAPINE 15 MG TAB PO SCH (20:46)
[2023-04-22] MEDS: SERTRALINE 50 MG TAB PO SCH (09:13)
[2023-04-22] MEDS: FOLIC ACID 1 MG TAB PO SCH (09:13)
[2023-04-22] MEDS: METOPROLOL TARTRATE 25 MG TAB PO SCH ×2 (09:13→20:07)
[2023-04-22] MEDS: MULTIVITAMINS, THERA 1 EACH TAB PO SCH (09:13)
[2023-04-22] MEDS: THIAMINE 100 MG TAB PO SCH (09:13)
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
[2023-04-22] MEDS: MIRTAZAPINE 15 MG TAB PO SCH (20:06)
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
[2023-04-23] MEDS: SERTRALINE 50 MG TAB PO SCH (08:05)
[2023-04-23] MEDS: THIAMINE 100 MG TAB PO SCH (08:05)
[2023-04-23] MEDS: METOPROLOL TARTRATE 25 MG TAB PO SCH ×2 (08:05→20:04)
[2023-04-23] MEDS: FOLIC ACID 1 MG TAB PO SCH (08:05)
[2023-04-23] MEDS: MULTIVITAMINS, THERA 1 EACH TAB PO SCH (08:05)
[2023-04-23 13:42] VITALS: BMI 25.7
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
[2023-04-23] MEDS: MIRTAZAPINE 15 MG TAB PO SCH (20:05)
[2023-04-24 03:16] VITALS: RESP 18
[2023-04-24] MEDS: THIAMINE 100 MG TAB PO SCH (09:06)
[2023-04-24] MEDS: MULTIVITAMINS, THERA 1 EACH TAB PO SCH (09:06)
[2023-04-24] MEDS: METOPROLOL TARTRATE 25 MG TAB PO SCH (09:06)
[2023-04-24] MEDS: FOLIC ACID 1 MG TAB PO SCH (09:06)
[2023-04-24] MEDS: SERTRALINE 50 MG TAB PO SCH (09:06)
[2023-04-24 09:28] VITALS: BP 116/73; PULSE 66; TEMP 98.5
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
== END 2023-04-24 12:38 ==
LOC: EC 15:12 → 6NMEDSUR 04-17 01:10
PROVIDERS: ADMIT Hospitalist; ATTEND Hospitalist
DX: F10.239 Alcohol dependence with withdrawal, unspecified (principal); F43.23 Adjustment disorder with mixed anxiety and depressed mood; T50.906A Underdosing of unspecified drugs, medicaments and biological substances, initial encounter; Z91.128 Patient's intentional underdosing of medication regimen for other reason; I48.19 Other persistent atrial fibrillation; I11.0 Hypertensive heart disease with heart failure; I50.9 Heart failure, unspecified; G25.81 Restless legs syndrome; G47.33 Obstructive sleep apnea (adult) (pediatric); M06.9 Rheumatoid arthritis, unspecified; R62.7 Adult failure to thrive; M79.7 Fibromyalgia; M21.371 Foot drop, right foot; K59.09 Other constipation; M62.81 Muscle weakness (generalized); G89.4 Chronic pain syndrome; M79.671 Pain in right foot; R26.9 Unspecified abnormalities of gait and mobility; Z86.16 Personal history of COVID-19; Z85.828 Personal history of other malignant neoplasm of skin; Z86.19 Personal history of other infectious and parasitic diseases; Z96.611 Presence of right artificial shoulder joint; Z87.891 Personal history of nicotine dependence; Z98.890 Other specified postprocedural states; Z82.49 Family history of ischemic heart disease and other diseases of the circulatory system
CPT/HCPCS: 96361 ×3; 96376; 82075; 96372; 96374; 96375; 99285; 36415; 93005; 97530 ×2; 97162; 97166; 80053; 84484; 85025; 85610; 85730; 81001; 80306; 70450; G0378 ×8; J2060; J3411; J2405

== ENCOUNTER 2023-05-07 09:17 | Inpatient (IN) | payer MEDICARE, OTHER ==
[2023-05-07 10:13] LABS: Anisocytosis Slight; Basophils # (A) 0.1 k/uL (0-0.2); Basophils % (A) 1 %; Eosinophils # (A) 0.1 k/uL (0-0.7); Eosinophils % (A) 2 %; HCT 39.9 % (39.0-53.0); Lymphocytes # (A) 1.3 k/uL (1.0-4.8); Lymphocytes % (A) 16 %; MCH 33.2 pg (25.0-35.0); MCV 94.9 fL (80.0-100.0); Mean Platelet Volume 7.9; Monocytes # (A) 0.6 k/uL (0-1.0); Monocytes % (A) 7 %; Neutrophils # (A) 5.8 k/uL (1.3-7.7); Neutrophils % (A) 72 %; Platelet Count 460 k/uL (150-450); RDW 18.2 % (11.5-15.5); WBC 8.1 k/uL (3.8-10.6)
[2023-05-07 11:45] LABS: ALT 28 U/L (4-49); AST 36 U/L (17-59); African American GFR (CKD) >90 (>60 ml/min/1.73 sqM); Albumin 4.2 g/dL (3.5-5.0); Alcohol <10 mg/dL; Alkaline Phosphatase 199 U/L (38-126); Anion Gap 14 mmol/L; Blood Urea Nitrogen 12 mg/dL (9-20); Calcium 9.4 mg/dL (8.4-10.2); Carbon Dioxide 21 mmol/L (22-30); Chloride 100 mmol/L (98-107); Glucose 141 mg/dL (74-99); Lipase 32 U/L (23-300); Magnesium 1.6 mg/dL (1.6-2.3); Non-African American GFR(CKD) >90 (>60 ml/min/1.73 sqM); Potassium 4.5 mmol/L (3.5-5.1); Sodium 135 mmol/L (137-145); Total Bilirubin 0.5 mg/dL (0.2-1.3); Total Protein 8.9 g/dL (6.3-8.2)
[2023-05-07] MEDS ORDERED: LORazepam 2 MG/ML INJ IV PRN ×2 (13:39)
[2023-05-07] MEDS: SODIUM CHLORIDE 0.9% 1,000 ML IV STA (14:04)
[2023-05-07] MEDS: MORPHINE SULFATE 4 MG/ML SYRINGE IVP STA (14:05)
[2023-05-07] MEDS: LORazepam 2 MG/ML INJ IV STA (14:06)
[2023-05-07] MEDS: LIDOCAINE 4% PATCH TOPICAL STA (14:08)
[2023-05-07] MEDS: THIAMINE 100 MG/ML 2 ML VIAL IM STA (14:20)
--- NOTE | 2023-05-07 15:02 | XR ---
EXAMINATION TYPE: XR ribs LT w pa chest xray, 6 views DATE OF EXAM: 05/07/2023 Comparison: 02/23/2023 Clinical History: 67-year-old male chest wall pain Findings: Reverse right shoulder arthroplasty. Plate and screw fixation left clavicular shaft. Heart normal siz e. Tortuous thoracic aorta. Patchy medial left basilar opacity. Some patchy density at the periphery of the left base as well. No pleural effusion seen. No appreciable pneumothorax. There is subtle barbara ical irregularity involving the left lateral ninth and 10th ribs. Otherwise, no displaced left rib fr acture seen. Impression: 1. Patchy left basilar opacity could represent some patchy atelectasis/infiltrate or mild pulmonary c ontusion. 2. Suspect subtle nondisplaced fractures of the left lateral ninth and 10th ribs. Correlate for any p oint tenderness here.
[2023-05-07] MEDS ORDERED: NALOXONE 0.4 MG/ML 1 ML VIAL IV PRN (15:19)
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
[2023-05-07] MEDS ORDERED: MELATONIN 3 MG TABLET PO PRN (15:23)
[2023-05-07] MEDS: FOLIC ACID 1 MG TAB PO SCH (16:37)
[2023-05-07] MEDS: AZITHROMYCIN 500 MG in SODIUM CHLORIDE 0.9% 250 ML IVPB STA (16:38)
[2023-05-07] MEDS: SERTRALINE 50 MG TAB PO SCH (16:38)
[2023-05-07] MEDS: THIAMINE 100 MG TAB PO SCH (16:38)
[2023-05-07] MEDS: MORPHINE SULFATE 4 MG/ML SYRINGE IV PRN (16:39)
[2023-05-07] MEDS: SODIUM CHLORIDE 0.9% 1,000 ML IV SCH (16:52)
[2023-05-07] MEDS: LORazepam 2 MG/ML INJ IV PRN (17:02)
[2023-05-07] MEDS: HYDROcodone/APAP 7.5-325MG 1 EACH TAB PO PRN (19:31)
[2023-05-07] MEDS: METOPROLOL TARTRATE 25 MG TAB PO SCH (21:16)
[2023-05-08] MEDS: KETOROLAC 15 MG/ML 1 ML VIAL IVP PRN ×2 (08:19→20:40)
[2023-05-08] MEDS ORDERED: THIAMINE 100 MG TAB PO SCH (09:00)
[2023-05-08] MEDS: METOPROLOL TARTRATE 25 MG TAB PO SCH (09:21)
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
[2023-05-08 11:17] LABS: Basophils # (A) 0.08 X 10*3/uL (0.00-0.10); Basophils % (A) 1.5 %; Eosinophils # (A) 0.23 X 10*3/uL (0.04-0.35); Eosinophils % (A) 4.4 %; HCT 33.7 % (39.6-50.0); HGB 12.4 g/dL (13.0-17.0); Lymphocytes # (A) 1.16 X 10*3/uL (0.90-5.00); Lymphocytes % (A) 22.3 %; MCHC 36.8 g/dL (32.0-37.0); Mean Platelet Volume 9.8 FL (9.5-12.2); Monocytes # (A) 0.83 X 10*3/uL (0.20-1.00); Monocytes % (A) 15.9 %; NRBC Per 100 WBC 0 X 10*3/uL (0.00-0.01); Neutrophils # (A) 2.89 X 10*3/uL (1.80-7.70); Neutrophils % (A) 55.5 %; Platelet Count 302 X 10*3/uL (140-440); RBC 3.44 X 10*6/uL (4.40-5.60); RDW 15.6 % (11.5-14.5); WBC 5.21 X 10*3/uL (4.50-10.00)
[2023-05-08 11:37] LABS: ALT 17 U/L (10-49); AST 29 U/L (14-35); Albumin 3.4 g/dL (3.8-4.9); Albumin/Globulin Ratio 0.89 Ratio (1.60-3.17); Alkaline Phosphatase 152 U/L (41-126); BUN/Creat Ratio 12.86 Ratio (12.00-20.00); Calcium 8.6 mg/dL (8.7-10.3); Chloride 99 mmol/L (96-109); Globulin 3.8 g/dL (1.6-3.3); Glucose 111 mg/dL (70-110); Potassium 4.3 mmol/L (3.5-5.5); Sodium 135 mmol/L (135-145); Total Bilirubin 0.4 mg/dL (0.3-1.2); Total Protein 7.2 g/dL (6.2-8.2)
[2023-05-08] MEDS: AZITHROMYCIN 500 MG in SODIUM CHLORIDE 0.9% 250 ML IVPB SCH (11:37)
[2023-05-08] MEDS: ACETAMINOPHEN TAB 325 MG TAB PO PRN (11:45)
--- NOTE | 2023-05-08 13:30 | P.PN ---
Subjective Progress Note Date: 05/08/23 * 67-year-old gentleman with past medical history for atrial fibrillation, history of hypertension, depression, tremors history of alcohol use drinking about 1 L of vodka a day, rheumatoid arthritis, presents to the emergency department with complains of fall 1 day prior to admission. Patient had bruising on the left anterior chest wall. Patient did except that he has been drinking a lot of alcohol and he was concerned about alcohol withdrawal. His last drink was 24 hours prior to presentation. Patient was complaining of concern for impending alcohol withdrawal. At the time of presentation in ER patient was noted to have right-sided rib pain, cough, tachycardia. * Workup initiated in ER included a chest x-ray which showed concern for left basilar opacity, nondisplaced fracture of left ninth and 10th rib * EKG obtained in ER showed sinus tachycardia with ectopic beats and premature ventricular contractions * Blood work obtained in ER included WBC which showed hemoglobin of 14, WBC 8.1, platelet count 460, serum chemistry obtained showed sodium 135 potassium 4.5 carbon dioxide 20 1B on 12 creatinine 0.67. Lipase of 32 serum alcohol level less than 10 * Patient was started on IV antibiotics including Rocephin and azithromycin, given fluid resuscitation with 1 L of fluid bolus and started on alcohol withdrawal protocol * 05/08/2023: Patient seen and evaluated bedside,, follow-up blood work ordered will need physical therapy occupational therapy evaluation continue to monitor for alcohol withdrawal. Patient does complain of feeling anxious and tremulous. Continue with IV hydration was exertional to to use Ativan as needed. Continue telemetry monitoring patient remains on room air REVIEW OF SYSTEMS: Tremors, withdrawal from alcohol, generalized weakness, recurrent falls, musculoskeletal chest pain CONSTITUTIONAL: No fever, no malaise, no fatigue. HEENT: No recent visual problems or hearing problems. Denied any sore throat. CARDIOVASCULAR: Tremors, withdrawal from alcohol, generalized weakness, recurrent falls, musculoskeletal chest pain PULMONARY: No shortness of breath, no cough, no hemoptysis. GASTROINTESTINAL: No diarrhea, no nausea, no vomiting, no abdominal pain. NEUROLOGICAL: No headaches, no weakness, no numbness. HEMATOLOGICAL: Denies any bleeding or petechiae. GENITOURINARY: Denies any burning micturition, frequency, or urgency. MUSCULOSKELETAL/RHEUMATOLOGICAL: Denies any joint pain, swelling, or any muscle pain. ENDOCRINE: Denies any polyuria or polydipsia. PHYSICAL EXAMINATION: GENERAL: The patient is alert and oriented x3, tremulous, ill appearance HEENT: Pupils are round and equally reacting to light. EOMI Normocephalic, atraumatic. No pharyngeal erythema. No thyromegaly. CARDIOVASCULAR: S1 and S2 present. Regular rhythm, tachycardia noted PULMONARY: Chest is clear to auscultation, no wheezing or crackles. ABDOMEN: Soft, nontender, nondistended, normoactive bowel sounds. No palpable o rganomegaly. MUSCULOSKELETAL: Left anterior chest wall tender on palpation EXTREMITIES: No cyanosis, clubbing, or pedal edema. NEUROLOGICAL: Gross neurological examination did not reveal any focal deficits. SKIN: No rashes. Objective - Vital Signs Vital signs: Vital Signs Temp 97.7 F 05/08/23 07:58 Pulse 94 05/08/23 07:58 Resp 19 05/08/23 07:58 BP 153/99 05/08/23 07:58 Pulse Ox 88 L 05/08/23 07:58 FiO2 Intake & Output 05/07/23 05/08/23 05/08/23 18:59 06:59 18:59 Weight 83.915 kg - Labs CBC & Chem 7: 05/08/23 07:45 05/08/23 07:45 Labs: Abnormal Lab Results - Last 24 Hours (Table) 05/07/23 05/07/23 Range/Units 09:37 09:37 RBC 4.20 L (4.30-5.90) m/uL RDW 18.2 H (11.5-15.5) % Plt Count 460 H (150-450) k/uL Sodium 135 L (137-145) mmol/L Carbon Dioxide 21 L (22-30) mmol/L Glucose 141 H (74-99) mg/dL Alkaline Phosphatase 199 H (38-126) U/L Total Protein 8.9 H (6.3-8.2) g/dL Assessment and Plan Assessment: Assessment and plan * Left lower lobe community-acquired pneumonia * Alcohol use disorder with withdrawal * Status post fall with multiple rib fracture * Chronic tremors follows up with Dr. Schneider * Hypertension * Restless leg syndrome * History of mood disorder * Chronic based dysfunction * Sleep apnea uses CPAP * Rheumatoid arthritis * Chronic pain syndrome * Chronic atrial fibrillation * In regards to left lower lobe pneumonia, chest x-ray reviewed, continue patient on Rocephin and azithromycin to complete 5 day course Day 2/ * In regards to alcohol use disorder, continue to use Ativan as needed for withdrawal, social economist consult * In regards to fall and rib fracture chest x-ray reviewed, continue with pain control * In regards to hypertension number continue patient on metoprolol * In regards to mood disorder continue Zoloft * In regards to pain control continue patient on IV Dilantin ordered, Palmer as needed, Tylenol as needed monitor for excessive sedation * Maintain maximum fall precautions while inpatient * CODE STATUS is full code Time with Patient: Greater than 30
[2023-05-09 10:23] LABS: BUN/Creat Ratio 14.38 Ratio (12.00-20.00); Blood Urea Nitrogen 11.5 mg/dL (9.0-27.0); Calcium 8.4 mg/dL (8.7-10.3); Carbon Dioxide 23.4 mmol/L (21.6-31.8); Chloride 105 mmol/L (96-109); Glucose 89 mg/dL (70-110); Potassium 4.3 mmol/L (3.5-5.5); Sodium 139 mmol/L (135-145)
[2023-05-09] MEDS: ENOXAPARIN 40 MG/0.4 ML SYRINGE SQ SCH (11:14)
[2023-05-09 12:07] LABS: HCT 34.4 % (39.6-50.0); HGB 11.2 g/dL (13.0-17.0); MCH 31.2 pg (27.0-32.0); MCHC 32.6 g/dL (32.0-37.0); MCV 95.8 FL (80.0-97.0); Mean Platelet Volume 9.3 FL (9.5-12.2); NRBC Per 100 WBC 0 X 10*3/uL (0.00-0.01); Platelet Count 245 X 10*3/uL (140-440); RBC 3.59 X 10*6/uL (4.40-5.60); RDW 15.4 % (11.5-14.5); WBC 4.36 X 10*3/uL (4.50-10.00)
--- NOTE | 2023-05-09 12:37 | P.PN ---
Subjective Progress Note Date: 05/09/23 * 67-year-old gentleman with past medical history for atrial fibrillation, history of hypertension, depression, tremors history of alcohol use drinking about 1 L of vodka a day, rheumatoid arthritis, presents to the emergency department with complains of fall 1 day prior to admission. Patient had bruising on the left anterior chest wall. Patient did except that he has been drinking a lot of alcohol and he was concerned about alcohol withdrawal. His last drink was 24 hours prior to presentation. Patient was complaining of concern for impending alcohol withdrawal. At the time of presentation in ER patient was noted to have right-sided rib pain, cough, tachycardia. * Workup initiated in ER included a chest x-ray which showed concern for left basilar opacity, nondisplaced fracture of left ninth and 10th rib * EKG obtained in ER showed sinus tachycardia with ectopic beats and premature ventricular contractions * Blood work obtained in ER included WBC which showed hemoglobin of 14, WBC 8.1, platelet count 460, serum chemistry obtained showed sodium 135 potassium 4.5 carbon dioxide 20 1B on 12 creatinine 0.67. Lipase of 32 serum alcohol level less than 10 * Patient was started on IV antibiotics including Rocephin and azithromycin, given fluid resuscitation with 1 L of fluid bolus and started on alcohol withdrawal protocol * 05/08/2023: Patient seen and evaluated bedside,, follow-up blood work ordered will need physical therapy occupational therapy evaluation continue to monitor for alcohol withdrawal. Patient does complain of feeling anxious and tremulous. Continue with IV hydration was exertional to to use Ativan as needed. Continue telemetry monitoring patient remains on room air * 05/09/2023: Patient seen and evaluated bedside, patient does complain of discomfort side of back fracture, Norcoto oxycodone, patient not liking for alcohol withdrawal and start given Atrovent, started on hydroxyzine for anxiety. Patient continued to be treated with Rocephin and azithromycin CRP elevated at 5, continue total 5 day course of antibiotic REVIEW OF SYSTEMS: Tremors, withdrawal from alcohol, generalized weakness, recurrent falls, musculoskeletal chest pain CONSTITUTIONAL: No fever, no malaise, no fatigue. HEENT: No recent visual problems or hearing problems. Denied any sore throat. CARDIOVASCULAR: Tremors, withdrawal from alcohol, generalized weakness, recurrent falls, musculoskeletal chest pain PULMONARY: No shortness of breath, no cough, no hemoptysis. GASTROINTESTINAL: No diarrhea, no nausea, no vomiting, no abdominal pain. NEUROLOGICAL: No headaches, no weakness, no numbness. HEMATOLOGICAL: Denies any bleeding or petechiae. GENITOURINARY: Denies any burning micturition, frequency, or urgency. MUSCULOSKELETAL/RHEUMATOLOGICAL: Denies any joint pain, swelling, or any muscle pain. ENDOCRINE: Denies any polyuria or polydipsia. PHYSICAL EXAMINATION: GENERAL: The patient is alert and oriented x3, tremulous, ill appearance HEENT: Pupils are round and equally reacting to light. EOMI Normocephalic, atraumatic. No pharyngeal erythema. No thyromegaly. CARDIOVASCULAR: S1 and S2 present. Regular rhythm, rate within normal limits PULMONARY: Chest is clear to auscultation, no wheezing or crackles. ABDOMEN: Soft, nontender, nondistended, normoactive bowel sounds. No palpable organomegaly. MUSCULOSKELETAL: Left anterior chest wall tender on palpation EXTREMITIES: No cyanosis, clubbing, or pedal edema. NEUROLOGICAL: Gross neurological examination did not reveal any focal deficits. SKIN: No rashes. Objective - Vital Signs Vital signs: Vital Signs Temp 97.6 F 05/09/23 07:30 Pulse 62 05/09/23 07:30 Resp 16 05/09/23 08:39 BP 154/103 05/09/23 07:30 Pulse Ox 97 05/09/23 07:30 FiO2 Intake & Output 05/08/23 05/09/23 05/09/23 18:59 06:59 18:59 Intake Total 118 Output Total 920 967 [id number] Balance 18 -275 -1000 Weight 83.915 kg Intake: Oral 118 Output: Urine 923 271 [id number] Other: Voiding Method External Catheter External Catheter External Catheter - Labs CBC & Chem 7: 05/09/23 05:49 05/09/23 05:49 Labs: Abnormal Lab Results - Last 24 Hours (Table) 05/09/23 05/09/23 Range/Units 05:49 05:49 WBC 4.36 L (4.50-10.00) X 10*3/uL RBC 3.59 L (4.40-5.60) X 10*6/uL Hgb 11.2 L (13.0-17.0) g/dL Hct 34.4 L (39.6-50.0) % RDW 15.4 H (11.5-14.5) % MPV 9.3 L (9.5-12.2) FL Calcium 8.4 L (8.7-10.3) mg/dL C-Reactive Protein 5.00 H (0.00-0.80) mg/dL Microbiology - Last 24 Hours (Table) 05/07/23 16:30 Blood Culture - Preliminary Blood Assessment and Plan Assessment: Assessment and plan * Left lower lobe community-acquired pneumonia * Alcohol use disorder with withdrawal * Status post fall with multiple rib fracture * Chronic tremors follows up with Dr. Schneider * Hypertension * Restless leg syndrome * History of mood disorder * Chronic based dysfunction * Sleep apnea uses CPAP * Rheumatoid arthritis * Chronic pain syndrome * Chronic atrial fibrillation * In regards to left lower lobe pneumonia, chest x-ray reviewed, continue patient on Rocephin and azithromycin to complete 5 day course Day 3/ * In regards to alcohol use disorder, continue to use Ativan as needed for withdrawal, social worker assistant consult * In regards to fall and rib fracture chest x-ray reviewed, continue with pain control * In regards to hypertension number continue patient on metoprolol * In regards to mood disorder continue Zoloft * In regards to pain control continue patient on Oxy , IV toradol , Tylenol as needed monitor for excessive sedation * Maintain maximum fall precautions while inpatient * CODE STATUS is full code
[2023-05-09] MEDS: hydrOXYzine HCL 25 MG TAB PO SCH (14:48)
[2023-05-10] MEDS: ONDANSETRON 4 MG/2 ML VIAL IVP PRN (09:10)
[2023-05-10 12:45] LABS: BUN/Creat Ratio 9.57 Ratio (12.00-20.00); Blood Urea Nitrogen 6.7 mg/dL (9.0-27.0); Carbon Dioxide 24.6 mmol/L (21.6-31.8); Chloride 100 mmol/L (96-109); Glucose 99 mg/dL (70-110); Potassium 3.9 mmol/L (3.5-5.5); Sodium 136 mmol/L (135-145)
[2023-05-10 13:57] LABS: HCT 36.2 % (39.6-50.0); HGB 12.2 g/dL (13.0-17.0); MCH 31.4 pg (27.0-32.0); MCHC 33.7 g/dL (32.0-37.0); MCV 93.3 FL (80.0-97.0); Mean Platelet Volume 9.6 FL (9.5-12.2); NRBC Per 100 WBC 0 X 10*3/uL (0.00-0.01); Platelet Count 272 X 10*3/uL (140-440); RBC 3.88 X 10*6/uL (4.40-5.60)
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
[2023-05-10] MEDS: MIRTAZAPINE 15 MG TAB PO SCH (21:04)
[2023-05-11 07:37] VITALS: BP 136/79; PULSE 51; RESP 16; TEMP 98.2
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
== END 2023-05-11 15:00 | disposition home or self-care (01) | DRG 896 ==
LOC: EC 09:17 → 6NMEDSUR 15:20 → OBSVTOIN 05-08 09:49
PROVIDERS: ADMIT Hospitalist; ATTEND Hospitalist
PROC: HZ2ZZZZ Detoxification Services for Substance Abuse Treatment (ICD-10-PCS; principal; 2023-05-07)
DX: F10.239 Alcohol dependence with withdrawal, unspecified (principal); J15.69 Pneumonia due to other Gram-negative bacteria; J44.0 Chronic obstructive pulmonary disease with (acute) lower respiratory infection; S22.42XA Multiple fractures of ribs, left side, initial encounter for closed fracture; I48.19 Other persistent atrial fibrillation; B97.4 Respiratory syncytial virus as the cause of diseases classified elsewhere; F10.288 Alcohol dependence with other alcohol-induced disorder; I11.0 Hypertensive heart disease with heart failure; I50.9 Heart failure, unspecified; M06.9 Rheumatoid arthritis, unspecified; G25.81 Restless legs syndrome; F43.23 Adjustment disorder with mixed anxiety and depressed mood; G25.2 Other specified forms of tremor; G47.33 Obstructive sleep apnea (adult) (pediatric); M79.7 Fibromyalgia; G89.4 Chronic pain syndrome; I49.3 Ventricular premature depolarization; I49.49 Other premature depolarization; R29.6 Repeated falls; M79.671 Pain in right foot; K59.09 Other constipation; M21.371 Foot drop, right foot; W19.XXXA Unspecified fall, initial encounter; Y90.0 Blood alcohol level of less than 20 mg/100 ml; Z96.611 Presence of right artificial shoulder joint; Z87.891 Personal history of nicotine dependence; Z91.81 History of falling; Z85.828 Personal history of other malignant neoplasm of skin; Z86.16 Personal history of COVID-19
CPT/HCPCS: 36415; 80048; 80053; 80320; 83690; 83735; 84145; 85025; 85027; 86140; 87040; 87636; 93005; 96361; 96365; 96372; 96375; 96376; 99285

== ENCOUNTER 2023-06-19 03:10 | Inpatient (IN) | payer MEDICARE, OTHER ==
[2023-06-19 03:41] LABS: Basophils # (A) 0.1 k/uL (0-0.2); Basophils % (A) 1 %; Eosinophils # (A) 0.2 k/uL (0-0.7); Eosinophils % (A) 4 %; HCT 43.3 % (39.0-53.0); HGB 15.1 gm/dL (13.0-17.5); Lymphocytes # (A) 1.6 k/uL (1.0-4.8); Lymphocytes % (A) 24 %; MCH 33.8 pg (25.0-35.0); MCHC 34.9 g/dL (31.0-37.0); MCV 96.9 fL (80.0-100.0); Mean Platelet Volume 8.1; Monocytes # (A) 0.4 k/uL (0-1.0); Monocytes % (A) 7 %; Neutrophils # (A) 4.2 k/uL (1.3-7.7); Neutrophils % (A) 63 %; Platelet Count 208 k/uL (150-450); RBC 4.47 m/uL (4.30-5.90); RDW 15.9 % (11.5-15.5); WBC 6.7 k/uL (3.8-10.6)
[2023-06-19] MEDS: THIAMINE 100 MG/ML 2 ML VIAL IM STA (03:46)
[2023-06-19] MEDS: LORazepam 2 MG/ML INJ IV PRN ×3 (03:46→05:06)
[2023-06-19 03:57] LABS: INR 0.9 (<1.2); Partial Thromboplastin Time 28.3 sec (22.0-30.0); Prothrombin Time 10.5 sec (10.0-12.5)
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
[2023-06-19 04:11] LABS: African American GFR (CKD) >90 (>60 ml/min/1.73 sqM); Alcohol <10 mg/dL; Anion Gap 9 mmol/L; Blood Urea Nitrogen 7 mg/dL (9-20); Calcium 8.7 mg/dL (8.4-10.2); Carbon Dioxide 23 mmol/L (22-30); Chloride 102 mmol/L (98-107); Glucose 151 mg/dL (74-99); Magnesium 1.7 mg/dL (1.6-2.3); Non-African American GFR(CKD) >90 (>60 ml/min/1.73 sqM); Potassium 3.4 mmol/L (3.5-5.1); Sodium 134 mmol/L (137-145)
[2023-06-19] MEDS: diphenhydrAMINE 50 MG/ML 1 ML VIAL IVP STA (04:39)
--- NOTE | 2023-06-19 04:48 | XR ---
EXAM: XR Chest, 1 View CLINICAL HISTORY: Palpitations TECHNIQUE: Frontal view of the chest. COMPARISON: 05/07/2023. FINDINGS: Heart is mildly enlarged. No CHF. Minimal bibasilar atelectasis. No pleural effusion or pneumothorax. Unchanged right shoulder arthroplasty and left clavicle fixation hardware. IMPRESSION: Minimal bibasilar atelectasis. Otherwise no change.
[2023-06-19] MEDS ORDERED: NALOXONE 0.4 MG/ML 1 ML VIAL IV PRN (04:53)
[2023-06-19] MEDS: SODIUM CHLORIDE 0.9% 1,000 ML IV SCH (05:07)
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
[2023-06-19 08:56] LABS: Glucose,Whole Blood 115 mg/dL (70-110)
[2023-06-19] MEDS: PANTOPRAZOLE 40 MG/10 ML VIAL IVP SCH (09:06)
[2023-06-19] MEDS: DEXMEDETOMIDINE/0.9% NACL(PMX) 400 MCG in EMPTY BAG 1 BAG IV SCH (09:09)
[2023-06-19] MEDS: SERTRALINE 100 MG TAB PO SCH (10:31)
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
[2023-06-19 14:57] VITALS: BMI 25.7
[2023-06-19] MEDS: ENOXAPARIN 40 MG/0.4 ML SYRINGE SQ SCH (15:13)
[2023-06-19] MEDS: SODIUM CHLORIDE 0.9% 1,000 ML IV ONE (15:13)
[2023-06-19] MEDS: PIPERACILLIN-TAZOBACTAM 3.375 GM in SODIUM CHLORIDE 0.9% 100 ML IVPB SCH (16:15)
[2023-06-19] MEDS ORDERED: Potassium Replacement Protocol 1 EACH MISC MISCELLANE PRN (17:24)
[2023-06-19] MEDS: POTASSIUM CHLORIDE 10 MEQ in WATER FOR INJECTION 1 100ML.BAG IVPB SCH (17:30)
[2023-06-19] MEDS: MIRTAZAPINE 15 MG TAB PO SCH (20:50)
[2023-06-19] MEDS: METOPROLOL TARTRATE 25 MG TAB PO SCH (20:50)
[2023-06-19] MEDS: cloNIDine 0.1 MG/24HR PATCH TRANSDERM SCH (22:13)
[2023-06-20 04:29] LABS: Basophils % (A) 1 %; Eosinophils # (A) 0.3 k/uL (0-0.7); Eosinophils % (A) 7 %; HCT 38.1 % (39.0-53.0); HGB 12.2 gm/dL (13.0-17.5); Lymphocytes # (A) 0.8 k/uL (1.0-4.8); Lymphocytes % (A) 18 %; MCH 32.3 pg (25.0-35.0); Macrocytosis Slight; Mean Platelet Volume 8.7; Monocytes # (A) 0.3 k/uL (0-1.0); Monocytes % (A) 6 %; Neutrophils # (A) 2.8 k/uL (1.3-7.7); Neutrophils % (A) 66 %; Platelet Count 148 k/uL (150-450); RBC 3.78 m/uL (4.30-5.90); WBC 4.2 k/uL (3.8-10.6)
[2023-06-20 04:38] LABS: African American GFR (CKD) >90 (>60 ml/min/1.73 sqM); Anion Gap 9 mmol/L; Blood Urea Nitrogen 12 mg/dL (9-20); Calcium 8.1 mg/dL (8.4-10.2); Carbon Dioxide 19 mmol/L (22-30); Chloride 109 mmol/L (98-107); Glucose 106 mg/dL (74-99); Non-African American GFR(CKD) 88 (>60 ml/min/1.73 sqM); Potassium 4.4 mmol/L (3.5-5.1); Sodium 137 mmol/L (137-145)
[2023-06-20] MEDS: THIAMINE 100 MG TAB PO SCH (08:46)
[2023-06-20] MEDS: diazePAM 2 MG TAB PO SCH (12:11)
--- NOTE | 2023-06-20 14:33 | P.PN ---
Subjective Progress Note Date: 06/20/23 This is a 68-year-old male patient who came into the emergency department with issues of generalized weakness, severe depression and ongoing alcoholism. He came into the emergency having symptoms of alcohol withdrawal and suicidal ideations. Note that the patient has been chronically depressed. During his last evaluation, it was recommended for this patient to start a combination of Zoloft and Remeron by psychiatry. Nevertheless, the patient does not seem to be taking his medications on outpatient basis. He drinks around 1 L of vodka on a daily basis. He also has obstructive sleep apnea and history of rheumatoid arthritis and atrial fibrillation. The patient was seen in the emergency. The patient was quite weak and was having some occasional nausea and palpitations. Subsequently, earlier this morning the patient became more restless, shaking, crawling, kicking, and having some hallucinations. At that point, the patient was started on Ativan and the patient was given a total of 5 mg of Ativan within few hours. Following that, the patient got transferred to the intensive care unit. The patient has a sitter at the bedside. The patient will be started on Precedex drip regarding his restlessness and agitation and signs and symptoms of delirium tremens. The patient clearly states that she is suicidal. He has cut his wrist in the past and he intends to do the same. He also has a suicide sitter at the bedside. He has Hemodynamically her condition is stable. His sodium level is at 134 with a potassium level of 3.4, BUN is at 7 with a creatinine of 0.5. Alcohol level is less than 10. Troponins are negative. There was count 6.7 with a hemoglobin 15.1 and a platelet count of 208. The patient had a chest x-ray in the emergency department that showed some limited bibasilar atelectatic changes without any acute abnormalities. Pulse ox is 95% on room air oxygen. He is running a low-grade fever of 99.9. The patient otherwise has no other new complaints. On today's evaluation of 06/20/2023, the patient is being seen for a follow-up. The patient is calm and comfortable and the patient this morning remains on Precedex. No significant agitation or tremors. No significant hallucinations. Overall condition is improving. The patient was seen by psychiatry. The patient was also started on Librium 20 mg p.o. 3 times daily. He required only 1 dose of Ativan yesterday. Otherwise, clinically stable and hemodynamically stable. BUN is at 12 with a creatinine of 0.8 and his sodium levels at 137 and a white cell count of 4.2 with a hemoglobin 12.2 and a platelet count of 148. The patient remains on Lovenox for DVT prophylaxis. The patient is also on empi mariela antibiotic coverage with IV Zosyn. No other significant events over the past 24 hours. He remains on room air oxygen. He is resting comfortably in bed as the Precedex is being gradually weaned off. Currently Precedex is running at 0.4 mcg/kg/min. Objective - Vital Signs Vital signs: Vital Signs Temp 99.4 F 06/20/23 08:00 Pulse 73 06/20/23 09:00 Resp 22 06/20/23 09:00 BP 173/106 06/20/23 09:00 Pulse Ox 98 06/20/23 09:00 FiO2 Intake & Output 06/19/23 06/20/23 06/20/23 18:59 06:59 18:59 Intake Total 2420.558 1687.237 159.543 Output Total 285 710 55 Balance 2135.558 977.237 104.543 Weight 83.5 kg Intake: IV 1200 720 Sodium Chloride 0.9% 1, 1200 720 000 ml @ 120 mls/hr IV . Q8H20M [facility] Rx#:[id number] Intake, IV Titration 1220.558 967.237 159.543 Amount Dexmedetomidine/0.9% NaCl 120.558 147.237 39.543 (Pmx) 400 mcg In Empty Bag 1 bag @ 0.2 MCG/KG/HR 4.196 mls/hr IV .[id number] [facility] Rx#:[id number] Potassium Chloride 10 meq 100 100 In Water For Injection 1 100ml.bag @ 100 mls/hr IVPB Q1HR [facility] Rx#: [id number] Sodium Chloride 0.9% 1, 720 120 000 ml @ 120 mls/hr IV . Q8H20M [facility] Rx#:[id number] Sodium Chloride 0.9% 1, 1000 000 ml @ 999 mls/hr IV . Q1H1M ONE Rx#:[id number] Output: Urine 285 710 55 Other: Voiding Method Indwelling Catheter Indwelling Catheter - Exam GENERAL EXAM: Calm and comfortable, the patient is currently on room air oxygen. Pulse ox in the order of 95%. He does have a dull affect. The patient was started on Precedex. HEAD: Normocephalic and atraumatic EYES: Normal reaction of pupils, equal size. NOSE: Clear with pink turbinates. THROAT: No erythema or exudates. NECK: No masses, no JVD. CHEST: No chest wall deformity. LUNGS: Equal air entry with no crackles, wheeze, rhonchi or dullness. . No conversational dyspnea or accessory muscle use.. CVS: S1 and S2 normal with no audible murmur, regular rhythm. No extra heart so unds. Tachycardic ABDOMEN: No hepatosplenomegaly, active bowel sounds, no guarding or rigidity. SPINE: No scoliosis or deformity SKIN: No rashes. Horizontal scar on right wrist CENTRAL NERVOUS SYSTEM: Anxious and restless but redirectable. Resting tremor. No focal deficits, tone is normal in all 4 extremities. EXTREMITIES: Right ankle brace. There is no peripheral edema, clubbing, or cyanosis. Peripheral pulses are intact. - Labs CBC & Chem 7: 06/20/23 04:11 06/20/23 04:11 Labs: Abnormal Lab Results - Last 24 Hours (Table) 06/20/23 06/20/23 Range/Units 04:11 04:11 RBC 3.78 L (4.30-5.90) m/uL Hgb 12.2 L (13.0-17.5) gm/dL Hct 38.1 L (39.0-53.0) % MCV 101.0 H (80.0-100.0) fL Plt Count 148 L (150-450) k/uL Lymphocytes # 0.8 L (1.0-4.8) k/uL Chloride 109 H (98-107) mmol/L Carbon Dioxide 19 L (22-30) mmol/L Glucose 106 H (74-99) mg/dL Calcium 8.1 L (8.4-10.2) mg/dL Assessment and Plan Plan: Delirium tremens and the patient has active symptoms of alcohol withdrawal. He is known alcoholic and drinks around 1 L of vodka on a daily basis and has had previous episode of delirium tremens. Alcohol level was less than 10 on the time of admission. He was having restlessness, tremors, agitation and nivia lucinations. The patient was started on Precedex drip. Clinically stable, no active tremors, no significant agitation. Precedex is running at 0.4 mcg/kg/min and the patient will be gradually weaned off Alcoholism, patient reportedly drinks 1 L of vodka per day, last drink approximately 24 hours ago. Serum EtOH level on arrival less than 10 History of severe depression with suicidal ideation. The patient has been seen by psychiatry during his last admission and was recommended for this patient to start a combination of Zoloft and Remeron for insomnia at nighttime. The patient feels helpless. He feels severely depressed. He has had previous history of suicide including cutting his wrist. He intends to do the same as the patient continues to have ongoing suicidal ideations. Suicidal ideation and the patient has undergone previous suicidal attempts. Sinus tachycardia, secondary to above Previous history of paroxysmal atrial fibrillation Obstructive sleep apnea History of frequent falls Recent acute RSV infection in April 2023, the patient required brief hospitalization History of right ankle fracture, status post internal fixation, and subsequent removal of retained hardware History of major depression with previous suicidal attempts Plan: The patient was monitored closely in the intensive care unit and the patient will have a one-to-one sitter for safety Continue Precedex for delirium tremens and ongoing agitation or restlessness, and gradually wean it off Use Ativan and this will be given per [facility] protocol Patient was started on chlordiazepoxide 20 mg p.o. 3 times daily Psychiatric consultation has been appreciated Will start the patient on a combination of Zoloft 100 mg p.o. daily and Remeron 7.5 mg at bedtime Vitamin B1 replacement Protonix for GI prophylaxis Continue with suicide precautions Will continue to follow make further recommendations based on his progress.
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
--- NOTE | 2023-06-21 12:41 | P.PN ---
Subjective Progress Note Date: 06/21/23 This is a 68-year-old male patient who came into the emergency department with issues of generalized weakness, severe depression and ongoing alcoholism. He came into the emergency having symptoms of alcohol withdrawal and suicidal ideations. Note that the patient has been chronically depressed. During his last evaluation, it was recommended for this patient to start a combination of Zoloft and Remeron by psychiatry. Nevertheless, the patient does not seem to be taking his medications on outpatient basis. He drinks around 1 L of vodka on a daily basis. He also has obstructive sleep apnea and history of rheumatoid arthritis and atrial fibrillation. The patient was seen in the emergency. The patient was quite weak and was having some occasional nausea and palpitations. Subsequently, earlier this morning the patient became more restless, shaking, crawling, kicking, and having some hallucinations. At that point, the patient was started on Ativan and the patient was given a total of 5 mg of Ativan within few hours. Following that, the patient got transferred to the intensive care unit. The patient has a sitter at the bedside. The patient will be started on Precedex drip regarding his restlessness and agitation and signs and symptoms of delirium tremens. The patient clearly states that she is suicidal. He has cut his wrist in the past and he intends to do the same. He also has a suicide sitter at the bedside. He has Hemodynamically her condition is stable. His sodium level is at 134 with a potassium level of 3.4, BUN is at 7 with a creatinine of 0.5. Alcohol level is less than 10. Troponins are negative. There was count 6.7 with a hemoglobin 15.1 and a platelet count of 208. The patient had a chest x-ray in the emergency department that showed some limited bibasilar atelectatic changes without any acute abnormalities. Pulse ox is 95% on room air oxygen. He is running a low-grade fever of 99.9. The patient otherwise has no other new complaints. On today's evaluation of 06/20/2023, the patient is being seen for a follow-up. The patient is calm and comfortable and the patient this morning remains on Precedex. No significant agitation or tremors. No significant hallucinations. Overall condition is improving. The patient was seen by psychiatry. The patient was also started on Librium 20 mg p.o. 3 times daily. He required only 1 dose of Ativan yesterday. Otherwise, clinically stable and hemodynamically stable. BUN is at 12 with a creatinine of 0.8 and his sodium levels at 137 and a white cell count of 4.2 with a hemoglobin 12.2 and a platelet count of 148. The patient remains on Lovenox for DVT prophylaxis. The patient is also on empi mariela antibiotic coverage with IV Zosyn. No other significant events over the past 24 hours. He remains on room air oxygen. He is resting comfortably in bed as the Precedex is being gradually weaned off. Currently Precedex is running at 0.4 mcg/kg/min. On today's evaluation of 06/21/2023, the patient is doing well. No specific complaints. Resting comfortably in bed. He has a sitter at the bedside. He has recovered from his delirium tremens. He remains severely depressed. He is on antidepressant therapy for now. He is also on Librium. No new labs are available from today. No fever. Chest x-ray from 06/19/2023 showed some atelectatic change in lung bases, no other acute abnormalities noted. Objective - Vital Signs Vital signs: Vital Signs Temp 99.0 F 06/21/23 06:40 Pulse 73 06/21/23 06:40 Resp 17 06/21/23 06:40 BP 142/71 06/21/23 06:40 Pulse Ox 93 L 06/21/23 06:40 FiO2 Intake & Output 06/20/23 06/21/23 06/21/23 18:59 06:59 18:59 Intake Total 2143.389 860 Output Total 925 800 Balance 1218.389 60 Intake: IV 1320 Sodium Chloride 0.9% 1, 1320 000 ml @ 120 mls/hr IV . Q8H20M [facility] Rx#:[id number] Intake, IV Titration 273.389 Amount Dexmedetomidine/0.9% NaCl 53.389 (Pmx) 400 mcg In Empty Bag 1 bag @ 0.2 MCG/KG/HR 4.196 mls/hr IV .[id number] [facility] Rx#:[id number] Piperacillin-Tazobactam 3 100 .375 gm In Sodium Chloride 0.9% 100 ml @ 25 mls/hr IVPB Q8HR [facility] Rx# :[id number] Sodium Chloride 0.9% 1, 120 000 ml @ 120 mls/hr IV . Q8H20M [facility] Rx#:[id number] Oral 550 860 Output: Urine 925 800 Other: Voiding Method Indwelling Catheter Indwelling Catheter # Voids 2 - Exam GENERAL EXAM: Calm and comfortable, the patient is currently on room air oxygen. Pulse ox in the order of 95%. He does have a dull affect. The patient was started on Precedex. HEAD: Normocephalic and atraumatic EYES: Normal reaction of pupils, equal size. NOSE: Clear with pink turbinates. THROAT: No erythema or exudates. NECK: No masses, no JVD. CHEST: No chest wall deformity. LUNGS: Equal air entry with no crackles, wheeze, rhonchi or dullness. . No conversational dyspnea or accessory muscle use.. CVS: S1 and S2 normal with no audible murmur, regular rhythm. No extra heart so unds. Tachycardic ABDOMEN: No hepatosplenomegaly, active bowel sounds, no guarding or rigidity. SPINE: No scoliosis or deformity SKIN: No rashes. Horizontal scar on right wrist CENTRAL NERVOUS SYSTEM: Anxious and restless but redirectable. Resting tremor. No focal deficits, tone is normal in all 4 extremities. EXTREMITIES: Right ankle brace. There is no peripheral edema, clubbing, or cyanosis. Peripheral pulses are intact. - Labs CBC & Chem 7: 06/20/23 04:11 06/20/23 04:11 Assessment and Plan Plan: Delirium tremens and the patient has active symptoms of alcohol withdrawal, recovered and the patient is on Librium Alcoholism, patient reportedly drinks 1 L of vodka per day, last drink approximately 24 hours ago. Serum EtOH level on arrival less than 10 History of severe depression with suicidal ideation. The patient has been seen by psychiatry during his last admission and was recommended for this patient to start a combination of Zoloft and Remeron for insomnia at nighttime. The patient feels helpless. He feels severely depressed. He has had previous history of suicide including cutting his wrist. He intends to do the same as the patient continues to have ongoing suicidal ideations. Suicidal ideation and the patient has undergone previous suicidal attempts. Sinus tachycardia, secondary to above, recovered Previous history of paroxysmal atrial fibrillation Obstructive sleep apnea History of frequent falls Recent acute RSV infection in April 2023, the patient required brief hospitalization History of right ankle fracture, status post internal fixation, and subsequent removal of retained hardware History of major depression with previous suicidal attempts Plan: Keep the patient on Librium Patient was started on chlordiazepoxide 20 mg p.o. 3 times daily Psychiatric consultation has been appreciated Will start the patient on a combination of Zoloft 100 mg p.o. daily and Remeron 7.5 mg at bedtime Vitamin B1 replacement Protonix for GI prophylaxis Continue with suicide precautions Discontinue antibiotics .
[2023-06-21] MEDS: METOPROLOL TARTRATE 25 MG TAB PO STA (13:21)
[2023-06-21] MEDS: LISINOPRIL-HCTZ 10-12.5 MG 1 EACH TAB PO SCH (13:21)
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
[2023-06-21] MEDS: METOPROLOL TARTRATE 50 MG TAB PO SCH (21:17)
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
--- NOTE | 2023-06-22 17:51 | P.PN ---
Subjective Progress Note Date: 06/22/23 This is a 68-year-old male patient who came into the emergency department with issues of generalized weakness, severe depression and ongoing alcoholism. He came into the emergency having symptoms of alcohol withdrawal and suicidal ideations. Note that the patient has been chronically depressed. During his last evaluation, it was recommended for this patient to start a combination of Zoloft and Remeron by psychiatry. Nevertheless, the patient does not seem to be taking his medications on outpatient basis. He drinks around 1 L of vodka on a daily basis. He also has obstructive sleep apnea and history of rheumatoid arthritis and atrial fibrillation. The patient was seen in the emergency. The patient was quite weak and was having some occasional nausea and palpitations. Subsequently, earlier this morning the patient became more restless, shaking, crawling, kicking, and having some hallucinations. At that point, the patient was started on Ativan and the patient was given a total of 5 mg of Ativan within few hours. Following that, the patient got transferred to the intensive care unit. The patient has a sitter at the bedside. The patient will be started on Precedex drip regarding his restlessness and agitation and signs and symptoms of delirium tremens. The patient clearly states that she is suicidal. He has cut his wrist in the past and he intends to do the same. He also has a suicide sitter at the bedside. He has Hemodynamically her condition is stable. His sodium level is at 134 with a potassium level of 3.4, BUN is at 7 with a creatinine of 0.5. Alcohol level is less than 10. Troponins are negative. There was count 6.7 with a hemoglobin 15.1 and a platelet count of 208. The patient had a chest x-ray in the emergency department that showed some limited bibasilar atelectatic changes without any acute abnormalities. Pulse ox is 95% on room air oxygen. He is running a low-grade fever of 99.9. The patient otherwise has no other new complaints. On today's evaluation of 06/20/2023, the patient is being seen for a follow-up. The patient is calm and comfortable and the patient this morning remains on Precedex. No significant agitation or tremors. No significant hallucinations. Overall condition is improving. The patient was seen by psychiatry. The patient was also started on Librium 20 mg p.o. 3 times daily. He required only 1 dose of Ativan yesterday. Otherwise, clinically stable and hemodynamically stable. BUN is at 12 with a creatinine of 0.8 and his sodium levels at 137 and a white cell count of 4.2 with a hemoglobin 12.2 and a platelet count of 148. The patient remains on Lovenox for DVT prophylaxis. The patient is also on empi mariela antibiotic coverage with IV Zosyn. No other significant events over the past 24 hours. He remains on room air oxygen. He is resting comfortably in bed as the Precedex is being gradually weaned off. Currently Precedex is running at 0.4 mcg/kg/min. On today's evaluation of 06/21/2023, the patient is doing well. No specific complaints. Resting comfortably in bed. He has a sitter at the bedside. He has recovered from his delirium tremens. He remains severely depressed. He is on antidepressant therapy for now. He is also on Librium. No new labs are available from today. No fever. Chest x-ray from 06/19/2023 showed some atelectatic change in lung bases, no other acute abnormalities noted. On 06/22/2023, patient has no complaints. Resting comfortably in bed. Severely depressed. Pending psychiatry evaluation. No signs of any delirium tremens. No new labs are available from today. He remains on Zoloft 100 mg p.o. daily and Remeron 7.5 mg at bedtime and the patient is also on Librium 20 mg p.o. 3 times daily. Objective - Vital Signs Vital signs: Vital Signs Temp 98.4 F 06/22/23 07:05 Pulse 74 06/22/23 07:05 Resp 17 06/22/23 07:05 BP 170/99 06/22/23 07:05 Pulse Ox 93 L 06/22/23 07:05 FiO2 Intake & Output 06/21/23 06/22/23 06/22/23 18:59 06:59 18:59 Intake Total 480 Output Total 1000 Balance 480 -1000 Intake: Blood Product 480 Output: Urine 1000 Other: Voiding Method External Catheter External Catheter Toilet External Catheter # Voids 2 3 - Exam GENERAL EXAM: Calm and comfortable, the patient is currently on room air oxygen. Pulse ox in the order of 95%. He does have a dull affect. The patient was started on Precedex. HEAD: Normocephalic and atraumatic EYES: Normal reaction of pupils, equal size. NOSE: Clear with pink turbinates. THROAT: No erythema or exudates. NECK: No masses, no JVD. CHEST: No chest wall deformity. LUNGS: Equal air entry with no crackles, wheeze, rhonchi or dullness. . No conversational dyspnea or accessory muscle use.. CVS: S1 and S2 normal with no audible murmur, regular rhythm. No extra heart sounds. Tachycardic ABDOMEN: No hepatosplenomegaly, active bowel sounds, no guarding or rigidity. SPINE: No scoliosis or deformity SKIN: No rashes. Horizontal scar on right wrist CENTRAL NERVOUS SYSTEM: Anxious and restless but redirectable. Resting tremor. No focal deficits, tone is normal in all 4 extremities. EXTREMITIES: Right ankle brace. There is no peripheral edema, clubbing, or cyanosis. Peripheral pulses are intact. - Labs CBC & Chem 7: 06/20/23 04:11 06/20/23 04:11 Assessment and Plan Plan: Delirium tremens and the patient has active symptoms of alcohol withdrawal, recovered and the patient is on Librium, stable. Remains severely depressed Alcoholism, patient reportedly drinks 1 L of vodka per day, last drink approximately 24 hours ago. Serum EtOH level on arrival less than 10 History of severe depression with suicidal ideation. The patient has been seen by psychiatry during his last admission and was recommended for this patient to start a combination of Zoloft and Remeron for insomnia at nighttime. The patient feels helpless. He feels severely depressed. He has had previous history of suicide including cutting his wrist. He intends to do the same as the patient continues to have ongoing suicidal ideations. Suicidal ideation and the patient has undergone previous suicidal attempts. Sinus tachycardia, secondary to above, recovered Previous history of paroxysmal atrial fibrillation Obstructive sleep apnea History of frequent falls Recent acute RSV infection in April 2023, the patient required brief hospitalization History of right ankle fracture, status post internal fixation, and subsequent removal of retained hardware History of major depression with previous suicidal attempts Plan: Keep the patient on Librium Patient was started on chlordiazepoxide 20 mg p.o. 3 times daily Psychiatric consultation has been appreciated Will start the patient on a combination of Zoloft 100 mg p.o. daily and Remeron 7.5 mg at bedtime Vitamin B1 replacement Protonix for GI prophylaxis Continue with suicide precautions Will sign off the case .
--- NOTE | 2023-06-23 15:00 | P.PN ---
Progress Note - Text Progress Note Date: 06/23/23 This is a psychiatric follow-up on Chuck Grimes who is a 68-year-old male and was currently hospitalized for severe alcohol dependency and withdrawals as well as depression Patient at the time of admission had endorses suicidal ideations Patient was attempted to be seen by Dr. Zavaleta but was unable to participate due to obtundation When seen today patient was easily arousable Patient however still appears very weak and responses were appropriate but very feeble Patient's speech was barely audible He admits that he is being quite depressed for some time Patient states that he used to work in the [employer] and has been retired for 10 years He states that he is and that his children are adults and all mood on Patient did not seem to be too interested in getting any specific details about his family life He states that he lives alone and drinks most of the day He says that he takes about a gallon of hard liquor on a daily basis He says that he feels very weak and barely can ambulate with a walker He states that he cannot take care of himself He also states that he tried to kill himself by cutting on his wrists about 2 years ago He says that he is being thinking about dying Reports that he has had some treatment in the past and that he had gone through a detox program in [place] He says that he has had some bad experience to the psych department here and does not prefer to go inpatient here However still endorses depression with suicidal thoughts but no specific plan at this time Mental status examination reveals a elderly male who looks much older for his age Patient was sleeping but was easily arousable He is alert and oriented to time place and person Speech was clear coherent and relevant Thought processes are goal-directed sequential and logical There is no evidence of any overt psychosis Patient admits feeling depressed, helpless and hopeless She did not endorse to any specific suicidal plans but states that he has ideations He also feels that he cannot take care of himself His formal and operational judgment and insight are impaired Cognitively patient appears to be improving Diagnostic impression: Major depressive disorder chronic with acute exacerbation Rule out pervasive persistent depressive disorder/dysthymia Alcohol use disorder chronic severe Plan: The patient this time is in the detox protocol for alcohol and is being monitored with the CIWA score I reviewed the current management and treatment plan Patient also is a good candidate for answering to the psychiatric unit after medical stabilization Patient however continues to request for a transfer to a different facility and have advised him that Initially tried to bring him to the psychiatric unit here and then the social science instructor can then work on getting him into a different facility of his choice Thank you very much for your kind referral please contact me if any further questions Donta Goodwin M.D.
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
[2023-06-23] MEDS: diazePAM 2 MG TAB PO STA (21:40)
[2023-06-23] MEDS: METOPROLOL TARTRATE 25 MG TAB PO SCH (22:27)
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
[2023-06-25 08:03] VITALS: BP 120/77; PULSE 90; RESP 18; TEMP 98.1
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
== END 2023-06-25 14:07 | DRG 871 ==
LOC: EC 03:10 → 2SICU 04:53 → 4SSUR 06-20 23:45
PROVIDERS: ADMIT Hospitalist; ATTEND Hospitalist
PROC: HZ2ZZZZ Detoxification Services for Substance Abuse Treatment (ICD-10-PCS; principal; 2023-06-19)
DX: A41.9 Sepsis, unspecified organism (principal); J69.0 Pneumonitis due to inhalation of food and vomit; F10.231 Alcohol dependence with withdrawal delirium; I48.19 Other persistent atrial fibrillation; F33.8 Other recurrent depressive disorders; R45.851 Suicidal ideations; M06.9 Rheumatoid arthritis, unspecified; G25.81 Restless legs syndrome; G47.33 Obstructive sleep apnea (adult) (pediatric); Z71.41 Alcohol abuse counseling and surveillance of alcoholic; F43.23 Adjustment disorder with mixed anxiety and depressed mood; G89.4 Chronic pain syndrome; I11.0 Hypertensive heart disease with heart failure; Z86.16 Personal history of COVID-19; K59.09 Other constipation; I50.9 Heart failure, unspecified; M79.7 Fibromyalgia; M25.571 Pain in right ankle and joints of right foot; M21.371 Foot drop, right foot; Z79.899 Other long term (current) drug therapy; Z82.49 Family history of ischemic heart disease and other diseases of the circulatory system; R29.6 Repeated falls; I48.0 Paroxysmal atrial fibrillation; Z85.828 Personal history of other malignant neoplasm of skin; Z91.51 Personal history of suicidal behavior; Z66 Do not resuscitate; Z91.81 History of falling; Z96.611 Presence of right artificial shoulder joint; Z79.01 Long term (current) use of anticoagulants
CPT/HCPCS: 36415; 71045; 80048; 80320; 82075; 83735; 84484; 85025; 85610; 85730; 87324; 87635; 93005; 96361; 96372; 96374; 96375; 96376; 99291